=== PATIENT | male | born 1940 | race Hispanic/Latino ===

== ENCOUNTER 2017-08-08 18:24 | Observation (INO) | payer OTHER ==
[2017-08-08] MEDS ORDERED: ACETAMINOPHEN 500 MG TAB ONE (19:14)
[2017-08-08] MEDS ORDERED: NA CHLORIDE 0.9% 1,000 ML ONE (19:14)
[2017-08-08 19:21] LABS: Absolute Lymphocytes (CBC) 0.6 K/uL (0.7-4.9); Absolute Monocytes 0.7 K/uL (0.1-1.3); Absolute Neutrophil 8.2 K/uL (1.8-8.0); Basophils % 0.1 % (0-1.3); Eosinophils % 0.1 % (0-4.4); Hematocrit 40.9 % (39.6-49.0); Lymphocytes % 6.4 % (15.3-44.8); MCH 29.4 pg (27.0-35.0); MCV 90.3 fL (80-100); MPV 8.2 fL (7.6-11.3); Monocytes % 7.6 % (3.3-12.3); RBC Red Blood Cell Count 4.53 M/uL (4.33-5.43)
[2017-08-08 19:25] LABS: Protime INR 1.21
[2017-08-08 19:29] LABS: Potassium 4.7 mEq/L (3.6-5.0)
[2017-08-08 19:35] LABS: Albumin 4.1 g/dL (3.2-5.5); Bilirubin Direct 0.2 mg/dL (0-0.2); Bilirubin Total 0.7 mg/dL (0.3-1.2); Magnesium 1.9 mg/dL (1.8-2.5); Protein, Total 8.2 g/dL (6.0-8.3)
--- NOTE | 2017-08-08 19:52 | RAD REPORT ---
EXAM DESCRIPTION: RAD - Chest Single View - 08/08/2017 7:30 pm CLINICAL HISTORY: Fever, cough COMPARISON: April 2016 TECHNIQUE: AP portable chest image was obtained 1925 hour . FINDINGS: Interstitial markings are prominent but not clearly different. No failure, infiltrate or m ass seen. Early interstitial edema or infiltrate could be masked by the chronic underlying pattern. H eart and vasculature are normal. No measurable pleural effusion and no pneumothorax. No acute bony ab normality seen. Degenerative changes are present at both shoulder joints. No acute aortic findings vega spected. IMPRESSION: Chronic interstitial lung disease is present similar to comparison. Early interstitial edema or infiltrate could be masked.
--- NOTE | 2017-08-08 20:08 | EKG ---
Test Date: 2017-08-08 Test Time: 18:50:42 [employer] Ranger: HB MEASUREMENT RESULTS: Intervals: Rate: 109 RI: 130 QRSD: 80 QT: 314 QTc: 422 [place]: P: 55 RI: 130 QRS: 8 T: 48 INTERPRETIVE STATEMENTS: Sinus tachycardia with premature atrial complexes Otherwise normal ECG Compared to ECG 05/07/2016 07:57:30 Atrial premature complex(es) now present Sinus rhythm no longer present Electronically Signed On 08-08-17 20:07:42 CDT by Tobi Tong
[2017-08-08 20:51] LABS: Blood Morphology Comment NOTED (NOT SEEN); Platelet Estimate ADEQ; Toxic Granulation PRESENT
[2017-08-08 20:52] LABS: Anisocytosis 1+
[2017-08-08 21:11] LABS: Urine Blood NEGATIVE (NEG); Urine Glucose NEGATIVE (NEG); Urine Protein 2+ (NEG); Urine Specific Gravity >1.030 (1.005-1.030); Urine pH 5.5 (5.0-7.0)
--- NOTE | 2017-08-08 21:33 | ER ---
Nurse's Notes [facility] Name: Redd Tapia Age: 76 yrs Sex: Male : 1940 Arrival Date: 08/08/2017 Time: 18:26 Bed 6 Private MD: Diagnosis: Dehydration;Acute kidney injury;Vomiting;Diarrhea, unspecified;Bronchitis, not specified as acute or chronic-Possible COPD exacerbation Presentation: 08/08 18:29 Presenting complaint: Child states: " He has fallen twice today, he has been feeling ph weak since Wednesday and has been vomiting, he can't keep anything down." Reports N/V, cough, and general weakness, denies pain or diarrhea. Pt also denies injury or pain from falls. Transition of care: patient was not received from another setting of care. Onset of symptoms was August 08, 2017. Care prior to arrival: None. 18:29 Method Of Arrival: Wheelchair ph 18:29 Acuity: KIRAN 3 ph 18:45 Acuity: KIRAN 2 hb Historical: - Allergies: 18:34 No Known Allergies; ph - Home Meds: 18:59 metformin Oral [Active]; Simvastatin Oral [Active]; Ranitidine Oral [Active]; Magnesium sv Oxide Oral [Active]; lisinopril-hydrochlorothiazide oral oral [Active]; Advair Diskus Inhl [Active]; cetirizine oral oral [Active]; - PMHx: 18:34 Breathing Problems; Diabetes - NIDDM; Hyperlipidemia; Hypertension; ph - PSHx: 18:34 ana luisa hip sx; ph - Immunization history:: Adult Immunizations not up to date. - Social history:: Smoking status: Patient/guardian denies using tobacco. Screenin:50 Abuse screen: Denies threats or abuse. Denies injuries from another. Nutritional sv screening: No deficits noted. Tuberculosis screening: No symptoms or risk factors identified. Fall Risk Fall in past 12 months (25 points). No secondary diagnosis (0 pts). IV access (20 points). Ambulatory Aid- None/Bed Rest/Nurse Assist (0 pts). Gait- Weak (10 pts.). Mental Status- Oriented to own ability (0 pts). Total Marcelo Fall Scale indicates High Risk Score (45 or more points). Fall prevention measures have been instituted. Placed Close to Nursing Station Frequent Obs/Assessments Occuring Family Present and informed to notify staff if the need to leave the bedside As available patient and family educated on Fall Prevention Program and Strategies. Assessment: 18:40 General: Appears in no apparent distress. comfortable, Behavior is calm, cooperative, sv appropriate for age. General: Family reports that he was getting agitated earlier today.. Pain: Denies pain. Neuro: Level of Consciousness is awake, alert, obeys commands, Oriented to person, place, time, situation, Moves all extremities. Full function. Cardiovascular: Denies chest pain, palpitations, shortness of breath, syncope, Patient's skin is warm and dry. Rhythm is atrial fibrillation with rapid ventricular response. Respiratory: Reports cough that is productive, green sputum Respiratory effort is even, unlabored, Respiratory pattern is regular, symmetrical, Denies shortness of breath. GI: Reports intolerance of food, nausea, vomiting. Derm: Skin is thin, Skin is normal. Musculoskeletal: Range of motion: intact in all extremities. 18:42 Reassessment: HR 170s, SHRIMP PICKER Oswaldo notified. hb 18:43 Reassessment: KATHIA Chacon at bedside. hb 19:10 General: Appears in no apparent distress. comfortable, Behavior is calm, cooperative, ao appropriate for age. Pain: Denies pain. Neuro: Level of Consciousness is awake, alert, obeys commands, Oriented to person, place, time, situation, Appropriate for age Moves all extremities. Weakness Speech is normal, Facial symmetry appears normal, Pupils are PERRLA. Cardiovascular: Denies chest pain, palpitations, shortness of breath, syncope, Capillary refill < 3 seconds Patient's skin is warm and dry. Rhythm is atrial fibrillation with rapid ventricular response. Respiratory: Airway is patent Respiratory effort is even, unlabored, Respiratory pattern is regular, symmetrical, Denies shortness of breath. GI: Abdomen is non-distended, Reports intolerance of food, nausea, vomiting. : No signs and/or symptoms were reported regarding the genitourinary system. EENT: No signs and/or symptoms were reported regarding the EENT system. Derm: Skin is thin, Skin is normal. Musculoskeletal: Range of motion: intact in all extremities. 20:01 Reassessment: Patient appears in no apparent distress at this time. Patient and/or ao family updated on plan of care and expected duration. Pain level reassessed. Patient is alert, oriented x 3, equal unlabored respirations, skin warm/dry/pink. Family at bedside. 21:00 Reassessment: Patient appears in no apparent distress at this time. Patient and/or ao family updated on plan of care and expected duration. Pain level reassessed. Patient is alert, oriented x 3, equal unlabored respirations, skin warm/dry/pink. 21:30 Reassessment: Patient went from SR to AFib with a HR of 145. Oswaldo SHRIMP PICKER was notified. ao Patient stated with a HR of 145 for about 5 minutes then came down to 86. 22:01 Reassessment: Patient appears in no apparent distress at this time. Patient and/or ao family updated on plan of care and expected duration. Pain level reassessed. Patient is alert, oriented x 3, equal unlabored respirations, skin warm/dry/pink. Waiting on room assigment. 22:34 Reassessment: Patient back to AFib with a HR of 143. Oswaldo BAE notified. ao 23:20 Reassessment: Phone report given to JAS Haley. Patient will be taking to his room. ao Vital Signs: 18:31 BP 124 / 60; Pulse 78; Resp 16; Temp 101.1(TE); Pulse Ox 92% on R/A; Weight 63.5 kg; ph Pain 0/10; 19:10 BP 130 / 65; Pulse 106; Resp 24; Pulse Ox 97% on R/A; Pain 0/10; ao 20:01 BP 116 / 56; Pulse 90; Resp 18; Pulse Ox 96% on R/A; Pain 0/10; ao 20:46 Temp 100.2(O); mt 21:07 BP 109 / 55; Pulse 87; Resp 16; Pulse Ox 97% on R/A; mt 22:02 BP 106 / 57; Pulse 87; Resp 16; Pulse Ox 97% on R/A; Pain 0/10; ao 22:35 BP 111 / 71; Pulse 135; Resp 18; Pulse Ox 97% on R/A; Pain 0/10; ao 23:00 Temp 99.6; ao 23:20 BP 120 / 72; Pulse 143; Resp 18; Temp 99.6; Pulse Ox 99% on R/A; Pain 0/10; ao ED Course: 18:26 Patient arrived in ED. as 18:31 Triage completed. ph 18:34 Arm band placed on. ph 18:40 quality assurance monitor body on. Pulse ox on. NIBP on. Head of bed elevated. sv 18:40 Initial lab(s) drawn, by me, sent to lab. First set of blood cultures drawn by me. sv Inserted saline lock: 20 gauge in right forearm, using aseptic technique. Blood collected. Flushed right forearm with 5 ml normal saline. Inserted saline lock: 20 gauge in left antecubital area, using aseptic technique. ,using aseptic technique. done by Zoraida CUELLAR. 18:44 Oswaldo Mclaughlin, KATHIA is PHCP. pm1 18:44 Lan Casas MD is Attending Physician. pm1 18:50 Patient has correct armband on for positive identification. Placed in gown. Bed in low sv position. Call light in reach. Side rails up X2. Adult w/ patient. 19:00 Report given to Xavier MARK and Neomi MARK. sv 19:06 Report received from JAS Canales. ao 19:24 X-ray completed. Portable x-ray completed in exam room. Patient tolerated procedure la2 well. 19:37 Xavier Gonzales RN is Primary Nurse. ao 21:30 Snag Linares MD is Hospitalizing Provider. pm1 23:29 No provider procedures requiring assistance completed. Patient admitted, IV remains in ao place. Administered Medications: 19:00 Drug: Tylenol 1000 mg Route: PO; sv 23:00 Follow up: Temp 99.6 ao 19:00 Drug: NS 0.9% 500 ml Route: IV; Rate: bolus; Site: right forearm; sv 22:23 Follow up: IV Status: Completed infusion lp1 19:30 Drug: NS 0.9% 1000 ml Route: IV; Rate: 100 ml/hr; Site: left antecubital; ao 08/09 03:48 Follow up: IV Status: Infusion continued upon admission ao 08/08 22:22 Drug: AZITHromycin 500 mg Route: IVPB; Infused Over: 1 hrs; Site: right antecubital; lp1 22:30 Follow up: IV Status: Completed infusion ao 22:23 Drug: Rocephin - (cefTRIAXone) 1 grams Route: IVPB; Infused Over: 30 mins; Site: right lp1 antecubital; 23:00 Follow up: IV Status: Completed infusion; IV Intake: 10ml ao Intake: 23:00 IV: 10ml; Total: 10ml. ao Outcome: 21:32 Decision to Hospitalize by Provider. pm1 23:29 Admitted to Med/surg accompanied by tech, room 229. ao 23:29 Condition: stable 23:29 Instructed on the need for admit. 23:32 Patient left the ED. ao Signatures: Ally Mims, RN Pamella Bridges Laura RN RN lp1 Carmen Thomas RN RN Xavier Gonzales RN RN ao Oswaldo Mclaughlin, KATHIA SHRIMP PICKER pm1 Zoraida Schmidt RN RN Vaibhav, [place] Laura Mandujano Corrections: (The following items were deleted from the chart) 18:50 12:42 Reassessment: HR 170s, SHRIMP PICKER Oswaldo notified hb hb 22:03 21:00 BP 106 / 57; Pulse 87bpm; Resp 16bpm; Pulse Ox 97% RA; Pain 0/10; ao ao 22:30 22:24 Reassessment: Patient when from SR to AFib with a HR of 145. Oswaldo SHRIMP PICKER was lp1 notified lp1
--- NOTE | 2017-08-08 21:33 | EDPHYS ---
Physician Documentation [facility] Name: Redd Tapia Age: 76 yrs Sex: Male : 1940 Arrival Date: 08/08/2017 Time: 18:26 Bed 6 Private MD: ED Physician Lan Casas HPI: 08/08 21:16 This 76 yrs old Male presents to ER via Wheelchair with complaints of pm1 Coughing, Vomiting, Weakness. 21:16 Onset: The symptoms/episode began/occurred 3 day(s) ago. Possible causes: travel, pm1 Returned from [place] on . Associated signs and symptoms: Pertinent positives: diarrhea, vomiting, Pertinent negatives: abdominal pain, dysuria. Severity of symptoms: in the emergency department the symptoms are unchanged. The patient has not experienced similar symptoms in the past. The patient has not recently seen a physician, the patient's primary care provider is Dr. Tsai. Patient with onset of a productive cough on after a trip to [place]. Sputum sometimes white and sometimes yellow. Patient denies and fever or chills. Patient did not know that he had a fever here at the ER. Patient without any pain. Onset of vomiting and diarrhea on Wednesday. Around 2 episodes of vomiting daily and 2 episodes of diarrhea daily. Patient reports that his vomiting primarily happens after coughing multiple times. Reports good appetite but vomits when he tries to drink or eat. Patient with two falls today after episodes of coughing and he just felt weak. No injury from falls. Historical: - Allergies: 18:34 No Known Allergies; ph - Home Meds: 18:59 metformin Oral [Active]; Simvastatin Oral [Active]; Ranitidine Oral [Active]; Magnesium sv Oxide Oral [Active]; lisinopril-hydrochlorothiazide oral oral [Active]; Advair Diskus Inhl [Active]; cetirizine oral oral [Active]; - PMHx: 18:34 Breathing Problems; Diabetes - NIDDM; Hyperlipidemia; Hypertension; ph - PSHx: 18:34 ana luisa hip sx; ph - Immunization history:: Adult Immunizations not up to date. - Social history:: Smoking status: Patient/guardian denies using tobacco. ROS: 21:16 Constitutional: Negative for fever, chills, and weight loss, Eyes: Negative for injury, pm1 pain, redness, and discharge, ENT: Negative for injury, pain, and discharge, Neck: Negative for injury, pain, and swelling, Cardiovascular: Negative for chest pain, palpitations, and edema. 21:16 Back: Negative for injury and pain, : Negative for injury, bleeding, discharge, and swelling, MS/Extremity: Negative for injury and deformity, Skin: Negative for injury, rash, and discoloration, Neuro: Negative for headache, weakness, numbness, tingling, and seizure. 21:16 Respiratory: Positive for cough, with yellow sputum, Negative for shortness of breath. 21:16 Abdomen/GI: Positive for vomiting, diarrhea, Negative for abdominal pain. Exam: 21:25 Head/Face: Normocephalic, atraumatic. Eyes: Pupils equal round and reactive to light, pm1 extra-ocular motions intact. Lids and lashes normal. Conjunctiva and sclera are non-icteric and not injected. Cornea within normal limits. Periorbital areas with no swelling, redness, or edema. ENT: Nares patent. No nasal discharge, no septal abnormalities noted. Tympanic membranes are normal and external auditory canals are clear. Oropharynx with no redness, swelling, or masses, exudates, or evidence of obstruction, uvula midline. Mucous membranes moist. Neck: Trachea midline, no thyromegaly or masses palpated, and no cervical lymphadenopathy. Supple, full range of motion without nuchal rigidity, or vertebral point tenderness. No Meningismus. Chest/axilla: Normal chest wall appearance and motion. Nontender with no deformity. No lesions are appreciated. 21:25 Respiratory: Lungs have equal breath sounds bilaterally, clear to auscultation and percussion. No rales, rhonchi or wheezes noted. No increased work of breathing, no retractions or nasal flaring. 21:25 Back: No spinal tenderness. No costovertebral tenderness. Full range of motion. Skin: Warm, dry with normal turgor. Normal color with no rashes, no lesions, and no evidence of cellulitis. MS/ Extremity: Pulses equal, no cyanosis. Neurovascular intact. Full, normal range of motion. 21:25 Constitutional: The patient appears in no acute distress, alert, awake, comfortable, non-diaphoretic, non-toxic, well developed, well groomed, well nourished. 21:25 Cardiovascular: Pulses: no pulse deficits are appreciated, Heart sounds: normal, Edema: is not appreciated, Heart rate 150-170 on monitor at initial examination of patient in the room. Appeared to be atrial fibrillation on monitor. Patient's rate 100-110 after evaluation without any intervention performed. 21:25 Abdomen/GI: Inspection: abdomen appears normal, Bowel sounds: normal, Palpation: abdomen is soft and non-tender, in all quadrants. Vital Signs: 18:31 BP 124 / 60; Pulse 78; Resp 16; Temp 101.1(TE); Pulse Ox 92% on R/A; Weight 63.5 kg; ph Pain 0/10; 19:10 BP 130 / 65; Pulse 106; Resp 24; Pulse Ox 97% on R/A; Pain 0/10; ao 20:01 BP 116 / 56; Pulse 90; Resp 18; Pulse Ox 96% on R/A; Pain 0/10; ao 20:46 Temp 100.2(O); mt 21:07 BP 109 / 55; Pulse 87; Resp 16; Pulse Ox 97% on R/A; mt 22:02 BP 106 / 57; Pulse 87; Resp 16; Pulse Ox 97% on R/A; Pain 0/10; ao 22:35 BP 111 / 71; Pulse 135; Resp 18; Pulse Ox 97% on R/A; Pain 0/10; ao 23:00 Temp 99.6; ao 23:20 BP 120 / 72; Pulse 143; Resp 18; Temp 99.6; Pulse Ox 99% on R/A; Pain 0/10; ao MDM: 18:49 Patient medically screened. pm1 21:25 Data reviewed: vital signs. Data interpreted: Pulse oximetry: on room air is 97 %. pm1 Interpretation: normal. Counseling: I had a detailed discussion with the patient and/or guardian regarding: the historical points, exam findings, and any diagnostic results supporting the discharge/admit diagnosis, lab results, radiology results, the need for further work-up and treatment in the hospital. 08/08 18:52 Order name: Basic Metabolic Panel pm1 08/08 18:52 Order name: BNP pm1 08/08 18:52 Order name: CBC with Diff pm08/08 18:52 Order name: Ckmb pm08/08 18:52 Order name: CPK pm1 08/08 18:52 Order name: LFT's pm08/08 18:52 Order name: Magnesium pm08/08 18:52 Order name: PT-INR pm08/08 18:52 Order name: Ptt, Activated pm08/08 18:52 Order name: Troponin (emerg Dept Use Only) pm08/08 18:52 Order name: Blood Culture Adult (2) pm08/08 18:52 Order name: Flu pm08/08 18:52 Order name: Urine Microscopic Only 08/08 18:52 Order name: Procalcitonin pm08/08 18:52 Order name: Lactate pm08/08 19:28 Order name: CBC with Automated Diff; Complete Time: 21:16 EDMS 08/08 19:28 Order name: Protime (+INR); Complete Time: 19:57 EDMS 08/08 19:28 Order name: PTT, Activated Partial Thromb; Complete Time: 19:57 EDMS 08/08 19:29 Order name: Basic Metabolic Panel; Complete Time: 19:57 EDMS 08/08 19:31 Order name: Influenza Screen (A ; Complete Time: 19:57 EDMS 08/08 19:35 Order name: Liver (Hepatic) Function; Complete Time: 19:57 EDMS 08/08 19:35 Order name: Creatine Phosphokinase; Complete Time: 19:57 EDMS 08/08 19:35 Order name: Magnesium; Complete Time: 19:57 EDMS 08/08 19:36 Order name: Troponin (Emerg Dept Use Only); Complete Time: 19:57 EDMS 08/08 19:39 Order name: CKMB Creatine Kinase MB; Complete Time: 19:57 EDMS 08/08 19:39 Order name: BNP B-Type Natriuretic Peptide; Complete Time: 19:57 EDMS 08/08 19:44 Order name: Lactate; Complete Time: 19:57 EDMS 08/08 19:51 Order name: Procalcitonin; Complete Time: 19:57 EDMS 08/08 20:53 Order name: Urine Dipstick--Ancillary (enter results) em08/08 20:54 Order name: Manual Differential; Complete Time: 21:16 EDMS 08/08 18:52 Order name: XRAY Chest (1 view) pm08/08 18:52 Order name: EKG; Complete Time: 18:52 pm1 08/08 18:52 Order name: Cardiac monitoring; Complete Time: 18:55 pm1 08/08 18:52 Order name: EKG - Nurse/Tech; Complete Time: 18:55 pm1 08/08 18:52 Order name: IV Saline Lock; Complete Time: 18:55 pm1 08/08 18:52 Order name: Labs collected and sent; Complete Time: 18:56 pm1 08/08 18:52 Order name: O2 Per Protocol; Complete Time: 18:56 pm1 08/08 18:52 Order name: O2 Sat Monitoring; Complete Time: 18:56 pm1 08/08 18:52 Order name: Urine Dipstick-Ancillary (obtain specimen); Complete Time: 20:52 pm1 08/08 19:53 Order name: RAD; Complete Time: 19:57 EDMS 08/08 21:11 Order name: Urine Dipstick-Ancillary; Complete Time: 21:16 EDMS 08/08 22:04 Order name: Urine Microscopic Only; Complete Time: 23:32 EDMS Administered Medications: 19:00 Drug: Tylenol 1000 mg Route: PO; sv 23:00 Follow up: Temp 99.6 ao 19:00 Drug: NS 0.9% 500 ml Route: IV; Rate: bolus; Site: right forearm; sv 22:23 Follow up: IV Status: Completed infusion lp1 19:30 Drug: NS 0.9% 1000 ml Route: IV; Rate: 100 ml/hr; Site: left antecubital; ao 08/09 03:48 Follow up: IV Status: Infusion continued upon admission ao 08/08 22:22 Drug: AZITHromycin 500 mg Route: IVPB; Infused Over: 1 hrs; Site: right antecubital; lp1 22:30 Follow up: IV Status: Completed infusion ao 22:23 Drug: Rocephin - (cefTRIAXone) 1 grams Route: IVPB; Infused Over: 30 mins; Site: right lp1 antecubital; 23:00 Follow up: IV Status: Completed infusion; IV Intake: 10ml ao Disposition: 08/08/17 21:32 Hospitalization ordered by Sang Linares for Inpatient Admission. Preliminary diagnosis are Dehydration, Acute kidney injury, Vomiting, Diarrhea, unspecified, Bronchitis, not specified as acute or chronic - Possible COPD exacerbation. - Bed requested for Telemetry/MedSurg (Inpatient). - Status is Inpatient Admission. ao - Condition is Stable. - Problem is new. - Symptoms have improved. UTI on Admission? No Addendum: 08/12/2017 07:29 Co-signature as Attending Physician, Lan Casas MD. g s Signatures: Dispatcher [employer] EDMS Taisha Diamond, RN Ally Aleman, RN Noemi Peterson RN RN 1 Carmen Thomas RN RN ph Ortiz, Alex, RN Oswaldo De Leon, ENTERER ENTERER pm1 Lan Casas MD MD Corrections: (The following items were deleted from the chart) 08/08 21:25 21:16 Patient with onset of a productive cough on after a trip to [place]. pm1 Sputum sometimes white and sometimes yellow. Patient denies and fever or chills. Patient did not know that he had a fever here at the ER. Patient without any pain. Onset of vomiting and diarrhea on Wednesday. Around 2 episodes of vomiting daily and 2 episodes of diarrhea daily. Patient reports that his vomiting primarily happens after coughing multiple times. Reports good appetite but vomits when he tries to drink or eat. . pm1
[2017-08-08 22:03] LABS: Urine Amorphous Sediment 4+ /HPF (NONE SEEN); Urine Bacteria <20 /HPF (NONE SEEN); Urine Culture Reflex Order NOT NEEDED; Urine Mucus HEAVY /HPF (NONE SEEN); Urine RBC NONE SEEN /HPF (NONE SEEN)
--- NOTE | 2017-08-08 22:27 | P.HP ---
Certification for Inpatient Patient admitted to: Observation With expected LOS: <2 Midnights Practitioner: I am a practitioner with admitting privileges, knowledge of patient current condition, hospital course, and medical plan of care. Services: Services provided to patient in accordance with Admission requirements found in Title 42 Section 412.3 of the Code of Federal Regulations Patient History Date of Service: 08/08/17 Reason for admission: COPD exacerbation History of Present Illness: Mr Tapia is a 76 years old breana, serbian speaking only, with history of HTN, DM II, COPD, A.fib episode on previous admission in 2016 requiring cardioverion, currently not taking any anticoagulation, who about 4 days ago, after arrived from a car trip to [place], he started with more productive cough than usual. He states that sputum color change to yellow from white. He denied any fever or chills. Since a couple of days, he has had nausea and vomiting, and he was unable to keep any solid or liquid down. No chest pain or increasing SOB. In ED the patient was febrile, O2 92% on RA, blood pressure was on the lower side. Lab work shows normal WBC count, but 21% bands. Procalcitonin and lactate negative. CXR shows no acute infiltrate. Allergies No Known Allergies Allergy (Verified 08/08/17 22:00) Home Medications: Metformin HCl [Metformin HCl ER] 1,000 mg PO BID 05/05/16 Ranitidine HCl 150 mg PO BID 05/05/16 Simvastatin 20 mg PO DAILY 05/05/16 Cetirizine HCl [Zyrtec] 10 mg PO DAILY 08/08/17 Fluticasone/Salmeterol [Advair 250-50 Diskus] 1 puff IN BID 08/08/17 Lisinopril/Hydrochlorothiazide [Lisinopril-Hctz 20-12.5 mg Tab] 1 tab PO DAILY 08/08/17 Magnesium Oxide [Mag 0X*] 400 mg PO DAILY 08/08/17 - Past Medical/Surgical History Has patient received pneumonia vaccine in the past: Yes Diabetic: Yes -: Diabetes -: High Cholesterol -: Hypertension -: asthma -: gerd -: COPD -: Hip Replacement - Family History Family History: Reviewed- Non-Contributory - Social History Smoking Status: Former smoker Alcohol use: Yes CD- Drugs: No Caffeine use: Yes Place of Residence: Home Review of Systems 10-point ROS is otherwise unremarkable Physical Examination - Physical Exam General: Alert, In no apparent distress HEENT: Atraumatic, PERRLA, Mucous membr. moist/pink, EOMI, Sclerae nonicteric Neck: Supple, 2+ carotid pulse no bruit, No LAD, Without JVD or thyroid abnormality Respiratory: Diminished, Expiratory wheezes, Rhonchi/gurgles (bilateral rhonchi) Cardiovascular: Regular rate/rhythm, Normal S1 S2 Gastrointestinal: Normal bowel sounds, No tenderness Musculoskeletal: No tenderness Integumentary: No rashes Neurological: Normal speech, Normal strength at 5/5 x4 extr, Normal tone, Normal affect Lymphatics: No axilla or inguinal lymphadenopathy - Studies Laboratory Data (last 24 hrs) 08/08/17 18:46: PT 14.3 H, INR 1.21, APTT 27.3 08/08/17 18:46: WBC 9.5, Hgb 13.3 L, Hct 40.9, Plt Count 182 08/08/17 18:46: B-Natriuretic Peptide 296 H 08/08/17 18:46: Sodium 132 L, Potassium 4.7, BUN 37 H, Creatinine 1.66 H, Glucose 198 H, Magnesium 1.9, Total Bilirubin 0.7, AST 42, ALT 32, Alkaline Phosphatase 77 Microbiology Data (last 24 hrs): 08/08/17 19:01 Nasopharnyx Influenza Type A Antigen Screen - Final 08/08/17 19:01 Nasopharnyx Influenza Type B Antigen Screen - Final Assessment and Plan - Problems (Diagnosis) (1) COPD exacerbation Current Visit: Yes Status: Acute (2) Acute bronchitis Current Visit: Yes Status: Acute Qualifiers: Bronchitis organism: unspecified organism Qualified Code(s): J20.9 - Acute bronchitis, unspecified (3) Acute renal injury Current Visit: Yes Status: Acute (4) Diabetes mellitus Current Visit: Yes Status: Acute Qualifiers: Diabetes mellitus type: type 2 Diabetes mellitus long term acute care registered nurse insulin use: without long term acute care registered nurse use Diabetes mellitus complication status: with unspecified complications Qualified Code(s): E11.8 - Type 2 diabetes mellitus with unspecified complications (5) HTN (hypertension) Current Visit: Yes Status: Acute Qualifiers: Hypertension type: essential hypertension Qualified Code(s): I10 - Essential (primary) hypertension (6) Dyslipidemia Current Visit: Yes Status: Acute - Plan Mr Tapia will be admitted to the hospital due to COPD exacerbation likely secondaru to acute bronchitis. CXR shows no acute infiltrate. Will order empiric Rocephin and Azithromycin IV, breathing treatments and IV steroids. Consult Dr Quiñones for evaluation and recommendations. - Advance Directives Does patient have a Living Will: No Does patient have a Durable POA for Healthcare: No - Code Status/Comfort Care Code Status Assessed: Yes Code Status: Full Code
[2017-08-08] MEDS ORDERED: AZITHROMYCIN 500 MG/250 ML BAG ONE (22:28)
[2017-08-08] MEDS ORDERED: CEFTRIAXONE/SWI 1gm 1 GM/10 ML SYR ONE (22:28)
[2017-08-08] MEDS ORDERED: NA CHLORIDE 0.9% 1,000 ML IV SCH (23:41)
[2017-08-08] MEDS ORDERED: ONDANSETRON 4 MG/2 ML VIAL IV PRN (23:41)
[2017-08-09] MEDS ORDERED: ALBUTEROL 2.5 MG/3 ML NEB SOL NEB SCH
[2017-08-09] MEDS: METHYLPREDNISOLONE 40 MG INJ IV SCH ×2 (00:10→05:41)
[2017-08-09] MEDS ORDERED: ALBUTEROL 2.5 MG/3 ML NEB SOL NEB PRN (00:17)
[2017-08-09] MEDS ORDERED: IPRATROPIUM BROM 0.5MG/2.5ML NEB PRN (00:17)
[2017-08-09 05:13] VITALS: O2SAT 94
[2017-08-09 06:03] VITALS: BMI 23.8
[2017-08-09 06:09] LABS: Absolute Lymphocytes (CBC) 0.5 K/uL (0.7-4.9); Absolute Monocytes 0.2 K/uL (0.1-1.3); Absolute Neutrophil 6.6 K/uL (1.8-8.0); Basophils % 0.1 % (0-1.3); Hematocrit 37.6 % (39.6-49.0); Lymphocytes % 6.3 % (15.3-44.8); MCH 29.8 pg (27.0-35.0); MCV 92.4 fL (80-100); Monocytes % 2.9 % (3.3-12.3); RBC Red Blood Cell Count 4.07 M/uL (4.33-5.43)
[2017-08-09] MEDS ORDERED: LEVALBUTEROL 1.25 MG/3 ML NEB NEB PRN (06:12)
[2017-08-09 06:17] LABS: Potassium 4.8 mEq/L (3.6-5.0)
[2017-08-09] MEDS ORDERED: LEVALBUTEROL 1.25 MG/3 ML NEB NEB SCH (08:00)
--- NOTE | 2017-08-09 08:36 | P.CNS ---
Date of Consult: 08/09/17 Chief Complaint: COPD exacerbation History of Present Illness: Patient is 76 years of age Romanian-speaking only apparently had fallen twice since Wednesday has been vomiting can't keep anything down complaining of cough weakness prior history of atrial fibrillation even for a recent car trip to [place] in [facility] sputum changed from yellow to white denies any fever or chills denies any chest pain mention of a history of COPD although he does not smoke patient is on Advair at home Allergies No Known Allergies Allergy (Verified 08/08/17 22:00) Home Medications: Metformin HCl [Metformin HCl ER] 1,000 mg PO BID 05/05/16 Ranitidine HCl 150 mg PO BID 05/05/16 Simvastatin 20 mg PO DAILY 05/05/16 Cetirizine HCl [Zyrtec] 10 mg PO DAILY 08/08/17 Fluticasone/Salmeterol [Advair 250-50 Diskus] 1 puff IN BID 08/08/17 Lisinopril/Hydrochlorothiazide [Lisinopril-Hctz 20-12.5 mg Tab] 1 tab PO DAILY 08/08/17 Magnesium Oxide [Mag 0X*] 400 mg PO DAILY 08/08/17 - Past Medical/Surgical History Diabetic: Yes -: Diabetes -: High Cholesterol -: Hypertension -: asthma -: gerd -: COPD -: Hip Replacement - Social History Smoking Status: Former smoker Alcohol use: Yes CD- Drugs: No Caffeine use: Yes Place of Residence: Home Review of Systems is unable to be obtained Physical Examination Temp Pulse Resp BP Pulse Ox 96.8 F 132 H 18 123/66 94 08/09/17 04:00 08/09/17 04:00 08/09/17 04:00 08/09/17 04:00 08/09/17 04:00 General: Alert, Cooperative Neck: Supple Respiratory: Expiratory wheezes Cardiovascular: No edema, Irregular heart rate/rhythm Gastrointestinal: Normal bowel sounds, Soft and benign Musculoskeletal: No clubbing, No swelling Laboratory Data (last 24 hrs) 08/08/17 18:46: PT 14.3 H, INR 1.21, APTT 27.3 08/08/17 18:46: WBC 9.5, Hgb 13.3 L, Hct 40.9, Plt Count 182 08/08/17 18:46: B-Natriuretic Peptide 296 H 08/08/17 18:46: Sodium 132 L, Potassium 4.7, BUN 37 H, Creatinine 1.66 H, Glucose 198 H, Magnesium 1.9, Total Bilirubin 0.7, AST 42, ALT 32, Alkaline Phosphatase 77 - Problems (1) COPD exacerbation Current Visit: Yes Status: Acute Plan: Patient is 76 years of age admitted with worsening cough congestion possible underlying COPD his chest x-ray appears to be fairly clear chemistries mildly elevated creatinine pro calcitonin level is negative vital signs stable blood pressure normal sats satisfactory 94% on room air last echocardiogram in 2015 shows normal left ventricular function. Patient does take Advair at home can be discharged home on on low-dose prednisone 10 mg twice a day with an antibiotic follow up with me in my office in 2 weeks need outpatient pulmonary function testing
[2017-08-09] MEDS ORDERED: ARFORMOTEROL TARTRATE 15 MCG/2 ML VIAL.NEB NEB SCH (08:41)
[2017-08-09] MEDS ORDERED: BENZONATATE 100 MG CAP PO PRN (08:57)
[2017-08-09] MEDS ORDERED: levoFLOXacin 500 MG TAB PO SCH (09:00)
[2017-08-09] MEDS ORDERED: METHYLPREDNISOLONE 40 MG INJ IV SCH (09:00)
[2017-08-09] MEDS: INSULIN -REGULAR HUMAN 50 UNIT/0.5 ML ML SQ SCH ×2 (09:00→13:22)
[2017-08-09] MEDS ORDERED: ENOXAPARIN 30 MG/0.3 ML SQ SCH (09:00)
[2017-08-09 09:22] VITALS: BP 131/60; TEMP 97.5
--- NOTE | 2017-08-09 11:10 | EKG ---
Test Date: 2017-08-09 Test Time: 00:00:21 Flat Knitter: RT T MEASUREMENT RESULTS: Intervals: Rate: 86 UT: 128 QRSD: 84 QT: 380 QTc: 454 [place]: P: 54 UT: 128 QRS: 18 T: 61 INTERPRETIVE STATEMENTS: Normal sinus rhythm Normal ECG Compared to ECG 08/08/2017 18:50:42 Sinus tachycardia no longer present Atrial premature complex(es) no longer present Electronically Signed On 08-09-17 11:09:41 CDT by Tobi Tong
--- NOTE | 2017-08-09 11:11 | EKG ---
Test Date: 2017-08-08 Test Time: 22:58:51 Heating And Cooling Systems Engineer: KYE MEASUREMENT RESULTS: Intervals: Rate: 143 [place]: QRSD: 86 QT: 314 QTc: 484 [place]: P: [place]: QRS: 18 T: 25 INTERPRETIVE STATEMENTS: Atrial fibrillation with rapid ventricular response Abnormal ECG Compared to ECG 08/08/2017 18:50:42 Sinus tachycardia no longer present Atrial premature complex(es) no longer present Electronically Signed On 08-09-17 11:09:48 CDT by Tobi Tong
[2017-08-09] MEDS ORDERED: DILTIAZEM HCL 60 MG TAB PO SCH (12:00)
[2017-08-09] MEDS ORDERED: IPRATROPIUM BROM 0.5MG/2.5ML NEB SCH ×2 (14:00)
--- NOTE | 2017-08-09 16:25 | P.SSS ---
Patient History Date of Service: 08/10/17 Reason for admission: COPD exacerbation History of Present Illness: Mr Tapia is a 76 years old male, pashto speaking only, with history of HTN, DM II, COPD, A.fib episode on previous admission in 2016 requiring cardioverion, currently not taking any anticoagulation, who about 4 days ago, after arrived [place], he started with more productive cough than usual. He states that sputum color change to yellow from white. He denied any fever or chills. Since a couple of days, he has had nausea and vomiting, and he was unable to keep any solid or liquid down. No chest pain or increasing SOB. In ED the patient was febrile, O2 92% on RA, blood pressure was on the lower side. Lab work shows normal WBC count, but 21% bands. Procalcitonin and lactate negative. CXR shows no acute infiltrate. From H&P Allergies No Known Allergies Allergy (Verified 08/08/17 22:00) Home medications list reviewed: Yes Home Medications: Metformin HCl [Metformin HCl ER] 1,000 mg PO BID 05/05/16 Ranitidine HCl 150 mg PO BID 05/05/16 Simvastatin 20 mg PO DAILY 05/05/16 Cetirizine HCl [Zyrtec] 10 mg PO DAILY 08/08/17 Fluticasone/Salmeterol [Advair 250-50 Diskus] 1 puff IN BID 08/08/17 Lisinopril/Hydrochlorothiazide [Lisinopril-Hctz 20-12.5 mg Tab] 1 tab PO DAILY 08/08/17 Magnesium Oxide [Mag 0X*] 400 mg PO DAILY 08/08/17 Aspirin [Aspirin EC 81 MG] 81 mg PO DAILY #30 tablet. 08/09/17 Benzonatate [Tessalon Perle*] 100 mg PO TID PRN #21 cap 08/09/17 Levofloxacin [Levaquin*] 500 mg PO DAILY #7 tab 08/09/17 Prednisone [Deltasone*] 10 mg PO BID #20 tab 08/09/17 Sotalol HCl [Betapace*] 40 mg PO BID 6AM 6PM #30 tab 08/09/17 - Past Medical/Surgical History Has patient received pneumonia vaccine in the past: Yes Diabetic: Yes -: Diabetes -: High Cholesterol -: Hypertension -: asthma -: gerd -: COPD -: Hip Replacement - Family History Family History: Reviewed- Non-Contributory - Social History Smoking Status: Former smoker Alcohol use: Yes CD- Drugs: No Caffeine use: Yes Place of Residence: Home Review of Systems 10-point ROS is otherwise unremarkable Respiratory: Cough Physical Examination - Vital Signs Temperature: 97.5 F Blood Pressure: 131/60 Pulse: 86 Respirations: 16 Pulse Ox (%): 96 - Physical Exam Other Physical/Emotional Findings: PLEASE SEE PROGRESS NOTE FOR PHYSICAL EXAM FINDINGS - Studies Laboratory Data (last 24 hrs) 08/08/17 18:46: PT 14.3 H, INR 1.21, APTT 27.3 08/08/17 18:46: WBC 9.5, Hgb 13.3 L, Hct 40.9, Plt Count 182 08/08/17 18:46: B-Natriuretic Peptide 296 H 08/08/17 18:46: Sodium 132 L, Potassium 4.7, BUN 37 H, Creatinine 1.66 H, Glucose 198 H, Magnesium 1.9, Total Bilirubin 0.7, AST 42, ALT 32, Alkaline Phosphatase 77 Microbiology Data (last 24 hrs): 08/08/17 19:01 Nasopharnyx Influenza Type A Antigen Screen - Final 08/08/17 19:01 Nasopharnyx Influenza Type B Antigen Screen - Final - Diagnosis (Problem(s)) (1) Atrial fibrillation with RVR Status: Acute (2) Acute bronchitis Onset Date: 08/09/17 Status: Acute Qualifiers: Bronchitis organism: unspecified organism Qualified Code(s): J20.9 - Acute bronchitis, unspecified (3) Acute renal injury Onset Date: 08/09/17 Status: Acute (4) COPD exacerbation Onset Date: 08/09/17 Status: Acute (5) Diabetes mellitus Onset Date: 08/09/17 Status: Acute Qualifiers: Diabetes mellitus type: type 2 Diabetes mellitus usp insulin use: without computer terminal operator use Diabetes mellitus complication status: with unspecified complications Qualified Code(s): E11.8 - Type 2 diabetes mellitus with unspecified complications (6) Dyslipidemia Onset Date: 08/09/17 Status: Acute (7) HTN (hypertension) Onset Date: 08/09/17 Status: Acute Qualifiers: Hypertension type: essential hypertension Qualified Code(s): I10 - Essential (primary) hypertension (8) Pneumonitis Onset Date: 05/06/16 Status: Acute Treatment Summary: Patient was admitted for acute bronchitis, COPD exacerbation. Treated w steroids , duonebs. Pulmonary saw pt. Inhalers adjusted. Pt did well. Cleared for DC from pulmonary standpoint. Patient also had Afib w RVR placed on sotalol and ASA for anti-coag. Rate w better controlled. Patient has hx of afib w previous cardioversion. - Disposition Discharge Date: 08/09/17 Condition: FAIR Consultations: Dr. Quiñones Patient Discharge Instructions: Follow up with primary care physician in 2-3 days. Follow up with cleaning supervisor Dr. Quiñones in 1-2 weeks. Return to ER for worsening condition Diet: ADA Activity: No strenuous activity
--- NOTE | 2017-08-09 17:38 | CON ---
History Of Present Illness: Mr. Tapia is 76. He came to the hospital with chills, fever, bloating, diarrhea, and he has been found to have what looks like most likely pneumonia. Although, the x-ray i s equivocal at best. Has mostly Pulmonary symptoms of fevers, chills, elevated white blood cell coun t. He is being treated with antibiotics. While here, he gets frequent spells of atrial fibrillation . He does not seem to really notice it. I am not sure if the family is really aware of AFib or not but after a while one of the family members contributed the fact that he had a cardioversion several years ago. While here, he spends much of his time in sinus rhythm and starts going into AFib with a rapid rate. He has been given 30 mg of diltiazem, but it really has not done much for him. I think we should probably stop that, and we will try Betapace. He has underlying diabetes, hypertension, CO PD. He was a heavy cigarette smoker but none in [address] Hinton apparently treats him, but he h as never had bypass surgery or a stent or any other vascular disease. Physical Examination: Vital Signs: 5 feet 5 inches, 143 pounds. General: Alert, oriented, pleasant. Lungs: Wheezes and large airway sounds throughout most of the lung richards not worsen any particular place. Abdomen: Soft. Heart: Very rapid going about 130 beats per minute. Irregularly irregular. Extremities: Palpable distal pulses. No cyanosis, clubbing, or edema. Impression: Mr. Tapia has paroxysmal atrial fib. I think we could try Betapace on him and see if th at does any good for him. Before trying other antiarrhythmic drugs, I would like to try that. He co uld be a candidate for Multaq, but Multaq is often ineffective in light of atrial fib paroxysms, so i t would be my third or fourth choice. Flecainide and Rythmol probably not indicated because he deepthi mcgovern has at least some degree of coronary heart disease. So we will go with Betapace as the first thing to soumya WALKER Voice ID: [id number] Report ID: [id number]
[2017-08-09] MEDS ORDERED: SOTALOL HCL 80 MG TAB PO SCH (18:00)
--- NOTE | 2017-08-09 18:52 | PN ---
Date of Progress Note: 08/09/2017 The patient seen and examined. Chart reviewed and case with RN. Subjective: The patient reports cough and some shortness of breath. Review of Systems: Negative except as above. Medications: Reviewed. Physical Examination: Vital Signs: Temperature 97.5, heart rate 86, blood pressure 131/60, respirations 16, O2 96% on room air. General: Awake, alert, oriented x3, in some mild distress. Elderly male, somewhat ill-appearing. CV: S1 and S2. No murmurs. Irregularly irregular rhythm. Peripheral pulses present. Respiratory: Diminished breath sounds bilaterally. Some wheezing is present. Gastrointestinal: Abdomen is soft, nontender, nondistended. Positive bowel sounds. Musculoskeletal: No swelling. Extremities: No clubbing, cyanosis, or edema. Neurologic: Nonfocal. Laboratory Data: Sodium 136, potassium 4.8, chloride 108, CO2 20, BUN 32, creatinine 1.32, glucose 188, calcium 8.1. WBC 7.3, H and H 12.2, 37.6, platelets 149, neutrophils 90.7%. Assessment And Plan: A 76-year-old male with: 1. Acute chronic obstructive pulmonary disease exacerbation, on steroids and DuoNeb. 2. Acute bronchitis. 3. Acute kidney injury, creatinine improving, on IV fluids. 4. Diabetes mellitus type 2 with long-term use of insulin. 5. Essential hypertension, stable. 6. Dyslipidemia. 7. Afib w RVR: now CVR. Sotalol. ASA Plan: The patient has been cleared by Pulmonology to be discharged on low-dose prednisone and Advair. We will discharge on antibiotic and follow up with Pulmonology in 2 weeks for outpatient PFTs. /NATALIE Voice ID: [id number] Report ID: [id number] CODEY
[2017-08-09] MEDS ORDERED: ATORVASTATIN 10 MG TAB PO SCH (21:00)
[2017-08-09] MEDS ORDERED: RANITIDINE 150 MG TABLET PO SCH (21:00)
[2017-08-09] MEDS ORDERED: CEFTRIAXONE 1 GM/NS 50 ML 1 GM/50 ML BAG IV SCH (22:00)
[2017-08-09] MEDS ORDERED: AZITHROMYCIN IV 500 MG in NA CHLORIDE 0.9% 250 ML IVPB SCH (23:00)
[2017-08-10] MEDS ORDERED: LISINOPRIL 20 MG TAB PO SCH (09:00)
[2017-08-10] MEDS ORDERED: HOME MED 1 EA UNK (Lisinopril/Hydrochlorothiazide [Lisinopril-Hctz 20-12.5 Mg Tab] 1 TAB) PO SCH (09:00)
[2017-08-10] MEDS ORDERED: CETIRIZINE HCL 5 MG TABLET PO SCH (09:00)
[2017-08-10] MEDS ORDERED: hydroCHLOROthiazide 12.5 MG CAP PO SCH (09:00)
== END 2017-08-09 15:50 | disposition home or self-care (01) ==
LOC: ER 18:24 → ERHOLD 21:32 → 2ND 22:52
PROVIDERS: ADMIT Internal Medicine; ATTEND Internal Medicine
DX: J44.1 Chronic obstructive pulmonary disease with (acute) exacerbation (principal); J20.9 Acute bronchitis, unspecified; J44.0 Chronic obstructive pulmonary disease with (acute) lower respiratory infection; N17.9 Acute kidney failure, unspecified; I10 Essential (primary) hypertension; I48.0 Paroxysmal atrial fibrillation; E11.9 Type 2 diabetes mellitus without complications; K21.9 Gastro-esophageal reflux disease without esophagitis; Z96.649 Presence of unspecified artificial hip joint; E78.5 Hyperlipidemia, unspecified
CPT/HCPCS: 36415; 71045; 80048 ×2; 80076; 82550; 82553; 82962 ×3; 83605 ×2; 83735; 83880; 84145; 84484; 85025 ×2; 85610; 85730; 87040 ×2; 87804 ×2; 93005 ×3; 94640; 96361; 96365; 96375; 99285; G0378 ×2; J0456; J0696; J1650; J2920 ×3; J7030 ×2; 81003; 81015

== ENCOUNTER 2017-09-27 06:42 | Day surgery (SDC) | payer OTHER ==
--- OUTSIDE RECORDS SUMMARY | 2017-09-27 06:45 | XMS REPORT ---
:1940 Author Organization [employer]Works Care Team Providers Name Role Phone Tsai, Na Provider Role Unavailable Allergies, Adverse Reactions, Alerts Substance Reaction Event Type N.K.D.A. Info Not Available Non Drug Allergy Problems Problem Type Condition Code Onset Dates Condition Status Problem High risk medications (not Z79.899 Active anticoagulants) long-term use Problem Malignant hypertension I10 Active Problem Family history of ischemic heart Z82.49 Active disease and other diseases of the circulatory system Problem Hyperlipidemia E78.5 Active Assessment Weakness R53.1 Active Problem Allergic rhinitis J30.9 Active Problem Essential hypertension I10 Active Problem Type 2 diabetes E11.9 Active Problem Wheezing R06.2 Active Problem Asthma J45.909 Active Problem GERD (gastroesophageal reflux K21.9 Active disease) Assessment Type 2 diabetes E11.9 Active Assessment Paroxysmal a-fib I48.0 Active Assessment Hyperlipidemia E78.5 Active Assessment Essential hypertension I10 Active Assessment Chronic obstructive pulmonary J44.9 Active disease, unspecified COPD type Problem Acute bronchitis, unspecified J20.9 Active organism Assessment Wheezing R06.2 Active Problem Paroxysmal a-fib I48.0 Active Assessment Acute bronchitis, unspecified J20.9 Active organism Problem Chronic obstructive pulmonary J44.9 Active disease, unspecified COPD type Medications Medication Code Code Instructions Start End Status Dosage System Date Date Metformin HCl ND 06375876067 1000 MG Orally Active 1 tablet with Twice a day meals PredniSONE ND 22519716718 10 MG Orally AugustSeptember 29, Active 1 tablet twice a day 2017 Zantac 150 ND 27948655689 150 MG Orally Active 1 tablet at Maximum Once a day bedtime Strength Zyrtec Allergy ND 31246736550 10 MG Orally Active 1 tablet Once a day Magnesium ND 24685999269 400 MG Orally Active 1 tablet as Oxide Once a day needed Benzonatate ND 21926967598 100 MG Orally August Active 1 capsule as Three times a 16, needed day 2017 Advair Diskus [facility] 90953142628 250-50 Active INHALAR RANDEE APLICACION POR BOCA DOS VECES POR APURVA Sotalol HCl [facility] 76337124809 80 MG Orally August Active 1 tablet every 12 hrs 2017 Aspir-81 [facility] 36724474291 81 MG Orally Active 1 tablet Once a day Zestoretic [facility] 18409225296 20-12.5 MG Active 1 tablet Orally Once a day Zocor [facility] 42893248826 20 Active TOME RANDEE TABLETA RANDEE VEZ AL APURVA POR BOCA Flonase [facility] [address]-30 50 MCG/ACT Active 2 spray in Nasally Once a each nostril day Hemocyte Plus [facility] 25980396360 106 mg iron- Active TOME RANDEE CAPSULA RANDEE VEZ AL APURVA POR BOCA Levaquin [facility] 15424539793 500 MG Orally August Active 1 tablet Once a day 2017 ProAir HFA [facility] 05759510401 90 Active INHALAR DOS APLICACIONES POR BOCA CUATRO VECES POR APURVA Results No Known Results Summary Purpose [employer]Works Submission
[2017-09-27] MEDS ORDERED: CYCLOPENTOLATE 1% OPTH 2 ML ONE (06:55)
[2017-09-27] MEDS ORDERED: LIDOCAINE 2% MPF 5 ML VIAL ONE (06:55)
[2017-09-27] MEDS ORDERED: NA CHLORIDE 0.9% 0 ML ONE (06:55)
[2017-09-27] MEDS ORDERED: BUPIVACAINE 0.25% PF 10 ML VIAL ONE (06:55)
[2017-09-27] MEDS ORDERED: PHENYLEPHRINE 10% OPTH 5ML ONE (06:55)
[2017-09-27] MEDS ORDERED: TETRACAINE HCL 0.5% 2ML OPTH ONE (06:55)
[2017-09-27] MEDS ORDERED: NS 0.9% VIAL 0 ML ONE (08:05)
[2017-09-27] MEDS ORDERED: EPINEPHRINE/PF 1 MG/ML AMP ONE (08:05)
[2017-09-27] MEDS ORDERED: BALANCED SALT IRRIG PLAIN 500 ML BTL IRR ONE (08:06)
[2017-09-27] MEDS ORDERED: DUOVISC 1 KIT OPTH ONE (08:07)
[2017-09-27] MEDS ORDERED: MOXIFLOXACIN HCL 10 DROPS/ML **OR USE OPTH ONE (08:08)
[2017-09-27 08:34] VITALS: BP 113/71; TEMP 97.5; O2SAT 98
--- NOTE | 2017-09-27 09:16 | EKG ---
Test Date: 2017-09-27 Test Time: 07:48:52 Application Technician: BLANKA MEASUREMENT RESULTS: Intervals: Rate: 132 [place]: QRSD: 84 QT: 276 QTc: 408 [place]: P: ND: QRS: 3 T: 63 INTERPRETIVE STATEMENTS: Atrial fibrillation with rapid ventricular response Abnormal ECG Compared to ECG 08/09/2017 00:00:21 Sinus rhythm no longer present Electronically Signed On 09-27-17 09:15:32 CDT by Tobi Tong
== END 2017-09-27 08:20 | disposition other institution (70) ==
LOC: OR 06:42
PROVIDERS: ATTEND Ophthalmology Retina Specialist
DX: H25.11 Age-related nuclear cataract, right eye (principal); Z53.8 Procedure and treatment not carried out for other reasons
CPT/HCPCS: 93005; J0171

== ENCOUNTER 2017-09-27 08:22 | Emergency (ER) | payer OTHER ==
--- OUTSIDE RECORDS SUMMARY | 2017-09-27 08:24 | XMS REPORT ---
[...] Dosage System Date Date Metformin HCl ND 66372645790 1000 MG Orally Active 1 tablet with Twice a day meals PredniSONE ND 93806027430 10 MG Orally AugustSeptember 29, Active 1 tablet twice a day 2017 Zantac 150 ND 81263140888 150 MG Orally Active 1 tablet at Maximum Once a day bedtime Strength Zyrtec Allergy ND 30634696652 10 MG Orally Active 1 tablet Once a day Magnesium ND 87991839018 400 MG Orally Active 1 tablet as Oxide Once a day needed Benzonatate ND 65405851742 100 MG Orally August Active 1 capsule as Three times a 16, needed day 2017 Advair Diskus [facility] 92965247254 250-50 Active INHALAR RANDEE APLICACION POR BOCA DOS VECES POR APURVA Sotalol HCl [facility] 14728495487 80 MG Orally August Active 1 tablet every 12 hrs 2017 Aspir-81 [facility] 79085414810 81 MG Orally Active 1 tablet Once a day Zestoretic [facility] 23041470429 20-12.5 MG Active 1 tablet Orally Once a day Zocor [facility] 78869674968 20 Active TOME RANDEE TABLETA RANDEE VEZ AL APURVA POR BOCA Flonase [facility] [address]-10 50 MCG/ACT Active 2 spray in Nasally Once a each nostril day Hemocyte Plus [facility] 23722647062 106 mg iron- Active TOME RANDEE CAPSULA RANDEE VEZ AL APURVA POR BOCA Levaquin [facility] 66084493303 500 MG Orally August Active 1 tablet Once a day 2017 ProAir HFA [facility] 14750827929 90 Active INHALAR DOS APLICACIONES POR BOCA CUATRO VECES POR APURVA Results No Known Results Summary Purpose [employer]Works Submission
--- NOTE | 2017-09-27 09:49 | ER ---
Nurse's Notes [facility] Name: Redd Tapia Age: 77 yrs Sex: Male : 1940 Arrival Date: 09/27/2017 Time: 08:25 Bed 6 Private MD: Jolanta Tsai Diagnosis: Paroxysmal atrial fibrillation Presentation: 09/27 08:31 Presenting complaint: New onset AFIB w/RVR, HR 132, seen on 12 lead this morning during hb preop for cataract surgery. Denies SOB/pain/nausea. Transition of care: patient was not received from another setting of care. Onset of symptoms was September 27, 2017. Initial Sepsis Screen: Does the patient meet any 2 criteria? No. Patient's initial sepsis screen is negative. Does the patient have a suspected source of infection? No. Patient's initial sepsis screen is negative. Care prior to arrival: None. 08:31 Method Of Arrival: Wheelchair hb 08:31 Acuity: KIRAN 3 hb Historical: - Allergies: 08:36 No Known Allergies; hb - Home Meds: 08:36 Advair Diskus Inhl [Active]; cetirizine Oral [Active]; lisinopril-hydrochlorothiazide hb Oral [Active]; Magnesium Oxide Oral [Active]; Metformin Oral [Active]; Ranitidine Oral [Active]; Simvastatin Oral [Active]; - PMHx: 08:36 Breathing Problems; Diabetes - NIDDM; Hyperlipidemia; Hypertension; hb - PSHx: 08:36 ana luisa hip sx; hb - Immunization history:: Adult Immunizations up to date. - Social history:: Smoking status: Patient/guardian denies using tobacco. Screenin:00 Abuse screen: Denies threats or abuse. Denies injuries from another. Nutritional sg screening: No deficits noted. Tuberculosis screening: No symptoms or risk factors identified. Never had TB. Fall Risk None identified. Assessment: 09:00 General: Appears in no apparent distress. comfortable, well groomed, well developed, sg well nourished, Behavior is calm, cooperative, appropriate for age. Pain: Denies pain. Neuro: Level of Consciousness is awake, alert, obeys commands, Oriented to person, place, time, situation, Stogy Maker are equal bilaterally Moves all extremities. Full function Speech is normal, Facial symmetry appears normal. Cardiovascular: Heart tones S1 S2 present Capillary refill is brisk in bilateral fingers Patient's skin is warm and dry. Respiratory: Airway is patent Respiratory effort is even, unlabored, Respiratory pattern is regular, symmetrical, Breath sounds are clear. GI: No signs and/or symptoms were reported involving the gastrointestinal system. : No signs and/or symptoms were reported regarding the genitourinary system. EENT: No signs and/or symptoms were reported regarding the EENT system. Derm: Skin is pink, warm \T\ dry. Musculoskeletal: No signs and/or symptoms reported regarding the musculoskeletal system. Vital Signs: 08:34 BP 140 / 61; Pulse 83; Resp 15; Temp 97.9(TE); Pulse Ox 100% ; Pain 0/10; hb 10:00 BP 134 / 59; Pulse 69 MON; Resp 17 S; Temp 97.9; Pulse Ox 100% on R/A; sg 11:28 BP 102 / 86; Pulse 76 MON; Resp 18; Pulse Ox 100% on R/A; Pain 0/10; sg 11:28 Sinus Rhythm sg 11:28 repeat EKG has been ordered Vitals: 10:15 Cardiac Rhythm Assessment Atrial fibrillation W/rapid ventricular response Other sg Lucía OROPEZAP notified of pt rhythm, orders received for repeat EKG, pt does not report symptoms at this time. ED Course: 08:25 Patient arrived in ED. mr 08:25 Jolanta Tsai MD is Private Physician. mr 08:34 Triage completed. hb 08:36 Arm band placed on left wrist. hb 08:41 Sarwat Doss, RN is Primary Nurse. sg 08:45 Patient has correct armband on for positive identification. Bed in low position. Call sg light in reach. Side rails up X2. monitoring coordinator on. Pulse ox on. NIBP on. Warm blanket given. Verbal reassurance given. Head of bed elevated. 09:00 No provider procedures requiring assistance completed. sg 09:24 Tammy Mccullough FNP-C is [facility]. kb 09:24 Rinku Estrella MD is Attending Physician. kb 09:40 Initial lab(s) drawn, by me, sent to lab. Inserted saline lock: 20 gauge in right sg forearm, using aseptic technique. Blood collected. Patient maintains SpO2 saturation greater than 95% on room air. 09:48 Roddy Sanders DO is Hospitalizing Provider. kb 09:57 X-ray completed. Portable x-ray completed in exam room. Patient tolerated procedure jb2 well. 09:58 XRAY Chest (1 view) In Process Unspecified. EDMS 10:15 EKG done, by ED staff, reviewed by Tammy PAULSON. sg 10:23 Roddy Sanders DO is Hospitalizing Provider. kb 11:19 Walter Hinton MD is Referral Physician. kb 12:27 EKG done, by furniture repair technician. reviewed by Tammy PAULSON repeat ekg. sm3 12:34 IV discontinued, intact, bleeding controlled, No redness/swelling at site. Pressure aa5 dressing applied. Administered Medications: 10:14 Drug: Metoprolol 25 mg Route: PO; sg 12:34 Follow up: Response: No adverse reaction aa5 10:14 Drug: Aspirin 81 mg Route: PO; sg 12:34 Follow up: Response: No adverse reaction aa5 10:24 Drug: Lopressor 5 mg Route: IVP; Site: right forearm; sg 10:30 Follow up: Response: No adverse reaction aa5 11:28 Not Given (Physician Discretion): Lopressor 5 mg IVP once; Hold for SBP <100 or HR <60. sg 11:30 Drug: NS 0.9% 1000 ml Route: IV; Rate: 1000 ml; Site: right forearm; sg 11:40 Drug: Kayexalate 30 grams Route: PO; sg 12:34 Follow up: Response: No adverse reaction aa5 Outcome: 09:48 Decision to Hospitalize by Provider. kb 10:24 Decision to Hospitalize by Provider. kb 11:19 Discharge ordered by MD. kb 12:34 Patient left the ED. aa5 12:34 Discharged to home ambulatory, with family. aa5 12:34 Condition: improved 12:34 Discharge instructions given to patient, family, Instructed on discharge instructions, follow up and referral plans. Demonstrated understanding of instructions, follow-up care. Signatures: Dispatcher [employer] EDMS Tammy Mccullough FNP-C FNP-Sarwat Chandra RN JAS Christianne Lindquist Markie Perez jb2 Katie Martini RN RN aa5 Zoraida Schmidt RN RN Jennifer Anderson 3 Corrections: (The following items were deleted from the chart) 08:35 08:31 Presenting complaint: New onset AFIB w/RVR seen on 12 lead this morning during hb preop for cataract surgery. Denies SOB/pain/nausea hb
--- NOTE | 2017-09-27 09:49 | EDPHYS ---
Physician Documentation [facility] Name: Redd Tapia Age: 77 yrs Sex: Male : 1940 Arrival Date: 09/27/2017 Time: 08:25 Bed 6 Private MD: Jolanta Tsai ED Physician Rinku Estrella HPI: 09/27 09:32 This 77 yrs old Male presents to ER via Wheelchair with complaints of New kb onset A-fib. 09:32 The patient presents with a history of A.fib on EKG during preop, no palpitations kb reported. Context: The symptoms occur at rest. Onset: The symptoms/episode began/occurred just prior to arrival. Modifying factors: The symptoms are aggravated by nothing. The symptoms are alleviated by nothing. Associated signs and symptoms: Pertinent negatives: anxiety, chest pain, cough, fever, lightheadedness, nausea, SOB, syncope, near-syncope, unusual stressors, vertigo, vomiting. The patient has not experienced similar symptoms in the past. The patient has been recently seen by a physician:. Pt was in preop for catarct surgery and his EKG showed A Fib with RVR. Pt has not had this in the past so he was sent to the ER. Pt denies palpitations, shortness of breath, and chest pain. Historical: - Allergies: 08:36 No Known Allergies; hb - Home Meds: 08:36 Advair Diskus Inhl [Active]; cetirizine Oral [Active]; lisinopril-hydrochlorothiazide hb Oral [Active]; Magnesium Oxide Oral [Active]; Metformin Oral [Active]; Ranitidine Oral [Active]; Simvastatin Oral [Active]; - PMHx: 08:36 Breathing Problems; Diabetes - NIDDM; Hyperlipidemia; Hypertension; hb - PSHx: 08:36 ana luisa hip sx; hb - Immunization history:: Adult Immunizations up to date. - Social history:: Smoking status: Patient/guardian denies using tobacco. ROS: 09:32 Constitutional: Negative for fever, chills, and weight loss, Cardiovascular: Negative kb for chest pain, palpitations, and edema, Respiratory: Negative for shortness of breath, cough, wheezing, and pleuritic chest pain, Abdomen/GI: Negative for abdominal pain, nausea, vomiting, diarrhea, and constipation, Back: Negative for injury and pain, : Negative for injury, bleeding, discharge, and swelling, MS/Extremity: Negative for injury and deformity, Skin: Negative for injury, rash, and discoloration, Neuro: Negative for headache, weakness, numbness, tingling, and seizure. Exam: 09:32 Constitutional: This is a well developed, well nourished patient who is awake, alert, kb and in no acute distress. Head/Face: Normocephalic, atraumatic. Chest/axilla: Normal chest wall appearance and motion. Nontender with no deformity. No lesions are appreciated. Cardiovascular: Regular rate and rhythm with a normal S1 and S2. No gallops, murmurs, or rubs. Normal PMI, no JVD. No pulse deficits. Respiratory: Lungs have equal breath sounds bilaterally, clear to auscultation and percussion. No rales, rhonchi or wheezes noted. No increased work of breathing, no retractions or nasal flaring. Abdomen/GI: Soft, non-tender, with normal bowel sounds. No distension or tympany. No guarding or rebound. No evidence of tenderness throughout. Skin: Warm, dry with normal turgor. Normal color with no rashes, no lesions, and no evidence of cellulitis. MS/ Extremity: Pulses equal, no cyanosis. Neurovascular intact. Full, normal range of motion. Neuro: Awake and alert, GCS 15, oriented to person, place, time, and situation. Cranial nerves II-XII grossly intact. Motor strength 5/5 in all extremities. Sensory grossly intact. Cerebellar exam normal. Normal gait. Vital Signs: 08:34 BP 140 / 61; Pulse 83; Resp 15; Temp 97.9(TE); Pulse Ox 100% ; Pain 0/10; hb 10:00 BP 134 / 59; Pulse 69 MON; Resp 17 S; Temp 97.9; Pulse Ox 100% on R/A; sg 11:28 BP 102 / 86; Pulse 76 MON; Resp 18; Pulse Ox 100% on R/A; Pain 0/10; sg 11:28 Sinus Rhythm sg 11:28 repeat EKG has been ordered sg MDM: 09:24 Patient medically screened. kb 09:35 Data reviewed: vital signs, nurses notes. Data interpreted: Pulse oximetry: on room air kb is 100 %. Interpretation: normal. Counseling: I had a detailed discussion with the patient and/or guardian regarding: the historical points, exam findings, and any diagnostic results supporting the discharge/admit diagnosis, lab results, radiology results, the need for further work-up and treatment in the hospital. 09:45 Physician consultation: Polo CAPPS was contacted at 09:45, regarding admission, to the telemetry unit. patient's condition, after discussing pt condition, recommended outpt follow up with Dr Coker due to a fib that is paroxysmal and pt is asymptomatic. 10:21 Physician consultation: Polo CAPPS was contacted at 10:23, regarding admission, to the telemetry unit. patient's condition, and will see patient in ED, shortly. ED course: Pt is now back in A. Fib with RVR, rate 112-145. Will continue to monitor and admit for observation. 11:12 ED course: I Polo Polk PA-C, Hospitalist for today have assessed patient. .Patient jr8 currently hemodynamically stable and without any shortness of breath, chest pain, dizziness, near syncope, or syncope. Incidental finding of atrial fib with RVR when going in for cataract procedure today. Was sent to ED for further evaluation. Dr. Hinton Radiation Technician was consulted who is patients main legal editor. Known history of atrial fibrillation. Dr. Hinton agrees Ok to send home. Has been seen by our legal editor in past as well for paroxysmal atrial fib. Patient will f/u with Dr. Hinton this week. If he becomes symptomatic will come back for further treatment. . 09/27 09:25 Order name: Basic Metabolic Panel 09/27 09:25 Order name: BNP; Complete Time: 10:45 09/27 09:25 Order name: CBC with Diff; Complete Time: 10:07 kb 09/27 09:25 Order name: Ckmb 09/27 09:25 Order name: CPK 09/27 09:25 Order name: Magnesium 09/27 09:25 Order name: PT-INR; Complete Time: 10:21 kb 09/27 09:25 Order name: Ptt, Activated; Complete Time: 10:21 kb 09/27 09:25 Order name: Troponin (emerg Dept Use Only); Complete Time: 12:16 kb 09/27 09:25 Order name: XRAY Chest (1 view); Complete Time: 10:50 kb 09/27 09:25 Order name: EKG; Complete Time: 09:25 kb 09/27 09:25 Order name: Cardiac monitoring; Complete Time: 09:49 kb 09/27 09:25 Order name: EKG - Nurse/Tech; Complete Time: 09:49 kb 09/27 09:25 Order name: IV Saline Lock; Complete Time: 09:49 kb 09/27 09:25 Order name: Labs collected and sent; Complete Time: 09:49 kb 09/27 09:25 Order name: O2 Per Protocol; Complete Time: 09:49 kb 09/27 09:25 Order name: O2 Sat Monitoring; Complete Time: 09:49 kb 09/27 09:41 Order name: EKG Electrocardiogram EDMS 09/27 11:27 Order name: EKG; Complete Time: 11:28 sg Administered Medications: 10:14 Drug: Metoprolol 25 mg Route: PO; sg 12:34 Follow up: Response: No adverse reaction aa5 10:14 Drug: Aspirin 81 mg Route: PO; sg 12:34 Follow up: Response: No adverse reaction aa5 10:24 Drug: Lopressor 5 mg Route: IVP; Site: right forearm; sg 10:30 Follow up: Response: No adverse reaction aa5 11:28 Not Given (Physician Discretion): Lopressor 5 mg IVP once; Hold for SBP <100 or HR <60. sg 11:30 Drug: NS 0.9% 1000 ml Route: IV; Rate: 1000 ml; Site: right forearm; sg 11:40 Drug: Kayexalate 30 grams Route: PO; sg 12:34 Follow up: Response: No adverse reaction aa5 Disposition: 14:20 Co-signature as Attending Physician, Rinku Estrella MD I agree with the assessment and stefano plan of care. Disposition: 09/27/17 11:19 Discharged to Home. Impression: Paroxysmal atrial fibrillation. - Condition is Stable. - Discharge Instructions: Atrial Fibrillation, [id number]. - Medication Reconciliation Form, Thank You Letter, Antibiotic Education, Prescription Opioid Use form. - Follow up: Emergency Department; When: As needed; Reason: Worsening of condition. Follow up: Walter Hinton MD; When: 2 - 3 days; Reason: Recheck today's complaints, Continuance of care, Re-evaluation by your physician. - Notes: Follow up with Dr Hinton this week Signatures: Dispatcher [employer] EDMS Dany Mcculloughistin, EXECUTIVE VICE PRESIDENT BUSINESS DEVELOPMENT-C EXECUTIVE VICE PRESIDENT BUSINESS DEVELOPMENT-Ckb Sarwat Doss, RN RN Rinku Easley MD MD cha Calderon, Audri RN RN aa5 Polo Polk PA PA jr8 Zoraida Schmidt RN RN Corrections: (The following items were deleted from the chart) 09:59 09:48 Hospitalization Ordered by Roddy Sanders DO for Observation. Preliminary kb diagnosis is Paroxysmal atrial fibrillation - new onset. Bed requested for Telemetry/MedSurg (observation). Status is Observation. Condition is Stable. Problem is new. Symptoms are unchanged. UTI on Admission? No. kb 10:06 09:45 Physician consultation: Polo CAPPS was contacted at 09:45, regarding kb admission, to the telemetry unit. patient's condition, and will see patient in ED, kb 11:18 10:24 Hospitalization Ordered by Roddy Sanders DO for Observation. Preliminary kb diagnosis is Paroxysmal atrial fibrillation. Bed requested for Telemetry/MedSurg (observation). Status is Observation. Condition is Stable. Problem is new. Symptoms are unchanged. UTI on Admission? No. kb 12:34 11:19 09/27/2017 11:19 Discharged to Home. Impression: Paroxysmal atrial fibrillation. aa5 Condition is Stable. Forms are Medication Reconciliation Form, Thank You Letter, Antibiotic Education, Prescription Opioid Use. Follow up: Emergency Department; When: As needed; Reason: Worsening of condition. Follow up: Walter Hinton; When: 2 - 3 days; Reason: Recheck today's complaints, Continuance of care, Re-evaluation by your physician. kb
[2017-09-27 10:00] LABS: Absolute Lymphocytes (CBC) 1.3 K/uL (0.7-4.9); Absolute Monocytes 0.4 K/uL (0.1-1.3); Absolute Neutrophil 4.5 K/uL (1.8-8.0); Basophils % 0.3 % (0-1.3); Eosinophils % 2.3 % (0-4.4); Hematocrit 41.3 % (39.6-49.0); Lymphocytes % 20.7 % (15.3-44.8); MCH 29.4 pg (27.0-35.0); MCV 90.8 fL (80-100); MPV 7.8 fL (7.6-11.3); Monocytes % 6.5 % (3.3-12.3); RBC Red Blood Cell Count 4.55 M/uL (4.33-5.43)
[2017-09-27] MEDS ORDERED: ASPIRIN 81 MG CHEWABLE TABLET ONE (10:13)
[2017-09-27] MEDS ORDERED: METOPROLOL TAR 25 MG TAB ONE (10:13)
[2017-09-27 10:15] LABS: Protime INR 1.03
[2017-09-27 10:22] LABS: CKMB Creatine Kinase MB 1.8 ng/ml (0.3-4.0)
[2017-09-27] MEDS ORDERED: METOPROLOL TARTRATE 5 MG/5 ML INJ IV ONE ×2 (10:22→10:50)
[2017-09-27 10:29] LABS: Magnesium 1.9 mg/dL (1.8-2.5); Potassium 5.1 mEq/L (3.6-5.0)
--- NOTE | 2017-09-27 10:49 | RAD REPORT ---
EXAM DESCRIPTION: Jannette Single View09/27/2017 10:03 am CLINICAL HISTORY: Chest pain COMPARISON: July 2017 FINDINGS: The lungs appear clear of acute infiltrate. The heart is normal size IMPRESSION: No acute abnormalities displayed
[2017-09-27] MEDS ORDERED: SOD POLYSTYREN SUL 15 GM/60 ML UCUP ONE (11:37)
[2017-09-27] MEDS ORDERED: NA CHLORIDE 0.9% 1,000 ML ONE (11:42)
[2017-09-27 12:38] VITALS: TEMP 97.9; O2SAT 100
[2017-09-27 12:41] VITALS: BP 102/86
--- NOTE | 2017-09-27 14:40 | EKG ---
Test Date: 2017-09-27 Test Time: 11:29:16 Government Employee: [employer] MEASUREMENT RESULTS: Intervals: Rate: 68 FL: 148 QRSD: 82 QT: 400 QTc: 425 [place]: P: 52 FL: 148 QRS: 3 T: 41 INTERPRETIVE STATEMENTS: Normal sinus rhythm Septal infarct, age undetermined Abnormal ECG Compared to ECG 09/27/2017 10:15:43 Myocardial infarct finding now present Atrial fibrillation no longer present Electronically Signed On 09-27-17 14:39:23 CDT by Tobi Tong
--- NOTE | 2017-09-27 14:42 | EKG ---
Test Date: 2017-09-27 Test Time: 10:15:43 Therapeutic Activities Services Worker: LEVON MEASUREMENT RESULTS: Intervals: Rate: 128 UT: QRSD: 78 QT: 284 QTc: 414 [place]: P: UT: QRS: 4 T: 14 INTERPRETIVE STATEMENTS: Atrial fibrillation with rapid ventricular response Abnormal ECG Compared to ECG 09/27/2017 08:47:41 Sinus rhythm no longer present Myocardial infarct finding no longer present Electronically Signed On 09-27-17 14:42:09 CDT by Tobi Tong
--- NOTE | 2017-09-27 14:43 | EKG ---
Test Date: 2017-09-27 Test Time: 08:47:41 Commercial [employer] Assistant: SWG MEASUREMENT RESULTS: Intervals: Rate: 79 WV: 140 QRSD: 78 QT: 372 QTc: 426 [place]: P: 50 WV: 140 QRS: 8 T: 38 INTERPRETIVE STATEMENTS: Normal sinus rhythm Septal infarct, age undetermined Abnormal ECG Compared to ECG 09/27/2017 07:48:52 Myocardial infarct finding now present Atrial fibrillation no longer present Electronically Signed On 09-27-17 14:42:48 CDT by Tobi Tong
== END 2017-09-27 12:34 | disposition home or self-care (01) ==
LOC: ER 08:22 → ERHOLD 09:54 → UNDOADMOB 09:54
DX: I48.0 Paroxysmal atrial fibrillation (principal); I10 Essential (primary) hypertension; E11.9 Type 2 diabetes mellitus without complications; E78.5 Hyperlipidemia, unspecified
CPT/HCPCS: 36415; 71045; 80048; 82550; 82553; 83735; 83880; 84484; 85025; 85610; 85730; 93005 ×4; 96374; 99285; J7030

== ENCOUNTER 2018-07-11 08:41 | Day surgery (SDC) | payer OTHER ==
--- OUTSIDE RECORDS SUMMARY | 2018-07-11 08:44 | XMS REPORT ---
:1940 Author Organization [employer] Care Team Providers Name Role Phone Tsai, Na Provider Role Unavailable Allergies, Adverse Reactions, Alerts Substance Reaction Event Type N.K.D.A. Info Not Available Non Drug Allergy Problems Problem Type Condition Code Onset Dates Condition Status Assessment Influenza vaccine administered Z23 Active Assessment Muscle cramps R25.2 Active Problem GERD (gastroesophageal reflux K21.9 Active disease) Assessment GERD (gastroesophageal reflux K21.9 Active disease) Problem Asthma J45.909 Active Assessment History of anemia Z86.2 Active Problem Allergic rhinitis J30.9 Active Problem Essential hypertension I10 Active Problem Hyperlipidemia E78.5 Active Problem Malignant hypertension I10 Active Problem Family history of ischemic heart Z82.49 Active disease and other diseases of the circulatory system Assessment Hyperlipidemia E78.5 Active Assessment Chronic obstructive pulmonary J44.9 Active disease, unspecified COPD type Problem History of anemia Z86.2 Active Assessment Paroxysmal a-fib I48.0 Active Problem Paroxysmal a-fib I48.0 Active Problem Acute bronchitis, unspecified J20.9 Active organism Problem High risk medications (not Z79.899 Active anticoagulants) long-term use Problem Chronic obstructive pulmonary J44.9 Active disease, unspecified COPD type Assessment Screening for prostate cancer Z12.5 Active Assessment Type 2 diabetes E11.9 Active Assessment Screening for colon cancer Z12.11 Active Assessment Essential hypertension I10 Active Problem Wheezing R06.2 Active Problem Type 2 diabetes E11.9 Active Assessment Encounter for general adult medical Z00.00 Active examination without abnormal findings Medications Medication Code Code Instructions Start End Status Dosage System Date Date Zestoretic [facility] 63166127944 20-12.5 Active TOME CHALO TABLETA CHALO VEZ AL APURVA POR BOCA Magnesium [facility] 37345476234 400 MG Orally Active 1 tablet as Oxide Once a day needed Aspir-81 [facility] 65570420866 81 MG Orally Active 1 tablet Once a day Benzonatate ND 84125705651 100 MG Orally Active 1 capsule as Three times a needed day Zocor [facility] 55045534280 20 Active TOME CHALO TABLETA CHALO VEZ AL APURVA POR VIA ORAL Zyrtec Allergy ND 08719350661 10 MG Orally Active 1 tablet Once a day Zantac 150 [facility] 19491565578 150 MG Orally Active 1 tablet at Maximum Once a day bedtime Strength Flonase [facility] 05118199624 50 MCG/ACT Active 2 spray in Nasally Once a each nostril day Zocor [facility] 67936994041 20 Active TOME CHALO TABLETA CHALO VEZ AL APURVA POR BOCA Zestoretic [facility] 98369160928 20-12.5 MG Active 1 tablet Orally Once a day Magnesium [facility] 51442797911 400 (241.3 Mg) Active TOME CHALO Oxide MG TABLETA CHALO VEZ AL APURVA POR BOCA Advair Diskus [facility] 15774358571 250-50 Active INHALAR CHALO APLICACION POR BOCA DOS VECES POR APURVA Sotalol HCl [facility] 05005116125 80 MG Orally Active 1/2 tablet every 12 hrs Zantac [facility] 86419660766 150 MG Active TOME CHALO TABLETA POR BOCA DOS VECES POR APURVA ProAir HFA [facility] 72489984123 90 Active INHALAR DOS APLICACIONES POR BOCA CUATRO VECES POR APURVA Hemocyte Plus [facility] 26527493588 106-1 MG Active TOME CHALO CAPSULA CHALO VEZ AL APURVA POR VIA ORAL Hemocyte Plus [facility] 88253571716 106 mg iron- Active tome chalo capsula chalo vez al apurva por via oral Metformin HCl [facility] 18997673247 1000 MG Orally Active 1 tablet with Twice a day meals Results No Known Results Immunizations Vaccine Administration Date FluAD Feb 09, 2018 Summary Purpose [employer] Submission
--- OUTSIDE RECORDS SUMMARY | 2018-07-11 08:44 | XMS REPORT ---
[...] Dosage System Date Date Metformin HCl ND 88765932916 1000 MG Orally Active 1 tablet with Twice a day meals PredniSONE ND 35966175693 10 MG Orally AugustSeptember 29, Active 1 tablet twice a day 2017 Zantac 150 ND 13903679144 150 MG Orally Active 1 tablet at Maximum Once a day bedtime Strength Zyrtec Allergy ND 13370998128 10 MG Orally Active 1 tablet Once a day Magnesium ND 17489445899 400 MG Orally Active 1 tablet as Oxide Once a day needed Benzonatate ND 54054695915 100 MG Orally August Active 1 capsule as Three times a 16, needed day 2017 Advair Diskus [facility] 72916016397 250-50 Active INHALAR RANDEE APLICACION POR BOCA DOS VECES POR APURVA Sotalol HCl [facility] 54244686193 80 MG Orally August Active 1 tablet every 12 hrs 2017 Aspir-81 [facility] 02485594229 81 MG Orally Active 1 tablet Once a day Zestoretic [facility] 13980955907 20-12.5 MG Active 1 tablet Orally Once a day Zocor [facility] 51246621087 20 Active TOME RANDEE TABLETA RANDEE VEZ AL APURVA POR BOCA Flonase [facility] [address]-73 50 MCG/ACT Active 2 spray in Nasally Once a each nostril day Hemocyte Plus [facility] 22844407699 106 mg iron- Active TOME RANDEE CAPSULA RANDEE VEZ AL APURVA POR BOCA Levaquin [facility] 48604363042 500 MG Orally August Active 1 tablet Once a day 2017 ProAir HFA [facility] 28012273945 90 Active INHALAR DOS APLICACIONES POR BOCA CUATRO VECES POR APURVA Results No Known Results Summary Purpose [employer]Works Submission
--- OUTSIDE RECORDS SUMMARY | 2018-07-11 08:44 | XMS REPORT ---
[...] the circulatory system Problem Hyperlipidemia E78.5 Active Problem Allergic rhinitis J30.9 Active Problem Essential hypertension I10 Active Problem Type 2 diabetes E11.9 Active Problem Wheezing R06.2 Active Problem Asthma J45.909 Active Problem GERD (gastroesophageal reflux K21.9 Active disease) Assessment Chronic obstructive pulmonary J44.9 Active disease, unspecified COPD type Assessment Hyperlipidemia E78.5 Active Assessment Paroxysmal a-fib I48.0 Active Problem Acute bronchitis, unspecified J20.9 Active organism Assessment Essential hypertension I10 Active Problem Paroxysmal a-fib I48.0 Active Assessment Type 2 diabetes E11.9 Active Problem Chronic obstructive pulmonary J44.9 Active disease, unspecified COPD type Medications Medication Code Code Instructions Start End Status Dosage System Date Date Zocor [facility] 53943231244 20 Active TOME RANDEE TABLETA RANDEE VEZ AL APURVA POR BOCA Aspir-[address] [facility] 68313685741 81 MG Orally Active 1 tablet Once a day Benzonatate [facility] 65739709379 100 MG Orally Active 1 capsule as Three times a needed day Flonase [facility] 65892906136 50 MCG/ACT Active 2 spray in Nasally Once a each nostril day Metformin HCl [facility] 94338491636 1000 MG Orally Active 1 tablet with Twice a day meals Advair Diskus [facility] 28231852879 250-50 Active INHALAR RANDEE APLICACION POR BOCA DOS VECES POR APURVA Hemocyte Plus [facility] 62049677391 106-1 MG Active TOME RANDEE CAPSULA RANDEE VEZ AL APURVA POR VIA ORAL Zestoretic [facility] 23561062367 20-12.5 Active TOME RANDEE TABLETA RANDEE VEZ AL APURVA POR BOCA Zantac 150 ND 39432385040 150 MG Orally Active 1 tablet at Maximum Once a day bedtime Strength Zocor [facility] 32792250469 20 Active TOME RANDEE TABLETA RANDEE VEZ AL APURVA POR VIA ORAL Zestoretic [facility] 45278768494 20-12.5 MG Active 1 tablet Orally Once a day Sotalol HCl [facility] 81756707540 80 MG Orally Active 1/2 tablet every 12 hrs Hemocyte [address] [facility] 36982284575 106 mg iron- Active TOME RANDEE CAPSULA RANDEE VEZ AL APURVA POR VIA ORAL ProAir HFA [facility] 76949625998 90 Active INHALAR DOS APLICACIONES POR BOCA CUATRO VECES POR APURVA Zyrtec Allergy [facility] 58789368790 10 MG Orally Active 1 tablet Once a day Magnesium [facility] 79278035673 400 MG Orally Active 1 tablet as Oxide Once a day needed Results No Known Results Summary Purpose eClinicalWorks Submission
--- OUTSIDE RECORDS SUMMARY | 2018-07-11 08:44 | XMS REPORT ---
:1940 Author Organization eClinicalWorks Care Team Providers Name Role Phone Tsai, Na Provider Role Unavailable Allergies No Known Allergies Problems Problem Type Condition Code Onset Dates [...] Problem GERD (gastroesophageal reflux K21.9 Active disease) Problem Acute bronchitis, unspecified J20.9 Active organism Problem Paroxysmal a-fib I48.0 Active Problem Chronic obstructive pulmonary J44.9 Active disease, unspecified COPD type Medications No Known Medications Results No Known Results Summary Purpose eClinicalWorks Submission
--- OUTSIDE RECORDS SUMMARY | 2018-07-11 08:45 | XMS REPORT ---
:1940 Author Organization eClinicalWorks Care Team Providers Name Role Phone Tsai, Na Provider Role Unavailable Allergies No Known Allergies Problems Problem Type Condition Code Onset Dates Condition Status Problem Allergic rhinitis J30.9 Active Problem Essential hypertension I10 Active Problem Hyperlipidemia E78.5 Active Problem Malignant hypertension I10 Active Problem Family history of ischemic heart Z82.49 Active disease and other diseases of the circulatory system Problem History of anemia Z86.2 Active Problem Paroxysmal a-fib I48.0 Active Problem Acute bronchitis, unspecified J20.9 Active organism Problem High risk medications (not Z79.899 Active anticoagulants) long-term use Problem Chronic obstructive pulmonary J44.9 Active disease, unspecified COPD type Assessment Type 2 diabetes E11.9 Active Problem Wheezing R06.2 Active Problem Type 2 diabetes E11.9 Active Assessment Preoperative examination Z01.818 Active Problem GERD (gastroesophageal reflux K21.9 Active disease) Problem Asthma J45.909 Active Medications No Known Medications Results Name Result Date Reference Range Unit Abnormality Flag Comprehensive Metabolic Panel ----Alkaline Phosphatase 59 20180607 45-117 U/L ----ALT/SGPT 21 20180607 12-78 U/L ----Chloride Level 106 20180607 98-107 mmol/L ----Bicarbonate 29 20180607 21-32 mmol/L ----Albumin/Globulin Ratio 1.1 20180607 1.1-1.8 ----Glucose Level 114 20180607 74-106 mg/dL H ----Globulin 3.6 20180607 2.3-3.5 g/dL H ----BUN Blood Urea Nitrogen 30 20180607 7-18 mg/dL H ----Albumin 3.9 20180607 3.4-5.0 g/dL ----Creatinine 1.41 20180607 0.55-1.3 mg/dL H ----Protein, Total 7.5 20180607 6.4-8.2 g/dL ----Glomerular Filtration 48 20180607 =/>90 mL L Rate ----Calcium Level 9.0 20180607 8.5-10.1 mg/dL ----Sodium Level 139 20180607 136-145 mmol/L ----AST/SGOT 19 20180607 15-37 U/L ----Potassium 4.8 20180607 3.5-5.1 mmol/L ----Bilirubin Total 0.5 20180607 0.2-1.0 mg/dL Lipid Profile ----Cholesterol/HDL Ratio 3.88 20180607 ----LDL Cholesterol, 88 20180607 <130 Calculated ----Cholesterol Level 155 20180607 <200 mg/dL ----HDL Cholesterol 40 20180607 40-60 mg/dL ----Triglycerides Level 134 20180607 <150 mg/dL CBC with Automated Diff ----Basophils % 0.5 96313323 0-1.3 % ----Eosinophils % 2.8 55897218 0-4.4 % ----Absolute Lymphocytes 1.2 56171222 0.7-4.9 (CBC) ----Absolute Neutrophil 3.3 79621569 1.8-8.0 ----Red Cell Distribution 14.5 90988633 12.1-15.2 % Width ----Absolute Eosinophils 0.1 29021536 0-0.5 ----Platelets 183 82823508 152-406 ----Absolute Monocytes 0.4 42235421 0.1-1.3 ----MCHC 32.7 88816742 32.0-36.0 g/dL ----MCH 31.0 73221903 27.0-35.0 pg ----MCV 95.0 42136421 80-100 fL ----Neutrophils % 64.2 69512695 41.7-73.7 % ----MPV 7.7 04857718 7.6-11.3 fL ----Monocytes % 8.0 98700018 3.3-12.3 % ----Lymphocytes % 24.5 87999443 15.3-44.8 % ----Absolute Basophils 0.0 35807046 0-0.5 ----White Blood Count 5.1 20180607 4.3-10.9 ----RBC Red Blood Cell Count 4.46 20180607 4.33-5.43 M/ul ----Hemoglobin 13.8 20180607 13.6-17.9 g/dL ----Hematocrit 42.4 20180607 39.6-49.0 % PTT, Activated Partial Thromb ----PTT, Activated Partial 29.5 20180607 24.3-36.9 s Thromb Hemoglobin A1C ----Hemoglobin A1c 7.0 20180607 4.2-6.3 % H Summary Purpose eClinicalWorks Submission
--- OUTSIDE RECORDS SUMMARY | 2018-07-11 08:45 | XMS REPORT ---
:1940 Author Organization eClinicalWorks Care Team Providers Name Role Phone Tasi, Na Provider Role Unavailable Allergies, Adverse Reactions, Alerts Substance Reaction Event Type N.K.D.A. Info Not Available Non Drug Allergy Problems Problem Type Condition Code Onset Dates Condition Status Problem Allergic rhinitis J30.9 Active Problem Essential hypertension I10 Active Problem Hyperlipidemia E78.5 Active Problem Malignant hypertension I10 Active Assessment GERD (gastroesophageal reflux K21.9 Active disease) Problem Family history of ischemic heart Z82.49 Active disease and other diseases of the circulatory system Assessment Muscle cramps R25.2 Active Problem History of anemia Z86.2 Active Problem Paroxysmal a-fib I48.0 Active Problem Acute bronchitis, unspecified J20.9 Active organism Problem High risk medications (not Z79.899 Active anticoagulants) long-term use Problem Chronic obstructive pulmonary J44.9 Active disease, unspecified COPD type Assessment Hyperlipidemia E78.5 Active Assessment Essential hypertension I10 Active Assessment Paroxysmal a-fib I48.0 Active Assessment Chronic obstructive pulmonary J44.9 Active disease, unspecified COPD type Problem Wheezing R06.2 Active Problem Type 2 diabetes E11.9 Active Assessment Type 2 diabetes E11.9 Active Problem GERD (gastroesophageal reflux K21.9 Active disease) Problem Asthma J45.909 Active Medications Medication Code Code Instructions Start End Status Dosage System Date Date Magnesium [facility] 04745955437 400 (241.3 Mg) Active TOME CHALO Oxide MG TABLETA CHALO VEZ AL APURVA POR BOCA Magnesium ND 52210705672 400 MG Orally Active 1 tablet as Oxide Once a day needed Zyrtec Allergy ND 22147958294 10 MG Orally Active 1 tablet Once a day Zocor [facility] 56637090214 20 Active tome chalo tableta chalo vez al apurva por boca Zocor [facility] 75502745944 20 Active TOME CHALO TABLETA CHALO VEZ AL APURVA POR VIA ORAL Metformin HCl ND 39932424425 1000 MG Orally Active 1 tablet with Twice a day meals Zocor [facility] 41654102188 20 MG Active TOME CHALO TABLETA CHALO VEZ AL APURVA POR VIA ORAL Aspir-81 [facility] 59714368756 81 MG Orally Active 1 tablet Once a day Zantac [facility] 01901683466 150 MG Active TOME CHALO TABLETA POR BOCA DOS VECES POR APURVA Zestoretic [facility] 59522873106 20-12.5 Active TOME CHALO TABLETA CHALO VEZ AL APURVA POR BOCA Advair Diskus [facility] 95593779602 250-50 Active inhalar chalo aplicacion por boca dos veces por apurva Zestoretic [facility] 44663480748 20-12.5 MG Active 1 tablet Orally Once a day ProAir HFA [facility] 55743127086 90 Active INHALAR DOS APLICACIONES POR BOCA CUATRO VECES POR APURVA Metformin HCl [facility] 91867276994 1000 MG Active TOME CHALO TABLETA POR BOCA DOS VECES POR APURVA Zantac 150 [facility] 89679591274 150 MG Orally Active 1 tablet at Maximum Once a day bedtime Strength Flonase [facility] 66066677002 50 MCG/ACT Active 2 spray in Nasally Once a each nostril day Hemocyte Plus [facility] 81043946609 106 mg iron- Active tome chalo capsula chalo vez al apurva por via oral Benzonatate [facility] 07962725289 100 MG Orally Active 1 capsule as Three times a needed day Zocor [facility] 06817798306 20 Active TOME CHALO TABLETA CHALO VEZ AL APURVA POR BOCA Hemocyte Plus [facility] 82885575228 106-1 MG Active TOME CHALO CAPSULA CHALO VEZ AL APURVA POR VIA ORAL Sotalol HCl [facility] 13855251281 80 MG Orally Active 1/2 tablet every 12 hrs Results No Known Results Summary Purpose eClinicalWorks Submission
--- OUTSIDE RECORDS SUMMARY | 2018-07-11 08:45 | XMS REPORT ---
:1940 Author Organization eClinicalWorks Care Team Providers Name Role Phone Tsai, Na Provider Role Unavailable Allergies No Known Allergies Problems Problem Type Condition Code Onset Dates Condition Status Problem Allergic rhinitis J30.9 Active Problem Essential hypertension I10 Active Problem Hyperlipidemia E78.5 Active Problem Wheezing R06.2 Active Problem Type 2 diabetes E11.9 Active Problem GERD (gastroesophageal reflux K21.9 Active disease) Problem Asthma J45.909 Active Problem Malignant hypertension I10 Active Problem [...]
[2018-07-11] MEDS ORDERED: EPINEPHRINE/PF 1 MG/ML AMP ONE (09:27)
[2018-07-11] MEDS ORDERED: NS 0.9% VIAL 10 ML ONE (09:27)
[2018-07-11] MEDS ORDERED: BALANCED SALT IRRIG PLAIN 500 ML BTL IRR ONE (09:27)
[2018-07-11] MEDS ORDERED: DUOVISC 1 KIT OPTH ONE (09:28)
[2018-07-11] MEDS ORDERED: MOXIFLOXACIN HCL 10 DROPS/ML **OR USE OPTH ONE (09:28)
[2018-07-11] MEDS ORDERED: CYCLOPENTOLATE 1% OPTH 2 ML ONE (09:55)
[2018-07-11] MEDS ORDERED: PHENYLEPHRINE 10% OPTH 5ML ONE (09:55)
[2018-07-11] MEDS ORDERED: NA CHLORIDE 0.9% 500 ML ONE (09:55)
[2018-07-11] MEDS ORDERED: PHENYLEPHRINE 10% OPTH 5ML OPTH ONE ×2 (09:59→10:04)
[2018-07-11] MEDS ORDERED: CYCLOPENTOLATE 1% OPTH 2 ML OPTH ONE ×2 (09:59→10:04)
[2018-07-11] MEDS: TETRACAINE HCL 0.5% 2ML OPTH ONE ×2 (10:23→11:09)
[2018-07-11] MEDS: BUPIVACAINE 0.25% PF 10 ML VIAL ONE ×2 (10:24→11:10)
[2018-07-11] MEDS: LIDOCAINE 2% MPF 5 ML VIAL ONE ×2 (10:25→11:10)
[2018-07-11] MEDS ORDERED: LIDOCAINE 1% MPF 5 ML VIAL ONE (11:20)
[2018-07-11] MEDS ORDERED: PROPOFOL 200 MG/20 ML VIAL IV ONE (11:20)
--- NOTE | 2018-07-11 11:48 | P.BOP ---
Preoperative diagnosis: Nuclear sclerotic cataract OD Postoperative diagnosis: Same Primary procedure: Phacoemulsification with IOL OD Estimated blood loss: None Anesthesia: Local (Subtenon's infusion with anesthesia for cataract surgery) Complications: None Implants: [id number] +22.0 Transferred to: Other (Day surgery) Condition: Good
[2018-07-11 13:55] VITALS: BP 118/51; TEMP 97.1; O2SAT 97
--- NOTE | 2018-07-11 21:56 | OP ---
Date of Procedure: 07/11/2018 Surgeon: Elvira Swenson MD Anesthesiologist: 1. Christoph Osborn CRNA. 2. Christoph Larios CRNA. 3. Aguilar Valentino M.D. Preoperative Diagnosis: Nuclear sclerotic cataract, OD (right eye). Operation Performed: Phacoemulsification with intraocular lens implant, right eye. Anesthesia: Per cataract surgery. Complications: None. Description Of Procedure: In day surgery, the patient was prepped with Betadine and draped. A conju nctival incision was made in the inferior nasal quadrant with Gerri scissors. A sub-Tenon block c onsisting of a 1:1 mixture of 2% Xylocaine and 0.25% bupivacaine was placed through the conjunctival incision with a blunt cannula. A Honan balloon was placed over the eye and the patient was transferr ed to the operating room. In the operating room the patient was prepped and draped in the usual sterile fashion for ophthalmic surgery. A lid speculum was placed in the right eye. Two paracentesis sites were made superiorly an d inferiorly in the limbal cornea. Viscoat was placed in the anterior chamber and a crescent blade w as used to make a corneal groove and tunnel, and a keratome was used to enter the anterior chamber. Provisc was placed in the anterior chamber and a 360 degree capsulotomy was performed with a cystitom e. The lens was hydrodissected with BSS and rotated freely. The lens was removed with a stop and ch op technique. A 10.08 phaco CDE was used to remove the lens. Residual cortex was removed with the i rrigation and aspiration. Provisc was placed in the capsular bag. A ZCB00 + 22.0 lens was placed in the capsular bag without complications. Irrigation and aspiration was used to remove residual visco elastic. The paracentesis sites were hydrated with BSS. The wound and paracentesis sites were inspe cted and found to be watertight. Vigamox 0.07 cc was placed intracamerally at the end of the procedu re. The eye was irrigated with balanced salt solution. The eye was patched with a soft cotton patch and Merritt metal shield. The patient was returned to day surgery in good condition. Comments: Discharge Instructions: Mr. Tapia is discharged to home in good condition. He is to follow up with Dr. Swenson in the office today at 3 and then in the morning. ALEAH/NATALIE Voice ID: [id number] Report ID: [id number]
== END 2018-07-11 12:25 | disposition home or self-care (01) ==
LOC: OR 08:41
PROVIDERS: ATTEND Ophthalmology Retina Specialist
PROC: 08RJ3JZ Replacement of Right Lens with Synthetic Substitute, Percutaneous Approach (ICD-10-PCS; principal; 2018-07-11 10:00)
DX: H25.11 Age-related nuclear cataract, right eye (principal); E11.9 Type 2 diabetes mellitus without complications; I10 Essential (primary) hypertension; E78.00 Pure hypercholesterolemia, unspecified; K21.9 Gastro-esophageal reflux disease without esophagitis; J45.909 Unspecified asthma, uncomplicated; Z79.82 Long term (current) use of aspirin; Z87.891 Personal history of nicotine dependence
CPT/HCPCS: 66984; 82962; J2704; J0171

== ENCOUNTER 2020-03-30 10:05 | Inpatient (IN) | payer OTHER ==
--- OUTSIDE RECORDS SUMMARY | 2020-03-30 10:08 | XMS REPORT | Continuity of Care Document ---
:1940 Author Organization [facility] t Address [address] [place] [address] Care Team Providers Name Role Phone Unavailable Unavailable Unavailable Problems This patient has no known problems. Allergies, Adverse Reactions, Alerts This patient has no known allergies or adverse reactions. Medications Ordered Filled Start Stop Current Ordering Indication Dosage Frequency Signature Comments Components Source Medication Medication Date Date Medication? Clinician (SIG) Name Name Gabapentin Gabapentin Yes Na Tsai [address] [facility] Famotidine Famotidine Yes Na Tsai [address] [facility] needed [facility] Zantac 150 Zantac 150 Yes Na Tsai [address] [facility] Maximum Maximum at bedtime Renan es - Strength [facility] Metformin Metformin Yes Na Tsai TOME RANDEE [facility] HCl HCl TABLETA [facility] VIA [facility] ORAL DOS l VECES POR Outpati APURVA ent Clinics Magnesium Magnesium Yes Na Tsai [address] [facility] Oxide Oxide as needed [facility] Hemocyte Hemocyte Yes Na Tsai TOME RANDEE [facility] Plus Plus CAPSULA [facility] VEZ AL [facility] APRUVA POR l VIA ORAL Outpati ent Clinics Zyrtec Zyrtec Yes Na Tsai [address] [facility] Allergy Allergy [facility] Metformin Metformin Yes Na Tsai [address] [facility] HCl HCl with meals [facility] Advair Advair Yes Na Tsai INHALAR [facility] Diskus Diskus RANDEE [facility] POR VIA l ORAL DOS Outpati VECES POR ent APURVA Clinics Melatonin Melatonin Yes Na Tsai as [facility] Zestoretic Zestoretic Yes Na Tsai TOME RANDEE [facility] TABLETA [facility] VEZ AL [facility] APURVA POR l BOCA Outpati ent Clinics Zocor Zocor Yes Na Tsai TOME RANDEE [facility] TABLETA [facility] VEZ AL [facility] APURVA POR l VIA ORAL Outpati ent Clinics Flonase Flonase Yes Na Tsai [address] [facility] each [facility] nostril [facility] ProAir HFA ProAir HFA Yes Na Tsai INHALAR [facility] DOS [facility] ES POR l BOCA Outpati CUATRO ent VECES POR Clinics APURVA Aspir-81 Aspir-81 Yes Na Tsai [address] [facility] Benzonatate Benzonatate Yes Na Tsai [address] [facility] as [facility] Sotalol HCl Sotalol HCl Yes Na Tsai 1/[address] [facility] Azithromyci Azithromyci Yes Na Tsai [address] [facility] on the [facility] first day, [facility] then 1 l tablet Outpati daily for ent 4 days Clinics Doxycycline Doxycycline Yes Na Tsai [address] [facility] Hyclate Hyclate [facility] Immunizations Ordered Filled Immunization Date Status Comments [facility] Immunization Name Name Bernice Queen 2019-04-[address] [facility] FluAD FluAD 2018-02-[address] [facility] Procedures This patient has no known procedures. Encounters Start End Encounter Admission Attending Care Care Encounter Source Date/Time Date/Time Type Type Clinicians Facility Department ID 2020-03-15 2020-03-15 Outpatient [facility] [id number] [facility] 2019-12-14 2019-12-14 [facility] [id number] [facility] 10:[facility]:00 10:00:00 [place] [facility] Medicine l Medicine Outpati ent Clinics 2019-11-21 2019-11-21 [facility] [id number] 11[facility]36[facility] [employer] [address] [facility] l Medicine Outpati ent Clinics 2019-10-17 2019-10-17 [facility] [id number] 11[facility]07:00 11:07:[address] [facility] [address] [facility] l Medicine Outpati ent Clinics 2019-10-16 2019-10-16 [facility] [id number] 11:06:00 11:06:00 [place] [employer] [address] [facility] Medicine Outpati ent Clinics 2019-10-13 2019-10-13 [facility] [id number] 10:00:00 10:00:00 [place] [employer] [address] [facility] Medicine Outpati ent Clinics 2019-05-25 2019-05-25 [facility] [id number] 08:20:00 08:20:00 [place] [employer] [address] - [address] [facility] Medicine Outpati ent Clinics 2019-04-21 2019-04-21 [facility] [id number] 14:32:00 14:32:00 [place] [employer] s - Drive [facility] l Medicine Outpati ent Clinics 2019-04-05 2019-04-05 [facility] [id number] 13:00:00 13:00:00 [place] [employer] [address] [facility] Medicine Medicine Outpati ent Clinics 2019-03-14 2019-03-14 [facility] [id number] 17:12:00 17:12:00 [place] [employer] [address] - [address] [facility] Medicine Outpati ent Clinics 2018-07-27 2018-07-27 [facility] [id number] 14:49:00 14:49:00 [place] [employer] [address] [facility] l Medicine Outpati ent Clinics 2018-06-15 2018-06-15 [facility] [id number] 08:52:00 08:52:[address] [place] [address] [address] [facility] Medicine Outpati ent Clinics 2018-06-03 2018-06-03 [facility] [id number] [address] 12:06:00 12:06:[address] [place] [address] [address] [facility] Medicine Outpati ent Clinics 2018-05-04 2018-05-04 [facility] [id number] 10:00:00 10:00:00 [place] [employer] s - [address] [facility] Medicine Outpati ent Clinics 2018-02-09 2018-02-09 [facility] [id number] 10:00:00 10:00:00 [place] [employer] [address] - [address] [facility] Medicine Outpati ent Clinics 2017-12-21 2017-12-21 [facility] [id number] 09:45:00 09:45:00 [place] [employer] [address] [facility] Medicine Outpati ent Clinics 2017-08-30 2017-08-30 [facility] [id number] 17:31:00 17:31:00 [place] [employer] [address] [facility] Medicine Outpati ent Clinics 2017-08-12 2017-08-12 [facility] [id number] 11:00:00 11:00:00 [place] [employer] [facility] [address] [facility] Medicine Outpati ent Clinics Results This patient has no known results.
--- OUTSIDE RECORDS SUMMARY | 2020-03-30 10:08 | XMS REPORT ---
:1940 Author Organization [facility] Address [address], [address] [place] [address] Care Team Providers Name Role Phone Tsai Unavailable [phone] PROBLEMS Type Condition ICD9-CM [id number] Onset Condition SNOMED Code Notes Code Code Dates Status Problem Wheezing R06.2 Active 74552345 Problem GERD K21.9 Active 286106940 (gastroesophageal reflux disease) Problem Type 2 diabetes E11.9 Active 902896764 Problem Allergic rhinitis J30.9 Active 78593399 Problem Asthma J45.909 Active 254045808 Problem Essential I10 Active 27564033 hypertension Problem Hyperlipidemia E78.5 Active 41834780 Problem Family history of Z82.49 Active 209240339 ischemic heart disease and other diseases of the circulatory system Problem Acute bronchitis, J20.9 Active 14103911 unspecified organism Problem Paroxysmal a-fib I48.0 Active 096784431 Problem 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 Active 47058041 bilateral lower extremities with pain Problem High risk Z79.899 Active 449109333 medications (not anticoagulants) long-term use Problem 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 542255343 mellitus with diabetic chronic kidney disease Problem Chronic J44.9 Active 90065953 obstructive pulmonary disease, unspecified COPD type Problem Malignant I10 Active 42094677 hypertension Problem History of anemia Z86.2 Active 138052934 Problem PAD (peripheral I73.9 Active 618044954 artery disease) Problem 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 267849576 polyneuropathy associated with type 2 diabetes mellitus ALLERGIES No Known Allergies ENCOUNTERS from 1940 to 2020-03-17 Encounter Location Date Provider Diagnosis [address], Jolanta Bates [facility] [address], [place] [address] [place] [address] diabetes melli tus E11.42 ; Essential hyp ertension I10 ; Hyperlipi demia E78.5 ; Tremor R25.1 ; Chronic obstruc 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, 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 ; Type 2 diabetes mellitus with d iabetic chronic kidney disease E11.22 ; Chroni c kidney disease, stage 3 unspecified N18 .30 ; Paroxysmal a-fi b I48.0 ; GERD (gastroeso phageal reflux disease) K21.9 ; PAD (peripheral artery disease) I73.9 and Weakness R53.1 IMMUNIZATIONS Vaccine Route Administration Date Status FluAD IM Intramuscular Apr 05, 2019 Administered FluAD IM Intramuscular Feb 09, 2018 Administered SOCIAL HISTORY Tobacco Use: Social History Observation Description Date Details (start date - stop date) Former Smoker Sex Assigned At : Social History Observation Description Sex Assigned At Unknown Tobacco Use/Smoking Question Answer Notes Are you a former smoker REASON FOR REFERRAL No Information VITAL SIGNS Height 63.00 in Feb, Weight 146.4 lbs Feb, Temperature 98.1 degrees Fahrenheit Feb, BMI 25.93 kg/m2 Feb, Oximetry 98 % Feb, Respiratory Rate 16 /min Feb, Blood pressure systolic 157 mm Hg Feb, Blood pressure diastolic 70 mm Hg Feb, MEDICATIONS Medication SIG (Take, Route, Start Date End Date Status Frequency, Duration) Famotidine 40 MG 1 tablet as needed Orally Nov, Unknown Twice a day for 90 days Magnesium Oxide 400 MG 1 tablet as needed Orally Not-Taking Once a day ProAir HFA 90 INHALAR DOS APLICACIONES Ac tive POR BOCA CUATRO VECES POR APURVA Advair Diskus 250-50 INHALAR CHALO APLICACION POR Not-Taking MCG/DOSE VIA ORAL DOS VECES POR APURVA for 30 Gabapentin 100 MG 1 capsule Orally once a Active day at bedtime for 90 days Azithromycin 250 MG 2 tablets on the first Not-Taking day, then 1 tablet daily for 4 days Orally Once a day for 5 day(s) Primidone 50 MG 1/2 a tablet Orally Once a Feb, Active day for 90 day(s) Doxycycline Hyclate 100 MG 1 capsule Orally twice a Not-Taking day for 7 day(s) Magnesium Oxide 400 (241.3 TOME CHALO TABLETA CHALO VEZ Active Mg) MG AL APURVA POR VIA ORAL TEODORO SEA NECESARIO for 90 Zocor 20 TOME CHALO TABLETA CHALO VEZ Act odessa AL APURVA POR BOCA Aspir-81 81 MG 1 tablet Orally Once a day Active Famotidine 40 MG 1 tablet as needed Orally Active Twice a day for 90 days Zestoretic 20-12.5 MG 1 tablet Orally Once a day Active for 90 days Melatonin 10 MG as directed Orally Active Metformin HCl 1000 MG TOME CHALO TABLETA POR VIA Active ORAL DOS VECES POR APURVA for 90 Hemocyte Plus 106 mg iron- tome chalo capsula chalo vez Active al apurva por via oral for 90 days Hemocyte Plus 106-1 MG TOME CHALO CAPSULA CHALO VEZ Unknown AL APURVA POR VIA ORAL for 30 Zantac 150 Maximum TOME RAMÍREZ TABLETA POR VIA Active Strength 150 MG ORAL AL ACOSTARSE for 90 Zocor 20 MG TOME CHALO TABLETA CHALO VEZ Not -Taking AL APURVA POR VIA ORAL Zocor 20 TOME CHALO TABLETA CHALO VEZ Not -Taking AL APURVA POR VIA ORAL for 30 Zestoretic 20-12.5 MG TOME CHALO TABLETA CHALO VEZ Unknown AL APURVA POR VIA ORAL for 90 Zestoretic 20-12.5 TOME CHALO TABLETA CHALO VEZ Not-Taking AL APURVA POR BOCA for 90 Flonase 50 MCG/ACT 2 spray in each nostril Not-Taking Nasally Once a day Zyrtec Allergy 10 MG 1 tablet Orally Once a day Not-Taking Sotalol HCl 80 MG 1/2 tablet Orally every 12 Active hrs for 90 days Advair Diskus 250-50 INHALAR CHALO APLICACION POR Active BOCA DOS VECES POR APURVA Benzonatate 100 MG 1 capsule as needed Orally Not-Taking Three times a day for 7 days PROCEDURES No Information RESULTS No Results REASON FOR VISIT 3 month f/u with lab/s , DM2, HTN, Aib COPD, CKD stage III MEDICAL (GENERAL) HISTORY Type Description Date Medical History Type 2 diabetes Medical History Malignant hypertension Medical History GERD (gastroesophageal reflux disease) Medical History Hyperlipidemia Medical History Asthma Medical History Allergic rhinitis Medical History Family history of ischemic heart disease and other diseases of the circulatory system Medical History High risk medications (not anticoagulant s) long-term use Surgical History hip surgery 2009 Goals Section No Information Health Concerns No Information MEDICAL EQUIPMENT No Information MENTAL STATUS No Information FUNCTIONAL STATUS No Information ASSESSMENTS Encounter Date Diagnosis Notes Feb, Chronic kidney disease, stage 3 unspecif ied (ICD-10 - N18.30) Feb, Type 2 diabetes mellitus with diabetic c hronic kidney disease (ICD-10 - E11.22) Feb, GERD (gastroesophageal reflux disease) ( ICD-10 - K21.9) Feb, Paroxysmal a-fib (ICD-10 - I48.0) Feb, Hyperlipidemia (ICD-10 - E78.5) Feb, Chronic obstructive pulmonary disease, u nspecified COPD type (ICD-10 - J44.9) Feb, Tremor (ICD-10 - R25.1) Feb, Weakness (ICD-10 - R53.1) Feb, PAD (peripheral artery disease) (ICD-10 - I73.9) Feb, Essential hypertension (ICD-10 - I10) Feb, Diabetic polyneuropathy associated with type 2 diabetes mellitus (ICD-10 - E11.42) PLAN OF TREATMENT Medication Medication Name Sig Start Date Stop Date Sotalol HCl 80 MG 1/2 tablet Orally every 12 hrs for 90 days Advair Diskus 250-50 INHALAR CHALO APLICACION POR BOCA DOS VECES POR APURVA Famotidine 40 MG 1 tablet as needed Orally Twice a day for 90 days Zestoretic 20-12.5 MG 1 tablet Orally Once a day for 90 days Gabapentin 100 MG 1 capsule Orally once a day at bedtime for 90 days Primidone 50 MG 1/2 a tablet Orally Once a day for 90 Feb, 20 day(s) Zocor 20 TOME CHALO TABLETA CHALO VEZ AL APURVA POR BOCA Treatment Notes Assessment Notes Clinical Notes Diabetic polyneuropathy a1c 6.6 low carb 1800 ADA associated with type 2 diet. Avoid sodas, juices diabetes mellitus and remember portion control. Take your medication as prescribed. Monitor your blood sugar at home as directed and keep a log to bring back with you to your next visit for review. Schedule your annual diabetic eye exam with your eye doctor to screen for diabetic retinopathy. Check your feet daily to make sure you have no open wounds.-- It is important to check your feet daily to makes sure you do not have any open cuts or sores in between your toes and soles of you feet because you may not be able to feel sores or wounds due to lack of sensation in feet due to diabetic neuropathy. contact your physician if you notice any. Essential hypertension Maintian a low salt DASH diet, exercise, weight loss and decrease stress recommended. Keep BP log and will review next visit. If blood pressure consistently above 140/90 return to clinic for adjustment of meds. Try to quit smoking if you currently smoke. Decrease caffeine intake if possible. Hyperlipidemia low fat diet, decrease fast food and fried foods. Increase fruit and vegetable intake. exercise as tolerated 30minutes per day at least 3 days a week. May take fish oil 1000mg twice daily to help increase good cholesterol (HDL). Chronic obstructive pulmonary continue current inhalers/ disease, unspecified COPD type nebulizer and continuous oxygen. if you develop sob or cough with increase phlegm or sputum changes from clear to yellow or green or develop fever above 100.4F call PCP or go to ER. Quit smoking and avoid exacerbating factors including second hand smoke or fumes. Chronic kidney disease, stage GFR 35 from 46 has appt with 3 unspecified monitor kidney function.- Avoid NSAIDs ( such as ibuprofen, motrin, aleive)- Hydrate your kidneys by drinking plenty of water. Paroxysmal a-fib monitor heart rate and symptoms of sob or palpitations.continue sotalol 80 mg 1/2 tab bid #30 followup with cardiology for adjustment. GERD (gastroesophageal reflux Gerd- avoid trigger foods disease) including spicy, oily, carbonated drinks, citrus. Do not lay down immediately after eating-wait at least 2 hours, elevate pillow. Eat smaller meals and weight loss recommended for obese patients. Avoid wearing tight clothing. PAD (peripheral artery continue statin and asa disease) Weakness Patient is very fra il and weak, especially s/p hospital discharge. Patient has multiple comorbi dities, chronic diseases chester t are heavy burden on fam nghia. Patient will benefit from shelter, phy sical therapy and occupati onal therapy to educate, strenghten patient's muscles, decrease ri sk of falls, and allow pat ient to improve their physic al and mental health and pe rform daily activities saf keke.-- Will order provider services/caregiver w [facility] patient requires ass istance of to be in home 4 hours a day 7 days a week especially while juan agrawal is at work to help main tain the patient's indep endence and continue activit ies of daily living effecti vely and safely in comfor t of home momo daughter i s at work Treatment Notes Test Name Order Date Lipid Panel w/ Chol/HDL Ratio 2020-03-17 Microalbumin/Creat Ratio, Random Ur 2020-03-17 Hemoglobin A1c 2020-03-17 Comp. Metabolic Panel (14) (CMP) 2020-03-17 CBC With Differential/Platelet 2020-03-17 Next Appt Details 3 Months labs 1 week prior Reason: Provider Name:Jolanta Tsai, 2020-06-06 09:1 5:00 AM, [address], [place], [address], Provider Name:Jolanta Tsai, 2020-06-13 02:4 0:00 PM, [address], [place], [address], Insurance Providers Payer Name Payer Payer Insured Patient Coverage Coverage Address Phone Name Relationship to Start Date End Date Insured [employer] [phone] Steven Tapia self 2019 [facility] [address] [facility] [id number]
[2020-03-30 11:07] LABS: Protime INR 1.62
[2020-03-30 11:09] LABS: Absolute Lymphocytes (CBC) 0.8 K/uL (0.7-4.9); Basophils % 0.6 % (0-1.3); Hematocrit 33.9 % (39.6-49.0); Lymphocytes % 15.1 % (15.3-44.8); MPV 8.2 fL (7.6-11.3); RBC Red Blood Cell Count 3.66 M/uL (4.33-5.43)
--- NOTE | 2020-03-30 11:16 | RAD REPORT ---
EXAM DESCRIPTION: RAD - Chest Single View - 03/30/2020 10:49 am CLINICAL HISTORY: Generalized weakness COMPARISON: Portable September 2017 TECHNIQUE: AP portable chest image was obtained 03/30/2020 10:49 am . FINDINGS: Lungs are underinflated compared to the prior study. Lateral right base parenchymal findin gs are probably the affects of shallow inspiration rather than pneumonia. Correlation can be made wit h any physical findings at the right base. Heart and vasculature are normal. No measurable pleural ef fusion and no pneumothorax. No acute bony abnormality seen. No acute aortic findings suspected. IMPRESSION: Shallow inspiration film showing a slight increase in parenchymal opacification lateral right base. Atelectasis is favored but patient can be evaluated and monitored for early right base infiltrate.
[2020-03-30 11:27] LABS: Albumin 3.4 g/dL (3.4-5.0); Bilirubin Direct 0.1 mg/dL (0-0.2); Bilirubin Total 0.4 mg/dL (0.2-1.0); Magnesium 1.7 mg/dL (1.8-2.4); Troponin (Emerg Dept Use Only) 0.04 ng/mL (0.0-0.045)
[2020-03-30 11:28] LABS: Potassium 6.5 mmol/L (3.5-5.1)
[2020-03-30] MEDS ORDERED: NA CHLORIDE 0.9% 1,000 ML ONE (11:35)
--- NOTE | 2020-03-30 11:52 | EDPHYS ---
Physician Documentation [facility] Name: Redd Tapia Age: 79 yrs Sex: Male : 1940 Arrival Date: 03/30/2020 Time: 10:08 Bed 17 Private MD: ED Physician Vinny Felder HPI: 03/30 10:29 This 79 yrs old Male presents to ER via Wheelchair with complaints of pm1 Diarrhea, Generalized Weakness. 10:29 The patient presents to the emergency department with weakness of the entire body, pm1 generalized weakness. Onset: The symptoms/episode began/occurred 3 day(s) ago. Context: occurred at home. Associated signs and symptoms: Pertinent positives: Diarrhea, Pertinent negatives: fever, headache, chest pain. Severity of symptoms: in the emergency department the symptoms are unchanged. The patient has been recently seen by a physician: the patient's primary care provider, Dr. Tsai with similar presenting complaints, Given a prescription for his tremors and referral to neurology. Historical: - Allergies: 10:11 No Known Allergies; aa5 - Home Meds: 10:15 Advair Diskus 250-50 mcg/dose Inhl dsdv 2 times per day [Active]; gabapentin 100 mg aa5 oral cap one at bedtime [Active]; amiodarone 200 mg Oral tab 2 times per day [Active]; metformin 1,000 mg oral tab 2 times per day [Active]; famotidine 40 mg oral tab 2 times per day [Active]; simvastatin 20 mg Oral tab once daily [Active]; magnesium oxide 400 mg Oral cap daily [Active]; Eliquis 5 mg oral tab 2 times per day [Active]; lisinopril-hydrochlorothiazide 20-12.5 mg oral tab once daily [Active]; - PMHx: 10:11 Diabetes - NIDDM; Hyperlipidemia; Hypertension; Asthma; Heart Problems; Kidney aa5 problems; Tremors; - PSHx: 10:11 ana luisa hip sx; aa5 - Immunization history:: Adult Immunizations unknown. - Social history:: Smoking status: Patient denies any tobacco usage or history of. ROS: 18:53 Respiratory: Negative for shortness of breath, cough, wheezing, and pleuritic chest pm1 pain, Back: Negative for injury and pain, : Negative for injury, bleeding, discharge, and swelling, MS/Extremity: Negative for injury and deformity, Skin: Negative for injury, rash, and discoloration. 18:53 Neck: Negative for injury, pain, and swelling, Cardiovascular: Negative for chest pain, palpitations, and edema. 18:53 Constitutional: Negative for fever, chills, and weight loss. 18:53 Abdomen/GI: Positive for diarrhea, Negative for abdominal pain, nausea and vomiting. 18:53 Neuro: Positive for weakness, generalized, Negative for altered mental status, dizziness, headache. Exam: 18:53 Constitutional: This is a well developed, well nourished patient who is awake, alert, pm1 and in no acute distress. Head/Face: Normocephalic, atraumatic. 18:53 Back: No spinal tenderness. No costovertebral tenderness. Full range of motion. Skin: Warm, dry with normal turgor. Normal color with no rashes, no lesions, and no evidence of cellulitis. MS/ Extremity: Pulses equal, no cyanosis. Neurovascular intact. Full, normal range of motion. 18:53 Cardiovascular: Rate: bradycardic, actual rate is 42 bpm, Rhythm: regular, Pulses: no pulse deficits are appreciated, Heart sounds: normal, Edema: is not appreciated. 18:53 Respiratory: Exam negative for acute changes, respiratory distress, shortness of breath. 18:53 Abdomen/GI: Inspection: abdomen appears normal, Palpation: abdomen is soft and non-tender, in all quadrants, mass, is not appreciated, rebound tenderness, is not appreciated. 18:53 Neuro: Exam negative for acute changes, Orientation: is normal, Mentation: is normal, Motor: is normal, moves all fours. Vital Signs: 10:11 BP 169 / 60; Pulse 48; Resp 18 S; Temp 97.8(TE); Pulse Ox 100% on R/A; Pain 0/10; aa5 11:30 BP 129 / 43; Pulse 39; Resp 17; Pulse Ox 99% ; ah 12:00 BP 124 / 43; Pulse 38; Resp 17 S; Pulse Ox 100% on R/A; ca1 13:00 BP 140 / 56; Pulse 67; Resp 17; Pulse Ox 99% ; ah 14:00 BP 150 / 51; Pulse 68; Resp 17; Pulse Ox 100% ; ah MDM: 10:12 Patient medically screened. pm1 11:35 Data reviewed: vital signs. Data interpreted: Pulse oximetry: on room air is 100 %. pm1 Interpretation: normal. 11:48 Counseling: I had a detailed discussion with the patient and/or guardian regarding: the pm1 historical points, exam findings, and any diagnostic results supporting the discharge/admit diagnosis, lab results, radiology results, the need for further work-up and treatment in the hospital. 03/30 10:29 Order name: Basic Metabolic Panel; Complete Time: 11:28 pm1 03/30 10:29 Order name: CBC with Diff; Complete Time: 11:22 pm1 03/30 10:29 Order name: LFT's; Complete Time: 11:28 pm1 03/30 10:29 Order name: Magnesium; Complete Time: 11:28 pm1 03/30 10:29 Order name: NT PRO-BNP; Complete Time: 11:28 pm1 03/30 10:29 Order name: PT-INR; Complete Time: 11:22 pm1 03/30 10:29 Order name: Troponin (emerg Dept Use Only); Complete Time: 11:28 pm1 03/30 10:29 Order name: XRAY Chest (1 view); Complete Time: 11:22 pm1 03/30 10:29 Order name: Urine Microscopic Only; Complete Time: 13:45 pm1 03/30 12:26 Order name: COVID-19 pm1 03/30 13:28 Order name: Urine Dipstick--Ancillary (enter results) eb 03/30 13:45 Order name: Urine Dipstick-Ancillary; Complete Time: 13:45 EDMS 03/30 14:43 Order name: SARS-COV-2 RT PCR; Complete Time: 15:40 EDMS 03/30 10:29 Order name: EKG; Complete Time: 10:30 pm1 03/30 10:29 Order name: Cardiac monitoring; Complete Time: 10:58 pm1 03/30 10:29 Order name: EKG - Nurse/Tech; Complete Time: 10:58 pm1 03/30 10:29 Order name: IV Saline Lock; Complete Time: 10:58 pm1 03/30 10:29 Order name: Labs collected and sent; Complete Time: 10:58 pm1 03/30 10:29 Order name: O2 Per Protocol; Complete Time: 10:58 pm1 03/30 10:29 Order name: O2 Sat Monitoring; Complete Time: 10:58 pm1 03/30 10:29 Order name: Urine Dipstick-Ancillary (obtain specimen); Complete Time: 13:27 pm1 Administered Medications: 11:49 Drug: NS 0.9% 500 ml Route: IV; Rate: bolus; Site: right antecubital; 12:15 Drug: Insulin Regular Human 5 units {Co-Signature: ca1 (Charito Abebe RN).} Route: IVP; Site: right forearm; 12:15 Drug: Kayexalate 15 grams Route: PO; 12:15 Drug: Sodium Bicarbonate 1 amp Route: IVP; Site: right antecubital; 12:25 Drug: Calcium Gluconate 1 grams Route: IVPB; Infused Over: 60 mins; Site: right forearm; 12:25 Drug: Albuterol 5 mg Route: Inhalation; 12:25 Drug: D50W 50 ml Route: IVP; Site: right forearm; Disposition: 15:54 Co-signature as Attending Physician, Vinny Felder MD. rn Disposition: 03/30/20 11:51 Hospitalization ordered by Roddy Sanders for Inpatient Admission. Preliminary diagnosis are Hyperkalemia, Acute kidney failure, Bradycardia, unspecified, Diarrhea, unspecified. - Bed requested for Intensive Care Unit. - Status is Inpatient Admission. ah - Condition is Stable. - Problem is new. - Symptoms have improved. Signatures: Dispatcher [employer] EDMS Vinny Felder MD MD rn Calderon, Audri, RN RN aa5 Oswaldo Mclaughlin, LIVING ADVISOR LIVING ADVISOR pm1 Shai Hoyt RN RN Harmony Miranda Amy, RN RN Charito Abebe RN ca1 Corrections: (The following items were deleted from the chart) 11:59 11:51 Hospitalization Ordered by Roddy Sanders DO for Inpatient Admission. Preliminary pm1 diagnosis is Hyperkalemia; Hypertensive heart and chronic kidney disease with heart failure and with stage 5 chronic kidney disease, or end stage renal disease. Bed requested for Telemetry/MedSurg (Inpatient). Status is Inpatient Admission. Condition is Stable. Problem is new. Symptoms have improved. pm1 12:01 11:59 03/30/2020 11:51 Hospitalization Ordered by Roddy Prezas DO for Inpatient pm1 Admission. Preliminary diagnosis is Hyperkalemia; Acute kidney failure. Bed requested for Telemetry/MedSurg (Inpatient). Status is Inpatient Admission. Condition is Stable. Problem is new. Symptoms have improved. pm1 13:48 12:01 03/30/2020 11:51 Hospitalization Ordered by Roddy Sanders DO for Inpatient eb Admission. Preliminary diagnosis is Hyperkalemia; Acute kidney failure; Bradycardia, unspecified; Diarrhea, unspecified. Bed requested for Telemetry/MedSurg (Inpatient). Status is Inpatient Admission. Condition is Stable. Problem is new. Symptoms have improved. pm1 15:07 13:48 03/30/2020 11:51 Hospitalization Ordered by Roddy Sanders DO for Inpatient ja1 Admission. Preliminary diagnosis is Hyperkalemia; Acute kidney failure; Bradycardia, unspecified; Diarrhea, unspecified. Bed requested for Telemetry/MedSurg (Inpatient). Status is Inpatient Admission. Condition is Stable. Problem is new. Symptoms have improved. eb 15:15 15:07 03/30/2020 11:51 Hospitalization Ordered by Roddy Sanders DO for Inpatient ah Admission. Preliminary diagnosis is Hyperkalemia; Acute kidney failure; Bradycardia, unspecified; Diarrhea, unspecified. Bed requested for Intensive Care Unit. Status is Inpatient Admission. Condition is Stable. Problem is new. Symptoms have improved. ja1
--- NOTE | 2020-03-30 11:52 | ER ---
Nurse's Notes [facility] Name: Redd Tapia Age: 79 yrs Sex: Male : 1940 Arrival Date: 03/30/2020 Time: 10:08 Bed 17 Private MD: Diagnosis: Hyperkalemia;Acute kidney failure;Bradycardia, unspecified;Diarrhea, unspecified Presentation: 03/30 10:11 Chief complaint: Patient states: Generalized weakness, intermittent dizziness, and aa5 diarrhea x 3-4 days ago. Pt's daughter states " gave him Primidone and he had 2 doses a few days ago and that is when I noticed that he was feeling weak and dizzy so I stopped giving him the Primidone and he has not taken it over the last 3 or 4 days". Pt denies nausea/vomiting, reports normal appetite. 10:11 Coronavirus screen: Client denies travel out of the [place] in the last 14 days. diarrhea. aa5 Ebola Screen: Patient negative for fever greater than or equal to 101.5 degrees Fahrenheit, and additional compatible Ebola Virus Disease symptoms. Initial Sepsis Screen: Does the patient meet any 2 criteria? No. Patient's initial sepsis screen is negative. Does the patient have a suspected source of infection? No. Patient's initial sepsis screen is negative. Risk Assessment: Do you want to hurt yourself or someone else? Patient reports no desire to harm self or others. Onset of symptoms was March 2020. 10:11 Acuity: KIRAN 3 aa5 10:11 Method Of Arrival: Wheelchair aa5 Historical: - Allergies: 10:11 No Known Allergies; aa5 - Home Meds: 10:15 Advair Diskus 250-50 mcg/dose Inhl dsdv 2 times per day [Active]; gabapentin 100 mg aa5 oral cap one at bedtime [Active]; amiodarone 200 mg Oral tab 2 times per day [Active]; metformin 1,000 mg oral tab 2 times per day [Active]; famotidine 40 mg oral tab 2 times per day [Active]; simvastatin 20 mg Oral tab once daily [Active]; magnesium oxide 400 mg Oral cap daily [Active]; Eliquis 5 mg oral tab 2 times per day [Active]; lisinopril-hydrochlorothiazide 20-12.5 mg oral tab once daily [Active]; - PMHx: 10:11 Diabetes - NIDDM; Hyperlipidemia; Hypertension; Asthma; Heart Problems; Kidney aa5 problems; Tremors; - PSHx: 10:11 ana luisa hip sx; aa5 - Immunization history:: Adult Immunizations unknown. - Social history:: Smoking status: Patient denies any tobacco usage or history of. Screenin:38 Abuse screen: Denies threats or abuse. Nutritional screening: No deficits noted. Tuberculosis screening: No symptoms or risk factors identified. Fall Risk None identified. Assessment: 10:30 General: Appears in no apparent distress. Behavior is calm, cooperative, appropriate ah for age. Pain: Denies pain. Neuro: Level of Consciousness is awake, alert, Oriented to person, place, time, situation, Appropriate for age Weakness Speech is normal, Cardiovascular: Heart tones S1 S2 present Capillary refill < 3 seconds Patient's skin is warm and dry. Rhythm is sinus bradycardia. Respiratory: Airway is patent Respiratory effort is even, unlabored, Respiratory pattern is regular, symmetrical. GI: Stools are reported to be diarrhea. Bowel sounds present X 4 quads. Reports diarrhea. Derm: Skin is intact, Skin is dry. 11:30 Reassessment: Patient and/or family updated on plan of care and expected duration. Pain ah level reassessed. Patient is alert, oriented x 3, equal unlabored respirations, skin warm/dry/pink. family at bedside Patient denies pain at this time. 12:30 Reassessment: medications administered. pt tolerated well. ah 13:30 Reassessment: Patient and/or family updated on plan of care and expected duration. Pain ah level reassessed. No needs voiced at this time. Family at bedside. Awaiting on room assignment. Vital Signs: 10:11 BP 169 / 60; Pulse 48; Resp 18 S; Temp 97.8(TE); Pulse Ox 100% on R/A; Pain 0/10; aa5 11:30 BP 129 / 43; Pulse 39; Resp 17; Pulse Ox 99% ; ah 12:00 BP 124 / 43; Pulse 38; Resp 17 S; Pulse Ox 100% on R/A; ca1 13:00 BP 140 / 56; Pulse 67; Resp 17; Pulse Ox 99% ; ah 14:00 BP 150 / 51; Pulse 68; Resp 17; Pulse Ox 100% ; ED Course: 10:08 Patient arrived in ED. ag5 10:11 Arm band placed on. aa5 10:12 [facility] pm1 10:12 Vinny Felder MD is Attending Physician. pm1 10:39 Triage completed. aa5 10:41 Maude Tong, RN is Primary Nurse. ah 10:49 XRAY Chest (1 view) In Process Unspecified. EDMS 10:53 Inserted saline lock: 20 gauge in right forearm, using aseptic technique. Blood aa5 collected. 11:50 Roddy Sanders DO is Hospitalizing Provider. pm1 14:38 Patient has correct armband on for positive identification. Placed in gown. Bed in low ah position. Call light in reach. Side rails up X2. Adult w/ patient. cafeteria monitor on. Pulse ox on. NIBP on. 14:57 No provider procedures requiring assistance completed. Patient admitted, IV remains in ah place. intact. Administered Medications: 11:49 Drug: NS 0.9% 500 ml Route: IV; Rate: bolus; Site: right antecubital; 12:15 Drug: Insulin Regular Human 5 units {Co-Signature: ca1 (Charito Abebe RN).} Route: IVP; Site: right forearm; 12:15 Drug: Kayexalate 15 grams Route: PO; 12:15 Drug: Sodium Bicarbonate 1 amp Route: IVP; Site: right antecubital; 12:25 Drug: Calcium Gluconate 1 grams Route: IVPB; Infused Over: 60 mins; Site: right forearm; 12:25 Drug: Albuterol 5 mg Route: Inhalation; 12:25 Drug: D50W 50 ml Route: IVP; Site: right forearm; Outcome: 11:51 Decision to Hospitalize by Provider. pm1 14:57 Admitted to Med/surg accompanied by nurse, via stretcher, room 214, with chart, Report called to Bia MARK 14:57 Condition: good 14:57 Instructed on the need for admit. 15:15 Patient left the ED. Signatures: Dispatcher [employer] EDMS Katie Martini RN RN aa5 Oswaldo Mclaughlin, KATHIA QLIKVIEW DEVELOPER pm1 Charito Abebe RN RN ca1 Carlene Nolasco ag5 Tong, Maude, RN RN ah Charito Acob RN ca1
[2020-03-30] MEDS ORDERED: INSULIN -REGULAR HUMAN 50 UNIT/0.5 ML ML ONE (12:07)
[2020-03-30] MEDS ORDERED: ALBUTEROL 2.5 MG/3 ML NEB SOL ONE (12:11)
[2020-03-30] MEDS ORDERED: SOD POLYSTYREN SUL 15 GM/60 ML UCUP ONE (12:11)
[2020-03-30] MEDS ORDERED: CALCIUM GLUCONATE 1 GM IVPB 1 GM/50 ML BAG IV ONE (12:12)
[2020-03-30] MEDS ORDERED: SODIUM BICARB 50 MEQ/50ML VIAL ONE (12:13)
[2020-03-30 13:43] LABS: Urine Bacteria <20 /HPF (NONE SEEN); Urine Culture Reflex Order NOT NEEDED; Urine RBC <5 /HPF (NONE SEEN); Urine Urothelial Cells <5 /HPF (NONE SEEN)
[2020-03-30 13:44] LABS: Urine Blood NEGATIVE (NEG); Urine Glucose TRACE (NEG); Urine Protein NEGATIVE (NEG)
--- NOTE | 2020-03-30 14:13 | P.HP ---
Certification for Inpatient Patient admitted to: Inpatient With expected LOS: >2 Midnights Patient will require the following post-hospital care: None Practitioner: I am a practitioner with admitting privileges, knowledge of patient current condition, hospital course, and medical plan of care. Services: Services provided to patient in accordance with Admission requirements found in Title 42 Section 412.3 of the Code of Federal Regulations Patient History Date of Service: 03/30/20 Primary Care Provider: Dr. Tsai; Cardiology-Dr. Hinton Reason for admission: Fatigue, diarrhea History of Present Illness: 79-year-old male with history of hypertension, diabetes, COPD, atrial fibrillation not on chronic anti coagulation therapy. Patient reports increased fatigue, diarrhea. He denied any chest pain, shortness of breath. He had seen his foreign exchange position clerk recently. Lab was taking at that time. Cardiology noted that he had some underlying chronic renal disease. Cardiology sent referral for Nephrology to see the patient. He was in the process of seen him but had increasing fatigue and diarrhea. Patient came to [facility] ER for further evaluation. In the ER patient evaluated. Potassium 6.5, BUN of 58, creatinine 4.05 with a GFR 14. Glucose 107. Sodium 135. White count 5.6, hemoglobin 11.5. Magnesium 1.7. Troponin 0.04. Prior renal function in May of 2018 showed a creatinine of 1.4 with a GFR 48. Patient was given medication for hyperkalemia. Patient admitted for further evaluation and treatment. When I saw the patient ER, patient appeared stable. Patient is [place]- speaking. He reports that he takes lisinopril hydrochlorothiazide, Eliquis, metformin, gabapentin, Zyrtec, amiodarone, and Zocor. Patient also given primidone recently for tremors. Daughter reports this has caused some problems. Allergies No Known Allergies Allergy (Verified 07/05/18 13:30) Home medications list reviewed: Yes Home Medications: Metformin HCl [Metformin ER Osmotic] 1,000 mg PO BID 05/05/16 Simvastatin 20 mg PO DAILY 05/05/16 Magnesium Oxide [Mag 0X*] 400 mg PO DAILY 08/08/17 Aspirin [Aspirin EC 81 MG] 81 mg PO DAILY #30 tablet. 08/09/17 Albuterol Sulfate [Proair Hfa] 8.5 gm IH PRN PRN 09/24/17 Fluticasone/Salmeterol [Advair 250-50 Diskus] 1 each IH BID 09/24/17 Lisinopril/Hydrochlorothiazide [Zestoretic 20-12.5 mg Tablet] 1 each PO [id number] 09/24/17 Cetirizine HCl [Zyrtec] 10 mg PO DAILY 07/05/18 Iron/FA/Vit B-Com W/C [Hemocyte Plus*] 1 tab PO DAILY 07/05/18 Ranitidine [Zantac*] 150 mg PO DAILY 07/05/18 Sotalol HCl [Betapace*] 80 mg PO BID 07/05/18 - Past Medical/Surgical History Diabetic: Yes -: Diabetes mellitus type 2 [id number] -: Hyperlipidemia -: Hypertension -: COPD -: GERD -: Atrial fibrillation not on chronic anti coagulation therapy -: Essential tremors -: Hip Replacement -: Cardioversion 2015 Psychosocial/ Personal History: Patient is - Family History Family History: Reviewed- Non-Contributory - Social History Smoking Status: Former smoker Alcohol use: Yes CD- Drugs: No Caffeine use: Yes Place of Residence: Home Review of Systems General: Weakness, Malaise, As per HPI Eyes: Unremarkable ENT: Unremarkable Respiratory: Unremarkable Cardiovascular: Unremarkable Gastrointestinal: Diarrhea, As per HPI Genitourinary: Unremarkable Musculoskeletal: Unremarkable Integumentary: Unremarkable Neurological: Unremarkable Lymphatics: Unremarkable Physical Examination - Physical Exam General: Alert, In no apparent distress, Oriented x3, Cooperative HEENT: Atraumatic, Normocephalic, Other (Dry mucous membranes) Neck: Supple Respiratory: Clear to auscultation bilaterally, Normal air movement Cardiovascular: Abnormal pulses (Bradycardia noted) Gastrointestinal: Normal bowel sounds, Soft and benign, Non-distended, No tenderness, No masses, No rebound, No guarding Musculoskeletal: No tenderness, No warmth Integumentary: No erythema, No warmth, No cyanosis, Tenderness/swelling (Patient reports pain to the calves) Neurological: Normal speech, Normal strength at 5/5 x4 extr, Normal tone, Normal affect - Studies Laboratory Data (last 24 hrs) 03/30/20 10:53: PT 18.9 H, INR 1.62 03/30/20 10:53: WBC 5.6, Hgb 11.5 L, Hct 33.9 L, Plt Count 192 03/30/20 10:53: Sodium 135 L, Potassium 6.5 H*, BUN 58 H, Creatinine 4.05 H, Glucose 107 H, Magnesium 1.7 L, Total Bilirubin 0.4, AST 16, ALT 19, Alkaline Phosphatase 62 Assessment and Plan - Plan Impression: Fatigue, diarrhea secondary to 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 Patient given hyperkalemia cocktail. Recheck potassium in the next 6 hr. Will consult nephrology for further recommendation. Will start IV fluids. Will discontinue lisinopril, hydrochlorothiazide, metformin and primidone. Will discuss further with nephrology about plan of care. Anticipate improvement with IV fluids. Will check stool for further evaluation including C diff , and stool culture. Will obtain blood cultures. No evidence of infection noted this time. Will check renal ultrasound and echocardiogram. Will provide DVT prophylaxis-heparin. Patient had reported some calf pain. Will check venous Doppler. Anticipate improvement over the next 3 days. Will discuss further with nephrology Hypertension: Blood pressure stable. Will discontinue lisinopril and hydrochlorothiazide. Patient with bradycardia so will not use any beta-best if blood pressure required. Will provide hydralazine as needed. Diabetes mellitus type 2 [id number]-mwfgtoj-hpbnweftv: Will provide Accu-Cheks and sliding scale. Will check A1c. Will hold metformin Hyperlipidemia: Continue medication. Will check fasting lipid panel. Atrial fibrillation not on chronic anti coagulation therapy: Continue amiodarone. Patient no longer taking Eliquis. COPD: will provide COPD medication Discharge Plan: Home Plan to discharge in: Greater than 2 days - Advance Directives Does patient have a Living Will: No Does patient have a Durable POA for Healthcare: No - Code Status/Comfort Care Code Status Assessed: Yes (Full code) Time Spent Managing Pts Care (In Minutes): 55
[2020-03-30] MEDS ORDERED: ACETAMINOPHEN 500 MG TAB PO PRN (15:34)
[2020-03-30] MEDS ORDERED: ONDANSETRON 4 MG/2 ML VIAL IV PRN (15:34)
[2020-03-30] MEDS ORDERED: ALBUTEROL INHALER 60 PUFF/8 GM IH PRN (15:34)
[2020-03-30] MEDS ORDERED: NA CHLORIDE 0.9% 1,000 ML IV SCH (15:34)
[2020-03-30] MEDS ORDERED: HYDRALAZINE HCL 20 MG/ML VIAL IV PRN (15:34)
[2020-03-30] MEDS ORDERED: GLUCAGON 1 MG/VIAL IM PRN (16:55)
[2020-03-30] MEDS ORDERED: D50W 25 GM/50 ML SYRINGE IV PRN (16:55)
--- NOTE | 2020-03-30 17:24 | P.CNS ---
Date of Consult: 03/30/20 Reason for Consult: hyperkalemia, acidosis Primary Care Provider: Dr. Tsai; Cardiology-Dr. Hinton Chief Complaint: Fatigue, diarrhea History of Present Illness: An 79-year-old male with PMHx of Afib on Amidoarone, DM on metfromin, HTN on lisinopril and HCTZ , and CKD III last documented cr 1.4 in 05/2018 presented for increased fatigue, diarrhea. He denied any chest pain, shortness of breath. pt was seen by non destructive evaluation manager recently, labs was concerning for abnormal rft , refered to Aquaculture Farm Manager , but has not been seen takes NSAID occasionally labs in ER Potassium 6.5, BUN of 58, creatinine 4.05 with a GFR 14. Glucose 107. Sodium 135. White count 5.6, hemoglobin 11.5. Magnesium 1.7. Troponin 0.04. Physical exam general: AAOX3, NAD , Neck; Supple, No elevated JVD hear: RRR, normal S1,2 no murmur or rub Chest: CTAB, no rlaes or wheezes Abdomen: Soft , Nt Extremities No edema or ulcer MANNY on CKD IV vs progressive CKD will start HD tonight due to hyperkalemia UA : no sediments will try to get old records will order US Hyperkalemia HD tonight cardic monitor HGAM will correct with HD DM SSI hold metfromin HTN hold lisniopril HCTZ Allergies No Known Allergies Allergy (Verified 07/05/18 13:30) Home Medications: Metformin HCl [Metformin ER Osmotic] 1,000 mg PO BID 05/05/16 Simvastatin 20 mg PO DAILY 05/05/16 Magnesium Oxide [Mag 0X*] 400 mg PO DAILY PRN 08/08/17 Fluticasone/Salmeterol [Advair 250-50 Diskus] 1 each IH BID 09/24/17 Lisinopril/Hydrochlorothiazide [Zestoretic 20-12.5 mg Tablet] 1 each PO DAILY 09/24/17 Amiodarone HCl [Cordarone*] 200 mg PO BID 03/30/20 Apixaban [Eliquis *] 5 mg PO BID 03/30/20 Famotidine 40 mg PO BID 03/30/20 - Past Medical/Surgical History Diabetic: Yes -: Diabetes mellitus type 2 [id number] -: Hyperlipidemia -: Hypertension -: COPD -: GERD -: Atrial fibrillation not on chronic anti coagulation therapy -: Essential tremors -: Hip Replacement -: Cardioversion 2015 Psychosocial/ Personal History: Patient is - Social History Smoking Status: Former smoker Alcohol use: Yes CD- Drugs: No Caffeine use: Yes Place of Residence: Home Review of Systems Other: weakness, fatigue Physical Examination Temp Pulse Resp BP Pulse Ox 97.8 F 68 17 150/51 H 03/30/20 10:11 03/30/20 14:00 03/30/20 14:00 03/30/20 14:00 Laboratory Data (last 24 hrs) 03/30/20 10:53: PT 18.9 H, INR 1.62 03/30/20 10:53: WBC 5.6, Hgb 11.5 L, Hct 33.9 L, Plt Count 192 03/30/20 10:53: Sodium 135 L, Potassium 6.5 H*, BUN 58 H, Creatinine 4.05 H, Glucose 107 H, Magnesium 1.7 L, Total Bilirubin 0.4, AST 16, ALT 19, Alkaline Phosphatase 62
[2020-03-30] MEDS: LIDOCAINE 1% MPF 30 ML VIAL ONE ×3 (17:56→18:18)
[2020-03-30] MEDS: HEPARIN 5000 UNIT/ML 1 ML VIAL ONE ×3 (17:57→19:04)
[2020-03-30] MEDS: HEPARIN 5000 UNIT/ML 1 ML VIAL SQ SCH ×2 (17:57→19:04)
[2020-03-30] MEDS ORDERED: NA CHLORIDE 0.9% 100 ML IV ONE (18:00)
[2020-03-30] MEDS ORDERED: LIDOCAINE 2% MPF 5 ML VIAL ONE (18:01)
[2020-03-30] MEDS ORDERED: propofoL 200 MG/20 ML VIAL IV ONE (18:01)
[2020-03-30 18:02] LABS: Potassium 5.4 mmol/L (3.5-5.1)
[2020-03-30 18:06] LABS: CKMB Creatine Kinase MB 1.6 ng/mL (0.3-3.6); Creatine Phosphokinase 98 U/L (39-308); Troponin I 0.03 ng/mL (0.0-0.045)
[2020-03-30] MEDS ORDERED: NS 0.9% VIAL 10 ML ONE (18:07)
[2020-03-30 18:08] LABS: C-Reactive Protein < 2.90 mg/L (<3.00)
[2020-03-30] MEDS ORDERED: CEFAZOLIN/SWI 1gm 1 GM/10 ML SYR ONE (18:14)
[2020-03-30] MEDS ORDERED: MIDAZOLAM HCL 2 MG/2 ML INJ ONE (18:27)
[2020-03-30] MEDS ORDERED: Phenylephrine HCl 10 MG/ML 1 ML VIAL ONE (18:28)
--- NOTE | 2020-03-30 19:21 | P.OP ---
Airport Planner: NONE,NONE Preoperative diagnosis: ARF, Hyperkalemia Postoperative diagnosis: same Primary procedure: Attempted RIJ and Subclavian Tesio and Flouroscopy Secondary procedure: Right Subclavian Tesio Catheter Anesthesia: MAC Estimated blood loss: min Specimen: none Findings: Uanable to place Tesio because of abnormal anatomy Complications: None Transferred to: Recovery Room Condition: Good
--- NOTE | 2020-03-30 19:58 | RAD REPORT ---
EXAM DESCRIPTION: Basiat Single View03/30/2020 7:49 pm CLINICAL HISTORY: Device placement/central venous catheter placement FINDINGS: Tip of a central venous catheter lies within the superior vena cava. A pneumothorax is not present.
--- NOTE | 2020-03-30 20:02 | RAD REPORT ---
EXAM DESCRIPTION: RAD - Fluoroscopy >1 Hr - 03/30/2020 7:23 pm CLINICAL HISTORY: Device placement central venous catheter placement FINDINGS: A central venous catheter was placed into the superior vena cava. 6 fluoroscopic spot imag es are submitted. The examination was performed by Dr. Jimenez Fluoroscopy time 6.2 minutes
[2020-03-30] MEDS ORDERED: MORPHINE 2 MG/ML SYR IV ONE (20:42)
[2020-03-30] MEDS ORDERED: ATORVASTATIN 10 MG TAB PO SCH (21:00)
[2020-03-30] MEDS: INSULIN -REGULAR HUMAN 50 UNIT/0.5 ML ML SQ SCH (21:00)
[2020-03-30 21:25] LABS: Urine Appearance CLEAR; Urine Bilirubin NEGATIVE (NEG); Urine Blood NEGATIVE (NEG); Urine Color YELLOW; Urine Glucose NEGATIVE (NEG); Urine Microscopic Reflex NO UMIC; Urine Protein NEGATIVE (NEG); Urine Urobilinogen 0.2 mg/dL (0.2-1.0)
[2020-03-30 21:32] LABS: Urine Protein/Creatinine Ratio 0.3 ratio (<0.15)
[2020-03-31] MEDS: AMIODARONE HCL 200 MG TAB PO SCH ×3 (00:52→21:37)
[2020-03-31] MEDS: DULERA 100/5 (MOMETASONE/FORMOTEROL) INHALER IH SCH ×3 (01:04→21:39)
[2020-03-31 01:51] LABS: CKMB Creatine Kinase MB 4.2 ng/mL (0.3-3.6)
[2020-03-31 01:52] LABS: Troponin I 0.86 ng/mL (0.0-0.045)
[2020-03-31 04:11] LABS: Absolute Lymphocytes (CBC) 0.5 K/uL (0.7-4.9); Basophils % 0.3 % (0-1.3); Hematocrit 26.8 % (39.6-49.0); Lymphocytes % 8.1 % (15.3-44.8); MPV 7.9 fL (7.6-11.3); RBC Red Blood Cell Count 2.95 M/uL (4.33-5.43)
[2020-03-31 04:29] LABS: Magnesium 1.7 mg/dL (1.8-2.4); Potassium 4.7 mmol/L (3.5-5.1); Thyroid Stimulating Hormone 1.95 uIU/mL (0.360-3.740)
[2020-03-31] MEDS: INSULIN -REGULAR HUMAN 50 UNIT/0.5 ML ML SQ SCH ×4 (07:30→21:00)
[2020-03-31 07:32] LABS: Phosphorus 4.3 mg/dL (2.5-4.9); Thyroid Stimulating Hormone 2.17 uIU/mL (0.360-3.740)
--- NOTE | 2020-03-31 07:39 | PREOPCON ---
Date of Consultation: 03/30/2020 Reason: The patient needs emergent dialysis. History Of Present Illness: The patient is an 79-year-old gentleman, who came in with fatigue, weakn ess, workup revealed acute renal failure with hyperkalemia, and the patient needs emergent dialysis. They want to dialyze him tonight; therefore, he needs access for that. Therefore, I was consulted. The patient is awake, alert, clinically stable. No complaint at this time. No sore throat, runny n ose, cough, headaches, or dizziness. No chest pain. No shortness of breath at this time. Recently, he has had diarrhea and fatigue. Review of Systems: Otherwise unremarkable. Past Medical History: Diabetes, hyperlipidemia, hypertension, COPD, GERD, atrial fibrillation, but dorys faith was on Eliquis, not currently. Past Surgical History: Hip replacement on both sides. Allergies: NONE. Social History: The patient used to smoke. Drinks alcohol occasionally. Family History: Noncontributory. Physical Examination: Vital Signs: Stable. He is afebrile. General: He is awake, alert, and oriented x3. Head and Neck: Cranial nerves 2 through 12 are grossly within normal limits. No neck masses. No JV D. Throat clear. Neck is supple. Chest: Clear. Heart: S1, S2. Abdomen: Soft. Extremities: Neurovascularly intact. Neurologic: Nonfocal. Laboratory Data: H and H of 11.5 and 33.9, platelets are 192. INR is 1.62. Chemistry shows BUN of 58, creatinine of 4.05, potassium was 6.5, which was repeated and is still at 6.5. Assessment: Acute renal failure with chronic renal disease and hyperkalemia. Recommendations: N.p.o., IV fluids, IV antibiotics, to the OR for chest tube catheter placement. Th e patient and family via fire production operator understand the risks, benefits, alternatives, and agrees to proce dure. /MODL Voice ID: [id number] Report ID: [id number]
--- NOTE | 2020-03-31 07:43 | EKG ---
Test Date: 2020-03-30 Test Time: 10:23:11 Commercial Litigation Associate: CHRISTINA MEASUREMENT RESULTS: Intervals: Rate: 44 MA: QRSD: 100 QT: 480 QTc: 410 [place]: P: MA: QRS: -3 T: 57 INTERPRETIVE STATEMENTS: Junctional bradycardia Abnormal ECG Compared to ECG 09/27/2017 11:29:16 Sinus rhythm no longer present Myocardial infarct finding no longer present Electronically Signed On 03-31-20 07:40:41 [employer] by Sloan Vinson
--- NOTE | 2020-03-31 07:52 | OP ---
Date of Procedure: 03/30/2020 Surgeon: Garrett Jimenez MD Goodwill Representative: None. Preoperative Diagnoses: Acute renal failure and hyperkalemia. Postoperative Diagnoses: Acute renal failure and hyperkalemia. Procedures: 1.Attempted right IJ and subclavian Tesio catheter. 2.Placement of right subclavian Tang catheter. 3.Interpretation of intraoperative fluoroscopy. Specimens: None. Findings: Abnormal anatomy. Unable to place the Tesio catheter via the IJ approached and unable to adequately dilate the subclavian vein utilizing the sheath introducer and dilator; therefore, a Ismael on catheter was placed for safety concerns and the patient will require a tertiary care with [facility] radiologist to attempt to put a Tesio catheter. This was discussed with Dr. Cuellar. Anesthesia: MAC. Complications: None. Disposition: The patient tolerated the procedure in stable condition, taken to Recovery in good gene ral condition. Procedure In Detail: The patient was brought to the OR and placed in supine position. MAC anesthesi a was begun. The patient was prepped and draped in the usual sterile fashion. Lidocaine 1% was infi ltrated locally. An 18-gauge needle was used to access the right IJ vein. Guidewire was passed. Po sition was confirmed with fluoroscopy and then a counter incision was made and tunneling device was u sed to tunnel the catheter between the 2 wounds. Seldinger technique was utilized, however, when the sheath introduced, dilator was placed over the guidewire and the guidewire was curved into many conc entric [place] ira loops and the catheter was very difficult to place. This was attempted with a differen t catheter, different guidewire, and this was again unsuccessful. Then, this area was aborted and fl uoroscopy was utilized and right subclavian vein was accessed. Again, the sheath introducer with dil ator was unable to traverse the angle at the subclavian SVC junction and rather than risk injury to t he SVC, I opted to place a Tang catheter for temporary dialysis, which was done utilizing Seldinge r technique without difficulty and fluoroscopy was used to confirm the placement and the catheter was flushed with heparin, packed with heparin with good blood flow. When the Tesio catheter was placed, I could not aspirate any blood, so I knew there was something not right about the anatomy. Subseque ntly after the Tang catheter was flushed with heparin, it was secured to the chest wall with 3-0 n ylon and 3-0 chromic was used to close the other small incisions that were made during the attempted process. Sterile dressings were applied and the patient was awakened and taken to Recovery in good g eneral condition and chest x-ray has been ordered. NISHA/NATALIE Voice ID: [id number] Report ID: [id number]
[2020-03-31] MEDS: HEPARIN 5000 UNIT/ML 1 ML VIAL SQ SCH (09:00)
[2020-03-31] MEDS ORDERED: ASPIRIN EC 81 MG TAB PO SCH (09:00)
[2020-03-31] MEDS ORDERED: MAGNESIUM SULFATE 1 gm IVPB 1 GM/100 ML BAG IV ONE (09:00)
[2020-03-31] MEDS ORDERED: Magnesium Sulfate 2gm IVPB 2 G/50 ML BAG IV ONE (09:00)
[2020-03-31] MEDS ORDERED: NA CHLORIDE 0.9% 250 ML IV ONE (09:08)
--- NOTE | 2020-03-31 09:13 | P.PN ---
Subjective Date of Service: 03/31/20 Primary Care Provider: Dr. Tsai; Cardiology-Dr. Hinton Chief Complaint: Fatigue, diarrhea Subjective: Other (Blood pressure slightly low this morning. Patient had dialysis last night. Potassium improved. Patient reports some pain to the side of dialysis catheter.) Physical Examination - Vital Signs Temperature: 97.9 F Blood Pressure: 99/46 Pulse: 63 Respirations: 16 Pulse Ox (%): 98 - Physical Exam General: Alert, In no apparent distress, Oriented x3, Cooperative HEENT: Atraumatic Neck: Supple Respiratory: Clear to auscultation bilaterally, Normal air movement Cardiovascular: Normal pulses, Regular rate/rhythm Gastrointestinal: Normal bowel sounds, Soft and benign, Non-distended, No tenderness, No masses, No rebound, No guarding Musculoskeletal: No erythema, No tenderness, No warmth Integumentary: No erythema, No warmth, No cyanosis Neurological: Normal speech, Normal strength at 5/5 x4 extr, Normal tone, Normal affect - Studies Laboratory Data (last 24 hrs) 03/30/20 10:53: PT 18.9 H, INR 1.62 03/30/20 10:53: WBC 5.6, Hgb 11.5 L, Hct 33.9 L, Plt Count 192 03/30/20 10:53: Sodium 135 L, Potassium 6.5 H*, BUN 58 H, Creatinine 4.05 H, Glucose 107 H, Magnesium 1.7 L, Total Bilirubin 0.4, AST 16, ALT 19, Alkaline Phosphatase 62 Medications List Reviewed: Yes Assessment & Plan Discharge Plan: Home Plan to discharge in: 48 Hours Physician Review Additional Text: Impression: Fatigue, diarrhea secondary to 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 Afterwards patient had emergent dialysis. Potassium now within normal range. Other medications including lisinopril, hydrochlorothiazide and metformin have been discontinued. Case discussed with surgery and nephrology yesterday. Patient had elevated troponin likely ischemic demand. Cardiology plans no further intervention. Will discuss further with nephrology on whether patient will need to continue with dialysis long-term. Significant improvement noted. Will continue to monitor closely. Blood pressure slightly low this morning. Will provide 250 cc fluid bolus. Will continue to monitor for diarrhea. Patient reports no diarrhea at this time. Will obtain renal ultraso und and echocardiogram. Awaiting venous Doppler of the lower extremity as well. Cardiology recommends low-dose Eliquis for his atrial fibrillation. Patient on amiodarone. Will continue to monitor closely. Anticipate improvement over the next 48-72 hr. If renal function improved patient may not require long-term dialysis. This will need to be further assess over the next day or 2. I will turn the service over to the hospitalist team tomorrow. I will go over the plan of care with him. Elevated troponin likely ischemic demand: Case discussed with cardiology. No indication for further intervention. Await echocardiogram. Hypertension: Blood pressure low this morning. Lisinopril and hydrochlorothiazide have been discontinued. Will continue to monitor blood pressure without medication. IV medication as needed. Diabetes mellitus type 2 [id number]: A1c 6.5. Metformin has been discontinued due to his chronic renal disease. May need to think of other option at discharge. Continue Accu-Cheks and sliding scale. Hyperlipidemia: Lipitor increase due to LDL elevation an significant heart disease. Atrial fibrillation not on chronic anti coagulation therapy: Case discussed with cardiology. Patient to continue with amiodarone. Cardiology recommends low-dose Eliquis due to his risk factors. Patient had been on Eliquis before but this was apparently discontinued. Discuss with patient and family. COPD: will provide COPD medication. Maintain oxygen saturations above 93%. GERD: Continue Pepcid. Essential tremor: Primidone has been discontinued due to his chronic renal disease. This can be further evaluated as an outpatient with Neurology. Time Spent Managing Pts Care (In Minutes): 55
[2020-03-31] MEDS ORDERED: HYDROCODONE/APAP 5/325 MG TAB PO PRN (09:26)
[2020-03-31] MEDS: TRAMADOL HCL 50 MG TAB PO PRN ×2 (09:53→20:12)
[2020-03-31] MEDS ORDERED: HYDROMORPHONE HCL 0.5 MG/0.5 ML INJ IV ONE (11:39)
--- NOTE | 2020-03-31 11:42 | P.PN ---
Subjective Date of Service: 03/31/20 Primary Care Provider: Dr. Tsai; Cardiology-Dr. Hinton Chief Complaint: Fatigue, diarrhea Subjecive An 79-year-old male with PMHx of Afib on Amidoarone, DM on metfromin, HTN on lisinopril and HCTZ , and CKD III last documented cr 1.4 in 05/2018 presented for increased fatigue, diarrhea. He denied any chest pain, shortness of breath and diarrhea pt was seen by tour production supervisor recently, labs was concerning for abnormal rft , refered to Neurologist , but has not been seen takes NSAID occasionally labs in ER Potassium 6.5, BUN of 58, creatinine 4.05 with a GFR 14. Glucose 107. Sodium 135. White count 5.6, hemoglobin 11.5. Magnesium 1.7. Troponin 0.04. Today tolerated HD yesterday with no complications diarrhea improved will hold on HD today as cr slightly improved yesterday before HD after starting IVF renal dose meds F/u US report Review of Systems: Head and Neck: No red eye. No ear pain. GI: No nausea, no vomiting. : No polyuria, no dysuria, no hematuria. Crocheter Hand: Not applicable. Respiratory: No shortness of breath. Cardiovascular: No chest pain. Endocrine: No polydipsia. Skin: No rash. Neuro: Has neuropathy. Musculoskeletal: pain over catheter site Physical exam general: AAOX3, NAD , Neck; Supple, No elevated JVD hear: RRR, normal S1,2 no murmur or rub Chest: CTAB, no rlaes or wheezes Abdomen: Soft , Nt Extremities No edema or ulcer MANNY on CKD IV vs progressive CKD will start HD tonight due to hyperkalemia UA : no sediments will try to get old records F/U US report Hyperkalemia resolved after HD HGAM corrected with HD DM SSI hold metfromin HTN hold lisniopril HCTZ AFib on amdiodarone satrted on Eliquis Physical Examination - Vital Signs Temperature: 97.9 F Blood Pressure: 99/46 Pulse: 63 Respirations: 18 Pulse Ox (%): 94 - Studies Medications List Reviewed: Yes
--- NOTE | 2020-03-31 11:57 | RAD REPORT ---
EXAM DESCRIPTION: USExtrem Venous W Compress Bil03/31/2020 11:14 am CLINICAL HISTORY: Leg pain COMPARISON: none FINDINGS: The common femoral, superficial femoral, popliteal and posterior tibial veins bilaterally are compressible and demonstrate augmentation. Doppler demonstrates good flow. IMPRESSION: No evidence of deep venous thrombosis involving either lower extremity.
--- NOTE | 2020-03-31 11:57 | RAD REPORT ---
EXAM DESCRIPTION: US - Renal Ultrasound-Complete - 03/31/2020 11:14 am CLINICAL HISTORY: Chronic renal disease COMPARISON: None. FINDINGS: The right kidney measures 8 cm with an increased echotexture. The left kidney measures 9 cm with an increased echotexture. Hydronephrosis is not seen. No gross abnormality of bladder is seen IMPRESSION: Mildly increased renal echotexture consistent disease
[2020-03-31] MEDS ORDERED: NA CHLORIDE 0.9% 1,000 ML IV SCH (12:00)
[2020-03-31] MEDS ORDERED: FUROSEMIDE 40 MG/4 ML VIAL IV ONE (20:15)
--- NOTE | 2020-03-31 20:43 | P.PN ---
Date of Service: 03/31/20 Was called by nursing staff, patient reported to have been becoming more short of breath. Patient's room air saturations dropped to around 88-89% and was placed on nasal cannula. Patient had been receiving some IV fluid from nephrology to try to improve his renal function, patient also with history of asthma. When I saw the patient he was awake, alert, oriented x3. No respiratory distress noted, mild tachypneic. Breath sounds with expiratory wheezing, possibly mild crackles in the left lung base. Discussed case with hospitalist attending, provide patient with nebulizer, obtain stat chest x-ray, pro calcitonin. Discontinue IV fluids, give Lasix 40 mg IV x1. Follow up with chest x-ray.
[2020-03-31] MEDS ORDERED: HOME MED 1 EA UNK (Famotidine [Famotidine] 40 MG) PO SCH (21:00)
--- NOTE | 2020-03-31 21:05 | RAD REPORT ---
EXAM DESCRIPTION: RAD - Chest Single View - 03/31/2020 8:44 pm CLINICAL HISTORY: SOB COMPARISON: March 30 TECHNIQUE: AP portable chest image was obtained 03/31/2020 8:44 pm. FINDINGS: Pleural and parenchymal opacification of the right base has not changed. Right subclavian central line has not changed. No new pleural or parenchymal process. Heart and vasculature are normal. No pneumothorax. No acute bony abnormality seen. No acute aortic fi ndings suspected. IMPRESSION: Right base pleural and parenchymal opacification not significantly different from compar tam.
[2020-03-31] MEDS: APIXABAN 2.5 MG TABLET PO SCH (21:37)
[2020-03-31] MEDS: ATORVASTATIN 40 MG TAB PO SCH (21:37)
[2020-04-01] MEDS ORDERED: MORPHINE 2 MG/ML SYR IV PRN (00:16)
[2020-04-01 05:01] LABS: Basophils % 0.4 % (0-1.3); Lymphocytes % 14.9 % (15.3-44.8); RBC Red Blood Cell Count 3.06 M/uL (4.33-5.43)
[2020-04-01 05:06] LABS: Potassium 4.3 mmol/L (3.5-5.1)
[2020-04-01] MEDS: INSULIN -REGULAR HUMAN 50 UNIT/0.5 ML ML SQ SCH ×4 (07:30→20:27)
[2020-04-01] MEDS: IPRATROPIUM BROM 0.5MG/2.5ML NEB SCH ×4 (08:12→20:00)
[2020-04-01] MEDS: ALBUTEROL 2.5 MG/3 ML NEB SOL NEB SCH ×4 (08:12→20:00)
[2020-04-01] MEDS: AMIODARONE HCL 200 MG TAB PO SCH (08:55)
[2020-04-01] MEDS: APIXABAN 2.5 MG TABLET PO SCH ×2 (08:55→20:11)
[2020-04-01] MEDS: DULERA 100/5 (MOMETASONE/FORMOTEROL) INHALER IH SCH ×2 (08:56→20:11)
[2020-04-01] MEDS ORDERED: HOME MED 1 EA UNK (Simvastatin [Simvastatin] 20 MG) PO SCH (09:00)
--- NOTE | 2020-04-01 09:38 | PN ---
Date of Progress Note: 03/31/2020 Mr. Tapia is an 79-year-old male, came in with a history of paroxysmal atrial fibrillation. Came in with acute renal failure. Creatinine is 0.05. He was hyperkalemic. His atrial fibrillation actuall y showed low ventricular response, occasionally in the 40s. He is on amiodarone. He was on Eliquis now. I think we need to decrease the amiodarone dose to 100 mg daily or every other day. Nephrology consultation has been obtained. Renal function is improved. Echocardiogram is pending. Lisinopril with hydrochlorothiazide has been held. No further cardiac workup at this point. His blood pressur e, diabetes, chronic obstructive pulmonary disease, and gastroesophageal reflux disease appeared to b e stable at this point. We will continue to follow him as needed. YENI/NATALIE Voice ID: [id number] Report ID: [id number]
--- NOTE | 2020-04-01 10:15 | CON ---
Date of Consultation: 03/30/2020 Reason For Consultation: Acute renal failure, atrial fibrillation. History Of Present Illness: Mr. Tapia is 79-year-old [place] male with history of COPD, hyper tension, diabetes, dyslipidemia, gastroesophageal reflux disease, and paroxysmal atrial fibrillation. Came in with weakness and diarrhea. Was noted to be in atrial fibrillation with variable rate. Hi s rate has been in the 40s and has been in the 90s pretty much within the 10 hours. He denied any na usea, vomiting, or diaphoresis. Denied any PND, orthopnea, or pedal edema. Denied any palpitation o r syncope. He was found to have a creatinine of 4.05 with potassium of 6.5. His BNP was 7833. It i s unclear what medicine he is taking at home, but he appeared to be taking amiodarone that has been s tarted by Dr. Hinton for his atrial fibrillation. The patient also according to the record is taking Eliquis, but we are not sure of that. Allergies: NONE. Past Medical History: As stated above. Review of Systems: Negative. Social History: Negative. Family History: Negative. Medications: At home include amiodarone, Eliquis, inhalers, aspirin, lisinopril with hydrochlorothia zide, metformin, Zocor, and Zantac. Physical Examination: General: He appeared to be his stated age. He complained of right shoulder pain. Vital signs: He was in atrial fibrillation, rate of 60. He was afebrile. HEENT: Negative. Neck: Supple with no bruit. Chest: Clear. Cardiac: Exam revealed atrial fibrillation. No murmurs, gallops, or rubs. Abdomen: Benign. Extremities: Revealed no clubbing, cyanosis, or edema. Diagnostic Data: As stated earlier. Chest x-ray shows possible pneumonia in the right base. Impression And Plan: 1.Possible pneumonia in the right base. 2.Paroxysmal atrial fibrillation with low rate. May be reasonable to stop or decrease the amiodaron e dose. He should be on Eliquis low dose with his renal failure. 3.Acute renal failure. Nephrology consultation is pending. 4.Hyperkalemia secondary to renal failure. 5.Elevated BNP secondary to renal failure. His lisinopril with hydrochlorothiazide should be held. His other problems including hypertension, diabetes, gastroesophageal reflux disease, and chronic ob structive pulmonary disease appeared to be stable at this point. We will continue to follow him. YENI/NATALIE Voice ID: [id number] Report ID: [id number]
[2020-04-01] MEDS: FAMOTIDINE 20 MG TAB PO SCH (20:11)
[2020-04-01] MEDS: ATORVASTATIN 40 MG TAB PO SCH (20:11)
--- NOTE | 2020-04-01 22:04 | PN ---
Date of Progress Note: 04/01/2020 Reason For Consultation: Acute kidney injury on chronic kidney disease stage 3. History Of Present Illness: The patient presented to the hospital, was found to have severe hyperkal emia, elevated BUN and creatinine. BUN was 58, creatinine 405, potassium 6.5, sodium 135. The patie nt was initiated on dialysis to control severe hyperkalemia and to provide metabolic clearance. The patient has multiple medical problems including history of chronic kidney disease stage 3. Back in J anuary 2018, creatinine was 1.4. The patient presented to the hospital because of increased fatigue and diarrhea. He denies chest pain or shortness of breath. He has history of atrial fibrillation, d iabetes mellitus, and hypertension. He was treated with lisinopril, metformin, HCTZ as an outpatient , and medications were stopped during the hospitalization due to acute kidney injury. Metformin was stopped. The patient did not have metabolic acidosis, received dialysis to control hyperkalemia. Review of Systems: The patient is feeling better. Denies PND or orthopnea. Physical Examination: Lungs: Clear to auscultation bilaterally. Heart: S1, S2. Abdomen: Soft, benign. Extremities: No edema. Impression And Plan: 1.Acute kidney injury, severe. The patient may have progressive chronic kidney disease. He receive d dialysis for metabolic clearance. Today, dialysis is on hold. The patient has nonoliguric urine o utput. Plan is to monitor electrolytes and azotemia daily and recommend dialysis as needed. The pat ient is responding to IV fluids. He has nonoliguric urine output. 2.Hypertension. JOE inhibitor is on hold due to acute kidney injury associated with hyperkalemia. 3.Diabetes mellitus. Metformin was stopped and the patient is on insulin sliding scale. 4.Hyperkalemia, resolved with dialysis. Currently, the patient is on low-potassium diet and potassi um level is within normal limit. EB/MODL Voice ID: [id number] Report ID: [id number]
[2020-04-02] MEDS: IPRATROPIUM BROM 0.5MG/2.5ML NEB SCH ×4 (01:45→20:25)
[2020-04-02] MEDS: ALBUTEROL 2.5 MG/3 ML NEB SOL NEB SCH ×4 (01:45→20:25)
[2020-04-02 05:53] LABS: Absolute Lymphocytes (CBC) 0.7 K/uL (0.7-4.9); Basophils % 0.5 % (0-1.3); Hematocrit 24.3 % (39.6-49.0); Lymphocytes % 13.6 % (15.3-44.8); MPV 7.7 fL (7.6-11.3); RBC Red Blood Cell Count 2.66 M/uL (4.33-5.43)
[2020-04-02 06:06] LABS: Magnesium 1.9 mg/dL (1.8-2.4); Potassium 4.1 mmol/L (3.5-5.1)
[2020-04-02] MEDS: INSULIN -REGULAR HUMAN 50 UNIT/0.5 ML ML SQ SCH ×4 (07:30→21:00)
[2020-04-02] MEDS: DULERA 100/5 (MOMETASONE/FORMOTEROL) INHALER IH SCH ×2 (08:48→21:00)
[2020-04-02] MEDS: AMIODARONE HCL 200 MG TAB PO SCH (08:49)
[2020-04-02] MEDS: APIXABAN 2.5 MG TABLET PO SCH ×2 (08:49→21:01)
--- NOTE | 2020-04-02 10:32 | P.PN ---
Subjective Date of Service: 04/02/20 Primary Care Provider: Dr. Tsai; Cardiology-Dr. Hinton Chief Complaint: Fatigue, diarrhea Subjecive An 79-year-old male with PMHx of Afib on Amidoarone, DM on metfromin, HTN on lisinopril and HCTZ , and CKD III last documented cr 1.4 in 05/2018 presented for increased fatigue, diarrhea. He denied any chest pain, shortness of breath and diarrhea pt was seen by home health billing specialist recently, labs was concerning for abnormal rft , refered to Neurologist , but has not been seen takes NSAID occasionally labs in ER Potassium 6.5, BUN of 58, creatinine 4.05 with a GFR 14. Glucose 107. Sodium 135. White count 5.6, hemoglobin 11.5. Magnesium 1.7. Troponin 0.04. Pt had HD X1 Today had 1 HD treatment , Cr cont to improve after, will hold IVF as pt is wheezing if cr cont to improve by tomorrow , then pt can be discharged from nephrology point of view monitor CBC Review of Systems: Head and Neck: No red eye. No ear pain. GI: No nausea, no vomiting. : No polyuria, no dysuria, no hematuria. Pipe Fitter: Not applicable. Respiratory: No shortness of breath. Cardiovascular: No chest pain. Endocrine: No polydipsia. Skin: No rash. Neuro: Has neuropathy. Musculoskeletal: mild pain over catheter site, tremors Physical exam general: AAOX3, NAD , tremors Neck; Supple, No elevated JVD hear: RRR, normal S1,2 no murmur or rub Chest: mild expiratory wheezes Abdomen: Soft , Nt Extremities No edema or ulcer MANNY on CKD IV due to dehydration and JOE HD X1 due to hyperkalmeia UA : no sediments Cr cont to improve Hyperkalemia due to MANNY and JOE resolved after HD HGAM resolved DM SSI hold metfromin HTN hold lisniopril HCTZ AFib on amdiodarone satrted on Eliquis HX of COPD cont inhalers total time spent 25min Physical Examination - Vital Signs Temperature: 97.0 F Blood Pressure: 146/58 Pulse: 63 Respirations: 16 Pulse Ox (%): 95 - Studies Medications List Reviewed: Yes
--- NOTE | 2020-04-02 12:20 | ECHO ---
HEIGHT: 5 ft 5 in WEIGHT: 144 lb 11.2 oz DATE OF STUDY: 04/01/[address]: Roddy Sanders DO 2-DIMENSIONAL: YES M.MODE: YES DOPPLER: YES COLOR FLOW: YES TDS: PORTABLE: DEFINITY: BUBBLE STUDY: DIAGNOSIS: ATRIAL FIBRILLATION CARDIAC HISTORY: CATHERIZATION: NO SURGERY: NO PROSTHETIC VALVE: NO PACEMAKER: NO MEASUREMENTS (cm) DIASTOLIC (NORMALS) SYSTOLIC (NORMALS) IVSd 1.0 (0.6-1.2) LA Diam 3.2 (1.9-4.0) LVEF 69% LVIDd 3.6 (3.5-5.7) LVIDs 2.2 (2.0-3.5) %FS 38% LVPWd 1.1 (0.6-1.2) Ao Diam 2.5 (2.0-3.7) 2 DIMENSIONAL ASSESSMENT: RIGHT ATRIUM: NORMAL LEFT ATRIUM: NORMAL RIGHT VENTRICLE: NORMAL LEFT VENTRICLE: NORMAL TRICUSPID VALVE: MILD TRICUSPID REGURGITATION MITRAL VALVE: MILD MITRAL REGURGITATION PULMONIC VALVE: MILD PULMONARY INSUFFIENCY AORTIC VALVE: THICKENED, NO AORTIC STENOSIS PERICARDIAL EFFUSION: NONE AORTIC ROOT: NORMAL LEFT VENTRICULAR WALL MOTION: NORMAL DOPPLER/COLOR FLOW: SEE BELOW COMMENTS: NORMAL LEFT VENTRICULAR EJECTION FRACTION 55-60% WITH NORMAL WALL MOTION. MILD PULMONARY INSUFFIENCY, MILD TRICUSPID REGURGITATION. MILD MITRAL REGURGITATION. THICKENED AORTIC VALVE, NO AORTIC STENOSIS. MILD PULMONARY HYPERTENSION WITH RIGHT VENTRICULAR SYSTOLIC PRESSURE OF 35-40 mmHg. TECHNOLOGIST: BAILEY HAN
[2020-04-02 15:10] VITALS: BMI 23.6
[2020-04-02] MEDS: FAMOTIDINE 20 MG TAB PO SCH (21:01)
[2020-04-02] MEDS: ATORVASTATIN 40 MG TAB PO SCH (21:01)
[2020-04-02] MEDS: GLUCERNA SHAKE 237 ML CAN PO SCH (22:16)
[2020-04-03] MEDS: IPRATROPIUM BROM 0.5MG/2.5ML NEB SCH ×2 (01:50→08:23)
[2020-04-03] MEDS: ALBUTEROL 2.5 MG/3 ML NEB SOL NEB SCH ×2 (01:50→08:23)
[2020-04-03 06:05] LABS: Absolute Lymphocytes (CBC) 0.8 K/uL (0.7-4.9); Basophils % 0.4 % (0-1.3); Lymphocytes % 15.2 % (15.3-44.8); MPV 7.9 fL (7.6-11.3); RBC Red Blood Cell Count 2.82 M/uL (4.33-5.43)
[2020-04-03 06:49] VITALS: BP 106/61; TEMP 97.6
[2020-04-03 07:29] LABS: Potassium 4.1 mmol/L (3.5-5.1)
[2020-04-03] MEDS: INSULIN -REGULAR HUMAN 50 UNIT/0.5 ML ML SQ SCH (07:30)
[2020-04-03] MEDS: APIXABAN 2.5 MG TABLET PO SCH (08:25)
[2020-04-03] MEDS: AMIODARONE HCL 200 MG TAB PO SCH (08:26)
[2020-04-03] MEDS: DULERA 100/5 (MOMETASONE/FORMOTEROL) INHALER IH SCH (08:26)
[2020-04-03] MEDS: GLUCERNA SHAKE 237 ML CAN PO SCH (08:27)
--- NOTE | 2020-04-03 08:34 | P.PN ---
Subjective Date of Service: 04/01/20 PATIENT CLINICALLY FEELING BETTER. WHEN SHE WAS GIVEN SOME LASIX OVERNITE AND DIURESED EFFECTIVELY. HE DOES NOT APPEAR TO BE NEEDING ANY MORE DIALYSIS. WILL TALK WITH NEPHROLOGY REGARDING LONG-TERM PLAN OF CARE Review of Systems 10-point ROS is otherwise unremarkable Physical Examination - Vital Signs Temperature: 97.6 F Blood Pressure: 106/61 Pulse: 84 Respirations: 18 Pulse Ox (%): 98 - Physical Exam General: Alert, In no apparent distress, Oriented x3 Respiratory: Clear to auscultation bilaterally, Normal air movement Cardiovascular: Regular rate/rhythm, Normal S1 S2, No murmurs Gastrointestinal: Normal bowel sounds, Soft and benign, Non-distended, No tenderness Musculoskeletal: No clubbing, No swelling, No tenderness Neurological: Sensation intact, Cranial nerves 3-12 intact - Studies Medications List Reviewed: Yes Assessment & Plan - Problems (Diagnosis) (1) Acute renal injury Onset Date: 08/09/17 Current Visit: No Status: Acute (2) Atrial fibrillation with RVR Current Visit: No Status: Acute (3) COPD exacerbation Onset Date: 08/09/17 Current Visit: No Status: Acute (4) Diabetes mellitus Onset Date: 08/09/17 Current Visit: No Status: Acute Qualifiers: Diabetes mellitus type: type 2 Diabetes mellitus prison insulin use: without ent consultant use Diabetes mellitus complication status: with unspecified complications (5) Dyslipidemia Onset Date: 08/09/17 Current Visit: No Status: Acute (6) HTN (hypertension) Onset Date: 08/09/17 Current Visit: No Status: Acute Qualifiers: Hypertension type: essential hypertension Qualified Code(s): I10 - Essential (primary) hypertension - Plan PLAN: 1. CONTINUE WITH GENTLE DIURESING NECESSARY 2. MONITOR RENAL FUNCTION CLOSELY 3. OUT OF BED AND AMBULATE 4. MONITOR URINE OUTPUT AND STRICT INPUT AND OUTPUT 5. GI AND DVT PROPHYLAXIS - Advance Directives Does patient have a Living Will: No Does patient have a Durable POA for Healthcare: No
--- NOTE | 2020-04-03 08:35 | P.PN ---
Subjective Date of Service: 04/02/20 Patient doing well with no new complaints. Renal function continued to improve. Spoke with Nephrology and if the renal function improves in the morning they should be able to discontinue Tang catheter and discharge home. He will need close outpatient nephrology follow-up. Review of Systems 10-point ROS is otherwise unremarkable Physical Examination - Vital Signs Temperature: 97.6 F Blood Pressure: 106/61 Pulse: 84 Respirations: 18 Pulse Ox (%): 98 - Physical Exam General: Alert, In no apparent distress, Oriented x3 Respiratory: Clear to auscultation bilaterally, Normal air movement Cardiovascular: Regular rate/rhythm, Normal S1 S2, No murmurs Gastrointestinal: Normal bowel sounds, Soft and benign, Non-distended, No tenderness Musculoskeletal: No clubbing, No swelling, No tenderness Neurological: Sensation intact, Cranial nerves 3-12 intact - Studies Medications List Reviewed: Yes Assessment & Plan - Problems (Diagnosis) (1) Acute renal injury Onset Date: 08/09/17 Current Visit: No Status: Acute (2) Atrial fibrillation with RVR Current Visit: No Status: Acute (3) COPD exacerbation Onset Date: 08/09/17 Current Visit: No Status: Acute (4) Diabetes mellitus Onset Date: 08/09/17 Current Visit: No Status: Acute Qualifiers: Diabetes mellitus type: type 2 Diabetes mellitus professor of communication insulin use: without professor of communication use Diabetes mellitus complication status: with unspecified complications (5) Dyslipidemia Onset Date: 08/09/17 Current Visit: No Status: Acute (6) HTN (hypertension) Onset Date: 08/09/17 Current Visit: No Status: Acute Qualifiers: Hypertension type: essential hypertension Qualified Code(s): I10 - Essential (primary) hypertension - Plan PLAN: 1. CONTINUE WITH GENTLE DIURESING NECESSARY 2. MONITOR RENAL FUNCTION CLOSELY 3. OUT OF BED AND AMBULATE 4. MONITOR URINE OUTPUT AND STRICT INPUT AND OUTPUT 5. GI AND DVT PROPHYLAXIS - Advance Directives Does patient have a Living Will: No Does patient have a Durable POA for Healthcare: No
--- NOTE | 2020-04-03 08:36 | P.DS ---
Discharge Date: 04/03/20 Primary Care Provider: Dr. Tsai; Cardiology-Dr. Hinton Disposition: ROUTINE DISCHARGE Discharge Condition: GOOD Reason for Admission: Fatigue, diarrhea - Problems (1) Acute renal injury Onset Date: 08/09/17 Current Visit: No Status: Acute (2) Atrial fibrillation with RVR Current Visit: No Status: Acute (3) COPD exacerbation Onset Date: 08/09/17 Current Visit: No Status: Acute (4) Diabetes mellitus Onset Date: 08/09/17 Current Visit: No Status: Acute Qualifiers: Diabetes mellitus type: type 2 Diabetes mellitus senior living insulin use: without senior living use Diabetes mellitus complication status: with unspecified complications (5) Dyslipidemia Onset Date: 08/09/17 Current Visit: No Status: Acute (6) HTN (hypertension) Onset Date: 08/09/17 Current Visit: No Status: Acute Qualifiers: Hypertension type: essential hypertension Qualified Code(s): I10 - Essential (primary) hypertension Vital Signs/Physical Exam: Temp Pulse Resp BP Pulse Ox 97.6 F 84 18 106/61 98 04/03/20 08:35 04/03/20 08:35 04/03/20 08:35 04/03/20 08:35 04/03/20 08:35 Laboratory Data at Discharge: WBC 5.3 K/uL (4.3-10.9) 04/03/20 05:45 Hgb 8.7 g/dL (13.6-17.9) L 04/03/20 05:45 Hct 26.0 % (39.6-49.0) L 04/03/20 05:45 Plt Count 134 K/uL (152-406) L 04/03/20 05:45 PT 18.9 SECONDS (9.5-12.5) H 03/30/20 10:53 INR 1.62 03/30/20 10:53 Sodium 144 mmol/L (136-145) 04/03/20 05:45 Potassium 4.1 mmol/L (3.5-5.1) 04/03/20 05:45 BUN 17 mg/dL (7-18) 04/03/20 05:45 Creatinine 1.73 mg/dL (0.55-1.3) H 04/03/20 05:45 Glucose 117 mg/dL (74-106) H 04/03/20 05:45 Phosphorus 4.3 mg/dL (2.5-4.9) 03/31/20 06:57 Magnesium 1.9 mg/dL (1.8-2.4) 04/02/20 05:35 Total Bilirubin 0.4 mg/dL (0.2-1.0) 03/30/20 10:53 AST 16 U/L (15-37) 03/30/20 10:53 ALT 19 U/L (12-78) 03/30/20 10:53 Alkaline Phosphatase 62 U/L (45-117) 03/30/20 10:53 Troponin I 0.60 ng/mL (0.0-0.045) H* 03/31/20 06:57 Triglycerides 122 mg/dL (<150) 03/31/20 03:42 Cholesterol 153 mg/dL (<200) 03/31/20 03:42 HDL Cholesterol 34 mg/dL (40-60) L 03/31/20 03:42 Cholesterol/HDL Ratio 4.50 03/31/20 03:42 Home Medications: Simvastatin 20 mg PO DAILY 05/05/16 Magnesium Oxide [Mag 0X*] 400 mg PO DAILY PRN 08/08/17 Fluticasone/Salmeterol [Advair 250-50 Diskus] 1 each IH BID 09/24/17 Famotidine 40 mg PO BID 03/30/20 Amiodarone HCl [Cordarone*] 100 mg PO DAILY #30 tab 04/03/20 Amlodipine Besylate [Norvasc] 5 mg PO DAILY #30 tablet 04/03/20 Apixaban [Eliquis *] 2.5 mg PO BID #60 tablet 04/03/20 Atorvastatin Calcium [Lipitor] 40 mg PO BEDTIME #30 tab 04/03/20 traMADol HCL [Ultram*] 50 mg PO Q12HP PRN #60 tab 04/03/20 New Medications: Amiodarone HCl [Cordarone*] 100 mg PO DAILY #30 tab Apixaban [Eliquis *] 2.5 mg PO BID #60 tablet Atorvastatin Calcium [Lipitor] 40 mg PO BEDTIME #30 tab Amlodipine Besylate [Norvasc] 5 mg PO DAILY #30 tablet traMADol HCL [Ultram*] 50 mg PO Q12HP PRN #60 tab PRN Reason: PAIN Patient Discharge Instructions: OK TO DC IV WELL TIMOTHY CATHETER AND DC HOME. FOLLOW-UP WITH PRIMARY CARE PROVIDER IN 1-2 WEEKS. FOLLOW-UP WITH REAL ESTATE DEVELOPER IN 1-2 WEEKS. RETURN TO THE ER IF SYMPTOMS WORSEN. CALL or TEXT DR. FRANCO AT [phone] IF ANY QUESTIONS REGARDING HOSPITAL STAY. PLEASE CALL THE FLOOR AT [phone] IF ANY MEDICATION OR NURSING QUESTIONS. Diet: Renal Activity: Fall precautions Followup: Pro Woodard MD [Primary Care Provider] -
[2020-04-03 09:16] VITALS: O2SAT 98
[2020-04-03 16:34] LABS: HIV AG/AB 4TH GEN Non-reactive (Non-reactive)
--- NOTE | 2020-04-04 01:38 | PN ---
Date of Progress Note: 04/03/2020 Subjective: The patient was admitted with acute kidney injury with hyperkalemia. The patient receiv ed 1 session of dialysis, hyperkalemia resolved. After hydration, patient started having good urine output. Physical Examination: Vital Signs: Blood pressure 106/61, pulse of 84, afebrile. The patient had good urine output of 900 . Chest: Clear to auscultation. Heart: S1, S2. Systolic murmur. Abdomen: Soft, nontender. Extremities: No edema. Neurological: Alert and oriented x3. Nonfocal. Laboratory Data: WBC 5.3, H and H 8.7/26. Sodium 144, potassium 4.1, bicarb 28, BUN 17, creatinine 1.7, calcium 8.2, iron of 36. BNP 4036, B12 192, PTH of 130, PC ratio 0.3. Renal ultrasound; normal size kidney. No hydronephrosis, . Assessment And Plan: 1.Acute kidney injury secondary to prerenal off dialysis. We will keep holding dialysis. 2.Hyperkalemia, resolved. 3.Coronary artery disease. 4.Congestive heart failure, currently normal volume. Keep holding diuresis. 5.Hypertension, control optimal. Continue current medication. The patient cleared from the [facility] for [facility] planning to follow up in the office in 2 to 3 weeks with chemistry. SANDI Voice ID: [id number] Report ID: [id number]
[2020-04-04 19:11] LABS: HBsAG Nonreactive (Nonreactive)
[2020-04-05 16:15] LABS: Albumin, (SPE) 3.3 g/dL (3.8-4.8); Alpha-1-Globulins 0.3 g/dL (0.2-0.3); Alpha-2-Globulins 0.8 g/dL (0.5-0.9); Gamma Globulins 0.7 g/dL (0.8-1.7); INTERPRETATION Consistent with
== END 2020-04-03 10:41 | disposition home health service (06) | DRG 683 ==
LOC: ER 10:05 → ERHOLD 12:54 → 2ND 14:57
PROVIDERS: ADMIT Family Medicine; ATTEND Hospitalist
PROC: 5A1D70Z Performance of Urinary Filtration, Intermittent, Less than 6 Hours Per Day (ICD-10-PCS; 2020-03-30)
PROC: 02HV33Z Insertion of Infusion Device into Superior Vena Cava, Percutaneous Approach (ICD-10-PCS; principal; 2020-03-30 18:00)
DX: N17.9 Acute kidney failure, unspecified (principal); J44.1 Chronic obstructive pulmonary disease with (acute) exacerbation; I13.2 Hypertensive heart and chronic kidney disease with heart failure and with stage 5 chronic kidney disease, or end stage renal disease; N18.5 Chronic kidney disease, stage 5; I50.9 Heart failure, unspecified; E11.22 Type 2 diabetes mellitus with diabetic chronic kidney disease; E87.5 Hyperkalemia; E86.0 Dehydration; I48.0 Paroxysmal atrial fibrillation; I25.10 Atherosclerotic heart disease of native coronary artery without angina pectoris; K21.9 Gastro-esophageal reflux disease without esophagitis; G25.0 Essential tremor; E78.5 Hyperlipidemia, unspecified; R00.1 Bradycardia, unspecified; Z79.84 Long term (current) use of oral hypoglycemic drugs; Z79.01 Long term (current) use of anticoagulants; Z79.899 Other long term (current) drug therapy; Z87.891 Personal history of nicotine dependence; Z79.82 Long term (current) use of aspirin; Z96.649 Presence of unspecified artificial hip joint; Z20.828 Contact with and (suspected) exposure to other viral communicable diseases
CPT/HCPCS: 36415; 71045; 76770; 80048; 80061; 80076; 81003; 81015; 82550; 82553; 82570; 82607; 82746; 82947; 83036; 83520; 83540; 83735; 83880; 83970; 84100; 84145; 84156; 84165; 84439; 84443; 84484; 85025; 85610; 85652; 86021; 86038; 86140; 86160; 86225; 86317; 86706; 86803; 87040; 87340; 87389; 90935; 93005; 93306; 93970; 94640; 97112; 97116; 97161; 97530; 99285; J0610; J0690; J1170; J1644; J1940; J2250; J2270; J2370; J2405; J2704; J3475; J7030; J7050; J7606; U0003

== ENCOUNTER 2020-05-11 10:40 | Observation (INO) | payer OTHER ==
--- OUTSIDE RECORDS SUMMARY | 2020-05-11 10:43 | XMS REPORT | Continuity of Care Document ---
:1940 Author Organization [facility] t Address [address] [place] [address] Care Team Providers Name Role Phone Bill Snider MD Attending Clinician Problems This patient has no known problems. [...] 00 l Outpati ent Clinics Famotidine Famotidine 0 Yes Na Tsai [address] [facility] Zantac 150 Zantac 150 Yes Na Tsai [address] [facility] Maximum Maximum at bedtime Renan es - Strength Strength [facility] Metformin Metformin Yes Na Tsai TOME RANDEE [facility] HCl HCl TABLETA [facility] VIA [facility] ORAL DOS l VECES POR Outpati APURVA ent Clinics Magnesium Magnesium Yes Na Tsai [address] [facility] Oxide Oxide as needed [facility] Hemocyte Hemocyte Yes Na Tsai TOME RANDEE [facility] Plus CAPSULA [facility]E [facility] APURVA [...] Immunizations Ordered Filled Immunization Date Status Comments [facility] e Immunization Name Name FluAD FluAD 2019-04-[address] [facility] FluAD FluAD 2018-02-[address] [facility] Procedures This patient has no known procedures. Encounters Start End Encounter Admission Attending Care Care Encounter Source Date/Time Date/Time Type Type Clinicians Facility Department ID 2020-05-02 2020-05-02 Outpatient [facility] [id number] [facility] 2020-04-16 2020-04-16 [facility] [id number] [facility] 2020-04-08 2020-04-08 Office SONG Snider [id number] 10:02:48 10:42:13 Visit Bill Judge [id number] Luda [id number] Kole [id number] [facility] 2020-04-04 2020-04-04 [facility] [id number] [facility] 2020-03-15 2020-03-15 [facility] [id number] [facility] 2019-12-14 2019-12-14 [facility] [id number] [facility] 10:00:00 10:00:00 [place] [employer] s - [facility] l Medicine Outpati ent Clinics 2019-11-21 2019-11-21 [facility] [id number] 11:36:00 11:36:00 t [place] [employer] s - Drive [facility] Medicine Outpati ent Clinics 2019-10-17 2019-10-17 [facility] [id number] 11[facility]07:00 11:07:00 [facility] [employer] [facility] - Road [facility] Medicine Outpati ent Clinics 2019-10-16 2019-10-16 [facility] [id number] 11:06:00 11:06:00 t [place] [employer] [facility] - Drive [facility] Medicine Outpati ent Clinics 2019-10-13 2019-10-13 [facility] [id number] 10:00:00 10:00:00 t [place] [employer] [facility] - Drive [facility] Medicine l Medicine Outpati ent Clinics 2019-05-25 2019-05-25 [facility] [id number] 08:20:00 08:20:00 t [place] [employer] - Drive [facility] Medicine Medicine Outpati ent Clinics 2019-04-21 2019-04-21 [facility] [id number] 14:32:00 14:32:00 t [place] [employer] - Drive [facility] Medicine l Medicine Outpati ent Clinics 2019-04-05 2019-04-05 [facility] [id number] 13:00:00 13:00:00 t [place] [employer] - Drive [facility] Medicine l Medicine Outpati ent Clinics 2019-03-14 2019-03-14 [facility] [id number] 17:12:00 17:12:00 t [place] [employer] - TMAT [facility] Medicine Outpati ent Clinics 2018-07-27 2018-07-27 [facility] [id number] 14:49:00 14:49:00 t [place] [employer] - TMAT [facility] Medicine Medicine Outpati ent Clinics 2018-06-15 2018-06-15 [facility] [id number] 08:52:00 08:52:00 t [place] [employer] - TMAT [facility] Medicine Outpati ent Clinics 2018-06-03 2018-06-03 [facility] [id number] 12:06:00 12:06:00 t [place] [employer] - TMAT [facility] Medicine Medicine Outpati ent Clinics 2018-05-04 2018-05-04 [facility] [id number] 10:00:00 10:00:00 t [place] [employer] - Drive [facility] Medicine Medicine Outpati ent Clinics 2018-02-09 2018-02-09 [facility] [id number] 10:00:00 10:00:00 t [place] [employer] - Drive [facility] Medicine l Medicine Outpati ent Clinics 2017-12-21 2017-12-21 [facility] [id number] 09:45:00 09:45:00 t [place] [employer] s - Drive [facility] Medicine l Medicine Outpati ent Clinics 2017-08-30 2017-08-30 [facility] [id number] 17:31:00 17:31:00 t [facility] ent [facility] 2017-08-12 2017-08-12 Outpatient Nakul Mena [id number] 11:00:00 11:00:00 t [facility] ent Clinics Results This patient has no known results.
--- OUTSIDE RECORDS SUMMARY | 2020-05-11 10:44 | XMS REPORT | Summary of Care ---
:1940 Author Organization [facility] Address [address] [place] [id number] Care Team Providers Name Role Phone Enma Gray Primary Care Provider Reason for Visit Reason Comments New Evaluation tremors (Routine) Status Reason Specialty Diagnoses / Procedures Referred By Kel vidal Referred To Contact Closed Neurology Diagnoses Tremor, unspecified Tsai, Na Ly Procedures CONSULT/REFERRAL NEUROLOGY [address] [facility] [address] [place] [address] Phone: Encounter Details Date Type Department Care Team Description 04/08/2020 Office Visit [facility] Bill Snider Essential tr emor (Primary Dx); Neurology-Nu Canada MD Stage 3 chronic kidney disease, unspecif ied whether stage 3a or 3b CKD; [address] [place] [address] [place] [phone] Allergies Not on Filedocumented as of this encounter (statuses as of 04/15/2020) Medications Medication Sig Dispensed Refills Start Date End Date Status amiodarone 200 mg tablet 0 03/20/2020 Active amLODIPine 5 mg tablet 0 04/03/2020 Active ELIQUIS 5 mg tablet 0 03/20/2020 Active atorvastatin 40 mg 0 04/03/2020 Active tablet famotidine 40 mg tablet 0 01/23/2020 Active gabapentin 100 mg 0 03/10/2020 A ctive capsule simvastatin 20 mg tablet 0 04/05/2020 Active magnesium oxide Take 400 mg by 0 Active (MAG-OXIDE ORAL) mouth. traMADoL 50 mg tablet Take 50 mg by 0 Active mouth every 6 (six) hours as needed. metFORMIN 1,000 mg 24 hr Take 1,000 mg by 0 Active tablet mouth daily with breakfast. documented as of this encounter (statuses as of 04/15/2020) Active Problems Not on filedocumented as of this encounter (statuses as of 04/15/2020) Social History Tobacco Use Types Packs/Day Years Used Date Current Every Day Smoker Cigarettes 0.5 40 Smokeless Tobacco: Never Used Sex Assigned at Date Recorded Not on file COVID-19 Exposure Response Date Recorded In the last month, have you been in contact with No / Unsure 04/08/2020 9:56 AM PROJECT MANAGEMENT IT SPECIALIST someone who was confirmed or suspected to have Coronavirus / COVID-19? documented as of this encounter Last Filed Vital Signs Vital Sign Reading Time Taken Comments Blood Pressure 138/60 04/08/2020 10:13 AM PROJECT MANAGEMENT IT SPECIALIST Pulse 81 04/08/2020 10:13 AM PROJECT MANAGEMENT IT SPECIALIST Temperature - - Respiratory Rate - - Oxygen Saturation 97% 04/08/2020 10:13 AM PROJECT MANAGEMENT IT SPECIALIST Inhaled Oxygen Concentration - - Weight 65.7 kg (144 lb 12.8 oz) 04/08/2020 10:13 AM PROJECT MANAGEMENT IT SPECIALIST Height - - Body Mass Index - - documented in this encounter Progress Notes Bill Snider MD - 04/08/2020 10:00 AM CST HISTORY OF PRESENT ILLNESS: Redd Tapia is a 79 year old male. Chief complaint: Tremors. History: The patient has a history of tremors. He does not speak any [place] Citizen, and his speaks minimal [place] Citizen, referral came from outside of [facility]. he had been given a prescription for Mysoline to utilize, however it was a very low dose, half of a 50 mg tablet and apparently he had felt very dizzy but then he had another complicating medical problems so family was not sure if that could of beenthe reason why he didn't seem to tolerate the Mysoline. Symptoms have been going on for about 3 years and other family members apparently have had some shaking as well. That we had notes that the patient has chronic conditions. Also his most recent GFR was 41. ROS questions to the patient. Cardiac: chest pain, shortness of breath, easy fatigue, arrhythmia, swelling of legs. Respiratory: cough, with sputum production, wheezing, insomnia. Gastric: nausea, vomiting, diarrhea, poor appetite, blood in stool, difficult swallow. Urinary: pain with urination, blood with urination, incontinence, difficulty urinating. Skin: discoloration, itching, change in hair or nails, skin breakdown. Hematology/immunology: easy bruising, malignancy. Head, nose, throat: ringing of ears, loss of hearing, nosebleeds, sores in mouth, hoarseness, facial pain. Neurology: dizziness, tremor, change in speech, seizures, fainting spells, loss of memory, weakness arm or leg, numbness arm or leg. Endocrine: hot cold intolerance, excessive urination, increased thirst, increased sweating. Psychiatric: disorientation, depression, anxiety, mood disorder, loss of contact with reality, anger. Eyes: change in vision, eye pain, double vision, blurred vision, eyelid droop. Skeletal: pain in joints, muscle pain, back pain, neck pain, swelling of joints, swelling of the hands. The patient's responses to these questions about signs/symptoms follow. He did not otherwise respond positively to any of the questions. I didn't get a clear answer as to what the recent blood sugar control was except that the said it had been good. Note that to us he did not complain of any paresthesias in the distal lower extremities. Past Medical History: Chronic kidney disease stage III, hyperlipidemia, hypertension, type II diabetes, said to have diabetic neuropathy. Also COPD, paroxysmal atrial fibrillation, Gerd. Also mentionedwas peripheral arterial disease. Allergies: No medication allergies. Family History: No FH present that is pertinent to the visit. Noted no clear history of familial tremor. Surgeries: No surgical history present that is pertinent to the visit. Social history: No tobacco or ETOH, patient is . Current Outpatient Medications: amiodarone 200 mg tablet, , Disp: , Rfl: amLODIPine 5 mg tablet, , Disp: , Rfl: atorvastatin 40 mg tablet, , Disp: , Rfl: ELIQUIS 5 mg tablet, , Disp: , Rfl: famotidine 40 mg tablet, , Disp: , Rfl: gabapentin 100 mg capsule, , Disp: , Rfl: magnesium oxide (MAG-OXIDE ORAL), Take 400 mg by mouth., Disp: , Rfl: metFORMIN 1,000 mg 24 hr tablet, Take 1,000 mg by mouth daily with breakfast., Disp: , Rfl: simvastatin 20 mg tablet, , Disp: , Rfl: traMADoL 50 mg tablet, Take 50 mg by mouth every 6 (six) hours as needed., Disp: , Rfl: Social History Socioeconomic History Marital status: Spouse name: Not on file Number of children: Not on file Years of education: Not on file Highest education level: Not on file Occupational History Not on file Social Needs Financial resource strain: Not on file Food insecurity Worry: Not on file Inability: Not on file Transportation needs Medical: Not on file Non-medical: Not on file Tobacco Use Smoking status: Current Every Day Smoker Packs/day: 0.50 Years: 40.00 Pack years: 20.00 Types: Cigarettes Smokeless tobacco: Never Used Substance and Sexual Activity Alcohol use: Not on file Drug use: Not on file Sexual activity: Not on file Lifestyle Physical activity Days per week: Not on file Minutes per session: Not on file Stress: Not on file Relationships Social connections Talks on phone: Not on file Gets together: Not on file Attends uatsdin service: Not on file Active member of club or organization: Not on file Attends meetings of clubs or organizations: Not on file Relationship status: Not on file Intimate partner violence Fear of current or ex partner: Not on file Emotionally abused: Not on file Physically abused: Not on file Forced sexual activity: Not on file Other Topics Concern Not on file Social History Narrative Not on file Vital signs: BP 138/60 (BP Location: Right arm, Patient Position: Sitting, BP CUFF SIZE: Adult Medium) | Pulse 81 | Wt 144 lb 12.8 oz (65.7 kg) | SpO2 97% Examination: Mental Status. The patient is alert, conversant in Lao. Cranial nerves (vision, eye movement): EOM intact, equal reactive pupils, accommodation reflex present, full visual richards. Cranial nerves (V,VII): LT/sharp face sense intact, Frontalis intact, NL buccinators, obiculi occuli/oralis NL. No mask facles present. Cranial nerves (taste, smell): taste intact by history, smell intact by history. Cranial nerve (VIII): normal conversational hearing, sotelo's midline, GERMAN intact finger rub. Cranial nerve (X,XII): tongue bulk normal, tongue midline, palate centered. Cranial nerve (accessory): normal r/l sternomastoid bulk/tone/power , shoulder shrug r/l equal. Peripheral motor: normal GERMAN arm strength, normal GERMAN leg power, R/L arm bulk intact, leg bulk normal GERMAN, German UE intact tone, LE nl tone german. Reflexes: 1+ reflexes bilaterally, toes downgoing. Peripheral sensation: primary GERMAN (LT/Sharp/Vib) sense nl, German position sense present. Coordination. He can still do [id number] and heel to marley but he has a course medium frequency tremor noted with arms outstretched. There is some quality of a pill rolling tremor as well more notedon the left and occasionally he will have foot tapping motions. Finger tapping motions also are diminished mildly. Gait. The patient is able to walk unaided, there is no particular shuffling present. HEENT: HEENT A/N, no oropharyngeal lesion present, JVD absent, thyromegaly absent, no lymphadenopathy present. Lungs: lungs clear, no wheezing, no rhonchi. Heart: CV RRR, no murmurs, carotid bruits absent. Peripheral vascular: no peripheral cyanosis, clubbing absent, no peripheral edema present, intact peripheral pulses, extremities warm to touch, absent GERMAN foot ulcers. Musculoskeletal: normal cervical ROM. ASSESSMENT AND RECOMMENDATIONS: ICD-10-CM ICD-9-CM 1. Essential tremor G25.0 333.1 2. Stage 3 chronic kidney disease, unspecified whether stage 3a or 3b CKD N18.30 585.3 3. Essential hypertension I10 401.9 Impression: Believe that the patient should retry the Mysoline. He does have a lot of health problems, and he might not be able to tolerate this medication. A fallback would be Topamax if he is not able to handle the Mysoline will stay away from beta blockers as well. He also does need an imaging study of the brain looking for evidence of multi-infarct dementia as a cause for his symptomatology. 35minutes was spent out of the 60 office visitthrough the eyelet maker with the patient the various causes of his symptoms including various types of Parkinson. Creation of the note was aided by utilizing a cut/paste operation of text from a Microsoft Word template created with [employer] The text was dictated into the template via [employer]. ECT MANAGEMENT IT SPECIALIST documented in this encounter Plan of Treatment Date Type Specialty Care Team Description 06/10/2020 Office Visit Endocrinology Diabetes & Kesired dyGracie MD Metabolism [address] [place] [address] [phone] Health Maintenance Due Date Last Done Comments Depression Screening 1952 DTaP,Tdap,and Td Vaccines (1 - Tdap) 1957 Zoster Recombinant Vaccine (SHINGRIX) (1 of 2) 1988 Medicare Wellness Visit 08/30/2003 PNEUMOCOCCAL VACCINES 65+ (1 of 1 - PPSV23) 08/30/2003 INFLUENZA VACCINE (#1) 2020 documented as of this encounter Results Not on filedocumented in this encounter Visit Diagnoses Diagnosis Essential tremor - Primary Essential and other specified forms of t remor Stage 3 chronic kidney disease, unspecif ied whether stage 3a or 3b CKD Essential hypertension Unspecified essential hypertension documented in this encounter Insurance Payer Benefit Plan / Subscriber ID Effective Phone Address T ype Group Dates [facility] [id number] 2020-Pre Medica re HEALTHCARE - HEALTHCARE sent Adv HM O MANAGED DUAL COMPLETE MEDICARE HMO TMHP MEDICAID OF [id number] 2020-Pre [phone] Medi caid [place] sent [phone] [place] [address] [address] (Home) [place], [place] [phone] [id number] (Work) documented as of this encounter"
--- OUTSIDE RECORDS SUMMARY | 2020-05-11 10:44 | XMS REPORT ---
:1940 Author Organization [facility] Address [address], [address] [place] [address] Care Team Providers Name Role Phone Jolanta Tsai Unavailable [phone] PROBLEMS Type Condition ICD9-CM BKW12-IC Onset Condition SNOMED Code Notes Code Code Dates Status Problem Type 2 diabetes E11.9 Active 351804383 Problem Wheezing R06.2 Active 79538817 Problem Asthma J45.909 Active 888106358 Problem GERD K21.9 Active 581824645 (gastroesophageal reflux disease) Problem Hyperlipidemia E78.5 Active 64552081 Problem Allergic rhinitis J30.9 Active 17331333 Problem Chronic J44.9 Active 39938217 obstructive pulmonary disease, unspecified COPD type Problem Essential I10 Active 47198453 hypertension Problem Acute bronchitis, J20.9 Active 37809940 unspecified organism Problem Paroxysmal a-fib I48.0 Active 968646104 Problem Malignant I10 Active 76507216 hypertension Problem 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 Problem Family history of Z82.49 Active 718517190 ischemic heart disease and other diseases of the circulatory system Problem Chronic kidney N18.4 Active 475135761 disease (CKD), stage IV (severe) Problem High risk Z79.899 Active 685500045 medications (not anticoagulants) long-term use Problem History of anemia Z86.2 Active 615317014 Problem PAD (peripheral I73.9 Active 704636995 artery disease) Problem 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 374728750 polyneuropathy associated with type 2 diabetes mellitus Problem 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 Active 49790816 bilateral lower extremities with pain ALLERGIES No Known Allergies ENCOUNTERS from 1940 to 2020-05-08 Encounter Location Date Provider Diagnosis Trina Landeros Family [address] [facility] [address], [place] [address] IMMUNIZATIONS Vaccine Route Administration Date Status FluAD [...] REASON FOR REFERRAL No Information VITAL SIGNS No information MEDICATIONS Medication SIG (Take, Route, Notes Start Date End Date Status Frequency, Duration) Doxycycline Hyclate 100 1 capsule Orally twice Not-Taking MG a day for 7 day(s) Aspir-81 81 MG 1 tablet Orally Once a Active day Atorvastatin Calcium 40 1 tablet Orally Once a Apr, 0 Active MG day for 90 days Zyrtec Allergy 10 MG 1 tablet Orally Once a Not-Taking day Lisinopril-Hydrochlorot 1 tablet Orally Once a Active hiazide 20-12.5 MG day Zocor 20 TOME CAHLO TABLETA CHALO Not- Taking VEZ AL APURVA POR VIA ORAL for 30 Azithromycin 250 MG 2 tablets on the first Not-Taking day, then 1 tablet daily for 4 days Orally Once a day for 5 day(s) Melatonin 10 MG as directed Orally A ctive Advair Diskus 250-50 INHALAR CHALO APLICACION Active MCG/DOSE POR VIA ORAL DOS VECES POR APURVA for 30 Magnesium Oxide 400 MG 1 tablet as needed Not-Taking Orally Once a day Hemocyte Plus 106 mg tome chalo capsula chalo Active iron- vez al apurva por via oral for 90 days Metformin HCl 1000 MG 1/2 tablet Orally twice Active a day for 90 days Famotidine 40 MG 1 tablet as needed Nov, Unknown Orally Twice a day for 90 days Zocor 20 MG TOME CHALO TABLETA CHALO Act odessa VEZ AL APURVA POR VIA ORAL for 90 Magnesium Oxide 400 TOME CHALO TABLETA CHALO Active (241.3 Mg) MG VEZ AL APURVA POR VIA ORAL TEODORO SEA NECESARIO for 90 Zestoretic 20-12.5 MG TOME CHALO TABLETA CHALO Active VEZ AL APURVA POR VIA ORAL Zocor 20 TOME CHALO TABLETA CHALO Acti ve VEZ AL APURVA POR BOCA Advair Diskus 250-50 INHALAR CHALO APLICACION Active POR BOCA DOS VECES POR APURVA Tramadol HCl 50 MG 1 tablet as needed Active Orally Once a day Flonase 50 MCG/ACT 2 spray in each nostril Not-Taking Nasally Once a day Benzonatate 100 MG 1 capsule as needed Not-Taking Orally Three times a day for 7 days Zestoretic 20-12.5 TOME CHALO TABLETA CHALO Not-Taking VEZ AL APURVA POR BOCA for 90 Primidone 50 MG 1/2 a tablet Orally Active Twice a day for 90 day(s) ProAir HFA 90 INHALAR DOS Active APLICACIONES POR BOCA CUATRO VECES POR APURVA Zantac 150 Maximum TOME RAMÍREZ TABLETA POR Active Strength 150 MG VIA ORAL AL ACOSTARSE for 90 Famotidine 40 MG 1 tablet as needed Active Orally Twice a day for 90 days Hemocyte Plus 106-1 MG TOME CHALO CAPSULA CHALO Unknown VEZ AL APURVA POR VIA ORAL for 30 Zestoretic 20-12.5 MG 1 tablet Orally Once a Active day for 90 days Sotalol HCl 80 MG 1/2 tablet Orally every Active 12 hrs for 90 days PROCEDURES No Information RESULTS No Results REASON FOR VISIT caregiver services MEDICAL (GENERAL) HISTORY Type Description Date Medical [...] No Information FUNCTIONAL STATUS No Information ASSESSMENTS No Information PLAN OF TREATMENT Medication Medication Name Sig Start Date Stop Date Zestoretic 20-12.5 MG 1 tablet Orally Once a day for 90 days Sotalol HCl 80 MG 1/2 tablet Orally every 12 hrs for 90 days Magnesium Oxide 400 (241.3 Mg) TOME CHALO TABLETA CHALO VEZ AL MG APURVA POR VIA ORAL TEODORO SEA NECESARIO for 90 Famotidine 40 MG 1 tablet as needed Orally Twice a day for 90 days Metformin HCl 1000 MG 1/2 tablet Orally twice a day for 90 days Primidone 50 MG 1/2 a tablet Orally Twice a day for 90 day(s) Advair Diskus 250-50 INHALAR CHALO APLICACION POR BOCA DOS VECES POR APURVA Advair Diskus 250-50 MCG/DOSE INHALAR CHALO APLICACION POR VIA ORAL DOS VECES POR APURVA for 30 Atorvastatin Calcium 40 MG 1 tablet Orally Once a day for Apr 90 days Next Appt Details Provider Name:Jolanta Tsai, 2020-06-06 09:1 5:00 AM, [address], [place], [address], Provider Name:Jolanta Tsai, 2020-06-13 02:4 0:00 PM, [address], [place], [address], Provider Name:Jolanta Tsai, 2020-07-08 09:3 0:00 AM, [address], [place], [address], Provider Name:Jolanta Tsai, 2020-07-15 11:0 0:00 AM, [address], [place], [address], Insurance Providers Payer Name Payer Payer Insured Patient Coverage Coverage Address Phone Name Relationship to Start Date End Date Insured [facility] [phone] Steven Tapia [address] [address]
--- OUTSIDE RECORDS SUMMARY | 2020-05-11 10:44 | XMS REPORT | Summary of Care ---
:[address] [facility] Address [address] [place] [address] Care Team Providers Name Role Phone Enma Gray Primary Care Provider Reason for Visit Reason Comments New Evaluation tremors (Routine) Status Reason Specialty Diagnoses / Procedures Referred By Kel vidal Referred To Contact Closed Neurology Diagnoses Tremor, unspecified Tsai, Na Ly Procedures CONSULT/REFERRAL NEUROLOGY [address] [place] [facility] [address] [place] [address] Phone: Encounter Details Date Type Department Care Team Description 04/08/2020 Office Visit [facility] Bill Snider Essential tr emor (Primary Dx); Neurology-Nu Canada MD Stage 3 chronic kidney disease, unspecif ied whether stage 3a or 3b CKD; [address] [place] [address], [address] [place] [phone] Allergies Not on Filedocumented [...] with No / Unsure 04/08/2020 9:56 AM LOAN COORDINATOR someone who was confirmed or suspected to have Coronavirus / COVID-19? documented as of this encounter Last Filed Vital Signs Vital Sign Reading Time Taken Comments Blood Pressure 138/60 04/08/2020 10:13 AM LOAN COORDINATOR Pulse 81 04/08/2020 10:13 AM LOAN COORDINATOR Temperature - - Respiratory Rate - - Oxygen Saturation 97% 04/08/2020 10:13 AM LOAN COORDINATOR Inhaled Oxygen Concentration - - Weight 65.7 kg (144 lb 12.8 oz) 04/08/2020 10:13 AM LOAN COORDINATOR Height - - Body Mass Index - - documented in this encounter Progress Notes Bill Snider MD - 04/08/2020 10:00 AM CST HISTORY OF PRESENT ILLNESS: Redd Tapia is a 79 year old male. Chief complaint: Tremors. History: The patient has a history of tremors. He does not speak any Anguillan, and his speaks minimal Anguillan, referral came from outside of [facility]. he had been given a prescription for [...] file Gets together: Not on file Attends buddhism service: Not on file Active member of [...] Status. The patient is alert, conversant in Guatemalan. Cranial nerves (vision, eye movement): EOM intact, [...] reflexes bilaterally, toes downgoing. Peripheral sensation: primary EGRMAN (LT/Sharp/Vib) sense nl, German position sense present. Coordination. He can still do [id number]-[id number] and heel to marley but he has [...] out of the 60 office visitthrough the therapeutic case manager with the patient the various causes of his symptoms including various types of Parkinson. Creation of the note was aided by utilizing a cut/paste operation of text from a Microsoft Word template created with [employer]. The text was dictated into the template via [employer]. COORDINATOR documented in this encounter Plan of Treatment Date Type Specialty Care Team Description 06/10/2020 Office Visit Endocrinology Diabetes & Kesired dyGracie MD Metabolism [address] [place] [address] [phone] Health Maintenance Due Date Last Done Comments [...] Effective Phone Address T ype Group Dates [facility] [id number] 2020-Pre Medica re HEALTHCARE - HEALTHCARE sent Adv HM O MANAGED DUAL COMPLETE MEDICARE HMO TMHP MEDICAID OF [id number] 2020-Pre [phone] [address] Medi caid [place] sent [phone] [place] [address] [address] (Home) [place], [place] [phone] (Work) documented as of this encounter"
--- OUTSIDE RECORDS SUMMARY | 2020-05-11 10:44 | XMS REPORT ---
:1940 Author Organization [facility] Address [address], [address] [place] [address] Care Team Providers Name Role Phone Tsai Unavailable [phone] PROBLEMS Type Condition ICD9-CM DLE11-AL Onset Condition SNOMED Code Notes Code Code Dates Status Problem Type 2 diabetes E11.9 Active 296596636 Problem Wheezing R06.2 Active 57295171 Problem Asthma J45.909 Active 370828081 Problem GERD K21.9 Active 881873291 (gastroesophageal reflux disease) Problem Hyperlipidemia E78.5 Active 27494048 Problem Allergic rhinitis J30.9 Active 01965552 Problem Chronic J44.9 Active 02659920 obstructive pulmonary disease, unspecified COPD type Problem Essential I10 Active 44334383 hypertension Problem Acute bronchitis, J20.9 Active 85781959 unspecified organism Problem Paroxysmal a-fib I48.0 Active 256824589 Problem Malignant I10 Active 08653348 hypertension Problem 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 100357797 mellitus with diabetic chronic kidney disease Problem Family history of Z82.49 Active 379928402 ischemic heart disease and other diseases of the circulatory system Problem Chronic kidney N18.4 Active 569990318 disease (CKD), stage IV (severe) Problem High risk Z79.899 Active 463426377 medications (not anticoagulants) long-term use Problem History of anemia Z86.2 Active 832808441 Problem PAD (peripheral I73.9 Active 597162341 artery disease) Problem 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 [address], follow- up Z09 ; [place] [address] polyneuropathy associated with type 2 diabetes mellit us E11.42 ; Essential hyp ertension I10 ; Hyperlipi demia E78.5 ; Type 2 diabetes mellitus with d iabetic chronic kidney disease E11.22 ; Chroni c obstructive pul monary disease, unspec ified COPD type J44.9 ; Tremor R25.1 ; Paroxys mal a-fib I48.0 ; Chronic kidney disease, stage 3b N18.32 ; PAD (peripher al artery disease) I73.9 ; GERD (gastroesophage al reflux disease) K21.9 ; Weakness R53.1 and History of acut e renal failure Z87.448 IMMUNIZATIONS Vaccine Route Administration Date Status FluAD [...] No Information VITAL SIGNS Height 63.00 in Apr, Weight 148.4 lbs Apr, Temperature 97.4 degrees Fahrenheit Apr, BMI 26.29 kg/m2 Apr, Oximetry 95 % Apr, Respiratory Rate 18 /min Apr, Blood pressure systolic 158 mm Hg Apr, Blood pressure diastolic 68 mm Hg Apr, MEDICATIONS Medication SIG (Take, Route, Notes Start Date End Date Status Frequency, Duration) Atorvastatin Calcium 40 1 tablet Orally Once a Apr, 0 Active MG day for 90 days Zyrtec Allergy 10 MG 1 tablet Orally Once a Not-Taking day Primidone 50 MG 1/2 a tablet Orally Active Twice a day for 90 day(s) Benzonatate 100 MG 1 capsule as needed Not-Taking Orally Three times a day for 7 days Azithromycin 250 MG 2 tablets on the first Not-Taking day, then 1 tablet daily for 4 days Orally Once a day for 5 day(s) Melatonin 10 MG as directed Orally A ctive Doxycycline Hyclate 100 1 capsule Orally twice Not-Taking MG a day for 7 day(s) Aspir-81 81 MG 1 tablet Orally Once a Active day Hemocyte Plus 106 mg tome chalo capsula chalo Active iron- vez al apurva por via oral for 90 days Lisinopril-Hydrochlorot 1 tablet Orally Once a Active hiazide 20-12.5 MG day Zocor 20 TOME CHALO TABLETA CHALO Not- Taking VEZ AL APURVA POR VIA ORAL for 30 Metformin HCl 1000 MG 1/2 tablet Orally twice Active a day for 90 days Zocor 20 MG TOME CHALO TABLETA CHALO Act odessa VEZ AL APURVA POR VIA ORAL for 90 Advair Diskus 250-50 INHALAR CHALO APLICACION Active MCG/DOSE POR VIA ORAL DOS VECES POR APURVA for 30 Magnesium Oxide 400 TOME CHALO TABLETA CHALO Active (241.3 Mg) MG VEZ AL APURVA POR VIA ORAL TEODORO SEA NECESARIO for Tramadol HCl 50 MG 1 tablet as needed Active Orally Once a day Flonase 50 MCG/ACT 2 spray in each nostril Not-Taking Nasally Once a day Advair Diskus 250-50 INHALAR CHALO APLICACION Active POR BOCA DOS VECES POR APURVA Famotidine 40 MG 1 tablet as needed Nov, Unknown Orally Twice a day for 90 days Magnesium Oxide 400 MG 1 tablet as needed Not-Taking Orally Once a day Zocor 20 TOME CHALO TABLETA CHALO Acti ve VEZ AL APURVA POR BOCA Zestoretic 20-12.5 TOME CHALO TABLETA CHALO Not-Taking VEZ AL APURVA POR BOCA for 90 Zestoretic 20-12.5 MG TOME CHALO TABLETA CHALO Active VEZ AL APURVA POR VIA ORAL ProAir HFA 90 INHALAR DOS Active APLICACIONES [...] Information RESULTS No Results REASON FOR VISIT [facility] f/u. In office., cad, ckd, hld, afib, dm2 MEDICAL (GENERAL) HISTORY Type Description Date Medical [...] STATUS No Information ASSESSMENTS Encounter Date Diagnosis Assessment Treatment Notes Treatment Notes Clinical Notes Apr, Hospital discharge follow-up (ICD-10 - Z09) Apr, Diabetic a1c 6.6 low carb polyneuropathy 1800 ADA diet. associated with type Avoid sodas, 2 diabetes mellitus juices and (ICD-10 - E11.42) remember portion control. Take your medication as prescribed. Monitor your blood sugar at home as directed and keep a log to bring back with you to your next visit for review. Schedule your annual diabetic eye exam with your eye doctor to screen for diabetic retinopathy. Check your feet daily to make sure you have no open wounds. -- It is important to check your feet daily to makes sure you do not have any open cuts or sores in between your toes and soles of you feet because you may not be able to feel sores or wounds due to lack of sensation in feet due to diabetic neuropathy. contact your physician if you notice any. Apr, Essential Maintian a low hypertension (ICD-10 salt DASH diet, - I10) exercise, weight loss and decrease stress recommended. Keep BP log and will review next visit. If blood pressure consistently above 140/90 return to clinic for adjustment of meds. Try to quit smoking if you currently smoke. Decrease caffeine intake if possible. Apr, Hyperlipidemia low fat diet, (ICD-10 - E78.5) decrease fast food and fried foods. Increase fruit and vegetable intake. exercise as tolerated 30minutes per day at least 3 days a week. May take fish oil 1000mg twice daily to help increase good cholesterol (HDL). Apr, Type 2 diabetes mellitus with diabetic chronic kidney disease (ICD-10 - E11.22) Apr, Chronic obstructive continue current pulmonary disease, inhalers/ unspecified COPD nebulizer and type (ICD-10 - continuous oxygen. J44.9) if you develop sob or cough with increase phlegm or sputum changes from clear to yellow or green or develop fever above 100.4F call PCP or go to ER. Quit smoking and avoid exacerbating factors including second hand smoke or fumes. Apr, Tremor (ICD-10 - R25.1) Apr, Paroxysmal a-fib monitor heart rate (ICD-10 - I48.0) and symptoms of sob or palpitations. continue sotalol 80 mg 1/2 tab bid #30 followup with cardiology for adjustment. Apr, Chronic kidney disease, stage 3b (ICD-10 - N18.32) Apr, PAD (peripheral continue statin artery disease) and asa (ICD-10 - I73.9) Apr, GERD Gerd- avoid (gastroesophageal trigger foods reflux disease) including spicy, (ICD-10 - K21.9) oily, carbonated drinks, citrus. Do not lay down immediately after eating-wait at least 2 hours, elevate pillow. Eat smaller meals and weight loss recommended for obese patients. Avoid wearing tight clothing. Apr, Weakness (ICD-10 - Patient i s very R53.1) frail and weak, especially s/p hospital discharge. Patient has multiple comorbidities, chronic disease s that are heavy burden on famil y. Patient will benefit from residential , physical therap y and occupationa l therapy to educate, strenghten patient's muscles, decrea se risk of falls, and allow patie nt to improve thei r physical and mental health a nd perform daily activities safely. _ _ continue provider services/caregi ve r which patient requires assistance of t o be in home 4 hours a day 7 days a week especially whil e family is at wo rk to help maintai n the patient's independence an d continue activities of daily living effectively and safely in comfo rt of home momo daughter is at work Apr, History of acute 03/2020 resolved avoid renal failure required nsaids increase (ICD-10 - Z87.448) emergent fluids f/u with dialysis nephro Apr, Other -- Medications reviewed and updated. -- Dietary and Lifestyle modifications discussed with patient regarding low fat low salt diet diet, exercise and weight management. -- Treatment options, risks and benefits, side effects reviewed in detail. Patient accepts risk. -- Advised on signs/symptoms to monitor and when to call clinic and/or visit the nearest ER. Patient verbalized understanding and agreed with plan. -- Greater than 30 minutes was spent with patient during this encounter, of which >50% of the time was spent counseling and coordinating care including but not limited to discussion of test results, diagnostic or treatment recommendations, prognosis, risks and benefits of management options, instructions, education, compliance and or risk reduction. GFR 35 from 46 has appt with will monitor kidney function. - Avoid NSAIDs ( such as ibuprofen, motrin, aleive) - Hydrate your kidneys by drinking plenty of water. f/u with nephrology nephrology PLAN OF TREATMENT Medication Medication Name Sig [...] Orally Twice a day for 90 days Primidone 50 MG 1/2 a tablet Orally Twice a day for 90 day(s) Advair Diskus 250-50 INHALAR CHALO APLICACION POR BOCA DOS VECES POR APURVA Metformin HCl 1000 MG 1/2 tablet Orally twice a day for 90 days Atorvastatin Calcium 40 MG 1 tablet Orally Once a day for Apr 90 days Treatment Notes Assessment Notes Clinical Notes Diabetic [...] factors including second hand smoke or fumes. Paroxysmal a-fib monitor heart rate and symptoms of sob or palpitations.continue sotalol 80 mg 1/2 tab bid #30 followup with cardiology for adjustment. PAD (peripheral artery continue statin and asa disease) GERD (gastroesophageal reflux Gerd- avoid trigger foods disease) including spicy, oily, carbonated drinks, citrus. Do not lay down immediately after eating-wait at least 2 hours, elevate pillow. Eat smaller meals and weight loss recommended for obese patients. Avoid wearing tight clothing. Weakness Patient is very frai l and weak, especially s/p hospital discharge. Patient has multiple comorbi dities, chronic diseases chester t are heavy burden on fami ly. Patient will benefit from residential, phy sical therapy and occupati onal therapy to educate, strenghten patient's muscles, decrease ri sk of falls, and allow pat ient to improve their physic al and mental health and pe rform daily activities saf keke._ _ continue provider services/caregiver w [facility] patient requires ass istance of to be in home 4 h ours a day 7 days a week especially while fam nghia is at work to help main tain the patient's indepe ndence and continue activit ies of daily living effecti vely and safely in comfor t of home wile daughter i s at work History of acute renal failure resolved avoid nsaids increase fluids f/u with nephro Treatment Notes Test Name Order Date Lipid Panel w/ Chol/HDL Ratio 2020-04-18 Microalbumin/Creat Ratio, Random Ur 2020-04-18 Hemoglobin A1c 2020-04-18 Comp. Metabolic Panel (14) (CMP) 2020-04-18 CBC With Differential/Platelet 2020-04-18 Next Appt Details 3 Months labs 1 week prior Reason: Provider Name:Jolanta Tsai, 2020-06-06 09:1 5:00 AM, [address], [place], [address], Provider Name:Jolanta Tsai, 2020-06-13 02:4 0:00 PM, [address], [place], [address], Provider Name:Jolanta Tsai, 2020-07-08 09:3 0:00 AM, [address], [place], [address], Provider Name:Jolanta Tsai, 2020-07-15 11:0 0:00 AM, [address], [place], [address], Insurance Providers Payer Name Payer Payer Insured Patient Coverage Coverage Address Phone Name Relationship to Start Date End Date Insured [facility] [phone] Steven Tapia self [address] [address]
[2020-05-11 12:44] LABS: Protime INR 1.39
[2020-05-11 12:47] LABS: Absolute Lymphocytes (CBC) 0.9 K/uL (0.7-4.9); Basophils % 0.4 % (0-1.3); Hematocrit 29.7 % (39.6-49.0); Lymphocytes % 9.7 % (15.3-44.8); MPV 8.4 fL (7.6-11.3); RBC Red Blood Cell Count 3.23 M/uL (4.33-5.43)
[2020-05-11 13:03] LABS: Albumin 3.8 g/dL (3.4-5.0); Bilirubin Direct 0.3 mg/dL (0-0.2); Bilirubin Total 0.6 mg/dL (0.2-1.0); Magnesium 2.2 mg/dL (1.8-2.4); Potassium 5.2 mmol/L (3.5-5.1); Protein, Total 7.3 g/dL (6.4-8.2); Troponin (Emerg Dept Use Only) 0.06 ng/mL (0.0-0.045)
--- NOTE | 2020-05-11 13:41 | RAD REPORT ---
EXAM DESCRIPTION: RAD - Chest Single View - 05/11/2020 1:12 pm CLINICAL HISTORY: weakness Chest pain. COMPARISON: Chest Single View dated 03/31/2020; Chest Single View dated 03/30/2020; Chest Single Vie w dated 03/30/2020; Chest Single View dated 09/27/2017 FINDINGS: Portable technique limits examination quality. Mild interstitial pulmonary edema. The heart is mildly enlarged in size. Trace pleural effusions. IMPRESSION: Mild CHF.
[2020-05-11] MEDS ORDERED: NA CHLORIDE 0.9% 500 ML ONE (13:42)
--- NOTE | 2020-05-11 14:10 | ER ---
Nurse's Notes [facility] Name: Redd Tapia Age: 79 yrs Sex: Male : 1940 Arrival Date: 05/11/2020 Time: 10:41 Bed 7 Private MD: Diagnosis: Acute on chronic combined systolic (congestive) and diastolic (congestive) heart failure;Hyperkalemia;Acute Kidney Injury Presentation: 05/11 10:55 Chief complaint: Patient states: SOB on exertion, fatigue, swelling to ana luisa legs and aa5 cheeks x 1 week ago. Pt reports cough mostly during the night. Pt's daughter states "his heart rate has been 91 to 106 since yesterday". 10:55 Coronavirus screen: cough unrelated to allergies, shortness of breath. Ebola Screen: aa5 Patient negative for fever greater than or equal to 101.5 degrees Fahrenheit, and additional compatible Ebola Virus Disease symptoms. Initial Sepsis Screen: Does the patient meet any 2 criteria? No. Patient's initial sepsis screen is negative. Does the patient have a suspected source of infection? No. Patient's initial sepsis screen is negative. Risk Assessment: Do you want to hurt yourself or someone else? Patient reports no desire to harm self or others. Onset of symptoms was April 2020. 10:55 Acuity: KIRAN 3 aa5 10:55 Method Of Arrival: Wheelchair aa5 Historical: - Allergies: 11:08 No Known Allergies; aa5 - PMHx: 11:08 Asthma; Breathing Problems; Diabetes - NIDDM; heart problems; Hyperlipidemia; aa5 Hypertension; kidney problems; tremors; - PSHx: 11:08 ana luisa hip sx; aa5 - Immunization history:: Adult Immunizations unknown. - Social history:: Smoking status: Patient denies any tobacco usage or history of. Screenin:49 Abuse screen: Denies threats or abuse. Nutritional screening: No deficits noted. em Tuberculosis screening: No symptoms or risk factors identified. Fall Risk None identified. Assessment: 12:20 General: Appears in no apparent distress. comfortable, Behavior is calm, cooperative, em appropriate for age, Denies fever. Pain: Denies pain. Neuro: Level of Consciousness is awake, alert, obeys commands, Oriented to person, place, time, situation, Appropriate for age. Cardiovascular: Denies chest pain, Rhythm is atrial fibrillation. Respiratory: Reports shortness of breath on exertion Airway is patent Respiratory effort is even, unlabored, Respiratory pattern is regular, Breath sounds are diminished bilaterally. GI: Patient currently denies nausea. Derm: Skin is healthy with good turgor, Skin is pink, warm \\T\\ dry. Musculoskeletal: Capillary refill < 3 seconds, Range of motion: intact in all extremities. 13:30 Reassessment: Patient appears in no apparent distress at this time. Patient and/or em family updated on plan of care and expected duration. Pain level reassessed. Patient is alert, oriented x 3, equal unlabored respirations, skin warm/dry/pink. urinal given to pt. 14:29 Reassessment: Patient appears in no apparent distress at this time. Patient and/or em family updated on plan of care and expected duration. Pain level reassessed. Patient is alert, oriented x 3, equal unlabored respirations, skin warm/dry/pink. 17:48 Reassessment: Patient appears in no apparent distress at this time. Patient and/or em family updated on plan of care and expected duration. Pain level reassessed. Patient is alert, oriented x 3, equal unlabored respirations, skin warm/dry/pink. Vital Signs: 10:56 BP 152 / 92; Pulse 90; Resp 18 S; Temp 98.1(O); Pulse Ox 100% on R/A; aa5 13:30 BP 161 / 84; Pulse 112; Resp 16; Pulse Ox 99% on R/A; Pain 0/10; em 14:30 BP 135 / 74; Pulse 103; Resp 18; Pulse Ox 97% on R/A; em 15:45 BP 134 / 73; Pulse 88; Resp 16; Pulse Ox 96% on R/A; em 17:47 BP 149 / 74; Pulse 104; Resp 20; Pulse Ox 98% on R/A; em ED Course: 10:41 Patient arrived in ED. as 10:55 Arm band placed on. aa5 11:07 Triage completed. aa5 11:46 Kvng Reilly, RN is Primary Nurse. em 11:47 Wayne Adam PA is PHCP. jmm 11:47 Rinku Estrella MD is Attending Physician. jmm 11:49 Patient has correct armband on for positive identification. Placed in gown. Bed in low em position. Call light in reach. Pulse ox on. NIBP on. 12:30 Initial lab(s) drawn, by me, sent to lab. Inserted saline lock: 20 gauge in right em forearm, using aseptic technique. Blood collected. 13:13 XRAY Chest (1 view) In Process Unspecified. EDMS 14:09 Zackery Quiñones MD is Hospitalizing Provider. [facility] 14:50 COVID swab sent to lab. em 16:38 Repeat lab(s) drawn. by me, sent to lab. counts include 234 beds at the [facility] 18:00 No provider procedures requiring assistance completed. Patient admitted, IV remains in em place. Administered Medications: 13:30 Drug: NS 0.9% 500 ml Route: IV; Rate: bolus; Site: right forearm; em 18:00 Follow up: IV Status: Completed infusion; IV Intake: 500ml em Intake: 18:00 IV: 500ml; Total: 500ml. em Outcome: 14:10 Decision to Hospitalize by Provider. [facility] 18:15 Admitted to Med/surg accompanied by tech, family with patient, via wheelchair, room em 230, with chart, Report called to JAS Ambrosio 18:15 Condition: good 18:15 Instructed on the need for admit, Demonstrated understanding of instructions. 18:17 Patient left the ED. em Signatures: Dispatcher [employer] EDMS Wayne Adam PA PA jmm Munoz, Edgar, RN RN Pamella Dave Audri, JAS RN [facility] Deedee Doherty counts include 234 beds at the [facility]
--- NOTE | 2020-05-11 14:10 | EDPHYS ---
Physician Documentation [facility] Name: Redd Tapia Age: 79 yrs Sex: Male : 1940 Arrival Date: 05/11/2020 Time: 10:41 Bed 7 Private MD: ED Physician Rinku Estrella Historical: - Allergies: 05/11 11:08 No Known Allergies; aa5 - PMHx: 11:08 Asthma; Breathing Problems; Diabetes - NIDDM; heart problems; Hyperlipidemia; aa5 Hypertension; kidney problems; tremors; - PSHx: 11:08 ana luisa hip sx; aa5 - Immunization history:: Adult Immunizations unknown. - Social history:: Smoking status: Patient denies any tobacco usage or history of. Vital Signs: 10:56 BP 152 / 92; Pulse 90; Resp 18 S; Temp 98.1(O); Pulse Ox 100% on R/A; aa5 13:30 BP 161 / 84; Pulse 112; Resp 16; Pulse Ox 99% on R/A; Pain 0/10; em 14:30 BP 135 / 74; Pulse 103; Resp 18; Pulse Ox 97% on R/A; em 15:45 BP 134 / 73; Pulse 88; Resp 16; Pulse Ox 96% on R/A; em 17:47 BP 149 / 74; Pulse 104; Resp 20; Pulse Ox 98% on R/A; em MDM: 12:09 Patient medically screened. stefano 14:08 Data reviewed: vital signs, nurses notes. Counseling: I had a detailed discussion with [facility] the patient and/or guardian regarding: the historical points, exam findings, and any diagnostic results supporting the discharge/admit diagnosis, lab results, the need for further work-up and treatment in the hospital. ED course: I discussed the patient with Dr. Quiñones whom accepted the patient for admission. . 05/11 12:15 Order name: Basic Metabolic Panel; Complete Time: 13:05 [facility] 05/11 12:15 Order name: CBC with Diff; Complete Time: 13:05 [facility] 05/11 12:15 Order name: LFT's; Complete Time: 13:05 [facility] 05/11 12:15 Order name: Magnesium; Complete Time: 13:05 [facility] 05/11 12:15 Order name: NT PRO-BNP; Complete Time: 13:05 [facility] 05/11 12:15 Order name: PT-INR; Complete Time: 13:05 [facility] 05/11 12:15 Order name: Troponin (emerg Dept Use Only); Complete Time: 13:05 [facility] 05/11 14:24 Order name: Basic Metabolic Panel [facility] 05/11 14:24 Order name: Basic Metabolic Panel; Complete Time: 21:12 [facility] 05/11 14:24 Order name: CBC with Automated Diff [facility] 05/11 14:24 Order name: CBC with Automated Diff; Complete Time: 21:12 [facility] 05/11 14:24 Order name: NT PRO-BNP [facility] 05/11 14:24 Order name: NT PRO-BNP; Complete Time: 21:12 [facility] 05/11 14:24 Order name: Troponin I [facility] 05/11 12:15 Order name: XRAY Chest (1 view); Complete Time: 13:42 [facility] 05/11 12:15 Order name: EKG; Complete Time: 12:16 [facility] 05/11 12:15 Order name: Cardiac monitoring; Complete Time: 12:33 [facility] 05/11 12:15 Order name: EKG - Nurse/Tech; Complete Time: 12:33 [facility] 05/11 12:15 Order name: IV Saline Lock; Complete Time: 12:33 [facility] 05/11 12:15 Order name: Labs collected and sent; Complete Time: 12:33 [facility] 05/11 14:24 Order name: Low Sodium [facility] 05/11 14:24 Order name: Troponin I; Complete Time: 18:18 [facility] 05/11 14:24 Order name: Troponin I; Complete Time: 21:12 [facility] 05/11 14:24 Order name: Echo with Doppler [facility] 05/11 14:32 Order name: Urine Dipstick--Ancillary (enter results) [facility] 05/11 14:32 Order name: Urine Dipstick-Ancillary; Complete Time: 15:18 [facility] 05/11 15:10 Order name: COVID-19 [facility] 05/11 15:45 Order name: CORONAVIRUS [facility] 05/11 16:36 Order name: SARS-COV-2 RT PCR; Complete Time: 18:18 [facility] 05/11 12:15 Order name: O2 Per Protocol; Complete Time: 12:33 [facility] 05/11 12:15 Order name: O2 Sat Monitoring; Complete Time: 12:33 [facility] 05/11 12:15 Order name: Urine Dipstick-Ancillary (obtain specimen); Complete Time: 14:07 [facility] Administered Medications: 13:30 Drug: NS 0.9% 500 ml Route: IV; Rate: bolus; Site: right forearm; em 18:00 Follow up: IV Status: Completed infusion; IV Intake: 500ml em Disposition: 05/12 08:20 Co-signature as Attending Physician, Rinku Estrella MD I agree with the assessment and stefano plan of care. Disposition: 05/11/20 14:10 Hospitalization ordered by Zackery Quiñones for Observation. Preliminary diagnosis are Acute on chronic combined systolic (congestive) and diastolic (congestive) heart failure, Hyperkalemia, Acute Kidney Injury. - Bed requested for Telemetry/MedSurg (observation). - Status is Observation. em - Condition is Stable. - Problem is new. - Symptoms are unchanged. Addendum: 05/25/2020 21:12 Addendum: This is an 79 year old male with a history of DM that presents to the ED with j mm complaints of cough, shortness of breath, weakness, beginning approx 1 day ago. patient denies shortness of breath. ROS positive for SOB, fatigue, otherwise negative. PE Gen: NAD, HEENT: Dry mucus membranes, Cardio: RRR, Resp: Non labored, Psych: Calm, pleasant, Neuro: A x o x 3. MDM: Elevated troponin, abnormal chest xray, i discussed the patient with Dr. Quiñones whom accepted admission for further evaluation. Diagnosis: CHF, Elevated troponin, Dehydration. Signatures: Dispatcher [employer] EDNM Rinku Estrella MD MD cha Mickail, Joel, PA PA [facility] Kvng Reilly, RN Katie Escoto, RN RN aa5 Shai Hoyt RN RN ja1 Corrections: (The following items were deleted from the chart) 05/11 17:40 14:10 Hospitalization Ordered by Zackery Quiñones MD for Observation. Preliminary em diagnosis is Acute on chronic combined systolic (congestive) and diastolic (congestive) heart failure; Hyperkalemia; Acute Kidney Injury. Bed requested for Telemetry/MedSurg (observation). Status is Observation. Condition is Stable. Problem is new. Symptoms are unchanged. jmm 17:41 17:40 05/11/2020 14:10 Hospitalization Ordered by Zackery Quiñones MD for Observation. em Preliminary diagnosis is Acute on chronic combined systolic (congestive) and diastolic (congestive) heart failure; Hyperkalemia; Acute Kidney Injury. Bed requested for [facility] ER HOLD. Status is Observation. Condition is Stable. Problem is new. Symptoms are unchanged. em 17:43 17:41 05/11/2020 14:10 Hospitalization Ordered by Zackery Quiñones MD for Observation. ja1 Preliminary diagnosis is Acute on chronic combined systolic (congestive) and diastolic (congestive) heart failure; Hyperkalemia; Acute Kidney Injury. Bed requested for [facility] ER HOLD. Status is Observation. Condition is Stable. Problem is new. Symptoms are unchanged. em 18:17 17:43 05/11/2020 14:10 Hospitalization Ordered by Zackery Quiñones MD for Observation. em Preliminary diagnosis is Acute on chronic combined systolic (congestive) and diastolic (congestive) heart failure; Hyperkalemia; Acute Kidney Injury. Bed requested for Telemetry/MedSurg (observation). Status is Observation. Condition is Stable. Problem is new. Symptoms are unchanged. ja1
[2020-05-11] MEDS ORDERED: ALBUTEROL 2.5 MG/3 ML NEB SOL NEB PRN (14:22)
[2020-05-11] MEDS ORDERED: IPRATROPIUM BROM 0.5MG/2.5ML NEB PRN (14:22)
[2020-05-11] MEDS ORDERED: FUROSEMIDE 40 MG/4 ML VIAL IV ONE (14:25)
[2020-05-11 15:12] LABS: Urine Blood NEGATIVE (NEG); Urine Glucose NEGATIVE (NEG); Urine Protein NEGATIVE (NEG)
[2020-05-11] MEDS: FUROSEMIDE 20 MG/ 2ML VIAL IV SCH (17:00)
--- NOTE | 2020-05-11 17:11 | P.HP ---
Certification for Inpatient Patient admitted to: Observation With expected LOS: <2 Midnights Practitioner: I am a practitioner with admitting privileges, knowledge of patient current condition, hospital course, and medical plan of care. Services: Services provided to patient in accordance with Admission requirements found in Title 42 Section 412.3 of the Code of Federal Regulations Patient History Date of Service: 05/11/20 Reason for admission: Congestive heart failure History of Present Illness: Patient is 79 years of age with a history of obstructive airways disease admitt ed with worsening dyspnea fatigue lower extremity edema for the past 2 week also reports some cough admitted with a diagnosis of congestive heart failure daughter at the bedside Allergies No Known Allergies Allergy (Verified 07/05/18 13:30) Home Medications: Simvastatin 20 mg PO DAILY 05/05/16 Magnesium Oxide [Mag 0X*] 400 mg PO DAILY PRN 08/08/17 Fluticasone/Salmeterol [Advair 250-50 Diskus] 1 each IH BID 09/24/17 Famotidine 40 mg PO BID 03/30/20 Amiodarone HCl [Cordarone*] 100 mg PO DAILY #30 tab 04/03/20 Amlodipine Besylate [Norvasc] 5 mg PO DAILY #30 tablet 04/03/20 Apixaban [Eliquis *] 2.5 mg PO BID #60 tablet 04/03/20 Atorvastatin Calcium [Lipitor] 40 mg PO BEDTIME #30 tab 04/03/20 traMADol HCL [Ultram*] 50 mg PO Q12HP PRN #60 tab 04/03/20 - Past Medical/Surgical History Diabetic: Yes -: Diabetes mellitus type 2 [id number] -: Hyperlipidemia -: Hypertension -: COPD -: GERD -: Atrial fibrillation not on chronic anti coagulation therapy -: Essential tremors -: Hip Replacement -: Cardioversion 2015 Psychosocial/ Personal History: Patient is - Social History Alcohol use: Yes CD- Drugs: No Caffeine use: Yes Review of Systems General: Weakness Respiratory: Shortness of Breath Cardiovascular: Edema Physical Examination - Vital Signs Temperature: 98 F Blood Pressure: 152/92 Pulse: 90 Respirations: 18 Pulse Ox (%): 100 - Physical Exam General: Alert, Oriented x3, Mild distress Neck: Supple Respiratory: Clear to auscultation bilaterally Cardiovascular: Normal S1 S2, Edema (2+ edema) Gastrointestinal: Normal bowel sounds Musculoskeletal: No clubbing Integumentary: No rashes, No breakdown - Studies Laboratory Data (last 24 hrs) 05/11/20 12:30: PT 16.3 H, INR 1.39 05/11/20 12:30: WBC 9.1, Hgb 9.8 L, Hct 29.7 L, Plt Count 237 05/11/20 12:30: Sodium 141, Potassium 5.2 H, BUN 46 H, Creatinine 1.67 H, Glucose 105, Magnesium 2.2, Total Bilirubin 0.6, AST 31, ALT 90 H, Alkaline Phosphatase 101 Assessment and Plan - Problems (Diagnosis) (1) Congestive heart failure (CHF) Current Visit: Yes Status: Acute Plan: Patient is 79 years of age admitted with dyspnea lower extremity edema, orthopnea for the past 5 days Chinese-speaking only daughter at the bedside he does have obstructive airways disease chest x-ray minimal interstitial changes he has elevated BNP labs reviewed abnormal renal function patient has chronic renal failure patient has AFib plan to diurese previous echo shows normal left ventricular function probably has underlying diastolic dysfunction the patient on Lasix on his last status is visit his thyroid function test was normal Qualifiers: Heart failure type: diastolic - Advance Directives Does patient have a Living Will: No Does patient have a Durable POA for Healthcare: No
[2020-05-11] MEDS ORDERED: FUROSEMIDE 40 MG/4 ML VIAL ONE (17:21)
[2020-05-11] MEDS ORDERED: FUROSEMIDE 20 MG TABLET ONE (17:21)
[2020-05-11 20:25] VITALS: BMI 31.0
[2020-05-12 06:01] LABS: Absolute Lymphocytes (CBC) 1.1 K/uL (0.7-4.9); Basophils % 0.4 % (0-1.3); Hematocrit 28.5 % (39.6-49.0); Lymphocytes % 19.6 % (15.3-44.8); MPV 8.1 fL (7.6-11.3)
[2020-05-12 06:14] LABS: Potassium 4.1 mmol/L (3.5-5.1)
[2020-05-12] MEDS: FUROSEMIDE 20 MG/ 2ML VIAL IV SCH (08:22)
[2020-05-12 10:28] VITALS: O2SAT 95
--- NOTE | 2020-05-12 10:30 | P.DS ---
Admission Date: 05/11/20 Discharge Date: 05/12/20 Disposition: ROUTINE DISCHARGE Discharge Condition: FAIR Reason for Admission: Congestive heart failure - Problems (1) Congestive heart failure (CHF) Current Visit: Yes Status: Acute Qualifiers: Heart failure type: diastolic Brief History of Present Illness: Patient is 79 years of age with a history of obstructive airways disease admitted with worsening dyspnea fatigue lower extremity edema for the past 2 week also reports some cough admitted with a diagnosis of congestive heart failure daughter at the bedside Hospital Course: Patient was admitted to the floor he did well at the time of discharge edema has significantly did use oxygenation stable vital signs all stable chest clear cardiovascular system heart sounds normal patient probably has underlying diastolic dysfunction he did well with Lasix in addition patient also has chronic renal failure discharged on is regular medication including Lasix 40 mg daily blood pressure mildly elevated patient is on amlodipine on examination alert oriented responsive cooperative chest clear cardiovascular system os sounds normal abdomen soft extremities 2+ edema Vital Signs/Physical Exam: Temp Pulse Resp BP Pulse Ox 97.5 F 76 18 153/65 H 94 05/12/20 08:00 05/12/20 08:22 05/12/20 08:00 05/12/20 08:22 05/12/20 08:00 Laboratory Data at Discharge: WBC 5.5 K/uL (4.3-10.9) D 05/12/20 05:34 Hgb 9.2 g/dL (13.6-17.9) L 05/12/20 05:34 Hct 28.5 % (39.6-49.0) L 05/12/20 05:34 Plt Count 231 K/uL (152-406) 05/12/20 05:34 PT 16.3 SECONDS (9.5-12.5) H 05/11/20 12:30 INR 1.39 05/11/20 12:30 Sodium 140 mmol/L (136-145) 05/12/20 05:34 Potassium 4.1 mmol/L (3.5-5.1) 05/12/20 05:34 BUN 38 mg/dL (7-18) H 05/12/20 05:34 Creatinine 1.69 mg/dL (0.55-1.3) H 05/12/20 05:34 Glucose 108 mg/dL (74-106) H 05/12/20 05:34 Magnesium 2.2 mg/dL (1.8-2.4) 05/11/20 12:30 Total Bilirubin 0.6 mg/dL (0.2-1.0) 05/11/20 12:30 AST 31 U/L (15-37) 05/11/20 12:30 ALT 90 U/L (12-78) H 05/11/20 12:30 Alkaline Phosphatase 101 U/L (45-117) 05/11/20 12:30 Troponin I 0.07 ng/mL (0.0-0.045) H 05/11/20 20:49 Home Medications: Fluticasone/Salmeterol [Advair 250-50 Diskus] 1 each IH BID 09/24/17 Famotidine 40 mg PO BID 03/30/20 Apixaban [Eliquis *] 2.5 mg PO BID #60 tablet 04/03/20 Atorvastatin Calcium [Lipitor] 40 mg PO BEDTIME #30 tab 04/03/20 traMADol HCL [Ultram*] 50 mg PO Q12HP PRN #60 tab 04/03/20 Amiodarone HCl [Cordarone*] 200 mg PO BID 05/11/20 Amlodipine Besylate [Norvasc] 5 mg PO DAILY 05/11/20 Metformin HCl [Glucophage*] 500 mg PO BID 05/11/20 Primidone [Mysoline *] 25 mg PO TID 05/11/20 Furosemide [Lasix] 40 mg PO DAILY 30 Days #30 tablet 05/12/20 New Medications: Furosemide [Lasix] 40 mg PO DAILY 30 Days #30 tablet Patient Discharge Instructions: Follow-up with Cardiology in 1 or 2 weeks Patient to take Lasix half to 1 tablet daily daily weights Diet: Low sodium Activity: Ad marie Followup: Jolanta Tsai DO [Primary Care Provider] -
[2020-05-12 12:23] VITALS: BP 142/69; TEMP 97.1
== END 2020-05-12 12:05 | disposition home or self-care (01) ==
LOC: ER 10:40 → ERHOLD 14:25 → 2ND 18:08
PROVIDERS: ADMIT Internal Medicine Sleep Medicine; ATTEND Internal Medicine Sleep Medicine
DX: I11.0 Hypertensive heart disease with heart failure (principal); I50.43 Acute on chronic combined systolic (congestive) and diastolic (congestive) heart failure; R94.31 Abnormal electrocardiogram [ECG] [EKG]; E11.9 Type 2 diabetes mellitus without complications; E78.5 Hyperlipidemia, unspecified; Z20.828 Contact with and (suspected) exposure to other viral communicable diseases; J44.9 Chronic obstructive pulmonary disease, unspecified; K21.9 Gastro-esophageal reflux disease without esophagitis; G25.0 Essential tremor; Z96.649 Presence of unspecified artificial hip joint; Z79.01 Long term (current) use of anticoagulants; Z79.84 Long term (current) use of oral hypoglycemic drugs
CPT/HCPCS: 96361; 93005; 85025 ×2; 80048 ×2; 36415; 83735; 85610; 82947 ×3; 80076; 81003; 84484 ×3; 83880 ×2; 71045; 96360; 99285; U0003; J1940 ×2; J7040

== ENCOUNTER 2020-07-02 19:17 | Inpatient (IN) | payer OTHER ==
[2020-07-02 23:03] LABS: Absolute Lymphocytes (CBC) 0.3 K/uL (0.7-4.9); Basophils % 0.4 % (0-1.3); Hematocrit 31.6 % (39.6-49.0); Lymphocytes % 3.9 % (15.3-44.8); MPV 7.6 fL (7.6-11.3); RBC Red Blood Cell Count 3.66 M/uL (4.33-5.43)
[2020-07-02 23:08] LABS: Protime INR 1.42
[2020-07-02 23:18] LABS: Magnesium 2.3 mg/dL (1.8-2.4); Potassium 4.4 mmol/L (3.5-5.1); Troponin (Emerg Dept Use Only) 0.04 ng/mL (0.0-0.045)
[2020-07-03 00:04] LABS: Blood Morphology Comment NOT SEEN (NOT SEEN); Platelet Estimate ADEQ
--- NOTE | 2020-07-03 00:04 | EDPHYS ---
Physician Documentation [facility] Name: Redd Tapia Age: 79 yrs Sex: Male : 1940 Arrival Date: 07/02/2020 Time: 20:39 Bed 2 Private MD: ED Physician Vinny Felder HPI: 07/02 23:02 This 79 yrs old Male presents to ER via Wheelchair with complaints of rn weakness, sob. 23:02 Reports about 1 week of generalized weakness, sob, swelling. Today trying to stand and rn fell, knees buckled, doesn't feel like broke anything. Didn't take lasix today. Reports sob with exertion. No fever or hemoptysis. . Onset: The symptoms/episode began/occurred 1 week(s) ago. Severity of symptoms: At their worst the symptoms were mild in the emergency department the symptoms are unchanged. The patient has experienced similar episodes in the past. The patient has not recently seen a physician. Historical: - Allergies: 20:52 No Known Allergies; em - PMHx: 20:52 Asthma; Breathing Problems; Diabetes - NIDDM; heart problems; Hyperlipidemia; em Hypertension; kidney problems; tremors; - PSHx: 20:52 ana luisa hip sx; em - Immunization history:: Adult Immunizations up to date. - Social history:: Smoking status: . - Immunization history: Last tetanus immunization: unknown. - Family history:: not pertinent. - Hospitalizations: : No recent hospitalization is reported. ROS: 23:02 Constitutional: Negative for fever, chills, and weight loss, Eyes: Negative for injury, rn pain, redness, and discharge, Neck: Negative for injury, pain, and swelling, Cardiovascular: Negative for chest pain, palpitations Respiratory: Negative for cough, wheezing, and pleuritic chest pain, Abdomen/GI: Negative for abdominal pain, nausea, vomiting, diarrhea, and constipation, MS/Extremity: Negative for injury and deformity, Skin: Negative for injury, rash, and discoloration, Neuro: Negative for headache, numbness, tingling, and seizure. Exam: 23:02 Constitutional: This is a well developed, well nourished patient who is awake, alert, rn and in no acute distress. Head/Face: Normocephalic, atraumatic. Cardiovascular: Regular rate and rhythm. No pulse deficits. Respiratory: Mild tachypnea, diminished at bases Abdomen/GI: Soft, non-tender Skin: Warm, dry MS/ Extremity: Pulses equal, no cyanosis. Neuro: Awake and alert, GCS 15, oriented to person, place, time, and situation. Motor strength 4/5 in all extremities. Sensory grossly intact. Cerebellar exam normal. Vital Signs: 20:48 BP 113 / 64; Pulse 92; Resp 18; Temp 98.8(O); Pulse Ox 92% on R/A; Weight 72.57 kg; em Height 5 ft. 5 in. (165.10 cm); Pain 0/10; 22:38 BP 139 / 99; Pulse 81; Resp 19; Pulse Ox 95% ; rr5 20:48 Body Mass Index 26.63 (72.57 kg, 165.10 cm) em [place] Coma Score: 22:38 Eye Response: spontaneous(4). Verbal Response: oriented(5). Motor Response: obeys ea commands(6). Total: 15. Trauma Score (Adult): 22:38 Eye Response: spontaneous(1); Verbal Response: oriented(1); Motor Response: obeys ea commands(2); Systolic BP: > 89 mm Hg(4); Respiratory Rate: 10 to 29 per min(4); [place] Score: 15; Trauma Score: 12 MDM: 22:23 Patient medically screened. rn 07/03 00:00 Differential Diagnosis CHF, kidney failure, electrolyte disorder. Data reviewed: vital rn signs, nurses notes, lab test result(s), EKG, radiologic studies, plain films, and as a result, I will admit patient. Counseling: I had a detailed discussion with the patient and/or guardian regarding: the historical points, exam findings, and any diagnostic results supporting the discharge/admit diagnosis, lab results, radiology results, the need for further work-up and treatment in the hospital. Response to treatment: the patient's symptoms have mildly improved after treatment, and as a result, I will admit patient. Admission orders: after a detailed discussion of the patient's condition and case, the admit orders are written by me. 07/02 22:30 Order name: Blood Culture Adult (2) rn 07/02 22:30 Order name: BMP rn 07/02 22:30 Order name: CBC with Diff rn 07/02 22:30 Order name: CPK rn 07/02 22:30 Order name: Magnesium rn 07/02 22:30 Order name: NT PRO-BNP rn 07/02 22:30 Order name: PT-INR rn 07/02 22:30 Order name: Ptt, Activated; Complete Time: 23:39 rn 07/02 22:30 Order name: Troponin (emerg Dept Use Only); Complete Time: 23:39 rn 07/02 22:30 Order name: Urine Culture rn 07/02 22:30 Order name: Urine Microscopic Only; Complete Time: 05:43 rn 07/02 22:30 Order name: Procalcitonin; Complete Time: 05:43 rn 07/02 22:30 Order name: Blood Culture EDMS 07/02 22:30 Order name: Basic Metabolic Panel; Complete Time: 23:39 EDMS 07/02 22:30 Order name: CBC with Automated Diff; Complete Time: 05:43 EDMS 07/02 22:30 Order name: Creatine Phosphokinase; Complete Time: 23:39 EDMS 07/02 22:30 Order name: Magnesium; Complete Time: 23:39 EDMS 07/02 22:30 Order name: NT PRO-BNP; Complete Time: 23:39 EDMS 07/02 22:30 Order name: Protime (+INR); Complete Time: 23:39 EDMS 07/02 23:07 Order name: Manual Differential; Complete Time: 05:43 EDMS 07/03 01:14 Order name: Urine Dipstick--Ancillary (enter results) ds4 07/03 01:40 Order name: Urine Dipstick-Ancillary; Complete Time: 05:43 EDMS 07/03 03:48 Order name: COVID-19 : Document "Date of Symptom Onset" if Symptomatic. rr5 07/03 04:17 Order name: CBC with Automated Diff; Complete Time: 05:43 EDMS 07/03 04:19 Order name: CORONAVIRUS EDMS 07/03 04:23 Order name: Basic Metabolic Panel; Complete Time: 05:43 EDMS 07/03 04:23 Order name: Magnesium; Complete Time: 05:43 EDMS 07/03 05:22 Order name: SARS-COV-2 RT PCR; Complete Time: 05:43 EDMS 07/03 07:43 Order name: Glucose, Ancillary Testing EDMS 07/03 09:53 Order name: D-Dimer EDMS 07/02 22:30 Order name: XRAY CXR (1 view) 07/02 22:30 Order name: EKG; Complete Time: 22:30 rn 07/02 22:30 Order name: Cardiac monitoring; Complete Time: 22:35 rn 07/02 22:30 Order name: EKG - Nurse/Tech; Complete Time: 22:35 rn 07/02 22:30 Order name: IV Saline Lock; Complete Time: 22:35 rn 07/02 22:30 Order name: Labs collected and sent; Complete Time: 22:35 rn 07/02 22:30 Order name: O2 Per Protocol; Complete Time: 22:35 rn 07/02 22:30 Order name: O2 Sat Monitoring; Complete Time: :35 rn 07/02 22:30 Order name: Urine Dipstick-Ancillary (obtain specimen); Complete Time: 07:14 07/03 10:10 Order name: C-Reactive Protein [facility] 07/03 10:10 Order name: Ferritin [facility] 07/03 11:55 Order name: Glucose, Ancillary Testing EDNM Administered Medications: 07/02 23:51 Drug: Lasix 40 mg Route: IVP; Site: left forearm; ea 07/03 00:50 Follow up: Response: No adverse reaction rr5 06:24 Drug: SOLU-Medrol 125 mg Route: IVP; Site: right antecubital; ea 07:14 Follow up: Response: No adverse reaction sv Disposition: 07/03/20 00:03 Hospitalization ordered by Juaquin Felder for Observation. Preliminary diagnosis are Unspecified combined systolic (congestive) and diastolic (congestive) heart failure, Weakness, Dyspnea, unspecified. - Bed requested for Telemetry/MedSurg (observation). - Status is Observation. sv - Condition is Stable. - Problem is an ongoing problem. - Symptoms have improved. Signatures: Dispatcher [employer] EDNM Ally Mims RN Kvng Hale RN Vinny Ceron MD MD rn Lasagna, Tonya, RN RN tl1 Carlita Ray RN RN ea Roque, Raymond RN rr5 Corrections: (The following items were deleted from the chart) 00:57 00:03 Hospitalization Ordered by Juaquin Felder MD for Observation. Preliminary tl1 diagnosis is Unspecified combined systolic (congestive) and diastolic (congestive) heart failure; Weakness; Dyspnea, unspecified. Bed requested for Telemetry/MedSurg (observation). Status is Observation. Condition is Stable. Problem is an ongoing problem. Symptoms have improved. rn 12:32 00:57 07/03/2020 00:03 Hospitalization Ordered by Juaquin Felder MD for Observation. tl1 Preliminary diagnosis is Unspecified combined systolic (congestive) and diastolic (congestive) heart failure; Weakness; Dyspnea, unspecified. Bed requested for [facility] ER HOLD. Status is Observation. Condition is Stable. Problem is an ongoing problem. Symptoms have improved. tl1 13:13 12:32 07/03/2020 00:03 Hospitalization Ordered by Juaquin Felder MD for Observation. sv Preliminary diagnosis is Unspecified combined systolic (congestive) and diastolic (congestive) heart failure; Weakness; Dyspnea, unspecified. Bed requested for Telemetry/MedSurg (observation). Status is Observation. Condition is Stable. Problem is an ongoing problem. Symptoms have improved. tl1
--- NOTE | 2020-07-03 00:04 | ER ---
Nurse's Notes [facility] Name: Redd Tapia Age: 79 yrs Sex: Male : 1940 Arrival Date: 07/02/2020 Time: 20:39 Bed 2 Private MD: Diagnosis: Unspecified combined systolic (congestive) and diastolic (congestive) heart failure;Weakness;Dyspnea, unspecified Presentation: 07/02 20:48 Chief complaint: Patient's son or daughter states: slipped today and reports having em weak legs, also has been cold today, daughter reports shortness of breath, denies fever or covid. Coronavirus screen: Client denies travel out of the [place] in the last 14 days. Ebola Screen: Patient negative for fever greater than or equal to 101.5 degrees Fahrenheit, and additional compatible Ebola Virus Disease symptoms Patient denies exposure to infectious person. Patient denies travel to an Ebola-affected area in the 21 days before illness onset. No symptoms or risks identified at this time. Initial Sepsis Screen: Does the patient meet any 2 criteria? HR > 90 bpm. Yes Does the patient have a suspected source of infection? Yes: Productive cough/pneumonia. Risk Assessment: Do you want to hurt yourself or someone else? Patient reports no desire to harm self or others. Onset of symptoms was July 02, 2020. 20:48 Method Of Arrival: Wheelchair em 20:48 Acuity: KIRAN 3 em 22:42 Care prior to arrival: None. Mechanism of Injury: Fall from standing position. Trauma ea event details: Injury occurred in the [facility], Injury occurred: at home. Trauma Activation: Not Applicable Physician: ED Physician; Name: ; Notified At: ; Arrived At: Physician: General Surgeon; Name: ; Notified At: ; Arrived At: Physician: Radiology; Name: ; Notified At: ; Arrived At: Physician: Respiratory; Name: ; Notified At: ; Arrived At: Physician: Lab; Name: ; Notified At: ; Arrived At: Historical: - Allergies: 20:52 No Known Allergies; em - PMHx: 20:52 Asthma; Breathing Problems; Diabetes - NIDDM; heart problems; Hyperlipidemia; em Hypertension; kidney problems; tremors; - PSHx: 20:52 ana luisa hip sx; em - Immunization history:: Adult Immunizations up to date. - Social history:: Smoking status: . - Immunization history: Last tetanus immunization: unknown. - Family history:: not pertinent. - Hospitalizations: : No recent hospitalization is reported. Screenin:17 Abuse screen: Denies threats or abuse. Nutritional screening: No deficits noted. ea Tuberculosis screening: No symptoms or risk factors identified. Fall Risk Fall in past 12 months (25 points). Primary Survey: 22:17 NO uncontrolled hemorrhage observed. A: The patient is alert. Airway: patent. ea Breathing/Chest: Respiratory pattern: regular, Respiratory effort: spontaneous, unlabored. Circulation: Skin color: pink. Disability Alert. 22:28 Exposure/Environment: All clothing and personal items were removed. Forensic evidence ea collection is not deemed to be indicated at this time. Items placed in patient belonging bag. 23:59 Reassessment Airway Airway Patent Breathing/Chest Respiratory pattern Regular ea Respiratory effort Spontaneous Unlabored Disability Alert. Assessment: 22:38 General: Appears in no apparent distress. Behavior is appropriate for age. Pain: ea Complains of pain in right leg. Neuro: Level of Consciousness is awake, alert, obeys commands, Oriented to person, place, time. Cardiovascular: Patient's skin is warm and dry. edema noted to left lower extremity. Respiratory: Airway is patent Respiratory effort is even, unlabored, Respiratory pattern is regular, symmetrical. Derm: Skin is pink, warm \\T\\ dry. 07/03 00:15 Reassessment: Patient appears in no apparent distress at this time. Patient is alert, rr5 oriented x 3, equal unlabored respirations, skin warm/dry/pink. hospitalist at bedside examining the patient. Vital Signs: 07/02 20:48 BP 113 / 64; Pulse 92; Resp 18; Temp 98.8(O); Pulse Ox 92% on R/A; Weight 72.57 kg; em Height 5 ft. 5 in. (165.10 cm); Pain 0/10; 22:38 BP 139 / 99; Pulse 81; Resp 19; Pulse Ox 95% ; rr5 20:48 Body Mass Index 26.63 (72.57 kg, 165.10 cm) em [place] Coma Score: 22:38 Eye Response: spontaneous(4). Verbal Response: oriented(5). Motor Response: obeys ea commands(6). Total: 15. Trauma Score (Adult): 22:38 Eye Response: spontaneous(1); Verbal Response: oriented(1); Motor Response: obeys ea commands(2); Systolic BP: > 89 mm Hg(4); Respiratory Rate: 10 to 29 per min(4); [place] Score: 15; Trauma Score: 12 ED Course: 20:39 Patient arrived in ED. ag3 20:51 Triage completed. em 20:52 Arm band placed on. em 22:17 Carlita Ray, RN is Primary Nurse. ea 22:17 Patient maintains SpO2 saturation greater than 95% on room air. ea 22:17 Thermoregulation: warm blanket given to patient. ea 22:18 Patient has correct armband on for positive identification. Bed in low position. Call ea light in reach. Side rails up X2. Adult w/ patient. 22:23 Vinny Felder MD is Attending Physician. rn 22:30 First set of blood cultures drawn by [facility] ED staff. Inserted saline lock: 22 gauge rr5 in left forearm, using aseptic technique. ,using aseptic technique. inserted by [facility] voip network technician Blood collected. 22:35 EKG done, by ED staff, reviewed by Vinny Felder MD. rr5 22:38 gambling monitor on. Pulse ox on. NIBP on. rr5 22:48 XRAY CXR (1 view) In Process Unspecified. EDMS 07/03 00:02 Juaquin Felder MD is Hospitalizing Provider. rn 04:07 COVID swab sent to lab. rr5 05:20 Inserted saline lock: 20 gauge in right forearm, using aseptic technique. rr5 05:20 Second set of blood cultures drawn by pa. rr5 05:53 No provider procedures requiring assistance completed. Patient admitted, IV remains in rr5 place. intact, No redness/swelling at site. 07:12 Primary Nurse role handed off by Carlita Ray, JAS sv 07:12 Ally Mims, JAS is Primary Nurse. sv 07:13 CORONAVIRUS Sent. sv 07:13 COVID-19 : Document "Date of Symptom Onset" if Symptomatic. Sent. sv 07:13 Urine Dipstick--Ancillary (enter results) Sent. sv 07:13 PT-INR Sent. sv 07:14 NT PRO-BNP Sent. sv 07:14 Magnesium Sent. sv 07:14 CPK Sent. sv 07:14 CBC with Diff Sent. sv 07:14 BMP Sent. sv 07:14 Blood Culture Adult (2) Sent. sv Administered Medications: 07/02 23:51 Drug: Lasix 40 mg Route: IVP; Site: left forearm; ea 07/03 00:50 Follow up: Response: No adverse reaction rr5 06:24 Drug: SOLU-Medrol 125 mg Route: IVP; Site: right antecubital; ea 07:14 Follow up: Response: No adverse reaction sv Outcome: 00:03 Decision to Hospitalize by Provider. rn 13:13 Patient left the ED. sv Signatures: Dispatcher [employer] Ally Villalobos RN RN Kvng Salcido RN RN Vinny Castillo MD MD rn Antunez, Elena, RN RN ea Gomez, Alice ag3 Roque, Raymond, RN RN rr5
[2020-07-03] MEDS ORDERED: FUROSEMIDE 40 MG/4 ML VIAL ONE ×2 (00:05→07:54)
[2020-07-03 01:40] LABS: Urine Blood NEGATIVE (NEG); Urine Glucose NEGATIVE (NEG); Urine Protein NEGATIVE (NEG); Urine pH 5.5 (5.0-7.0)
[2020-07-03 01:41] LABS: Urine Bacteria <20 /HPF (NONE SEEN); Urine RBC <5 /HPF (NONE SEEN)
--- NOTE | 2020-07-03 02:45 | P.HP ---
Certification for Inpatient Patient admitted to: Observation With expected LOS: <2 Midnights Patient will require the following post-hospital care: None Practitioner: I am a practitioner with admitting privileges, knowledge of patient current condition, hospital course, and medical plan of care. Services: Services provided to patient in accordance with Admission requirements found in Title 42 Section 412.3 of the Code of Federal Regulations <John Luis - Last Filed: 07/03/20 03:06> Patient History Date of Service: 07/03/20 Reason for admission: CHF exacerbation History of Present Illness: 79-year-old male with history of asthma, diabetes mellitus type 2, CHF, hypertension, hyperlipidemia, chronic kidney disease presents emergency department for generalized weakness, patient reportedly fell earlier today and was complaining of pain to the right hip area but able to tolerate weight- bearing well. Patient was evaluated in the emergency department found to be volume overloaded with pitting edema to bilateral lower extremities elevated BNP in addition to acute on chronic kidney disease with creatinine 2.19 baseline between 1.6 and 1.7. Patient also very weak, unsteady on his feet. ED provider wishes to admit under observation for further evaluation and management. - Past Medical/Surgical History Diabetic: Yes -: Diabetes mellitus type 2 [id number] -: Hyperlipidemia -: Hypertension -: COPD -: GERD -: Atrial fibrillation -: Essential tremors -: Chronic diastolic congestive heart failure -: Hip Replacement -: Cardioversion 2015 Psychosocial/ Personal History: Patient is - Social History Smoking Status: Never smoker Alcohol use: Yes CD- Drugs: No Caffeine use: Yes Place of Residence: Home <John Luis - Last Filed: 07/03/20 03:06> Date of Service: 07/03/20 <Juaquin Felder - Last Filed: 07/03/20 18:15> Allergies No Known Allergies Allergy (Verified 07/05/18 13:30) Home Medications: Fluticasone/Salmeterol [Advair 250-50 Diskus] 1 each IH BID 09/24/17 Famotidine 40 mg PO BID 03/30/20 Apixaban [Eliquis *] 2.5 mg PO BID #60 tablet 04/03/20 Atorvastatin Calcium [Lipitor] 40 mg PO BEDTIME #30 tab 04/03/20 traMADol HCL [Ultram*] 50 mg PO Q12HP PRN #60 tab 04/03/20 Amiodarone HCl [Cordarone*] 200 mg PO BID 05/11/20 Amlodipine Besylate [Norvasc] 5 mg PO DAILY 05/11/20 Metformin HCl [Glucophage*] 500 mg PO BID 05/11/20 Primidone [Mysoline *] 25 mg PO TID 05/11/20 Furosemide [Lasix] 40 mg PO DAILY 30 Days #30 tablet 05/12/20 Review of Systems Respiratory: Cough, Shortness of Breath, SOB with Excertion, Sputum Cardiovascular: Edema <John Luis - Last Filed: 07/03/20 03:06> Physical Examination - Physical Exam General: Alert, In no apparent distress HEENT: Atraumatic, PERRLA, Mucous membr. moist/pink Neck: Supple, 2+ carotid pulse no bruit, No LAD Respiratory: Normal air movement, Crackles/rales (Bilaterally) Cardiovascular: Normal pulses, Normal S1 S2, Edema (1+ pitting edema bilateral lower extremities) Capillary refill: <2 Seconds Gastrointestinal: Normal bowel sounds, Soft and benign, No tenderness, No masses, No rebound, No guarding Musculoskeletal: No tenderness Integumentary: No rashes Neurological: Normal gait, Normal speech, Normal strength at 5/5 x4 extr, Normal tone, Normal affect - Studies Laboratory Data (last 24 hrs) 07/02/20 22:45: PT 16.4 H, INR 1.42, APTT 29.0 07/02/20 22:45: WBC 6.50, Hgb 10.4 L, Hct 31.6 L, Plt Count 279 07/02/20 22:45: Sodium 141, Potassium 4.4, BUN 26 H, Creatinine 2.19 H, Glucose 163 H, Magnesium 2.3 <John Luis - Last Filed: 07/03/20 03:06> - Studies Laboratory Data (last 24 hrs) 07/02/20 22:45: PT 16.4 H, INR 1.42, APTT 29.0 07/02/20 22:45: WBC 6.50, Hgb 10.4 L, Hct 31.6 L, Plt Count 279 07/02/20 22:45: Sodium 141, Potassium 4.4, BUN 26 H, Creatinine 2.19 H, Glucose 163 H, Magnesium 2.3 Microbiology Data (last 24 hrs): 07/02/20 22:45 Blood - Blood Anaerobic Blood Culture - Final <Juaquin Felder - Last Filed: 07/03/20 18:15> Assessment and Plan - Plan Assessment Acute on chronic HFpEF MANNY superimposed on CKD 3 Generalize weakness, instability Atrial fibrillation on chronic anticoagulation therapy Diabetes mellitus type 2 Hypertension Hyperlipidemia Plan Acute on chronic HFpEF: Continue with IV diuresis with Lasix, 1500 cc per day fluid restriction. Last echocardiogram March 2020 shows normal EF, wall motion. Some language barrier present, unable to determine if patient is compliant with fluid restriction although family reports that he does not drink a lot of fluids. MANNY superimposed on CKD 3: Suspect cardiorenal, continue with Lasix at this time, nephrology consult in place. Appreciate further input from nephrology. Generalized weakness, instability: Physical therapy consult in place, patient family report fall from standing today, patient does not appear stable on his feet. Atrial fibrillation on chronic anticoagulation therapy: Continue home medications. Diabetes mellitus type 2: A.c. HS Accu-Cheks, sliding scale insulin therapy. Hypertension: Obtain and continue home meds Hyperlipidemia: Obtain and continue home meds Discharge Plan: Home Plan to discharge in: 24 Hours - Advance Directives Does patient have a Living Will: No Does patient have a Durable POA for Healthcare: No - Code Status/Comfort Care Code Status Assessed: Yes (Full code) Critical Care: No Time Spent Managing Pts Care (In Minutes): 55 <John Luis - Last Filed: 07/03/20 03:06> - Plan Plan of care reviewed as noted by John Luis, and I agree with the management plan as noted above. Patient also positive for COVID 19 - since asymptomatic, is unsure where he got it from Will check CRP/ferritin, D-dimer Unable to obtain CTA due to renal function, patient not hypoxic at this time. Unable to obtain echocardiogram due to no staff available this week Patient is already on anticoagulation, Eliquis for atrial fibrillation. Low suspicion for PE Continue with IV diuresis Physical therapy consulted Anticipate discharge home in the next 24-48hrs <Juaquin Felder - Last Filed: 07/03/20 18:15>
[2020-07-03 02:59] VITALS: BMI 26.9
[2020-07-03] MEDS ORDERED: ACETAMINOPHEN 500 MG TAB PO PRN (03:12)
[2020-07-03] MEDS ORDERED: TRAMADOL HCL 50 MG TAB PO PRN (03:12)
[2020-07-03] MEDS ORDERED: ONDANSETRON 4 MG/2 ML VIAL IV PRN (03:12)
[2020-07-03 04:15] LABS: Absolute Lymphocytes (CBC) 0.4 K/uL (0.7-4.9); Basophils % 0.4 % (0-1.3); Hematocrit 28.8 % (39.6-49.0); Lymphocytes % 7.1 % (15.3-44.8); MPV 7.6 fL (7.6-11.3); RBC Red Blood Cell Count 3.34 M/uL (4.33-5.43)
[2020-07-03 04:23] LABS: Magnesium 1.9 mg/dL (1.8-2.4); Potassium 3.7 mmol/L (3.5-5.1)
[2020-07-03] MEDS ORDERED: METHYLPREDNISOLONE 125 MG INJ ONE (06:10)
[2020-07-03] MEDS: INSULIN -REGULAR HUMAN 50 UNIT/0.5 ML ML SQ SCH ×4 (07:30→21:11)
--- NOTE | 2020-07-03 07:35 | RAD REPORT ---
EXAM DESCRIPTION: Jannette Single View07/02/2020 10:48 pm CLINICAL HISTORY: Shortness breath COMPARISON: April 2020 FINDINGS: Opacity has developed within the right lung base. Left lung appears clear. Heart is normal size IMPRESSION: Right basilar opacity probably pneumonia. This should be followed until is clear to hel p exclude a post obstructive process/underlying mass
[2020-07-03] MEDS ORDERED: HEPARIN 5000 UNIT/ML 1 ML VIAL ONE (07:53)
[2020-07-03] MEDS ORDERED: AMIODARONE HCL 200 MG TAB ONE (07:53)
[2020-07-03] MEDS ORDERED: AMLODIPINE 5 MG TAB ONE (07:53)
[2020-07-03] MEDS ORDERED: APIXABAN 5 MG TABLET PO SCH (09:00)
[2020-07-03] MEDS: AMIODARONE HCL 200 MG TAB PO SCH ×2 (09:00→21:10)
[2020-07-03] MEDS ORDERED: AMLODIPINE 5 MG TAB PO SCH (09:00)
[2020-07-03] MEDS ORDERED: HEPARIN 5000 UNIT/ML 1 ML VIAL SQ SCH (09:00)
[2020-07-03] MEDS ORDERED: FUROSEMIDE 40 MG/4 ML VIAL IV SCH (09:00)
[2020-07-03] MEDS ORDERED: FUROSEMIDE 20 MG/ 2ML VIAL IV SCH (09:32)
[2020-07-03 10:09] LABS: C-Reactive Protein 67.3 mg/L (<3.00); Ferritin 86.3 ng/mL (26-388)
[2020-07-03] MEDS ORDERED: PNEUMOCOCCAL VACCINE 0.5 ML IMVAC ONE (11:00)
[2020-07-03] MEDS ORDERED: INFLUENZA VACCINE (for 3y+) 0.5 ML DOSE IMVAC ONE (11:00)
[2020-07-03] MEDS ORDERED: INSULIN -REGULAR HUMAN 50 UNIT/0.5 ML ML ONE (12:03)
--- NOTE | 2020-07-03 14:38 | EKG ---
Test Date: 2020-07-02 Test Time: 22:33:41 Clinical Quality Analyst: SOLEDAD MEASUREMENT RESULTS: Intervals: Rate: 82 [place]: 196 QRSD: 108 QT: 494 QTc: 577 [place]: P: 80 [place]: 196 QRS: 120 T: 62 INTERPRETIVE STATEMENTS: Normal sinus rhythm Right axis deviation Possible Anterior infarct, age undetermined Prolonged QT Abnormal ECG Compared to ECG 05/11/2020 12:32:40 Right-axis deviation now present Myocardial infarct finding now present Atrial fibrillation no longer present Electronically Signed On 07-03-20 14:37:25 EQUIPMENT ENGINEERING TECHNICIAN by Sloan Vinson
[2020-07-03 18:01] LABS: Urine Protein/Creatinine Ratio 0.3 ratio (<0.15)
[2020-07-03] MEDS: FUROSEMIDE 40 MG/4 ML VIAL IV SCH (18:16)
[2020-07-03 18:21] LABS: Urine Appearance CLEAR; Urine Bilirubin NEGATIVE (NEG); Urine Blood NEGATIVE (NEG); Urine Color YELLOW; Urine Glucose NEGATIVE (NEG); Urine Protein NEGATIVE (NEG); Urine Urobilinogen 0.2 mg/dL (0.2-1.0)
[2020-07-03 18:23] LABS: Urine Microscopic Reflex NO UMIC
--- NOTE | 2020-07-03 18:49 | CON ---
Date of Consultation: 07/03/2020 Reason For Consultation: Elevated BUN and creatinine, fluid management, over volume. History Of Present Illness: This is a pleasant 79-year-old gentleman with significant past medical history of diabetes complicated with neuropathy, hypertension, hyperlipidemia, coronary artery disease, AFib, chronic kidney disease, baseline creatinine 1.6 as of April 2020 with GFR of 39. Followed up in the office, the patient came to the hospital complaining from pain in the hip with shortness of breath, found to have elevation in BUN and creatinine, over volume. For that reason, we have been consulted. The patient was started on some diuresis. Kidney function has been trending down to 1.9, still a little bit far from his baseline, but trending that direction. The patient is on room air. The patient denied recent change in his medications. Allergies: NO KNOWN DRUG ALLERGIES. Home Medications: Include Advair, Pepcid, Eliquis, atorvastatin, tramadol, amiodarone, amlodipine, metformin, Lasix. Past Medical History: Includes; 1. Diabetes complicated with neuropathy. 2. Chronic kidney disease, baseline creatinine 1.6, GFR of 39 as of April 2020. 3. Hyperlipidemia. 4. COPD. 5. GERD. 6. AFib. 7. Congestive heart failure, diastolic dysfunction. Past Surgical History: Includes; 1. Hip replacement. 2. Cardioversion. Social History: Active alcohol. Denied smoking. Denied drugs abuse. Review of Systems: Head and Neck: No red eye. No ear pain. GI: No nausea. No vomiting. : No polyuria. No dysuria. No hematuria. Development Analyst: Not applicable. Respiratory: Has shortness of breath. Has cough. Cardiovascular: No chest pain. Has orthopnea. Endocrine: No polydipsia. Skin: No rash. Neuro: Has neuropathy. Musculoskeletal: No joint pain. Physical Examination: General: When I saw the patient, the patient lying in bed, not on any distress. As I mentioned, the patient is on room air. Vital Signs: The patient blood pressure 120/53, pulse of 88, afebrile. Chest: Faint rales on the left base. Heart: S1, S2. Systolic murmur. Abdomen: Soft, nontender. Extremities: No edema. Neurological: Alert and oriented x3. No focal. Laboratory Data: Sodium 141, potassium 3.7, bicarb 26, BUN 29, creatinine 1.9, calcium 8.8, magnesium 1.9. WBC 5, H and H 9.5/28.8. Current Medications: The patient on include; 1. Eliquis. 2. Amiodarone. 3. Atorvastatin. 4. Zofran. 5. Tramadol. Assessment And Plan: 1. Acute kidney injury on chronic kidney disease secondary to cardiorenal, over volume. I am going to discontinue any JOE inhibitor. I am going to start the patient on Lasix 40 mg b.i.d., discontinue amlodipine, and we will monitor the patient. Hold metformin. We will follow up renal ultrasound. 2. Hypertension, currently blood pressure on the lower side. We will utilize the blood pressure to establish better volume control. 3. Congestive heart failure with exacerbation. We will try to establish better volume control for the patient. 4. Diabetes. Discontinue metformin. We will follow up with the primary. 5. COVID pneumonia as by primary. Time spent discussing with the patient, examining the patient, exam [id number], placing order, discussing with staff and other consulting include including Cardiology and Primary 75 minutes. SANDI Voice ID: [id number] Report ID: [id number] CODEY
[2020-07-03] MEDS: APIXABAN 2.5 MG TABLET PO SCH (21:10)
[2020-07-03] MEDS: ATORVASTATIN 40 MG TAB PO SCH (21:10)
--- NOTE | 2020-07-03 21:26 | RAD REPORT ---
EXAM DESCRIPTION: US - Renal Ultrasound-Complete - 07/03/2020 8:49 pm CLINICAL HISTORY: MANNY COMPARISON: Renal Ultrasound-Complete dated 03/31/2020 FINDINGS: The right kidney measures 8.3 x 5.0 x 3.4 cm. The left kidney measures 9.8 x 4.9 x 4.2 cm . Cortical thickness normal for each kidney. Increased echogenicity is present most likely medical re nal disease. This is similar to comparison. No hydronephrosis or suspicious renal mass. No bladder wall thickening or mass. No intraluminal stone or mass. A 2.7 centimeter cystic mass adjac ent the bladder is probably a diverticulum from the bladder. IMPRESSION: No hydronephrosis or suspicious renal mass. Medical renal disease present similar to comparison.
[2020-07-04 04:14] LABS: Absolute Lymphocytes (CBC) 0.4 K/uL (0.7-4.9); Hematocrit 30.2 % (39.6-49.0); Lymphocytes % 6.4 % (15.3-44.8); MPV 7.7 fL (7.6-11.3); RBC Red Blood Cell Count 3.52 M/uL (4.33-5.43)
[2020-07-04 05:57] LABS: C-Reactive Protein 60.6 mg/L (<3.00); Ferritin 87.8 ng/mL (26-388); Folic Acid, (Folate) 12.7 ng/mL (3.1-17.5); Magnesium 2.3 mg/dL (1.8-2.4); Phosphorus 5.4 mg/dL (2.5-4.9); Potassium 3.8 mmol/L (3.5-5.1); Thyroid Stimulating Hormone 0.489 uIU/mL (0.360-3.740)
[2020-07-04] MEDS: INSULIN -REGULAR HUMAN 50 UNIT/0.5 ML ML SQ SCH ×4 (07:30→21:00)
[2020-07-04] MEDS: APIXABAN 2.5 MG TABLET PO SCH ×2 (08:47→22:28)
[2020-07-04] MEDS: FUROSEMIDE 40 MG/4 ML VIAL IV SCH ×2 (08:48→17:57)
[2020-07-04] MEDS: AMIODARONE HCL 200 MG TAB PO SCH ×2 (08:52→22:28)
--- NOTE | 2020-07-04 19:05 | PN ---
Date of Progress Note: 07/04/2020 Subjective: The patient was admitted with acute kidney injury secondary to cardiorenal volume. The patient was started on diuresis. The patient currently on room air. Physical Examination: Vital Signs: Blood pressure 129/63, pulse of 68. The patient had good urine output of 1300. Chest: Clear to auscultation. Heart: S1, S2. Systolic murmur. Abdomen: Soft, nontender. Extremities: No edema. Laboratory Data: H and H 10.1/30.2. Sodium 144, potassium 3.8, bicarb 28, BUN 38, creatinine 2, GFR of 31, calcium 8.2. Iron saturation 4.9, ferritin 87. Serum protein electrophoresis is still pending. PTH is still pending. Current Medications: The patient on include atorvastatin, amiodarone, Lasix 40 b.i.d., Zofran, and tramadol. Assessment And Plan: 1. Acute kidney injury secondary to cardiorenal, recover, plateau. I am going to continue Lasix for the time being. 2. The patient cleared from the renal standpoint for discharge planning. 3. Iron deficiency anemia. We will start the patient on IV iron. 4. Diabetes with the presence of acute kidney injury. Keep holding metformin. Continue diuresis. 5. Coronary artery disease, congestive heart failure with exacerbation as above. Continue Lasix. The patient cleared from the Renal. 6. COVID pneumonia, stable. Follow up with primary. The patient is cleared from the renal standpoint for discharge planning. Time spent discussing with the patient, examining the patient, exam [id number], placing order, discussing with staff and other consulting include including Cardiology and Primary 45 minutes. SANDI Voice ID: [id number] Report ID: [id number] CODEY
--- NOTE | 2020-07-04 20:56 | P.PN ---
Subjective Date of Service: 07/04/20 Chief Complaint: CHF exacerbation Subjective: Improving (feeling better, breathing comfortably, walked with PT yesterday. continues with cough, slightly worse today) Review of Systems 10-point ROS is otherwise unremarkable Physical Examination - Vital Signs Temperature: 99.1 F Blood Pressure: 145/72 Pulse: 77 Respirations: 18 Pulse Ox (%): 96 - Studies Microbiology Data (last 24 hrs): 07/02/20 22:45 Blood - Blood Anaerobic Blood Culture - Final Assessment & Plan Physician Review Additional Text: Physical exam: Gen: NAD, AAOx3 HEENT: normal conjunctiva CV: RRR, no murmur Pulm: nonlabored on RA, dry cough Abd: soft, NTND Ext: no rash, no tenderness Problem List: Acute on chronic HFpEF COVID-19 infection MANNY superimposed on CKD 3 Generalize weakness, instability Atrial fibrillation on chronic anticoagulation therapy Diabetes mellitus type 2 Hypertension Hyperlipidemia Continue IV lasix - 40mg BID per nephrology last TTE (05/05): normal EF, normal wall motion patient unsure of what medications he takes at home. Daughter unable to provide list today while over phone, states she gave list to ED, unable to find in chart /documentation need to obtain up to date home medication list SpO2 lower today PT/OT ambulated patient, did well, fairly stable, recommend walker, pt states he has one available at home COVID positive, he is unsure where he got it from. Daughter states he was exposed ~7-8 days ago to his son who did not know he was positive for COVID-19 at the time. Patient is already on anticoagulation, Eliquis for atrial fibrillation. Low suspicion for PE renal function worsening today, likely from diuresis, repeat tomorrow Anticipate discharge home in the next 24hrs Time Spent Managing Pts Care (In Minutes): 40
[2020-07-04] MEDS: predniSONE 20 MG TAB PO SCH (22:28)
[2020-07-04] MEDS: ATORVASTATIN 40 MG TAB PO SCH (22:28)
[2020-07-05 04:42] LABS: Absolute Lymphocytes (CBC) 0.3 K/uL (0.7-4.9); Basophils % 0.3 % (0-1.3); Hematocrit 33.8 % (39.6-49.0); Lymphocytes % 4.4 % (15.3-44.8); MPV 7.9 fL (7.6-11.3); RBC Red Blood Cell Count 3.92 M/uL (4.33-5.43)
[2020-07-05 04:53] LABS: Albumin 3.1 g/dL (3.4-5.0); Phosphorus 3.6 mg/dL (2.5-4.9); Potassium 3.7 mmol/L (3.5-5.1)
[2020-07-05 06:49] VITALS: BP 136/63; TEMP 98.3
[2020-07-05] MEDS: INSULIN -REGULAR HUMAN 50 UNIT/0.5 ML ML SQ SCH ×2 (07:30→14:18)
--- NOTE | 2020-07-05 09:42 | RAD REPORT ---
EXAM DESCRIPTION: RAD - Chest Single View - 07/05/2020 4:47 am CLINICAL HISTORY: f/u R opacity, COVID-19 positive Chest pain. COMPARISON: Chest Single View dated 07/02/2020; Chest Single View dated 05/11/2020; Chest Single View dated 03/31/2020; Chest Single View dated 03/30/2020 FINDINGS: Portable technique limits examination quality. Opacity noted in the right base appears essentially unchanged when accounting for differences in degr ee of inspiration. Elsewhere, no new lung finding is seen. The heart is normal in size. Aortic athero sclerosis.Continued follow-up until complete clearance is recommended.
[2020-07-05] MEDS: APIXABAN 2.5 MG TABLET PO SCH (09:52)
[2020-07-05] MEDS: AMIODARONE HCL 200 MG TAB PO SCH (09:52)
[2020-07-05] MEDS: FUROSEMIDE 40 MG/4 ML VIAL IV SCH (09:52)
[2020-07-05] MEDS: predniSONE 20 MG TAB PO SCH (09:52)
--- NOTE | 2020-07-05 12:02 | P.PN ---
Subjective Date of Service: 07/05/20 Chief Complaint: CHF exacerbation Pt with HX of DM, HTN, CHF, CKD baseline Cr 1.7, admitted with CHF exacerbation and COVIS penumonia Today feels better saturating good on RA can be discharged from nephrology point of view to be discharged on lasix 40mg bid Physical exam general: AAOX3, NAD , obese Neck; Supple, No elevated JVD hear: RRR, normal S1,2 no murmur or rub Chest: CTAB, no rales or wheezes Abdomen: Soft , Nt Extremities No edema or ulcer A/p MANNY on CKD III cr stable cont lasix US: echogenic kidneys no hydro renal dose meds CHF cont lasix IDAcont Iron DM cont insukli hold metfromin HTN BP controlled COVID 19 pneumonia now saturating good on RA total time spent 35in Physical Examination - Vital Signs Temperature: 98.3 F Blood Pressure: 136/63 Pulse: 74 Respirations: 16 Pulse Ox (%): 93 - Studies Microbiology Data (last 24 hrs): 07/03/20 01:10 Clean Catch Urine Sears Count - Final >100,000 CFU/ML. 07/03/20 01:10 Clean Catch Urine - Final Proteus Mirabilis
--- NOTE | 2020-07-05 13:51 | P.DS ---
Admission Date: 07/04/20 Discharge Date: 07/05/20 Disposition: ROUTINE DISCHARGE Discharge Condition: GOOD Reason for Admission: CHF exacerbation Consultations: Nephrology - Dr. Bob / [place] Procedures: CXR (07/02): Right basilar opacity probably pneumonia. This should be followed until is clear to help exclude a post obstructive process/underlying mass CXR (07/05): Opacity noted in the right base appears essentially unchanged when accounting for differences in degree of inspiration. Elsewhere, no new lung finding is seen. The heart is normal in size. Aortic atherosclerosis.Continued follow-up until complete clearance is recommended. Renal U/S (07/03): No hydronephrosis or suspicious renal mass. Medical renal disease present similar to comparison. Problem List: Acute on chronic HFpEF COVID-19 infection MANNY superimposed on CKD 3 Generalize weakness, instability Atrial fibrillation on chronic anticoagulation therapy Diabetes mellitus type 2 Hypertension Hyperlipidemia Brief History of Present Illness: 79-year-old male with history of asthma, diabetes mellitus type 2, CHF, hypertension, hyperlipidemia, chronic kidney disease presents emergency department for generalized weakness, patient reportedly fell earlier today and was complaining of pain to the right hip area but able to tolerate weight- bearing well. Patient was evaluated in the emergency department found to be volume overloaded with pitting edema to bilateral lower extremities elevated BNP in addition to acute on chronic kidney disease with creatinine 2.19 baseline between 1.6 and 1.7. Patient also very weak, unsteady on his feet. ED provider wishes to admit under observation for further evaluation and management. Hospital Course: Patient was diuresed with Lasix with good response. His home lasix regimen increased from 40 daily to 40 BID. He was evaluated by PT and ambulated well, recommended walker on discharge. He was found to be COVID-19 positive, however did not qualify for home O2 base on SpO2 at rest and after ambulating. He was discharged home, advised to continue Eliquis, self-isolate over the next 7-10 days. He was discharged with 2 weeks of prednisone as well. Vital Signs/Physical Exam: Temp Pulse Resp BP Pulse Ox 98.3 F 74 16 136/63 93 07/05/20 12:02 07/05/20 12:02 07/05/20 12:02 07/05/20 12:02 07/05/20 12:02 Laboratory Data at Discharge: WBC 7.40 K/uL (4.3-10.9) D 07/05/20 04:22 Hgb 10.7 g/dL (13.6-17.9) L 07/05/20 04:22 Hct 33.8 % (39.6-49.0) L 07/05/20 04:22 Plt Count 270 K/uL (152-406) 07/05/20 04:22 PT 16.4 SECONDS (9.5-12.5) H 07/02/20 22:45 INR 1.42 07/02/20 22:45 APTT 29.0 SECONDS (24.3-36.9) 07/02/20 22:45 Sodium 143 mmol/L (136-145) 07/05/20 04:22 Potassium 3.7 mmol/L (3.5-5.1) 07/05/20 04:22 BUN 40 mg/dL (7-18) H 07/05/20 04:22 Creatinine 2.08 mg/dL (0.55-1.3) H 07/05/20 04:22 Glucose 183 mg/dL (74-106) H 07/05/20 04:22 Phosphorus 3.6 mg/dL (2.5-4.9) 07/05/20 04:22 Magnesium 2.0 mg/dL (1.8-2.4) 07/05/20 04:22 Home Medications: Fluticasone/Salmeterol [Advair 250-50 Diskus] 1 each IH BID 09/24/17 Famotidine 40 mg PO BID 03/30/20 Atorvastatin Calcium [Lipitor] 40 mg PO BEDTIME #30 tab 04/03/20 Amiodarone HCl [Cordarone*] 200 mg PO BID 05/11/20 Apixaban [Eliquis *] 5 mg PO DAILY 07/05/20 Cetirizine HCl [Zyrtec] 10 mg PO DAILY 07/05/20 Furosemide [Lasix] 40 mg PO BID 30 Days #60 tablet 07/05/20 Linagliptin [Tradjenta] 5 mg PO DAILY 07/05/20 predniSONE [Prednisone*] 20 mg PO SEECOM #21 tab 07/05/20 New Medications: Furosemide [Lasix] 40 mg PO BID 30 Days #60 tablet predniSONE [Prednisone*] 20 mg PO SEECOM #21 tab Physician Discharge Instructions: You were found to be COVID-19 positive, with very mild symptoms and not needing oxygen. You were also found to have a CHF (congestive heart failure) exacerbation. You are discharged with prednisone (steroids) for 2 weeks for COVID and increase your lasix to 40mg twice a day for your congestive heart failure / leg swelling. You are advised to walk around with a walker. If you have worsening breathing, please return to the ER. Follow up with Dr. Bob (kidney doctor) in 1-2 weeks. Follow up with Dr. Quiñones (Lung doctor) in ~1 week. Call the offices to schedule appointments. Diet: ADA Activity: Fall precautions Followup: Zackery Quiñones MD [ACTIVE - CAN ADMIT] - Jacques Bob MD [ACTIVE - CAN ADMIT] - Jolanta Tsai DO [Primary Care Provider] - Time spent managing pt's care (in minutes): 40
[2020-07-05 14:42] VITALS: O2SAT 94
[2020-07-07 22:08] LABS: Vitamin D 1,25-Dihydroxy Total 40 pg/mL (18-72); Vitamin D,1,25-OH2, D2 <8 pg/mL
[2020-07-07 22:43] LABS: Albumin, (SPE) 3.2 g/dL (3.8-4.8); Alpha-1-Globulins 0.4 g/dL (0.2-0.3); Gamma Globulins 0.9 g/dL (0.8-1.7); INTERPRETATION REPORT
== END 2020-07-05 17:16 | disposition home or self-care (01) | DRG 291 ==
LOC: ER 19:17 → ERHOLD 07-03 00:59 → 4TH 07-03 12:57 → OBSVTOIN 07-04 20:53
PROVIDERS: ADMIT Hospitalist; ATTEND Hospitalist
DX: I13.0 Hypertensive heart and chronic kidney disease with heart failure and stage 1 through stage 4 chronic kidney disease, or unspecified chronic kidney disease (principal); I50.33 Acute on chronic diastolic (congestive) heart failure; U07.1 COVID-19; J12.82 Pneumonia due to coronavirus disease 2019; N17.9 Acute kidney failure, unspecified; N18.30 Chronic kidney disease, stage 3 unspecified; E11.22 Type 2 diabetes mellitus with diabetic chronic kidney disease; E11.40 Type 2 diabetes mellitus with diabetic neuropathy, unspecified; I25.10 Atherosclerotic heart disease of native coronary artery without angina pectoris; D50.9 Iron deficiency anemia, unspecified; I48.91 Unspecified atrial fibrillation; E78.5 Hyperlipidemia, unspecified; J44.9 Chronic obstructive pulmonary disease, unspecified; K21.9 Gastro-esophageal reflux disease without esophagitis; Z79.01 Long term (current) use of anticoagulants; Z79.84 Long term (current) use of oral hypoglycemic drugs; Z79.899 Other long term (current) drug therapy; Z96.649 Presence of unspecified artificial hip joint; Z79.52 Long term (current) use of systemic steroids
CPT/HCPCS: 36415; 71045; 76770; 80048; 80069; 81003; 81015; 82550; 82570; 82607; 82652; 82728; 82746; 82947; 83540; 83735; 83880; 83970; 84145; 84156; 84165; 84443; 84466; 84484; 85025; 85044; 85379; 85610; 85730; 86140; 87040; 87077; 87086; 87088; 87186; 93005; 97116; 97161; 99285; G0378; J1644; J1940; J2930; J7512; U0003

== ENCOUNTER 2020-08-17 10:52 | Emergency (ER) | payer OTHER ==
--- OUTSIDE RECORDS SUMMARY | 2020-08-17 10:54 | XMS REPORT | Continuity of Care Document ---
:1940 Author Organization [facility] t Address [address] [place] [address] Care Team Providers Name Role Phone Shelly Sanford RN Attending Clinician Unavailable Bill Snider MD Attending Clinician Trent ALEXANDRE Attending Clinician Sri Ortiz MD Attending Clinician [phone] Sri Ortiz MD Admitting Clinician [phone] Problems This patient has no known problems. Allergies, Adverse Reactions, Alerts This patient has no known allergies or adverse reactions. Medications Ordered Filled Start Stop Current Ordering Indication Dosage Frequency Signature Comments Components Source Medication Medication Date Date Medication? Clinician (SIG) Name Name Gabapentin Gabapentin 2020-0 Yes Na Tsai [address] [facility] Famotidine Famotidine 2020-0 Yes Na Tsai [address] [facility] Zantac 150 Zantac 150 Yes [...] POR l VIA ORAL [facility] Yes Na Tsai [address] [facility] [...] St Hyclate Hyclate [facility] Immunizations Ordered Filled Immunization Date Status Comments [facility] Immunization Name Name Bernice Queen 2019-04-[address] [facility] Bernice Queen 2018-02-[address] [facility] Procedures This patient has no known procedures. Encounters Start End Encounter Admission Attending Care Care Encounter Source Date/Time Date/Time Type Type Clinicians Facility Department ID 2020-08-13 2020-08-13 Outpatient [facility] [id number] [facility] 2020-08-05 2020-08-05 Outpatient [facility] [id number] [facility] 2020-07-29 2020-07-29 Outpatient [facility] [id number] [facility] 2020-07-19 2020-07-19 Transition Kamran Sanford [id number] 00:00:00 00:00:00 of Care Shelly Grigsby [id number] [place] [id number] 2020-07-19 2020-07-19 Telephone [facility]yl[facility] [id number] 00:00:00 00:00:00 Bill Judge [id number] [place] [id number] [facility] [phone] [facility] 2020-07-12 2020-07-18 Hospital Yinka Newman [facility] [id number] 19:21:00 14:00:00 Encounter Indy Ortiz on [id number] [place] [id number] [place] [id number] 2020-07-12 2020-07-12 Outpatient [facility] [id number] [facility] 2020-06-17 2020-06-17 Outpatient [facility] [id number] [facility] 2020-06-13 2020-06-13 Outpatient [facility] [id number] [facility] 2020-06-08 2020-06-08 Outpatient [facility] [id number] [facility] 2020-05-02 2020-05-02 Outpatient [facility] [id number] [facility] 2020-04-16 2020-04-16 Outpatient [facility] [id number] [facility] 2020-04-08 2020-04-08 Office [facility] [id number] 10:02:48 10:42:13 Visit Bill Judge [id number] [place] [id number] [place] [id number] [address] 2020-04-04 2020-04-04 Outpatient [facility] [id number] [facility] 2020-03-15 2020-03-15 Outpatient [facility] [id number] [facility] 2019-12-14 2019-12-14 [facility] [id number] 10:00:00 10:00:00 [place] [facility] Outpati ent Clinics 2019-11-21 2019-11-21 [facility] [id number] 11:36:00 11:36:00 [facility] [place] [facility] Out[facility] Clinics 2019-10-17 2019-10-17 [facility] [id number] 11:07:00 11:07:00 [facility] [place] [facility] Medicine l Medicine Outpati ent Clinics 2019-10-16 2019-10-16 [facility] [id number] 11:06:00 11:06:00 [place] [address] [facility] Medicine l Medicine Outpati ent Clinics 2019-10-13 2019-10-13 [facility] [id number] 10:00:00 10:00:00 [place] [address] [facility] l Medicine Outpati ent Clinics 2019-05-25 2019-05-25 [facility] [id number] [facility] 08:20:00 08:20:00 [place] [address] [facility] l Medicine Outpati ent Clinics 2019-04-21 2019-04-21 [facility] [id number] 14:32:00 14:32:00 [place] [address] [facility] Medicine l Medicine Outpati ent Clinics 2019-04-05 2019-04-05 [facility] [id number] 13:00:00 13:00:00 [place] [address] [facility] Medicine l Medicine Outpati ent Clinics 2019-03-14 2019-03-14 [facility] [id number] [facility] 17:12:00 17:12:00 [place] [address] [facility] Medicine l Medicine Outpati ent Clinics 2018-07-27 2018-07-27 [facility] [id number] 14:49:00 14:49:00 [place] [address] [facility] Medicine l Medicine Outpati ent Clinics 2018-06-15 2018-06-15 [facility] [id number] [facility] 08:52:00 08:52:00 [place] [address] [facility] - [facility] l Medicine Outpati ent Clinics 2018-06-03 2018-06-03 [facility] [id number] 12:06:00 12:06:00 [place] [address] [facility] - Drive [facility] Outpati ent Clinics 2018-05-04 2018-05-04 [facility] [id number] 10:00:00 10:00:00 t [employer] [place] [facility] Outpati ent Clinics 2018-02-09 2018-02-09 [facility] [id number] 10:00:00 10:00:00 t [place] [facility] Outpati ent Clinics 2017-12-21 2017-12-21 [facility] [id number] 09:45:00 09:45:00 t [place] [facility] Outpati ent Clinics 2017-08-30 2017-08-30 [facility] [id number] [facility] 17:31:00 17:31:00 t [place] [facility] Outpati ent Clinics 2017-08-12 2017-08-12 [facility] [id number] [facility] 11:00:00 11:00:00 [place] [facility] Out[facility] Clinics Results This patient has no known results.
[2020-08-17 11:51] LABS: Absolute Lymphocytes (CBC) 1.1 K/uL (0.7-4.9); Basophils % 0.5 % (0-1.3); Hematocrit 31.6 % (39.6-49.0); Lymphocytes % 13.8 % (15.3-44.8); MPV 7.7 fL (7.6-11.3)
[2020-08-17 11:52] LABS: Protime INR 1.32
--- NOTE | 2020-08-17 12:03 | RAD REPORT ---
EXAM DESCRIPTION: Jannette Single View08/17/2020 11:55 am CLINICAL HISTORY: Congestion COMPARISON: June 2020 FINDINGS: Moderate right and left pulmonary opacities. Heart is normal size IMPRESSION: Bilateral pulmonary opacities could represent pneumonia or pulmonary edema
[2020-08-17 12:04] LABS: Albumin 2.2 g/dL (3.4-5.0); Bilirubin Direct 0.1 mg/dL (0-0.2); Bilirubin Total 0.3 mg/dL (0.2-1.0); Magnesium 2.2 mg/dL (1.8-2.4); Potassium 4.5 mmol/L (3.5-5.1); Protein, Total 7.5 g/dL (6.4-8.2); Troponin (Emerg Dept Use Only) 0.02 ng/mL (0.0-0.045)
--- NOTE | 2020-08-17 12:12 | EDPHYS ---
Physician Documentation [facility] Name: Redd Tapia Age: 79 yrs Sex: Male : 1940 Arrival Date: 08/17/2020 Time: 10:55 Bed 6 Private MD: Jolanta Tsai ED Physician Walter Combs HPI: 08/17 12:06 This 79 yrs old Male presents to ER via Wheelchair with complaints of Feet ma2 Swelling. 12:06 The patient presents with swelling. Onset: The symptoms/episode began/occurred ma2 gradually, 6 month(s) ago. Associated signs and symptoms: Pertinent negatives nausea, swelling, vomiting. Severity of symptoms: At their worst the symptoms were very mild, in the emergency department the symptoms have resolved. The patient has experienced similar episodes in the past. patient has CLD CKD and CHF, here with bilateral foot swelling that s been on off or the last few months. no swelling today. he recovered from covid 19 last month. he also has bilateral sole scaling of skin and pressure ulcer on left heal that is healing. no other symptoms . Historical: - Allergies: 11:21 No Known Allergies; aa5 - PMHx: 11:21 Asthma; Breathing Problems; Diabetes - NIDDM; heart problems; Hyperlipidemia; aa5 Hypertension; kidney problems; tremors; - PSHx: 11:21 ana luisa hip sx; aa5 - Immunization history:: Adult Immunizations unknown. - Social history:: Smoking status: Patient denies any tobacco usage or history of. Patient/guardian denies using alcohol, street drugs, The patient lives with family. - Family history:: not pertinent. ROS: 12:06 Constitutional: Negative for fever, chills, and weight loss. ma2 12:06 All other systems are negative. Exam: 12:06 Constitutional: This is a well developed, well nourished patient who is awake, alert, ma2 and in no acute distress. Chest/axilla: Normal chest wall appearance and motion. Nontender with no deformity. No lesions are appreciated. Cardiovascular: Regular rate and rhythm with a normal S1 and S2. No gallops, murmurs, or rubs. Normal PMI, no JVD. No pulse deficits. Respiratory: Lungs have equal breath sounds bilaterally, clear to auscultation and percussion. No rales, rhonchi or wheezes noted. No increased work of breathing, no retractions or nasal flaring. Abdomen/GI: Soft, non-tender, with normal bowel sounds. No distension or tympany. No guarding or rebound. No evidence of tenderness throughout. Skin: Warm, dry with normal turgor. Normal color with no rashes, no lesions, and no evidence of cellulitis. MS/ Extremity: scaling of both soles. seems there is fungal/candidal infection - mild. ther is also 2x2 redness on left heal at pressure site, no wound, fluctientce or ttp. Pulses equal, no cyanosis. Neurovascular intact. Full, normal range of motion. Neuro: Awake and alert, GCS 15, oriented to person, place, time, and situation. Cranial nerves II-XII grossly intact. Motor strength 5/5 in all extremities. Sensory grossly intact. Cerebellar exam normal. Normal gait. Vital Signs: 11:04 BP 141 / 45; Pulse 55; Resp 16 S; Temp 98.7(O); Pulse Ox 98% on R/A; Weight 60.33 kg aa5 (R); Height 5 ft. 0 in. (152.40 cm) (R); Pain 0/10; 12:11 BP 123 / 44; Pulse 67; Resp 17; Pulse Ox 98% ; bp 12:40 BP 131 / 51; Pulse 65; Resp 17; Temp 98.5; Pulse Ox 98% ; bp 11:04 Body Mass Index 25.97 (60.33 kg, 152.40 cm) aa5 MDM: 11:04 Patient medically screened. nd2 12:06 Differential diagnosis: abrasion, tendonitis, cellulitis vs fungal infection. Data ma2 reviewed: vital signs, nurses notes. Counseling: I had a detailed discussion with the patient and/or guardian regarding: the historical points, exam findings, and any diagnostic results supporting the discharge/admit diagnosis, the presence of at least one elevated blood pressure reading (>120/80) during this emergency department visit, the need for outpatient follow up. Response to treatment: the patient's symptoms have markedly improved after treatment. 08/17 11:05 Order name: Basic Metabolic Panel nd2 08/17 11:05 Order name: CBC with Diff nd2 08/17 11:05 Order name: LFT's ma2 08/17 11:05 Order name: Magnesium; Complete Time: 12:05 ma2 08/17 11:05 Order name: NT PRO-BNP; Complete Time: 12:05 ma2 08/17 11:05 Order name: PT-INR; Complete Time: 12:05 ma2 08/17 11:05 Order name: Troponin (emerg Dept Use Only); Complete Time: 12:05 ma2 08/17 11:05 Order name: XRAY Chest (1 view); Complete Time: 12:05 ma2 08/17 11:05 Order name: EKG; Complete Time: 11:06 ma2 08/17 11:05 Order name: Cardiac monitoring; Complete Time: 11:29 ma2 08/17 11:06 Order name: Basic Metabolic Panel; Complete Time: 12:05 EDMS 08/17 11:06 Order name: CBC with Automated Diff EDMS 08/17 11:06 Order name: Liver (Hepatic) Function; Complete Time: 12:05 EDMS 08/17 12:23 Order name: CBC Smear Scan EDMS 08/17 11:05 Order name: EKG - Nurse/Tech; Complete Time: 11:29 ma2 08/17 11:05 Order name: IV Saline Lock; Complete Time: 11:32 ma2 08/17 11:05 Order name: Labs collected and sent; Complete Time: 11:32 ma2 08/17 11:05 Order name: O2 Per Protocol; Complete Time: 11:32 ma2 08/17 11:05 Order name: O2 Sat Monitoring; Complete Time: 11:32 ma2 Administered Medications: No medications were administered Disposition: 08/17/20 12:11 Discharged to Home. Impression: Cellulitis and acute lymphangitis, unspecified - bilateral foot. - Condition is Stable. - Discharge Instructions: Preventing Pressure Injuries, Cellulitis, Adult, Ljua-hv-Dows. - Prescriptions for Nystatin- Triamcinolone 100,000-0.1 unit/gram-% Topical Ointment - apply 1 application by TOPICAL route 2 times per day; 1 tube. Bactrim 400- 80 mg Oral Tablet - take 2 tablets by ORAL route every 12 hours; 14 tablet. - Medication Reconciliation Form, Thank You Letter, Antibiotic Education, Prescription Opioid Use form. - Follow up: Private Physician; When: Tomorrow; Reason: If symptoms return. Signatures: Dispatcher [employer] EDMS Katie Martini RN RN aa5 Walter Combs MD MD ma2 Vale Pop RN RN rb3 Corrections: (The following items were deleted from the chart) 12:43 12:11 08/17/2020 12:11 Discharged to Home. Impression: Cellulitis and acute rb3 lymphangitis, unspecified - bilateral foot. Condition is Stable. Discharge Instructions: Preventing Pressure Injuries. Prescriptions for Nystatin-Triamcinolone 100,000-0.1 unit/gram-% Topical Ointment - apply 1 application by TOPICAL route 2 times per day; 1 tube, Bactrim 400-80 mg Oral Tablet - take 2 tablets by ORAL route every 12 hours; 14 tablet. and Forms are Medication Reconciliation Form, Thank You Letter, Antibiotic Education, Prescription Opioid Use. Follow up: Private Physician; When: Tomorrow; Reason: If symptoms return. ma2
--- NOTE | 2020-08-17 12:12 | ER ---
Nurse's Notes [facility] Name: Redd Tapia Age: 79 yrs Sex: Male : 1940 Arrival Date: 08/17/2020 Time: 10:55 Bed 6 Private MD: Jolanta Tsai Diagnosis: Cellulitis and acute lymphangitis, unspecified-bilateral foot Presentation: 08/17 11:04 Chief complaint: Pt's daughter reports redness to left heel and reports R 3rd toe aa5 appears cyanotic, reports symptoms began approximately 3 days ago. 11:04 Coronavirus screen: At this time, the client does not indicate any symptoms associated aa5 with coronavirus-19. Ebola Screen: Patient negative for fever greater than or equal to 101.5 degrees Fahrenheit, and additional compatible Ebola Virus Disease symptoms. Initial Sepsis Screen: Does the patient meet any 2 criteria? No. Patient's initial sepsis screen is negative. Does the patient have a suspected source of infection? No. Patient's initial sepsis screen is negative. Risk Assessment: Do you want to hurt yourself or someone else? Patient reports no desire to harm self or others. Onset of symptoms was August 2020. 11:04 Acuity: KIRAN 3 aa5 11:04 Method Of Arrival: Wheelchair aa5 Triage Assessment: 11:05 General: Appears in no apparent distress. comfortable, Behavior is calm, cooperative, bp appropriate for age. Pain: Complains of pain in right foot. EENT: No deficits noted. Neuro: No deficits noted. Cardiovascular: No deficits noted. Respiratory: No deficits noted. GI: No signs and/or symptoms were reported involving the gastrointestinal system. : No signs and/or symptoms were reported regarding the genitourinary system. Derm: Skin is CYANOTIC R FOOT. Musculoskeletal: Swelling present in right foot. Historical: - Allergies: 11:21 No Known Allergies; aa5 - PMHx: 11:21 Asthma; Breathing Problems; Diabetes - NIDDM; heart problems; Hyperlipidemia; aa5 Hypertension; kidney problems; tremors; - PSHx: 11:21 ana luisa hip sx; aa5 - Immunization history:: Adult Immunizations unknown. - Social history:: Smoking status: Patient denies any tobacco usage or history of. Patient/guardian denies using alcohol, street drugs, The patient lives with family. - Family history:: not pertinent. Screenin:05 Abuse screen: Denies threats or abuse. Denies injuries from another. Nutritional bp screening: No deficits noted. Tuberculosis screening: No symptoms or risk factors identified. Fall Risk None identified. Assessment: 11:05 General: SEE TRIAGE NOTE. bp 12:12 Reassessment: Patient appears in no apparent distress at this time. No changes from bp previously documented assessment. Patient and/or family updated on plan of care and expected duration. Pain level reassessed. ALL CURRENT ORDERS COMPLETED. Vital Signs: 11:04 BP 141 / 45; Pulse 55; Resp 16 S; Temp 98.7(O); Pulse Ox 98% on R/A; Weight 60.33 kg aa5 (R); Height 5 ft. 0 in. (152.40 cm) (R); Pain 0/10; 12:11 BP 123 / 44; Pulse 67; Resp 17; Pulse Ox 98% ; bp 12:40 BP 131 / 51; Pulse 65; Resp 17; Temp 98.5; Pulse Ox 98% ; bp 11:04 Body Mass Index 25.97 (60.33 kg, 152.40 cm) aa5 ED Course: 10:55 Patient arrived in ED. am2 10:56 Jolanta Tsai MD is Private Physician. am2 11:04 Walter Combs MD is Attending Physician. ma2 11:04 Arm band placed on. aa5 11:05 Patient has correct armband on for positive identification. Bed in low position. Call bp light in reach. Side rails up X2. Adult w/ patient. 11:07 Angel Dubose, RN is Primary Nurse. bp 11:20 Triage completed. aa5 11:30 Inserted saline lock: 20 gauge in right forearm, using aseptic technique. Blood bp collected. 11:54 XRAY Chest (1 view) In Process Unspecified. EDMS 11:58 Liver (Hepatic) Function Sent. mh5 11:58 Basic Metabolic Panel Sent. mh5 11:59 CBC with Diff Sent. mh5 11:59 LFT's Sent. mh5 11:59 Magnesium Sent. mh5 11:59 NT PRO-BNP Sent. mh5 11:59 Troponin (emerg Dept Use Only) Sent. mh5 12:33 No provider procedures requiring assistance completed. IV discontinued, intact, rb3 bleeding controlled, No redness/swelling at site. Pressure dressing applied. 12:34 IV discontinued, Pressure dressing applied. mh5 Administered Medications: No medications were administered Outcome: 12:11 Discharge ordered by . lorelei 12:33 Discharged to home via wheelchair. rb3 12:33 Condition: stable 12:33 Discharge instructions given to family, Instructed on discharge instructions, follow up and referral plans. medication usage, Demonstrated understanding of instructions, follow-up care, medications, Prescriptions given X 2. 12:43 Patient left the ED. rb3 Signatures: Dispatcher [employer] EDMS Katie Martini, RN RN [email or web address] Christianne Connors Amanda am2 Peltier, Brian RN RN Walter Katz MD MD ma2 Vale Pop, RN RN rb3
[2020-08-17 12:23] LABS: Anisocytosis 1+; Blood Morphology Comment NOTED (NOT SEEN); Platelet Estimate ADEQ; White Blood Cell Scan 0 (OK)
[2020-08-17 18:24] VITALS: O2SAT 98
[2020-08-17 18:27] VITALS: BP 131/51; TEMP 98.5
== END 2020-08-17 12:43 | disposition home or self-care (01) ==
LOC: ER 10:52
DX: L03.115 Cellulitis of right lower limb (principal); L03.116 Cellulitis of left lower limb; I13.0 Hypertensive heart and chronic kidney disease with heart failure and stage 1 through stage 4 chronic kidney disease, or unspecified chronic kidney disease; E11.22 Type 2 diabetes mellitus with diabetic chronic kidney disease; N18.9 Chronic kidney disease, unspecified; I50.9 Heart failure, unspecified; J45.909 Unspecified asthma, uncomplicated; E78.5 Hyperlipidemia, unspecified; Z86.16 Personal history of COVID-19; L89.629 Pressure ulcer of left heel, unspecified stage
CPT/HCPCS: 36415; 71045; 80048; 80076; 83735; 83880; 84484; 85025; 85610; 93005; 99284

== ENCOUNTER 2020-09-07 14:45 | Inpatient (IN) | payer OTHER ==
--- OUTSIDE RECORDS SUMMARY | 2020-09-07 14:48 | XMS REPORT | Continuity of Care Document ---
:1940 Author Organization [facility] t Address [address] [place] [address] Care Team Providers Name Role Phone Tylor ALEXANDRE, Bill Canada Attending Clinician Problems This patient has no known problems. Allergies, Adverse Reactions, Alerts This patient has no known allergies or adverse reactions. Medications Ordered Filled Start Stop Current Ordering Indication Dosage Frequency Signature Comments Components Source Medication Medication Date Date Medication? Clinician (SIG) Name Name Gabapentin Gabapentin 0 Yes Na Tsai [address] [facility] Famotidine Famotidine 0 Yes Na Tsai [address] [facility] needed [facility] Zantac 150 Zantac 150 Yes Na Tsai [address] [facility] Maximum Maximum at bedtime Renan es - Strength Strength [facility] Metformin Metformin Yes Na Tsai TOME RANDEE [facility] HCl HCl TABLETA [facility] VIA [facility] Magnesium Magnesium Yes Na Tsai [address] [facility] Oxide Oxide as needed [facility] Hemocyte Hemocyte Yes Na Tsai TOME RANDEE [facility] Plus Plus CAPSULA [facility]DEE VEZ AL [facility] APURVA POR l VIA ORAL Outpati ent Clinics [facility] Yes Na Tsai [address] [facility] [...] St Hyclate Hyclate [facility] Immunizations Ordered Filled Immunization Date Status Comments [facility] e Immunization Name Name FluAD FluAD 2019-04-[address] [facility] FluAD FluAD 2018-02-[address] [facility] Procedures This patient has no known procedures. Encounters Start End Encounter Admission Attending Care Care Encounter Source Date/Time Date/Time Type Type Clinicians Facility Department ID 2020-08-26 2020-08-26 [facility] [id number] [facility] 2020-08-21 2020-08-21 [facility] [id number] [facility] 2020-08-13 2020-08-13 Office Tylor [facility] [id number] 14:18:27 14:56:20 Visit Bill Judge [id number] Luda [id number] Kole [id number] [facility] 2020-08-13 2020-08-13 [facility] [id number] [facility] 2020-08-05 2020-08-05 [facility] [id number] [facility] 2020-07-29 2020-07-29 [facility] [id number] [facility] 2020-07-12 2020-07-12 [facility] [id number] [facility] 2020-06-17 2020-06-17 [facility] [id number] [facility] 2020-06-13 2020-06-13 [facility] [id number] [facility] 2020-06-08 2020-06-08 [facility] [id number] [facility] 2020-05-02 2020-05-02 Out[facility] [id number] [facility] 2020-04-16 2020-04-16 Outpatient [facility] [id number] [facility] 2020-04-04 2020-04-04 [facility] [id number] [facility] 2020-03-15 2020-03-15 [facility] [id number] [facility] 2019-12-14 2019-12-14 [facility] [id number] 10:00:00 10:00:[address] [facility] - [address] [facility] Medicine l Medicine Outpati ent Clinics 2019-11-21 2019-11-21 [facility] [id number] 11:36:00 11:36:00 t Baker Baker [employer] s - Drive [facility] Medicine l Medicine Outpati ent Clinics 2019-10-17 2019-10-17 [facility] [id number] 11:07:00 11:07:00 t [facility] l Medicine Outpati ent Clinics 2019-10-16 2019-10-16 [facility] [id number] 11:06:00 11:06:00 t Baker Baker [employer] Luke s - Drive [facility] Medicine l Medicine Outpati ent Clinics 2019-10-13 2019-10-13 [facility] [id number] 10:00:00 10:00:[address] [employer] s - Drive [facility] Medicine l Medicine Outpati ent Clinics 2019-05-25 2019-05-25 [facility] [id number] 08:20:00 08:20:[address] Luke s - Drive [facility] Medicine l Medicine Outpati ent Clinics 2019-04-21 2019-04-21 [facility] [id number] 14:32:00 14:32:00 t Baker Baker [employer] s - Drive [facility] l Medicine Outpati ent Clinics 2019-04-05 2019-04-05 [facility] [id number] [address] 13:00:00 13:00:00 t Baker Baker [employer] s - Drive [facility] Medicine l Medicine Outpati ent Clinics 2019-03-14 2019-03-14 [facility] [id number] 17:12:00 17:12:00 t Baker Baker [employer] s - Drive [facility] Medicine l Medicine Outpati ent Clinics 2018-07-27 2018-07-27 [facility] [id number] 14:49:00 14:49:00 t Baker Baker [place] s - Drive [facility] Medicine l Medicine Outpati ent Clinics 2018-06-15 2018-06-15 [facility] [id number] [facility] 08:52:00 08:52:00 t Baker Baker [place] - Drive [facility] Medicine l Medicine Outpati ent Clinics 2018-06-03 2018-06-03 [facility] [id number] [facility] 12:06:00 12:06:00 t Baker Baker [place] - [employer] [facility] Medicine l Medicine Outpati ent Clinics 2018-05-04 2018-05-04 [facility] [id number] 10:00:00 10:00:00 t Baker Baker [place] - [employer] [facility] Medicine l Medicine Outpati ent Clinics 2018-02-09 2018-02-09 [facility] [id number] [facility] 10:00:00 10:00:00 t Baker Baker [place] - Drive [facility] Medicine l Medicine Outpati ent Clinics 2017-12-21 2017-12-21 [facility] [id number] 09:45:00 09:45:00 t Baker Baker [place] - Drive [facility] Medicine l Medicine Outpati ent Clinics 2017-08-30 2017-08-30 [facility] [id number] 17:31:00 17:31:00 t Baker Baker [place] - Drive [facility] Medicine l Medicine Outpati ent Clinics 2017-08-12 2017-08-12 Outpatient Nakul Mena [id number] [facility] 11:00:00 11:00:00 [place] [facility] Results This patient has no known results.
[2020-09-07] MEDS ORDERED: NA CHLORIDE 0.9% 1,000 ML ONE ×3 (15:18→22:52)
[2020-09-07] MEDS ORDERED: AZITHROMYCIN 500 MG INJ IVPB ONE (15:18)
[2020-09-07] MEDS ORDERED: ACETAMINOPHEN 325 MG TABLET ONE (15:18)
[2020-09-07] MEDS ORDERED: PIPER/TAZO/NS 3.375gm 3.375 GM/100 ML BAG ONE (15:18)
[2020-09-07] MEDS ORDERED: HYDROCORTISONE SUC 100 MG INJ ONE (15:18)
[2020-09-07] MEDS ORDERED: FAMOTIDINE 20 MG/2 ML VIAL IV ONE (15:18)
[2020-09-07] MEDS ORDERED: NA CHLORIDE 0.9% 250 ML ONE ×3 (15:18→17:37)
[2020-09-07 15:30] LABS: Urine Blood Trace-intact (Negative); Urine Glucose Negative (Negative); Urine Protein Negative (Negative)
--- NOTE | 2020-09-07 15:40 | RAD REPORT ---
EXAM DESCRIPTION: RAD - Chest Single View - 09/07/2020 3:17 pm CLINICAL HISTORY: COUGH Chest pain. COMPARISON: Chest Single View dated 08/17/2020; Chest Single View dated 07/05/2020; Chest Single View d ated 07/02/2020; Chest Single View dated 05/11/2020 FINDINGS: Portable technique limits examination quality. Mild to moderate pulmonary opacities are present, greater on the right. Findings appear similar in se verity compared to prior study. Small right pleural effusion is noted. Cardiac size is upper limit of normal.
[2020-09-07 15:46] LABS: Basophils % 0.4 % (0-1.3); Hematocrit 24.5 % (39.6-49.0); Lymphocytes % 8.6 % (15.3-44.8); MPV 8.1 fL (7.6-11.3); RBC Red Blood Cell Count 2.76 M/uL (4.33-5.43)
[2020-09-07 15:56] LABS: Protime INR 1.91
[2020-09-07 16:09] LABS: Albumin 2.1 g/dL (3.4-5.0); Bilirubin Direct 0.3 mg/dL (0-0.2); Bilirubin Total 0.4 mg/dL (0.2-1.0); Magnesium 2.4 mg/dL (1.8-2.4); Potassium 5.2 mmol/L (3.5-5.1); Protein, Total 7.3 g/dL (6.4-8.2); Troponin (Emerg Dept Use Only) 0.07 ng/mL (0.0-0.045)
[2020-09-07 16:39] LABS: SARS-COV-2 RT PCR NEGATIVE (NEGATIVE)
[2020-09-07 16:39] LABS: Arterial Blood Carboxyhemoglob 0.5 % (0-1.5)
[2020-09-07] MEDS ORDERED: PANTOPRAZOLE 40 MG INJ ONE ×2 (16:46→17:36)
[2020-09-07 16:51] LABS: Anisocytosis 2+; Blood Morphology Comment NOTED (NOT SEEN); Platelet Estimate ADEQ; White Blood Cell Scan OK (OK)
--- NOTE | 2020-09-07 17:09 | EDPHYS ---
Physician Documentation [facility] Name: Redd Tapia Age: 80 yrs Sex: Male : 1940 Arrival Date: 09/07/2020 Time: 14:48 Bed 14 Private MD: ED Physician Rinku Estrella HPI: 09/07 14:56 This 80 yrs old Male presents to ER via EMS with complaints of Unresponsive. stefano 14:56 fever , hypotension, weakness, bradycardia. The patient or guardian reports cough, stefano difficulty breathing, flu symptoms, arthralgias, low-grade fever, myalgias. Onset: The symptoms/episode began/occurred just prior to arrival, today. Severity of symptoms: At their worst the symptoms were moderate, in the emergency department the symptoms are unchanged. Modifying factors: The symptoms are alleviated by nothing, the symptoms are aggravated by nothing. The patient reports fever, that was measured at 103 degrees Fahrenheit. Onset: The symptoms/episode began/occurred 1 day(s) ago. Modifying factors: there are no obvious modifying factors. Associated signs and symptoms: Pertinent positives: fever, rhinorrhea. Historical: - Allergies: 14:53 No Known Allergies; sv - PMHx: 14:53 Asthma; Breathing Problems; Hypertension; Diabetes - NIDDM; heart problems; sv Hyperlipidemia; kidney problems; tremors; - PSHx: 14:53 ana luisa hip sx; sv - Immunization history:: Adult Immunizations unknown. - Family history:: not pertinent. - Social history:: Smoking status: unknown. ROS: 14:56 Eyes: Negative for injury, pain, redness, and discharge, ENT: Negative for injury, stefano pain, and discharge. 14:56 Neck: Negative for injury, pain, and swelling, Cardiovascular: Negative for chest pain, palpitations, and edema, Abdomen/GI: Negative for abdominal pain, nausea, vomiting, diarrhea, and constipation, Back: Negative for injury and pain, : Negative for injury, bleeding, discharge, and swelling, MS/Extremity: Negative for injury and deformity, Skin: Negative for injury, rash, and discoloration, Psych: Negative for depression, anxiety, suicide ideation, homicidal ideation, and hallucinations, Allergy/Immunology: Negative for hives, rash, and allergies, Endocrine: Negative for neck swelling, polydipsia, polyuria, polyphagia, and marked weight changes, Hematologic/Lymphatic: Negative for swollen nodes, abnormal bleeding, and unusual bruising. 14:56 Constitutional: Positive for body aches, chills, fatigue, fever, malaise. 14:56 Eyes: Negative for acute changes. 14:56 Respiratory: Positive for cough, shortness of breath, at rest. 14:56 Neuro: Positive for dizziness, weakness. Exam: 14:56 Head/Face: Normocephalic, atraumatic. Eyes: Pupils equal round and reactive to light, stefano extra-ocular motions intact. Lids and lashes normal. Conjunctiva and sclera are non-icteric and not injected. Cornea within normal limits. Periorbital areas with no swelling, redness, or edema. ENT: Nares patent. No nasal discharge, no septal abnormalities noted. Tympanic membranes are normal and external auditory canals are clear. Oropharynx with no redness, swelling, or masses, exudates, or evidence of obstruction, uvula midline. Mucous membranes moist. Neck: Trachea midline, no thyromegaly or masses palpated, and no cervical lymphadenopathy. Supple, full range of motion without nuchal rigidity, or vertebral point tenderness. No Meningismus. Chest/axilla: Normal chest wall appearance and motion. Nontender with no deformity. No lesions are appreciated. Abdomen/GI: Soft, non-tender, with normal bowel sounds. No distension or tympany. No guarding or rebound. No evidence of tenderness throughout. Back: No spinal tenderness. No costovertebral tenderness. Full range of motion. Male : Normal genitalia with no discharge or lesions. Skin: Warm, dry with normal turgor. Normal color with no rashes, no lesions, and no evidence of cellulitis. MS/ Extremity: Pulses equal, no cyanosis. Neurovascular intact. Full, normal range of motion. Psych: Awake, alert, with orientation to person, place and time. Behavior, mood, and affect are within normal limits. 14:56 Constitutional: The patient appears frail. 14:56 Cardiovascular: Rate: bradycardic, Rhythm: regular, Pulses: Pulses are 4+ in bilateral radial, brachial, femoral, popliteal, posterior tibial and and dorsalis pedis arteries.. Heart sounds: normal, Edema: is not appreciated, JVD: is noted bilaterally, to 2 cm. 14:56 Musculoskeletal/extremity: DVT Exam: No signs of deep vein thrombosis. no pain, no swelling, no tenderness, negative Homans' sign noted on exam, no appreciated bluish discoloration, no erythema, no increased warmth. 15:08 ECG was reviewed by the Attending Physician. stefano 17:05 Abdomen/GI: Inspection: distension, Bowel sounds: normal, Palpation: abdomen is soft stefano and non-tender, Rectal exam: is unremarkable, Prostate: normal, rectal tone normal, Stool: guaiac positive, hemorrhoid(s), are not appreciated, mass, is not appreciated, swelling, is not appreciated, tenderness, is not appreciated, fecal impaction, is not appreciated, Liver: no appreciated palpable abnormalities, Hernia: not appreciated. Vital Signs: 14:50 BP 106 / 46; Pulse 51; Resp 21; Pulse Ox 95% on R/A; sv 15:00 BP 103 / 36; Pulse 51; Resp 19; Pulse Ox 100% ; sv 15:30 BP 127 / 49; Pulse 63; Resp 22; Pulse Ox 100% ; sv 16:09 BP 80 / 70; Pulse 57; Resp 18; sv 16:25 Temp 101(C); sv 16:30 BP 82 / 58; Pulse 53; Resp 18; Temp 100.6(C); Pulse Ox 95% on 2 lpm NC; sv 17:00 BP 89 / 51; Pulse 51; Resp 17; sv 17:30 BP 110 / 55; Pulse 50; Resp 18; sv 18:00 BP 107 / 37; Pulse 51; Resp 18; sv 18:30 BP 111 / 42; Pulse 48; Resp 16; Temp 99.8(C); sv Procedures: 17:14 Central Line: the site was prepped with Betadine, in sterile fashion, a triple lumen stefano catheter was inserted, in the right femoral vein, in 1 attempts. placement was verified, by CXR, by blood return, the site was dressed with 4X4s, using sterile technique, the patient tolerated the procedure, well. MDM: 14:49 Patient medically screened. stefano 15:01 Differential diagnosis: viral Infection, bacterial infection, URI, bronchitis, stefano pneumonia UTI. Differential Diagnosis altered mental status, sepsis, flu, Obstructed Airway Bronchitis Influenza Sinusitis Viral Syndrome Pneumonia. Data reviewed: vital signs, nurses notes, lab test result(s), EKG, radiologic studies, CT scan, plain films. 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 Test interpretation: by ED physician or midlevel provider: ECG, plain radiologic studies. Counseling: I had a detailed discussion with the patient and/or guardian regarding: the historical points, exam findings, and any diagnostic results supporting the discharge/admit diagnosis, lab results, radiology results, the need for further work-up and treatment in the hospital. 09/07 14:55 Order name: Basic Metabolic Panel [facility] 09/07 14:55 Order name: CBC with Diff [facility] 09/07 14:55 Order name: LFT's; Complete Time: 16:40 [facility] 09/07 14:55 Order name: Magnesium; Complete Time: 16:40 [facility] 09/07 14:55 Order name: NT PRO-BNP; Complete Time: 16:40 [facility] 09/07 14:55 Order name: PT-INR; Complete Time: 15:58 [facility] 09/07 14:55 Order name: Troponin (emerg Dept Use Only); Complete Time: 16:40 [facility] 09/07 14:55 Order name: Blood Culture Adult (2) [facility] 09/07 14:55 Order name: Urine Culture [facility] 09/07 14:55 Order name: Lactate; Complete Time: 16:40 [facility] 09/07 14:55 Order name: Basic Metabolic Panel; Complete Time: 16:40 [facility] 09/07 14:55 Order name: CBC with Automated Diff; Complete Time: 17:05 [facility] 09/07 14:57 Order name: Flu eb 09/07 15:30 Order name: Urine Dipstick-Ancillary; Complete Time: 15:58 [facility] 09/07 15:58 Order name: CBC Smear Scan; Complete Time: 17:05 [facility] 09/07 15:58 Order name: Type And Screen [facility] 09/07 15:58 Order name: Type and Screen [facility] 09/07 16:24 Order name: ABG; Complete Time: 17:05 sv 09/07 16:39 Order name: COVID-19/FLU A+B; Complete Time: 16:40 [facility] 09/07 16:53 Order name: Packed RBC Leukored [facility] 09/07 17:13 Order name: Occult Blood--Ancillary 09/07 21:26 Order name: Protime (+INR) [facility] 09/07 21:31 Order name: Troponin I [facility] 09/07 21:32 Order name: Glucose, Ancillary Testing [facility] 09/07 22:09 Order name: Lactate [facility] 09/07 22:14 Order name: Procalcitonin [facility] 09/08 01:16 Order name: Lactate Sepsis 2 HR Follow-up [facility] 09/07 14:55 Order name: XRAY Chest (1 view); Complete Time: 15:58 [facility] 09/07 14:55 Order name: EKG; Complete Time: 14:56 [facility] 09/07 14:55 Order name: Cardiac monitoring; Complete Time: 15:53 [facility] 09/07 14:55 Order name: EKG - Nurse/Tech; Complete Time: 15:53 [facility] 09/07 14:55 Order name: IV Saline Lock; Complete Time: 15:53 [facility] 09/07 14:55 Order name: Labs collected and sent; Complete Time: 15:53 [facility] 09/07 14:55 Order name: O2 Per Protocol; Complete Time: 15:53 [facility] 09/07 14:55 Order name: O2 Sat Monitoring; Complete Time: 15:49 [facility] 09/07 14:55 Order name: Urine Dipstick-Ancillary (obtain specimen); Complete Time: 15:49 [facility] 09/07 14:55 Order name: Rodas; Complete Time: 15:49 [facility] 09/07 16:41 Order name: Transfuse; Complete Time: 19:14 [facility] 09/08 01:16 Order name: Troponin I [facility] 09/08 05:46 Order name: Basic Metabolic Panel [facility] 09/08 05:46 Order name: Phosphorus [facility] 09/08 05:46 Order name: Magnesium [facility] 09/08 05:48 Order name: CBC with Automated Diff [facility] 09/08 09:10 Order name: Glucose, Ancillary Testing [facility] 09/08 12:25 Order name: Glucose, Ancillary Testing [facility] 09/08 16:47 Order name: Glucose, Ancillary Testing [facility] 09/08 21:05 Order name: Glucose, Ancillary Testing [facility] 09/07 17:05 Order name: Central Line Kit; Complete Time: 17:41 [facility] EC:08 Rate is 51 beats/min. Rhythm is regular. QRS Porter is Normal. CO interval is normal. QRS stefano interval is normal. QT interval is normal. No Q waves. T waves are Normal. No ST changes noted. Clinical impression: No evidence of ischemia. Interpreted by me. Reviewed by me. 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 650 mg PO once hb 16:42 Drug: Zosyn (piperacillin-tazobactam) 3.375 grams Route: IVPB; Infused Over: 60 mins; sv Site: left antecubital; 17:46 Follow up: Response: No adverse reaction; IV Status: Completed infusion; IV Intake: sv 100ml 16:42 Drug: ProTONIX (pantoprazole) 40 mg Route: IVP; Site: left antecubital; sv 17:11 Follow up: Response: No adverse reaction sv 17:45 Drug: ProTONIX (pantoprazole) 40 mg Route: IVP; Site: right femoral; sv 19:13 Follow up: Response: No adverse reaction sv 17:45 Drug: ProTONIX (pantoprazole) 8 mg/hr Route: IV; Rate: 25 ml/hr; Site: right femoral; sv 19:27 Drug: AtroVENT (ipratropium) Aerosol 0.5 mg Route: Inhalation; mg2 19:28 Drug: Lasix (furosemide) 40 mg Route: IVP; Site: right femoral; mg2 19:28 Drug: Albuterol 2.5 mg Route: Inhalation; mg2 Disposition: 09/07/20 17:09 Hospitalization ordered by Jarad Rojas for Inpatient Admission. Preliminary diagnosis are Fever, unspecified, Pneumonia, unspecified organism, Acute kidney failure - on chronic, Gastrointestinal hemorrhage, unspecified, Hypotension, Type 2 diabetes mellitus, Weakness, Cough. - Bed requested for Telemetry/MedSurg (Inpatient). - Status is Inpatient Admission. mw - Condition is Fair. - Problem is new. - Symptoms have improved. Signatures: Dispatcher [employer] EDNJ Ally Mims RN Marnie Gage RN Taylor Myles RN RN dw Anderson, Corey, MD MD cha Ballard, Brenda, RN RN bb Page, Corey, PA PA cp Baxter, Heather, RN RN hb Gardose, Michele, RN RN mg2 Corrections: (The following items were deleted from the chart) 15:54 14:58 Influenza Screen (A ordered. EDNJ EDMS 15:54 15:33 CORONAVIRUS+MR.LAB.BRZ ordered. [facility] EDNJ 19:27 17:09 Hospitalization Ordered by Jarad Rojas for Inpatient Admission. Preliminary diagnosis is Fever, unspecified; Pneumonia, unspecified organism; Acute kidney failure - on chronic; Gastrointestinal hemorrhage, unspecified; Hypotension; Type 2 diabetes mellitus; Weakness; Cough. Bed requested for Intensive Care Unit. Status is Inpatient Admission. Condition is Fair. Problem is new. Symptoms have improved. [facility] 09/08 20:42 04 19:27 09/07/2020 17:09 Hospitalization Ordered by Jarad Rojas for Inpatient bb Admission. Preliminary diagnosis is Fever, unspecified; Pneumonia, unspecified organism; Acute kidney failure - on chronic; Gastrointestinal hemorrhage, unspecified; Hypotension; Type 2 diabetes mellitus; Weakness; Cough. Bed requested for [facility] ER HOLD. Status is Inpatient Admission. Condition is Fair. Problem is new. Symptoms have improved. 09/08 23:21 20:42 09/07/2020 17:09 Hospitalization Ordered by Jarad Rojas for Inpatient mw Admission. Preliminary diagnosis is Fever, unspecified; Pneumonia, unspecified organism; Acute kidney failure - on chronic; Gastrointestinal hemorrhage, unspecified; Hypotension; Type 2 diabetes mellitus; Weakness; Cough. Bed requested for Telemetry/MedSurg (Inpatient). Status is Inpatient Admission. Condition is Fair. Problem is new. Symptoms have improved. bb
--- NOTE | 2020-09-07 17:09 | ER ---
Nurse's Notes [facility] Name: Redd Tapia Age: 80 yrs Sex: Male : 1940 Arrival Date: 09/07/2020 Time: 14:48 Bed 14 Private MD: Diagnosis: Fever, unspecified;Pneumonia, unspecified organism;Acute kidney failure-on chronic;Gastrointestinal hemorrhage, unspecified;Hypotension;Type 2 diabetes mellitus;Weakness;Cough Presentation: 09/07 14:50 Chief complaint: EMS states: called out pt being unresponsive ans SpO2 85%. On EMS sv arrival pt was hypotensive in the 50s, HR-30s Temp-103, pt started on NS bolus and Dopamine infusion, pt then became more alert. 18G R and L AC. Risk Assessment: Do you want to hurt yourself or someone else? Patient reports no desire to harm self or others. Onset of symptoms was September 07, 2020. 14:50 Method Of Arrival: EMS: [facility] sv 14:50 Acuity: KIRAN 2 sv 14:50 Coronavirus screen: Client denies travel out of the [place] in the last 14 days. Ebola sv Screen: No symptoms or risks identified at this time. Initial Sepsis Screen: Does the patient meet any 2 criteria? Temp <36.0*C (96.8*F)) or > 38.3*C (100.9*F). Altered Mental Status. Yes Does the patient have a suspected source of infection? Yes: Other: fever. Historical: - Allergies: 14:53 No Known Allergies; sv - PMHx: 14:53 Asthma; Breathing Problems; Hypertension; Diabetes - NIDDM; heart problems; sv Hyperlipidemia; kidney problems; tremors; - PSHx: 14:53 ana luisa hip sx; sv - Immunization history:: Adult Immunizations unknown. - Family history:: not pertinent. - Social history:: Smoking status: unknown. Screenin:52 Abuse screen: Denies threats or abuse. Denies injuries from another. Nutritional hb screening: No deficits noted. Tuberculosis screening: No symptoms or risk factors identified. Fall Risk Total Marcelo Fall Scale indicates Low Risk Score (25-44 pts). Fall prevention measures have been instituted. Side Rails Up X 2 Frequent Obs/Assesments occuring As available Patient and Family Educated on Fall Prevention Program and strategies. Assessment: 15:00 General: Appears in no apparent distress. Behavior is cooperative. Pain: Denies pain. hb Neuro: Level of Consciousness is obeys commands, confused, lethargic, Oriented to person. Cardiovascular: Patient's skin is warm and dry. Rhythm is sinus bradycardia. Respiratory: Respiratory effort is labored, Respiratory pattern is tachypnea. GI: No signs and/or symptoms were reported involving the gastrointestinal system. : No signs and/or symptoms were reported regarding the genitourinary system. EENT: No signs and/or symptoms were reported regarding the EENT system. Derm: Skin is pink, warm \T\ dry. Musculoskeletal: No signs and/or symptoms reported regarding the musculoskeletal system. 16:00 Reassessment: No changes from previously documented assessment. Patient and/or family hb updated on plan of care and expected duration. Pain level reassessed. Daughter at bedside. Reassessment: No changes from previously documented assessment. Patient and/or family updated on plan of care and expected duration. Pain level reassessed. Daughter remains at bedside. 17:00 Reassessment: No changes from previously documented assessment. Patient and/or family hb updated on plan of care and expected duration. Pain level reassessed. Daughter remains at bedside. 18:00 Reassessment: No changes from previously documented assessment. Patient and/or family hb updated on plan of care and expected duration. Pain level reassessed. Daughter remains at bedside. 18:45 Reassessment: First unit PRBCs started, see transfusion flowsheet. hb Vital Signs: 14:50 BP 106 / 46; Pulse 51; Resp 21; Pulse Ox 95% on R/A; sv 15:00 BP 103 / 36; Pulse 51; Resp 19; Pulse Ox 100% ; sv 15:30 BP 127 / 49; Pulse 63; Resp 22; Pulse Ox 100% ; sv 16:09 BP 80 / 70; Pulse 57; Resp 18; sv 16:25 Temp 101(C); sv 16:30 BP 82 / 58; Pulse 53; Resp 18; Temp 100.6(C); Pulse Ox 95% on 2 lpm NC; sv 17:00 BP 89 / 51; Pulse 51; Resp 17; sv 17:30 BP 110 / 55; Pulse 50; Resp 18; sv 18:00 BP 107 / 37; Pulse 51; Resp 18; sv 18:30 BP 111 / 42; Pulse 48; Resp 16; Temp 99.8(C); sv ED Course: 14:48 Patient arrived in ED. ss 14:49 Ally Mims, JAS is Primary Nurse. sv 14:49 Rinku Estrella MD is Attending Physician. stefano 14:50 Patient has correct armband on for positive identification. Placed in gown. Bed in low sv position. Call light in reach. Side rails up X2. quality assurance monitor final on. Pulse ox on. NIBP on. Head of bed elevated. 14:50 Maintain EMS IV. Dressing intact. Good blood return noted. Site clean \T\ dry. Gauge \T\ sv site: 18G L AC and R FA. 14:52 Triage completed. sv 14:52 Arm band placed on. hb 15:17 XRAY Chest (1 view) In Process Unspecified. EDMS 15:30 Rodas cath inserted, using sterile technique, 16 Fr., by me, balloon inflated, to mt gravity drainage. 15:49 Lab(s) recollected, by me, sent to lab. mt 15:49 COVID swab sent to lab. Flu and/or RSV swab sent to lab. mt 16:23 Type And Screen Sent. sv 16:24 Flu Sent. sv 16:24 Basic Metabolic Panel Sent. sv 16:24 CBC with Diff Sent. sv 17:07 Jarad Rojas is Hospitalizing Provider. [facility] 17:30 Consent for blood and/or blood product transfusion explained by staff, explained by physician, signed by guardian. 17:30 Assisted provider with central line placement. Set up central line tray. Triple lumen sv line placed in right femoral. Line placed by Rinku Estrella MD Placement verified by blood return, Dressed with Tegaderm, Patient tolerated well. Before procedure, did Practitioner(s) obtain informed consent? No. Patient \T\ family education about procedure, CLABSI prevention and S/S of infection? Yes. Time-out/Briefing performed prior to start of procedure? Yes. Was handwashing/sanitizing done immediately prior to procedure? Yes. Was patient positioned to in a way to prevent air embolism? Yes. Was procedure site sterilized? Yes, with chlorhexidine. Was the site allowed to dry? Yes. Was local anesthetic and/or sedation utilized? Yes. During the procedure, did the Practitioner(s) maintain a sterile field? Yes. Were unused ports clamped during insertion? Yes. Was a 2nd qualified MD obtained after 3 unsuccessful insertion attempts? Yes. Was blood aspirated from each lumen? Yes. After the procedure, did the Practitioner(s) clean the site and apply a sterile dressing? Yes. 19:14 Report given to Leonardo MARK. sv 19:34 Primary Nurse role handed off by Ally Mims RN sv 21:33 Leonardo Peters RN is Primary Nurse. mg2 09/08 03:50 Patient admitted, IV remains in place. mg2 07:13 Primary Nurse role handed off by Leonarod Peters RN eb Administered Medications: 09/07 15:12 Drug: Pepcid (famotidine) 20 mg Route: IVP; Site: left antecubital; hb 16:43 Follow up: Response: No adverse reaction sv 15:12 Drug: Solu-CORTEF (hyrdoCORTISONE) 100 mg Route: IVP; Site: left antecubital; hb 16:43 Follow up: Response: No adverse reaction sv 15:15 Drug: NS 0.9% 1000 ml Route: IV; Rate: 125 ml/hr; Site: left antecubital; hb 15:30 Drug: Zithromax (azithromycin) 500 mg Route: IVPB; Infused Over: 1 hrs; Site: left hb antecubital; 16:30 Follow up: Response: No adverse reaction; IV Status: Completed infusion; IV Intake: sv 250ml 16:02 Not Given (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): 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 650 mg PO once hb 16:42 Drug: Zosyn (piperacillin-tazobactam) 3.375 grams Route: IVPB; Infused Over: 60 mins; sv Site: left antecubital; 17:46 Follow up: Response: No adverse reaction; IV Status: Completed infusion; IV Intake: sv 100ml 16:42 Drug: ProTONIX (pantoprazole) 40 mg Route: IVP; Site: left antecubital; sv 17:11 Follow up: Response: No adverse reaction sv 17:45 Drug: ProTONIX (pantoprazole) 40 mg Route: IVP; Site: right femoral; sv 19:13 Follow up: Response: No adverse reaction sv 17:45 Drug: ProTONIX (pantoprazole) 8 mg/hr Route: IV; Rate: 25 ml/hr; Site: right femoral; sv 19:27 Drug: AtroVENT (ipratropium) Aerosol 0.5 mg Route: Inhalation; mg2 19:28 Drug: Lasix (furosemide) 40 mg Route: IVP; Site: right femoral; mg2 19:28 Drug: Albuterol 2.5 mg Route: Inhalation; mg2 Intake: 16:30 IV: 250ml; Total: 250ml. sv 17:46 IV: 100ml; Total: 350ml. sv Outcome: 17:09 Decision to Hospitalize by Provider. stefano 19:27 Admitted to ER Hold. Please see [facility] for further documentation. mg2 19:27 Condition: stable 19:27 Instructed on the need for admit, Demonstrated understanding of instructions. 09/08 23:21 Patient left the ED. mw Signatures: Dispatcher [employer] Ally Villalobos RN RN sv Webb, Martha, RN RN mw Anderson, Corey, MD MD cha Smirch, Shelby, RN RN ss Baxter, Heather, RN RN hb Thompson, Moriah al Harmony Sanchez Michele, RN RN mg2 Corrections: (The following items were deleted from the chart) 09/07 15:54 15:49 CORONAVIRUS+MR.LAB.BRYSONZ drawn and sent. al EDKS 18:36 16:30 BP 82 / 58; Pulse 53bpm; Resp 18bpm; Pulse Ox 95% 2 lpm Nasal Cannula; sv sv
--- NOTE | 2020-09-07 18:32 | P.HP ---
Certification for Inpatient Patient admitted to: Inpatient With expected LOS: >2 Midnights Practitioner: I am a practitioner with admitting privileges, knowledge of patient current condition, hospital course, and medical plan of care. Services: Services provided to patient in accordance with Admission requirements found in Title 42 Section 412.3 of the Code of Federal Regulations Patient History Date of Service: 09/07/20 Reason for admission: Low blood pressure History of Present Illness: 80-year-old Nepali-speaking gentleman with a history hypertension, COPD, chronic atrial fibrillation, xng-bndnwlj-xodpopnmb diabetes was brought to the emergency department because of episode of hypotension, fever and lethargy at home. Patient at baseline walks with a walker or uses a wheelchair. According to the daughter home health noted he was hypotensive, unresponsive and had a fever with a temperature up to 103. EMS was called and he was brought to the emergency department. Patient was given dopamine drip on the way to the ED. Per report his blood pressure and mental status improved prior to arrival to the ED. His systolic blood pressure in the low 100s on arrival. Blood work showed mild leukocytosis, hemoglobin of 7.8. Chest x-ray shows bilateral opacities worse on the left. Daughter denies any aspiration event. Patient given IV normal saline, IV Zosyn, IV Zithromax, IV central line placed. Patient admitted for further management. Allergies No Known Allergies Allergy (Verified 07/05/18 13:30) Home Medications: Fluticasone/Salmeterol [Advair 250-50 Diskus] 1 each IH BID 09/24/17 Famotidine 40 mg PO BID 03/30/20 Atorvastatin Calcium [Lipitor] 40 mg PO BEDTIME #30 tab 04/03/20 Amiodarone HCl [Cordarone*] 200 mg PO BID 05/11/20 Apixaban [Eliquis *] 5 mg PO DAILY 07/05/20 Cetirizine HCl [Zyrtec] 10 mg PO DAILY 07/05/20 Furosemide [Lasix] 40 mg PO BID 30 Days #60 tablet 07/05/20 Linagliptin [Tradjenta] 5 mg PO DAILY 07/05/20 predniSONE [Prednisone*] 20 mg PO SEECOM #21 tab 07/05/20 - Past Medical/Surgical History Diabetic: Yes -: Diabetes mellitus type 2 [id number] -: Hyperlipidemia -: Hypertension -: COPD -: GERD -: Atrial fibrillation -: Essential tremors -: Chronic diastolic congestive heart failure -: Hip Replacement -: Cardioversion 2015 Psychosocial/ Personal History: Patient is - Social History Alcohol use: Yes CD- Drugs: No Caffeine use: Yes Review of Systems Other: No reports of diarrhea or vomiting. No report of chest pain or abdominal pain. Except as documented, all other systems reviewed and negative. Physical Examination - Physical Exam General: In no apparent distress, Confused, Other (Awake) HEENT: Atraumatic, PERRLA, Mucous membr. moist/pink, EOMI, Sclerae nonicteric Neck: Supple, JVD not distended Respiratory: Diminished (Bilateral), Other (No rhonchi or wheezes) Cardiovascular: No edema, Normal S1 S2, Irregular heart rate/rhythm Capillary refill: <2 Seconds Gastrointestinal: Normal bowel sounds, Soft and benign, Non-distended, No tenderness Musculoskeletal: No swelling, No tenderness Integumentary: No rashes, No erythema Neurological: Other (Moves all extremities.) - Studies Laboratory Data (last 24 hrs) 09/07/20 15:40: PT 22.1 H, INR 1.91 09/07/20 15:40: WBC 12.10 H, Hgb 7.8 L*, Hct 24.5 L, Plt Count 307 09/07/20 15:40: Sodium 140, Potassium 5.2 H, BUN 94 H, Creatinine 4.22 H, Glucose 230 H, Magnesium 2.4, Total Bilirubin 0.4, AST 162 H, ALT 92 H, Alkaline Phosphatase 82 Assessment and Plan - Problems (Diagnosis) (1) Septic shock Current Visit: Yes Status: Acute (2) Pneumonia Current Visit: Yes Status: Acute (3) Acute renal failure Current Visit: Yes Status: Acute (4) Anemia Current Visit: Yes Status: Acute (5) COPD (chronic obstructive pulmonary disease) Current Visit: Yes Status: Acute (6) Metabolic encephalopathy Current Visit: Yes Status: Acute (7) Chronic atrial fibrillation Current Visit: Yes Status: Acute (8) Diabetes mellitus Onset Date: 08/09/17 Current Visit: No Status: Acute Qualifiers: Diabetes mellitus type: type 2 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 Sepsis protocol initiated. Aggressive antibiotics-IV vancomycin and cefepime. Follow blood cultures Insert Rodas catheter for strict input and output. Slow IV hydration. Transfuse 1 units PRBC. Hold Eliquis. Monitor H&H. Monitor blood pressure closely. Swallow evaluation. Insulin sliding scale for glucose management. Hold Lasix Monitor renal function. - Advance Directives Does patient have a Living Will: No Does patient have a Durable POA for Healthcare: No
[2020-09-07] MEDS ORDERED: IPRATROPIUM BROM 0.5MG/2.5ML ONE (19:42)
[2020-09-07] MEDS ORDERED: FUROSEMIDE 40 MG/4 ML VIAL ONE (19:42)
[2020-09-07] MEDS ORDERED: ALBUTEROL 2.5 MG/3 ML NEB SOL ONE (19:42)
--- NOTE | 2020-09-07 19:42 | P.INFCA ---
Sepsis Focused Assessment - Focused Assessment Complete? Sepsis Focused Assessment Completed?: Yes - Sepsis Screen Result Severe Sepsis: Positive Septic Shock: Positive - Evaluation Current stage of sepsis: Severe sepsis - Vital Signs Reviewed: Yes Temperature: 100.3 F Heart rate: 52 Blood Pressure: 101/44 Respiratory Rate: 17 - Examination Date exam was performed: 09/07/20 Time exam was performed: 19:25 Heart: Regular rate/rhythm, S1, S2 Lungs: Clear bilaterally Peripheral pulses: 3+ Normal Peripheral pulse location: Radial Capillary refill: <2 Seconds Skin examination: Normal turgor
[2020-09-07] MEDS: NA CHLORIDE 0.9% 1,000 ML IV SCH (20:41)
[2020-09-07] MEDS ORDERED: NA CHLORIDE 0.9% 500 ML IV ONE (20:41)
[2020-09-07] MEDS ORDERED: CEFEPIME 2 GM VIAL IV SCH (20:41)
[2020-09-07] MEDS ORDERED: ONDANSETRON 4 MG/2 ML VIAL IV PRN (20:41)
[2020-09-07] MEDS: CEFEPIME/SWI 1gm 10 ML IV SCH (21:00)
[2020-09-07] MEDS: INSULIN -REGULAR HUMAN 50 UNIT/0.5 ML ML SQ SCH (21:00)
[2020-09-07 21:23] LABS: Protime INR 1.82
[2020-09-07] MEDS ORDERED: INSULIN -REGULAR HUMAN 50 UNIT/0.5 ML ML ONE (22:51)
[2020-09-07] MEDS ORDERED: CEFEPIME/SWI 1gm 10 ML ONE (22:52)
[2020-09-08 00:51] VITALS: BMI 24.2
[2020-09-08 05:28] LABS: Absolute Lymphocytes (CBC) 0.9 K/uL (0.7-4.9); Basophils % 0.2 % (0-1.3); Hematocrit 30.1 % (39.6-49.0); Lymphocytes % 8.2 % (15.3-44.8); MPV 8.5 fL (7.6-11.3); RBC Red Blood Cell Count 3.42 M/uL (4.33-5.43)
[2020-09-08] MEDS ORDERED: NA CHLORIDE 0.9% 250 ML ONE (05:37)
[2020-09-08] MEDS ORDERED: PANTOPRAZOLE 40 MG INJ ONE (05:37)
[2020-09-08 05:46] LABS: Magnesium 2.4 mg/dL (1.8-2.4); Phosphorus 5.3 mg/dL (2.5-4.9); Potassium 4.2 mmol/L (3.5-5.1)
[2020-09-08] MEDS: PANTOPRAZOLE INJ 80 MG in NA CHLORIDE 0.9% 250 ML IV SCH ×2 (05:47→17:47)
[2020-09-08] MEDS: INSULIN -REGULAR HUMAN 50 UNIT/0.5 ML ML SQ SCH ×4 (07:30→21:23)
[2020-09-08] MEDS ORDERED: VANCOMYCIN 1.75 GM in NA CHLORIDE 0.9% 500 ML IVPB ONE (08:00)
--- NOTE | 2020-09-08 08:17 | EKG ---
Test Date: 2020-09-07 Test Time: 15:05:27 Assisted Living Director: SERGEY MEASUREMENT RESULTS: Intervals: Rate: 51 MA: QRSD: 92 QT: 398 QTc: 366 [place]: P: MA: QRS: -37 T: 16 INTERPRETIVE STATEMENTS: Demand pacemaker, interpretation is based on intrinsic rhythm Junctional rhythm with fusion complexes Left axis deviation Abnormal ECG Compared to ECG 08/17/2020 11:23:45 Junctional rhythm now present Fusion complex(es) now present Left-axis deviation now present Atrial fibrillation no longer present Electronically Signed On 09-08-20 08:15:28 CDT by Sloan Vinson
[2020-09-08] MEDS ORDERED: NA CHLORIDE 0.9% 1,000 ML ONE (09:25)
[2020-09-08] MEDS ORDERED: ACETAMINOPHEN 500 MG TAB ONE (12:47)
--- NOTE | 2020-09-08 16:05 | P.PN ---
Subjective Date of Service: 09/08/20 Chief Complaint: Low blood pressure Patient states he feels much better today. Blood pressure stable. He has low grade fever. Physical Examination - Vital Signs Temperature: 100.3 F Blood Pressure: 101/44 Pulse: 52 Respirations: 17 - Physical Exam General: In no apparent distress, Other (Awake) HEENT: Mucous membr. moist/pink, EOMI, Sclerae nonicteric Neck: Supple, JVD not distended Respiratory: Clear to auscultation bilaterally, Normal air movement Cardiovascular: No edema, Regular rate/rhythm, Normal S1 S2 Gastrointestinal: Normal bowel sounds, Soft and benign, Non-distended, No tenderness Musculoskeletal: No swelling, No tenderness Integumentary: No rashes, No erythema Neurological: Normal strength at 5/5 x4 extr, Cranial nerves 3-12 intact - Studies Laboratory Data (last 24 hrs) 09/07/20 15:40: Sodium 140, Potassium 5.2 H, BUN 94 H, Creatinine 4.22 H, Glucose 230 H, Magnesium 2.4, Total Bilirubin 0.4, AST 162 H, ALT 92 H, Alkaline Phosphatase 82 Microbiology Data (last 24 hrs): 09/07/20 17:13 Stool Occult Blood - Final Assessment And Plan - Current Problems (Diagnosis) (1) Septic shock Current Visit: Yes Status: Acute (2) Pneumonia Current Visit: Yes Status: Acute (3) Acute renal failure Current Visit: Yes Status: Acute (4) Anemia Current Visit: Yes Status: Acute (5) COPD (chronic obstructive pulmonary disease) Current Visit: Yes Status: Acute (6) Metabolic encephalopathy Current Visit: Yes Status: Acute (7) Chronic atrial fibrillation Current Visit: Yes Status: Acute (8) Diabetes mellitus Onset Date: 08/09/17 Current Visit: No Status: Acute Qualifiers: Diabetes mellitus type: type 2 Diabetes mellitus chcf insulin use: without barrel charrer use Diabetes mellitus complication status: with unspecified complications (9) GI bleed Current Visit: Yes Status: Acute (10) Elevated troponin Current Visit: Yes Status: Acute - Plan Septic shock resolved Continue antibiotics-IV vancomycin and cefepime. Blood cultures: No growth to date. Follow blood cultures. Maintain Rodas catheter. Continue IV hydration. Diet as tolerated. S/p 1 unit PRBC transfusion. Eliquis on hold due to anemia and positive occult stool. Monitor H&H. Speech consult for swallow evaluation. Insulin sliding scale for glucose management. Continue to hold Lasix Serum creatinine is improving. Monitor renal function. Troponin mildly elevated but trended flat. No ACS.
[2020-09-08] MEDS: NA CHLORIDE 0.9% 1,000 ML IV SCH (16:41)
[2020-09-08] MEDS: CEFEPIME/SWI 1gm 10 ML IV SCH (21:24)
[2020-09-08] MEDS ORDERED: CEFEPIME/SWI 1gm 10 ML ONE (21:25)
[2020-09-08] MEDS ORDERED: INSULIN -REGULAR HUMAN 50 UNIT/0.5 ML ML ONE (21:40)
[2020-09-09] MEDS: PANTOPRAZOLE INJ 80 MG in NA CHLORIDE 0.9% 250 ML IV SCH ×3 (03:50→22:00)
[2020-09-09 04:24] LABS: Urine Appearance CLEAR (Clear); Urine Bilirubin NEGATIVE (Negative); Urine Blood 3+ (Negative); Urine Color YELLOW (Yellow); Urine Glucose NEGATIVE (Negative); Urine Protein TRACE (Negative); Urine Specific Gravity 1.015 (1.005-1.030); Urine Urobilinogen 0.2 mg/dL (0.2-1.0)
[2020-09-09 04:29] LABS: Urine Microscopic Reflex ORDER UMIC
[2020-09-09 05:17] LABS: Absolute Lymphocytes (CBC) 0.8 K/uL (0.7-4.9); Basophils % 0.3 % (0-1.3); Hematocrit 29.3 % (39.6-49.0); Lymphocytes % 9.6 % (15.3-44.8); MPV 8.4 fL (7.6-11.3); RBC Red Blood Cell Count 3.36 M/uL (4.33-5.43)
[2020-09-09 05:31] LABS: Magnesium 2.2 mg/dL (1.8-2.4); Phosphorus 3.2 mg/dL (2.5-4.9)
[2020-09-09 05:53] LABS: Urine Bacteria <20 /HPF (NONE SEEN); Urine RBC 20-50 /HPF (NONE SEEN)
[2020-09-09] MEDS: INSULIN -REGULAR HUMAN 50 UNIT/0.5 ML ML SQ SCH ×4 (07:27→20:52)
--- NOTE | 2020-09-09 11:20 | P.PN ---
Subjective Date of Service: 09/09/20 Chief Complaint: Low blood pressure Patient states he feels much better today. He looks better. Blood pressure stable. Oral intake is good. Physical Examination - Vital Signs Temperature: 97.8 F Blood Pressure: 116/55 Pulse: 60 Respirations: 20 Pulse Ox (%): 96 - Physical Exam General: Alert, In no apparent distress HEENT: Mucous membr. moist/pink Neck: JVD not distended Respiratory: Clear to auscultation bilaterally, Normal air movement Cardiovascular: No edema, Regular rate/rhythm, Normal S1 S2 Gastrointestinal: Normal bowel sounds, Soft and benign, Non-distended, No tenderness Musculoskeletal: No swelling, No tenderness Integumentary: No rashes, No erythema Neurological: Normal strength at 5/5 x4 extr Assessment And Plan - Current Problems (Diagnosis) (1) Septic shock Current Visit: Yes Status: Acute (2) Pneumonia Current Visit: Yes Status: Acute (3) Acute renal failure Current Visit: Yes Status: Acute (4) Anemia Current Visit: Yes Status: Acute (5) COPD (chronic obstructive pulmonary disease) Current Visit: Yes Status: Acute (6) Metabolic encephalopathy Current Visit: Yes Status: Acute (7) Chronic atrial fibrillation Current Visit: Yes Status: Acute (8) Diabetes mellitus Onset Date: 08/09/17 Current Visit: No Status: Acute Qualifiers: Diabetes mellitus type: type 2 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 Blood cultures: No growth to date. Urine culture: No growth to date. Sepsis likely secondary to pneumonia. Patient seen by speech. MBS recommended. Maintain Rodas catheter. Continue IV hydration. S/p 1 unit PRBC transfusion. Hemoglobin up to 9 and stable. Eliquis on hold due to anemia and positive occult stool. Continue to monitor H&H. Insulin sliding scale for glucose management. Continue to hold Lasix Serum creatinine is improving. Monitor renal function. Nephrology consult. Troponin mildly elevated but trended flat. No ACS.
[2020-09-09] MEDS: NA CHLORIDE 0.9% 1,000 ML IV SCH (11:58)
--- NOTE | 2020-09-09 14:29 | RAD REPORT ---
EXAM DESCRIPTION: RAD - Barium Swallow Modified - 09/09/2020 2:22 pm CLINICAL HISTORY: Failed bedside swallow evaluation. Cough/ choking FINDINGS: pharyngeal residue in vallecular mild with thin, nectar, honey, cleared on subsequent swal low ostophytes @c4-c6 area No aspiration is visualized barium tab held up in UE but cleared into LE following thin liquid wash. mild esophageal stasus and r etropulsion with thin liquids fluoro time 2.45 16 fluoroscopic spot images obtained
[2020-09-09] MEDS: CEFEPIME/SWI 1gm 10 ML IV SCH (20:52)
[2020-09-10] MEDS: PANTOPRAZOLE INJ 80 MG in NA CHLORIDE 0.9% 250 ML IV SCH ×4 (02:01→21:13)
[2020-09-10 06:02] LABS: Absolute Lymphocytes (CBC) 0.7 K/uL (0.7-4.9); Basophils % 0.4 % (0-1.3); Hematocrit 28.1 % (39.6-49.0); MPV 8.2 fL (7.6-11.3)
[2020-09-10 06:17] LABS: Albumin 1.9 g/dL (3.4-5.0); Phosphorus 2.5 mg/dL (2.5-4.9)
[2020-09-10] MEDS: INSULIN -REGULAR HUMAN 50 UNIT/0.5 ML ML SQ SCH ×4 (07:30→21:25)
[2020-09-10] MEDS ORDERED: VANCOMYCIN 1.25 GM in NA CHLORIDE 0.9% 1 GM/250 ML BAG IVPB SCH (08:00)
[2020-09-10] MEDS: POTASS/SODIUM PHOSPHATE 1 PKT POWD.PACK PO SCH ×3 (08:03→11:31)
[2020-09-10] MEDS: NA CHLORIDE 0.9% 1,000 ML IV SCH (08:41)
[2020-09-10 09:29] LABS: Uric Acid 7.6 mg/dL (3.5-7.2)
[2020-09-10] MEDS: D5 0.45 NS 1,000 ML IV SCH ×2 (10:04→23:40)
[2020-09-10 10:43] LABS: Anisocytosis 1+; Blood Morphology Comment NOTED (NOT SEEN); Platelet Estimate ADEQ; White Blood Cell Scan OK (OK)
[2020-09-10 12:48] LABS: Urine Appearance CLOUDY (Clear); Urine Bilirubin NEGATIVE (Negative); Urine Blood 3+ (Negative); Urine Color YELLOW (Yellow); Urine Glucose NEGATIVE (Negative); Urine Microscopic Reflex ORDER UMIC; Urine Protein 1+ (Negative); Urine Urobilinogen 0.2 mg/dL (0.2-1.0); Urine pH 5.5 (5.0-7.0)
[2020-09-10 13:03] LABS: Urine Protein/Creatinine Ratio 1.93 ratio (<0.15)
[2020-09-10 13:09] LABS: Urine Bacteria <20 /HPF (NONE SEEN); Urine RBC >50 /HPF (NONE SEEN)
--- NOTE | 2020-09-10 13:19 | P.PN ---
Subjective Date of Service: 09/10/20 Chief Complaint: Low blood pressure Subjective: No new changes (reports feeling about the same, maybe slightly better compared to yesterday. no longer requiring oyxgen supplementation) Review of Systems 10-point ROS is otherwise unremarkable Physical Examination - Vital Signs Temperature: 98.4 F Blood Pressure: 141/65 Pulse: 72 Respirations: 20 Pulse Ox (%): 99 - Studies Microbiology Data (last 24 hrs): 09/07/20 15:28 Catheterized Urine [place] Count - Final No growth. 09/07/20 15:28 Catheterized Urine - Final No growth. Assessment & Plan Physician Review Additional Text: Physical Exam General: Alert, In no apparent distress HEENT: Mucous membr. moist/pink Respiratory: Clear to auscultation bilaterally, slightly diminished at bases bilaterally Cardiovascular: No edema, Regular rate/rhythm, Normal S1 S2 Gastrointestinal: Normal bowel sounds, Soft and benign, Non-distended, No ten derness Musculoskeletal: No swelling, No tenderness Integumentary: No rashes, No erythema Problem List septic shock secondary to acute community acquired pneumonia MANNY on CKD3 Anemia COPD metabolic encephalopathy Chronic atrial fibrillation on anticoagulation DM2 GI bleed elevated troponin Septic shock resolved, continue IV Vanc & Cefepime; secondary to pneumonia Blood/Urine cultures: no growth so far Patient seen by speech. MBS ok on 09/09 greco catheter placed for accurate I/Os hypernatremia, hyperchloremia, h/o cKD, change IVF to D5 1/2NS, nephrology consulted S/p 1 unit PRBC transfusion. Hemoglobin up to 9 and stable. Continue to monitor H&H. Eliquis on hold due to anemia and positive occult stool. Insulin sliding scale for glucose management. Serum creatinine is improving. Monitor renal function. Nephrology consulted. Troponin mildly elevated but trended flat. No ACS. Dispo: anticipate dc home in 24-48hrs, monitor h/h, PT consulted, correction of electrolytes Time Spent Managing Pts Care (In Minutes): 35
[2020-09-10] MEDS: CEFEPIME/SWI 1gm 10 ML IV SCH (21:12)
--- NOTE | 2020-09-11 01:02 | CON ---
Date of Consultation: 09/10/2020 Reason For Consultation: Elevated BUN and creatinine, hypernatremia. History Of Present Illness: This is a pleasant 80-year-old gentleman, well known to me from the office with significant past medical history of COPD, hypertension, diabetes complicated with neuropathy, hyperlipidemia, coronary artery disease, atrial fibrillation, chronic kidney disease with baseline creatinine of 1.6 since April 2020, the patient was admitted to the hospital with septic shock. Upon arrival to the hospital, his creatinine was 4.2, had marginal hyperkalemia. The patient was started on aggressive hydration. Creatinine gradually trended down, today 1.5, but his sodium continued to trend up. For that reason, we have been consulted. The patient is feeling well. No nausea. No vomiting. Tolerating his diet. Past Medical History: Includes, 1. Diabetes complicated with neuropathy, nephropathy. 2. Chronic kidney disease, baseline creatinine 1.6, GFR of 39 as of April 2020. 3. Hyperlipidemia. 4. COPD. 5. CAD 6. Atrial fibrillation. 7. Congestive heart failure, diastolic dysfunction. Allergies: NO KNOWN DRUGS ALLERGY. Past Surgical History: Includes hip replacement and cardioversion. Social History: Active alcohol. Denies smoking. Denies drinking. Review of Systems: Head and Neck: No red eye. No ear pain. GI: No nausea. No vomiting. : No polyuria. No dysuria. No hematuria. 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 Respiratory: Has cough. Cardiovascular: No chest pain. Endocrine: No polydipsia. Skin: No rash. Neuro: Has neuropathy. Musculoskeletal: Generalized fatigue. Physical Examination: Vital Signs: Blood pressure of 126/59, pulse of 63, afebrile. The patient had good urine output of 1700. Chest: Decreased entry on the right base. Heart: S1, S2. Systolic murmur. Abdomen: Soft, nontender. Extremities: Trace edema. Neurologic: Alert, no focality. Laboratory Data: Sodium 149, potassium 4, bicarb 21, chloride 121, BUN 42, creatinine 1.5, GFR of 42, calcium 8.1, phosphorus 2.5, albumin 1.9. Corrected calcium is 9.7. ABG; pH 7.37, CO2 29, O2 130, base axis -8. Current Medications: The patient on include cefepime, vancomycin, Zofran, pantoprazole, insulin, normal saline. Assessment And Plan: 1. Acute kidney injury on chronic kidney disease secondary to prerenal/toxic acute tubular necrosis, recovered, back to baseline. We will continue to monitor. 2. Hypertension, controlled, optimal. Continue current treatment. 3. Hypernatremia secondary to depletional. I am going to go ahead and change the IV fluid to D5 half-normal and we will follow up chemistry. 4. Hyperkalemia, resolved. 5. Sepsis, pneumonia. Follow up with ID and Pulmonary. 6. Diabetes, as by primary. Time spent discussing with the patient, examining the patient, [id number] with the patient, placing orders, discussing the case with our production team advisor including nursing, discussing the case with the other subspecialty including Cardiology and hospitalist 65 minutes. SANDI Voice ID: [id number] Report ID: [id number] MTDD
[2020-09-11] MEDS: PANTOPRAZOLE INJ 80 MG in NA CHLORIDE 0.9% 250 ML IV SCH (03:14)
[2020-09-11 06:12] LABS: Absolute Lymphocytes (CBC) 0.7 K/uL (0.7-4.9); Basophils % 0.5 % (0-1.3); Hematocrit 29.9 % (39.6-49.0); Lymphocytes % 10.7 % (15.3-44.8); MPV 8.3 fL (7.6-11.3); RBC Red Blood Cell Count 3.37 M/uL (4.33-5.43)
[2020-09-11 06:27] LABS: Albumin 2.1 g/dL (3.4-5.0); Phosphorus 2.1 mg/dL (2.5-4.9); Potassium 4.4 mmol/L (3.5-5.1)
[2020-09-11] MEDS: INSULIN -REGULAR HUMAN 50 UNIT/0.5 ML ML SQ SCH ×4 (07:30→20:31)
[2020-09-11] MEDS: POTASS/SODIUM PHOSPHATE 1 PKT POWD.PACK PO SCH ×3 (07:34→09:34)
--- NOTE | 2020-09-11 07:59 | ECHO ---
HEIGHT: 5 ft 6 in WEIGHT: 160 lb 0 oz DATE OF STUDY: 09/10/[address]: audi lopez 2-DIMENSIONAL: YES M.MODE: YES DOPPLER: YES COLOR FLOW: YES TDS: NO PORTABLE: NO DEFINITY: NO BUBBLE STUDY: NO DIAGNOSIS: HYPOTENSION CARDIAC HISTORY: CATHERIZATION: SURGERY: PROSTHETIC VALVE: PACEMAKER: MEASUREMENTS (cm) DIASTOLIC (NORMALS) SYSTOLIC (NORMALS) IVSd 1.0 (0.6-1.2) LA Diam 3.5 (1.9-4.0) LVEF 79% LVIDd 4.4 (3.5-5.7) LVIDs 2.3 (2.0-3.5) %FS 47% LVPWd 1.0 (0.6-1.2) Ao Diam 2.6 (2.0-3.7) 2 DIMENSIONAL ASSESSMENT: RIGHT ATRIUM: NORMAL LEFT ATRIUM: NORMAL RIGHT VENTRICLE: NORMAL LEFT VENTRICLE: NORMAL TRICUSPID VALVE: NORMAL MITRAL VALVE: MITRAL ANNULAR CALCIFICATION PULMONIC VALVE: NORMAL AORTIC VALVE: SCLEROSIS PERICARDIAL EFFUSION: NONE AORTIC ROOT: NORMAL LEFT VENTRICULAR WALL MOTION: NORMAL LEFT VENTRICULAR SIZE AND FUNCTION. DOPPLER/COLOR FLOW: MILD TRICUSPID REGURGITATION. NORMAL RIGHT VENTRICULAR SYSTOLIC PRESSURE. COMMENTS: NORMAL LEFT VENTRICULAR SIZE AND FUNCTION. MILD TRICUSPID REGURGITATION. NORMAL RIGHT VENTRICULAR SYSTOLIC PRESSURE. MITRAL ANNULAR CALCIFICATION. AORTIC SCLEROSIS WITH NO STENOSIS. TECHNOLOGIST: Jessika HAN
--- NOTE | 2020-09-11 12:21 | PN ---
Date of Progress Note: 09/11/2020 Subjective: The patient was admitted with sepsis, septic shock. Had acute kidney injury. Creatinine upon admission was 4. The patient was started on hydration with resuscitation. Kidney number has been improved. The patient had hypernatremia. Physical Examination: Vital Signs: Blood pressure 113/57, pulse of 59, afebrile. The patient had good urine output of 1700. Chest: Slight wheezing bilateral. Heart: S1, S2. Regular. Abdomen: Soft, nontender. Extremities: No edema. Neuro: Alert. No focality. Laboratory Data: WBC 6.1, H and H 9.7/29.9. Sodium 145, potassium 4.4, bicarb 22, BUN 32, creatinine 1.3, calcium 8, phosphorus of 2.1. Echocardiogram was done yesterday, ejection fraction of 79%. Assessment And Plan: 1. Acute kidney injury secondary to toxic ATN, poor perfusion, ATN, recovered, back to baseline. We will monitor. 2. Hypertension, controlled, optimal. Continue current medication. 3. Hypernatremia. Sodium is trending down. I will hold on IV fluid. We will get chest x-ray for better evaluation of the fluid status and we will follow up the patient. 4. Pneumonia. Continue to follow up with the primary. Time spent discussing with the patient, examining the patient, [id number] with the patient, placing orders, discussing the case with our tractor driver teamster including nursing, discussing the case with the other subspecialty including Cardiology and hospitalist 35 minutes. SANDI Voice ID: [id number] Report ID: [id number]
[2020-09-11] MEDS: D5 0.45 NS 1,000 ML IV SCH (12:40)
--- NOTE | 2020-09-11 12:50 | P.CNS ---
Date of Consult: 09/11/20 Reason for Consult: Pneumonia Chief Complaint: Pneumonia History of Present Illness: Patient is 80 years of a Faroese-speaking history of hypertension COPD chronic AFib diabetes presented to the emergency room with shock hypotension fever presume secondary to pneumonia this started on vasopressors currently stable his off the vasopressors renal function has improved significantly chest x-ray shows some residual changes in the right lung patient is anti coagulated his on bronchodilator Allergies No Known Allergies Allergy (Verified 07/05/18 13:30) Home Medications: Fluticasone/Salmeterol [Advair 250-50 Diskus] 1 each IH BID 09/24/17 Famotidine 40 mg PO BID 03/30/20 Atorvastatin Calcium [Lipitor] 40 mg PO BEDTIME #30 tab 04/03/20 Amiodarone HCl [Cordarone*] 200 mg PO BID 05/11/20 Apixaban [Eliquis *] 5 mg PO BID 07/05/20 Cetirizine HCl [Zyrtec] 10 mg PO DAILY PRN 07/05/20 Linagliptin [Tradjenta] 5 mg PO DAILY 07/05/20 Acetaminophen with Codeine [Acetaminophen-Cod #3 Tablet] 1 each PO TID* PRN 09/08/20 Benzonatate [Tessalon Perle] 200 mg PO TID PRN 09/08/20 Furosemide [Lasix] 40 mg PO DAILY 09/08/20 Gabapentin [Neurontin] 100 mg PO BEDTIME 09/08/20 Glimepiride 1 mg PO BID 09/08/20 Lisinopril/Hydrochlorothiazide [Lisinopril-Hctz 20-12.5 mg Tab] 1 each PO DAILY 09/08/20 - Past Medical/Surgical History Diabetic: Yes -: Diabetes mellitus type 2 [id number] -: Hyperlipidemia -: Hypertension -: COPD -: GERD -: Atrial fibrillation -: Essential tremors -: Chronic diastolic congestive heart failure -: Hip Replacement -: Cardioversion 2015 Psychosocial/ Personal History: Patient is - Social History Smoking Status: Unknown if ever smoked Alcohol use: Yes CD- Drugs: No Caffeine use: Yes Review of Systems is unable to be obtained Physical Examination Temp Pulse Resp BP Pulse Ox 98.3 F 74 18 136/65 98 09/11/20 12:00 09/11/20 12:00 09/11/20 12:00 09/11/20 12:00 09/11/20 12:00 General: Unresponsive Respiratory: Clear to auscultation bilaterally, Diminished Cardiovascular: No edema, Regular rate/rhythm Gastrointestinal: Normal bowel sounds, Soft and benign - Problems (1) Pneumonia Current Visit: Yes Status: Acute Plan: Patient is 80 years of age admitted with septic shock acute renal failure which is improved significantly pro calcitonin level is low blood gases show a combination of metabolic acidosis and respiratory alkalosis white count is now normal is mildly anemic which is improved patient's oxygenation is satisfactory blood cultures negative no aspiration visualize his eating and drinking patient can be change to p.o. levofloxacin continue with IV fluid patient had some fever at home he has been afebrile been normal pro calcitonin this start him on levofloxacin 500 mg daily for a total of 10 day Dc vancomycin echocardiogram is normal oxygenation satisfactory on room air probably has underlying COPD add bronchodilators some steroids Dc IV antibiotic Qualifiers: Pneumonia type: due to unspecified organism Laterality: right
[2020-09-11] MEDS: ARFORMOTEROL TARTRATE 15 MCG/2 ML VIAL.NEB NEB SCH ×2 (12:56→20:20)
--- NOTE | 2020-09-11 15:05 | RAD REPORT ---
EXAM DESCRIPTION: RAD - Chest Pa And Lat (2 Views) - 09/11/2020 2:58 pm CLINICAL HISTORY: wheezing Chest pain. COMPARISON: Chest Single View dated 09/07/2020; Chest Single View dated 08/17/2020; Chest Single View d ated 07/05/2020; Chest Single View dated 07/02/2020 FINDINGS: Infiltrate pattern in right lower lobe posteriorly is again seen appearing similar to prio r study. Mild pulmonary edema pattern is unchanged. Small right pleural effusion again seen. The hear t is normal in size.
--- NOTE | 2020-09-11 16:58 | P.PN ---
Subjective Date of Service: 09/11/20 Chief Complaint: Pneumonia Subjective: Worsening (requiring O2 this morning. wheezing, breathing heavy, otherwise reports feeling ok) Review of Systems 10-point ROS is otherwise unremarkable Physical Examination - Vital Signs Temperature: 98.3 F Blood Pressure: 136/65 Pulse: 74 Respirations: 18 Pulse Ox (%): 98 Assessment & Plan Physician Review Additional Text: Physical Exam General: Alert, mild distress HEENT: Mucous membr. moist/pink Respiratory: b/l wheeze, mild labored respirations on 2L NC Cardiovascular: No edema, Regular rate/rhythm, Normal S1 S2 Gastrointestinal: Soft and benign, Non-distended, No tenderness Musculoskeletal: No swelling, No tenderness Integumentary: No rashes, No erythema Problem List Septic shock secondary to acute community acquired pneumonia MANNY on CKD3 Anemia COPD metabolic encephalopathy Chronic atrial fibrillation on anticoagulation DM2 GI bleed elevated troponin Septic shock resolved, de-escalate IV antibiotics today - for pneumonia Blood/Urine cultures: no growth so far Patient seen by speech. MBS ok on 09/09 greco catheter placed for accurate I/Os, dc'd on 09/10, voiding without issue hypernatremia, hyperchloremia, h/o cKD, changed IVF to D5 1/2NS on 09/10, nephrology consulted S/p 1 unit PRBC transfusion. Hemoglobin up to 9 and stable. Continue to monitor H&H. Eliquis on hold due to anemia and positive occult stool. Insulin sliding scale for glucose management. Serum creatinine is improving. Monitor renal function. Nephrology consulted. Troponin mildly elevated but trended flat. No ACS. CXR today to eval pneumonia or having pulm edema Dispo: anticipate dc home in ~24-48hrs, monitor h/h, PT consulted, correction of electrolytes Time Spent Managing Pts Care (In Minutes): 35
[2020-09-11] MEDS: GABAPENTIN 100 MG CAP PO SCH (20:30)
[2020-09-11] MEDS: AMIODARONE HCL 200 MG TAB PO SCH (20:30)
[2020-09-11] MEDS: ATORVASTATIN 40 MG TAB PO SCH (20:30)
[2020-09-11] MEDS: predniSONE 20 MG TAB PO SCH (20:30)
[2020-09-12 04:41] LABS: Absolute Lymphocytes (CBC) 0.3 K/uL (0.7-4.9); Basophils % 0.3 % (0-1.3); Hematocrit 29.2 % (39.6-49.0); Lymphocytes % 5.8 % (15.3-44.8); MPV 8.5 fL (7.6-11.3)
[2020-09-12 05:29] LABS: Phosphorus 3.2 mg/dL (2.5-4.9); Potassium 5.2 mmol/L (3.5-5.1)
[2020-09-12] MEDS: INSULIN -REGULAR HUMAN 50 UNIT/0.5 ML ML SQ SCH ×4 (07:30→21:00)
--- NOTE | 2020-09-12 08:04 | P.PN ---
Subjective Date of Service: 09/12/20 Chief Complaint: Pneumonia Subjective: Other (Reports SOB not worse) Physical Examination - Vital Signs Temperature: 97.2 F Blood Pressure: 123/59 Pulse: 56 Respirations: 16 Pulse Ox (%): 98 - Physical Exam General: Other (Appears as his stated age) HEENT: Atraumatic, Normocephalic Neck: Supple Respiratory: Diminished Cardiovascular: No rubs, No murmurs Gastrointestinal: Soft and benign Assessment And Plan - Plan # MANNY 2/2 ATN Has baseline CKD3 Renal fxn improved back to baseline Monitor renal panel # Htn BP controlled Cont current BP meds # Low serum bicarb Probably compensatory from acute respi alk Monitor for now # Hypernatremia Resolving Encouraged po hydration # Septic shock 2/2 CAP Shock resolved Abx per primary team # Afib Eliquis on hold d/t +FOBT # Anemia Received pRBC transf Monitor H/H # Acute on chronic COPD Mngt per primary team # DM2 Mngt per primary team Physician Review Additional Text: Physical Exam General: Alert, mild distress HEENT: Mucous membr. moist/pink Respiratory: b/l wheeze, mild labored respirations on 2L NC Cardiovascular: No edema, Regular rate/rhythm, Normal S1 S2 Gastrointestinal: Soft and benign, Non-distended, No tenderness Musculoskeletal: No swelling, No tenderness Integumentary: No rashes, No erythema Problem List Septic shock secondary to acute community acquired pneumonia MANNY on CKD3 Anemia COPD metabolic encephalopathy Chronic atrial fibrillation on anticoagulation DM2 GI bleed elevated troponin Septic shock resolved, de-escalate IV antibiotics today - for pneumonia Blood/Urine cultures: no growth so far Patient seen by speech. MBS ok on 09/09 greco catheter placed for accurate I/Os, dc'd on 09/10, voiding without issue hypernatremia, hyperchloremia, h/o cKD, changed IVF to D5 1/2NS on 09/10, nephrology consulted S/p 1 unit PRBC transfusion. Hemoglobin up to 9 and stable. Continue to monitor H&H. Eliquis on hold due to anemia and positive occult stool. Insulin sliding scale for glucose management. Serum creatinine is improving. Monitor renal function. Nephrology consulted. Troponin mildly elevated but trended flat. No ACS. CXR today to eval pneumonia or having pulm edema Dispo: anticipate dc home in ~24-48hrs, monitor h/h, PT consulted, correction of electrolytes
[2020-09-12 08:12] LABS: Anisocytosis 1+; Blood Morphology Comment NOTED (NOT SEEN); Platelet Estimate ADEQ
[2020-09-12] MEDS: ARFORMOTEROL TARTRATE 15 MCG/2 ML VIAL.NEB NEB SCH ×2 (09:00→20:00)
[2020-09-12] MEDS: levoFLOXacin 500 MG TAB PO SCH (09:13)
[2020-09-12] MEDS: predniSONE 20 MG TAB PO SCH ×2 (09:14→20:14)
[2020-09-12] MEDS: AMIODARONE HCL 200 MG TAB PO SCH ×2 (09:14→20:14)
[2020-09-12] MEDS: FUROSEMIDE 40 MG/4 ML VIAL IV SCH ×2 (13:00→17:00)
--- NOTE | 2020-09-12 14:54 | P.PN ---
Subjective Date of Service: 09/12/20 Chief Complaint: Pneumonia Subjective: No new changes (patient feels slightly better this morning, still appears dyspneic / labored breathing at rest required O2 overnight, especially when laying flat) Review of Systems 10-point ROS is otherwise unremarkable Physical Examination - Vital Signs Temperature: 97.6 F Blood Pressure: 139/67 Pulse: 95 Respirations: 19 Pulse Ox (%): 100 Assessment & Plan Physician Review Additional Text: Physical Exam General: Alert, sitting up and eating breakfast HEENT: Mucous membr. moist/pink Respiratory: mild b/l wheeze, labored respirations on 2L NC Cardiovascular: No edema, Regular rate/rhythm, Normal S1 S2 Gastrointestinal: Soft and benign, nontender, nondistended Musculoskeletal: No swelling, No tenderness Integumentary: No rashes, No erythema Problem List Septic shock secondary to acute community acquired pneumonia MANNY on CKD3, improved Anemia acute on chronic COPD exacerbation metabolic encephalopathy Chronic atrial fibrillation on anticoagulation DM2 GI bleed elevated troponin Septic shock resolved, de-escalated IV antibiotics on 09/11 - for pneumonia Blood/Urine cultures: no growth so far Patient seen by speech. MBS ok on 09/09 - continue pureed diet Rodas catheter placed for accurate I/Os, dc'd on 09/10, voiding without issue hypernatremia, hyperchloremia, h/o cKD, changed IVF to D5 1/2NS on 09/10, ne phrology consulted, fluids discontinued on 09/11 S/p 1 unit PRBC transfusion. Hemoglobin up to 9 and has been stable. Continue to monitor H&H. Eliquis on hold due to anemia and positive occult stool. Serum creatinine is improving. Monitor renal function. Nephrology consulted. Insulin sliding scale for glucose management. Troponin mildly elevated but trended flat. No ACS suspected. CXR on 09/11 with mild pulm effusion, slight pulm edema wheeze on exam, patient previously long time smoker, initiated COPD exacerbation treatment, steroids, nebs/inhalers on 09/11 will discuss with nephrology - patient may benefit from some diuresis echo done last week with normal EF Dispo: anticipate dc home in ~24hrs, wean O2 Time Spent Managing Pts Care (In Minutes): 35
[2020-09-12] MEDS: GABAPENTIN 100 MG CAP PO SCH (20:14)
[2020-09-12] MEDS: ATORVASTATIN 40 MG TAB PO SCH (20:14)
--- NOTE | 2020-09-13 05:21 | P.PN ---
Subjective Date of Service: 09/13/20 Chief Complaint: Pneumonia Still c/o SOB. Physical Examination - Vital Signs Temperature: 97 F Blood Pressure: 138/63 Pulse: 57 Respirations: 15 Pulse Ox (%): 100 - Physical Exam General: Mild distress HEENT: Atraumatic, Normocephalic Neck: Supple, JVD distended Respiratory: Diminished Cardiovascular: No rubs, No murmurs Gastrointestinal: Soft and benign - Studies Microbiology Data (last 24 hrs): 09/07/20 15:05 Blood - Blood Aerobic Blood Culture - Final No growth in 5 days. 09/07/20 15:05 Blood - Blood Anaerobic Blood Culture - Final No growth in 5 days. 09/07/20 14:55 Blood - Blood Aerobic Blood Culture - Final No growth in 5 days. 09/07/20 14:55 Blood - Blood Anaerobic Blood Culture - Final No growth in 5 days. Assessment And Plan - Plan # MANNY 2/2 ATN Has baseline CKD3 (baseline SCr 1.1-1.3 as of 2018) SCr 1.47, close to baseline [place] po fluid intake Dec lasix to 40 mg po bid Monitor renal panel # Acute on chronic COPD +JVD, +BLE edema TTE on 09/10/[address] on 09/13 shows loculated mod R pleural effusion; no clear e/o sig pulmo Htn Elevated BNP likely driven by pulmonary issues & not primarily cardiogenic Urine chem showing adeq natriuresis w/ lasix Cont lasix as above Further mngt per pulmo service # Hyperkalemia Lasix as above # Htn BP controlled Cont current BP meds # Hypernatremia Resolved Encouraged po hydration # Septic shock 2/2 CAP Shock resolved Abx per primary team # Afib Eliquis on hold d/t +FOBT # Anemia Received pRBC transf Monitor H/H # DM2 Mngt per primary team
[2020-09-13 06:02] LABS: Hematocrit 28.1 % (39.6-49.0); MPV 8.5 fL (7.6-11.3); RBC Red Blood Cell Count 3.15 M/uL (4.33-5.43)
[2020-09-13 06:24] LABS: Bilirubin Total 0.3 mg/dL (0.2-1.0); Magnesium 2.1 mg/dL (1.8-2.4); Potassium 5.3 mmol/L (3.5-5.1); Protein, Total 6.4 g/dL (6.4-8.2)
[2020-09-13] MEDS: INSULIN -REGULAR HUMAN 50 UNIT/0.5 ML ML SQ SCH ×4 (09:04→20:53)
[2020-09-13] MEDS: AMIODARONE HCL 200 MG TAB PO SCH ×2 (09:05→20:52)
[2020-09-13] MEDS: predniSONE 20 MG TAB PO SCH ×2 (09:05→20:52)
[2020-09-13] MEDS: FUROSEMIDE 40 MG/4 ML VIAL IV SCH (09:05)
[2020-09-13] MEDS: levoFLOXacin 500 MG TAB PO SCH (09:05)
[2020-09-13] MEDS: ARFORMOTEROL TARTRATE 15 MCG/2 ML VIAL.NEB NEB SCH ×2 (10:02→19:45)
--- NOTE | 2020-09-13 12:42 | RAD REPORT ---
EXAM DESCRIPTION: CT - Thorax Wo Con CLINICAL HISTORY: Chest pain Eval for hypoxia COMPARISON: Chest Single View dated 09/07/2020 FINDINGS: A moderate right pleural effusion is seen with evidence of some loculation medially and vega periorly along the thoracic cage. Opacity in the right lung base may represent atelectasis. No pneumo thorax. No axillary, mediastinal or hilar adenopathy. No lytic or blastic bone lesion. Small liver cyst present. All CT scans are performed using dose optimization technique as appropriate and may include automated exposure control or mA/KV adjustment according to patient size. IMPRESSION: Moderate right pleural effusion with loculation superiorly noted.
--- NOTE | 2020-09-13 16:47 | P.PN ---
Subjective Date of Service: 09/13/20 Chief Complaint: Pneumonia Subjective: No new changes (feels about the same, maybe slightly better, still requiring O2. feels short of breath - especially when laying flat. continues with weakness. otherwise doing ok, good appetite. wants to go home.) Review of Systems 10-point ROS is otherwise unremarkable Physical Examination - Vital Signs Temperature: 97.8 F Blood Pressure: 171/72 Pulse: 68 Respirations: 18 Pulse Ox (%): 100 - Studies Microbiology Data (last 24 hrs): 09/07/20 15:05 Blood - Blood Aerobic Blood Culture - Final No growth in 5 days. 09/07/20 15:05 Blood - Blood Anaerobic Blood Culture - Final No growth in 5 days. 09/07/20 14:55 Blood - Blood Aerobic Blood Culture - Final No growth in 5 days. 09/07/20 14:55 Blood - Blood Anaerobic Blood Culture - Final No growth in 5 days. Assessment & Plan Physician Review Additional Text: Physical Exam General: Alert, mild distress HEENT: normal conjunctiva, sclera anicteric Pulm: b/l wheeze, labored respirations on 2L NC CV: trace edema, Regular rate/rhythm, Normal S1 S2 Abd: Soft and benign, Non-distended, No tenderness Ext: No swelling, No tenderness Integumentary: No rashes, No erythema Problem List Septic shock secondary to acute community acquired pneumonia MANNY on CKD3 Anemia COPD metabolic encephalopathy Chronic atrial fibrillation on anticoagulation DM2 GI bleed elevated troponin Septic shock resolved, de-escalated IV antibiotics 09/12 - for pneumonia Blood/Urine cultures: no growth so far Patient seen by speech. MBS ok on 09/09 greco catheter placed for accurate I/Os, dc'd on 09/10, voiding without issue hypernatremia, hyperchloremia, h/o cKD, changed IVF to D5 1/2NS on 09/10 and then discontinued, nephrology consulted S/p 1 unit PRBC transfusion. Hemoglobin up to 9 and stable. Continue to monitor H&H. Eliquis on hold due to anemia and positive occult stool. Insulin sliding scale for glucose management. Serum creatinine improved. Monitor renal function. Nephrology consulted. Troponin mildly elevated but trended flat. No ACS. CT chest ordered to further evaluate Dispo: anticipate dc home in ~24hrs, PT consulted, wean O2 Time Spent Managing Pts Care (In Minutes): 35
[2020-09-13 17:05] LABS: UR CREAT < 13.0 mg/dL (20-370); UR PROTEIN < 5 mg/dL (<11.9); Urine Protein/Creatinine Ratio ND ratio (<0.15)
--- NOTE | 2020-09-13 17:29 | RAD REPORT ---
EXAM DESCRIPTION: RAD - Chest Lateral Decubitus - 09/13/2020 5:23 pm CLINICAL HISTORY: Pleural effusion FINDINGS: A moderate partially layering right pleural effusion is present
[2020-09-13] MEDS: FUROSEMIDE 40 MG TABLET PO SCH (17:35)
[2020-09-13] MEDS: GABAPENTIN 100 MG CAP PO SCH (20:52)
[2020-09-13] MEDS: ATORVASTATIN 40 MG TAB PO SCH (20:52)
[2020-09-14 06:21] LABS: Absolute Lymphocytes (CBC) 0.5 K/uL (0.7-4.9); Basophils % 0.2 % (0-1.3); Hematocrit 30.7 % (39.6-49.0); Lymphocytes % 5.7 % (15.3-44.8); MPV 8.1 fL (7.6-11.3)
[2020-09-14 07:10] LABS: Albumin 2.4 g/dL (3.4-5.0); Bilirubin Total 0.4 mg/dL (0.2-1.0); C-Reactive Protein 59.8 mg/L (<3.00); Magnesium 1.9 mg/dL (1.8-2.4); Phosphorus 3.9 mg/dL (2.5-4.9); Potassium 4.8 mmol/L (3.5-5.1); Protein, Total 7.5 g/dL (6.4-8.2)
[2020-09-14] MEDS: INSULIN -REGULAR HUMAN 50 UNIT/0.5 ML ML SQ SCH ×4 (08:24→21:00)
[2020-09-14] MEDS: predniSONE 20 MG TAB PO SCH ×2 (08:24→21:43)
[2020-09-14] MEDS: FUROSEMIDE 40 MG TABLET PO SCH ×2 (08:24→16:11)
[2020-09-14] MEDS: levoFLOXacin 500 MG TAB PO SCH (08:24)
[2020-09-14] MEDS: AMIODARONE HCL 200 MG TAB PO SCH ×2 (08:24→21:43)
[2020-09-14] MEDS: ARFORMOTEROL TARTRATE 15 MCG/2 ML VIAL.NEB NEB SCH ×2 (08:56→20:30)
--- NOTE | 2020-09-14 11:39 | RAD REPORT ---
EXAM DESCRIPTION: RAD - Chest Single View - 09/14/2020 10:54 am CLINICAL HISTORY: volume overload COMPARISON: September 11 TECHNIQUE: AP portable chest image was obtained 09/14/2020 10:54 am . 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 Central vasculature and lung markings are prominent. Card iomegaly is present. Scattered patchy airspace opacities are seen in both lower lung richards. Trachea is midline. No measurable pleural effusion and no pneumothorax. No acute bony abnormality seen. No ac mendy aortic findings suspected. IMPRESSION: Mild to moderate CHF/volume overload pattern.
[2020-09-14] MEDS ORDERED: ALBUTEROL 2.5 MG/3 ML NEB SOL NEB PRN (13:38)
--- NOTE | 2020-09-14 14:24 | RAD REPORT ---
EXAM DESCRIPTION: RAD - Chest Single View - 09/14/2020 1:59 pm CLINICAL HISTORY: VOLUME OVERLOAD COMPARISON: Cubitus chest films September 13, CT chest September 13, two view chest September 11 TECHNIQUE: AP portable chest image was obtained 09/14/2020 1:59 pm . FINDINGS: Right-side pleural effusion with atelectasis and/ or infiltrate again noted. Pleural fluid component is similar or slightly enlarged. Lower lung volumes accentuate the lung parenchymal patter n. Overall differential from September 11 is minimal. Heart size is upper normal. Pulmonary vasculature within normal limits. No pneumothorax. No acute anneliese ny abnormality seen. No acute aortic findings suspected. IMPRESSION: Right pleural effusion similar or slightly increased comparing back to September 11 Right base atelectasis or less likely infiltrate not significantly different. Heart, vasculature and lung markings are all accentuated. This is mostly due to lower lung volumes. A mild component of failure or volume overload is possible.
[2020-09-14] MEDS: TOPIRAMATE 25 MG TAB PO SCH ×2 (14:44→21:43)
--- NOTE | 2020-09-14 15:36 | P.PN ---
Subjective Date of Service: 09/14/20 Chief Complaint: Pneumonia Subjective: No new changes (remains afebrile, slight labored respiratiosn - worse when laying flat. continues with tremors - reports h/o parkinsons and was recently switched to a different medication but unsure) Review of Systems 10-point ROS is otherwise unremarkable Physical Examination - Vital Signs Temperature: 99.3 F Blood Pressure: 129/62 Pulse: 69 Respirations: 20 Pulse Ox (%): 99 Assessment & Plan Physician Review Additional Text: Physical Exam General: Alert, mild distress HEENT: normal conjunctiva, sclera anicteric Pulm: b/l wheeze, labored respirations on 2L NC CV: trace edema, Regular rate/rhythm, Normal S1 S2 Abd: Soft and benign, Non-distended, No tenderness Ext: trace b/l edema to ankles, No tenderness Integumentary: No rashes, No erythema Neuro: b/l upper extremity tremor with movement Problem List Septic shock secondary to acute community acquired pneumonia MANNY on CKD3 R loculated effusion acute on chronic anemia acute on chronic COPD acute on chronic diastolic CHF exacerbation in setting of manny on ckd metabolic encephalopathy Chronic atrial fibrillation on anticoagulation DM2 GI bleed elevated troponin Septic shock resolved, de-escalated IV antibiotics 09/12 - for pneumonia. Blood/Urine cultures: no growth so far Patient seen by speech. MBS ok on 09/09 - recommended pureed diet - speech to re- eval greco catheter placed for accurate I/Os, dc'd on 09/10, voiding without issue hypernatremia, hyperchloremia, h/o cKD, changed IVF to D5 1/2NS on 09/10 and then discontinued, nephrology consulted S/p 1 unit PRBC transfusion. Hemoglobin stable. Continue to monitor H&H. Eliquis on hold due to anemia and positive occult stool. Hgb stable, continue pepcid, started Lovenox Insulin sliding scale for glucose management. Troponin mildly elevated but trended flat. No ACS. R loculated effusion - layering seen on lateral decubitus film, discussed with pulm and radiology- continue diuresis, if no improvement by Wednesday, may need thoracentesis continue lasix, slight increase in renal function Dispo: anticipate dc home Wed/ Time Spent Managing Pts Care (In Minutes): 35
[2020-09-14] MEDS: ENOXAPARIN 30 MG/0.3 ML SQ SCH (16:10)
--- NOTE | 2020-09-14 17:08 | PN ---
Date of Progress Note: 09/14/2020 Subjective: The patient was admitted with sepsis, acute kidney injury on chronic kidney disease, hyponatremia. Physical Examination: Vital Signs: Blood pressure 123/78, pulse of 60, afebrile. The patient had good urine output voiding of 1400. Chest: Faint rales bilateral. Heart: S1, S2. Systolic murmur. Abdomen: Soft, nontender. Extremities: No edema. Neurologic: Alert, pleasantly confused. No focality. Laboratory Data: WBC 8.4, H and H 10.1/30.7, sodium 140, potassium 4.8, bicarb 26, BUN 37, creatinine 1.7, GFR 38, calcium 8.5, phosphorus 3.9, magnesium 1.9. Current Medications: Include: 1. Levaquin. 2. Amiodarone. 3. Atorvastatin. 4. Gabapentin. 5. Lasix 40 b.i.d. 6. Prednisone. Assessment And Plan: 1. Acute kidney injury secondary to cardiorenal continue Lasix has been resumed yesterday. We will follow up repeated chest x-ray to decide about the Lasix. 2. Hypertension, controlled, optimal. Continue current treatment. Keep avoid any JOE inhibitor or ARB. 3. Hypernatremia, resolved. 4. Pneumonia with septic shock, on the recovery phase. Continue to monitor. Follow up with the primary. Time spent discussing with the patient, examining the patient, [id number] with the patient, placing orders, discussing the case with our presentation team member including nursing, discussing the case with the other subspecialty including Cardiology and hospitalist 35 minutes. SANDI Voice ID: [id number] Report ID: [id number] CODEY
[2020-09-14] MEDS: ATORVASTATIN 40 MG TAB PO SCH (21:43)
[2020-09-14] MEDS: GABAPENTIN 100 MG CAP PO SCH (21:43)
[2020-09-14] MEDS: FAMOTIDINE 20 MG TAB PO SCH (21:45)
[2020-09-15 07:22] LABS: Albumin 2.2 g/dL (3.4-5.0); C-Reactive Protein 35.5 mg/L (<3.00); Phosphorus 4.2 mg/dL (2.5-4.9); Potassium 4.6 mmol/L (3.5-5.1)
[2020-09-15] MEDS: ENOXAPARIN 30 MG/0.3 ML SQ SCH (08:10)
[2020-09-15] MEDS: INSULIN -REGULAR HUMAN 50 UNIT/0.5 ML ML SQ SCH ×2 (08:10→11:30)
[2020-09-15] MEDS: levoFLOXacin 500 MG TAB PO SCH (08:10)
[2020-09-15] MEDS: predniSONE 20 MG TAB PO SCH (08:10)
[2020-09-15] MEDS: FAMOTIDINE 20 MG TAB PO SCH (08:10)
[2020-09-15] MEDS: TOPIRAMATE 25 MG TAB PO SCH (08:10)
[2020-09-15] MEDS: AMIODARONE HCL 200 MG TAB PO SCH (08:10)
[2020-09-15] MEDS: FUROSEMIDE 40 MG TABLET PO SCH (08:10)
[2020-09-15] MEDS: ARFORMOTEROL TARTRATE 15 MCG/2 ML VIAL.NEB NEB SCH (09:10)
[2020-09-15 10:25] VITALS: O2SAT 99
[2020-09-15] MEDS ORDERED: MAGNESIUM SULFATE 1 gm IVPB 1 GM/100 ML BAG IV ONE (11:07)
--- NOTE | 2020-09-15 11:19 | P.PN ---
Subjective Date of Service: 09/15/20 Chief Complaint: Pneumonia Subjective: Improving (Patient is doing better room-air saturation is satisfactory) Physical Examination - Vital Signs Temperature: 98.1 F Blood Pressure: 135/62 Pulse: 60 Respirations: 18 Pulse Ox (%): 97 Assessment & Plan - Problems (Diagnosis) (1) Pneumonia Current Visit: Yes Status: Acute Plan: Patient has improved room-air saturation is satisfactory patient has chronic renal failure renal function has also improved chest x-ray shows pleural effusion he does not appear to be septic recommend discharge home Levaquin for 7-10 days thoracentesis poly not indicated at this time as patient is doing well he is refusing x-rays follow-up with me in 2 week low-dose prednisone 10 mg twice a day for a week chest x-rays reviewed Qualifiers: Pneumonia type: due to unspecified organism Laterality: right
--- NOTE | 2020-09-15 12:42 | P.DS ---
Admission Date: 09/07/20 Discharge Date: 09/15/20 Disposition: DC HOME/HOME HEALTH CARE Discharge Condition: FAIR Reason for Admission: Pneumonia Consultations: [facility] Leon [facility] Pulmonology - Dr. Quiñones Procedures: CXR (09/07): Mild to moderate pulmonary opacities are present, greater on the right. Findings appear similar in severity compared to prior study. Small right pleural effusion is noted. Cardiac size is upper limit of normal. Modified Barium Swallow (09/09): mild-moderate impairment across oral and esophageal phases. Recommended Pureed diet. CXR (09/11): Infiltrate pattern in right lower lobe posteriorly is again seen appearing similar to prior study. Mild pulmonary edema pattern is unchanged. Small right pleural effusion again seen. The heart is normal in size. CT Chest (09/13): A moderate right pleural effusion is seen with evidence of some loculation medially and superiorly along the thoracic cage. Opacity in the right lung base may represent atelectasis. No pneumothorax. CXR decubitus (09/13): A moderate partially layering right pleural effusion is present CXR (09/14): Right pleural effusion similar or slightly increased comparing back to September 11 Right base atelectasis or less likely infiltrate not significantly different. Heart, vasculature and lung markings are all accentuated. This is mostly due to lower lung volumes. A mild component of failure or volume overload is possible TTE (09/10): normal LVEF: 79%, mild TR, normal RV syst. pressure. mitral annular calcification. Aortic sclerosis with no stenosis. Problem List Septic shock secondary to acute community acquired pneumonia MANNY on CKD3 R partially loculated pleural effusion acute on chronic anemia acute on chronic COPD acute on chronic diastolic CHF exacerbation in setting of manny on ckd metabolic encephalopathy Dysphagia Hemoccult + Chronic atrial fibrillation on anticoagulation DM2 Tremor NSTEMI, demand ischemia Brief History of Present Illness: 80-year-old Amharic-speaking gentleman with a history hypertension, COPD, chronic atrial fibrillation, [id number] diabetes was brought to the emergency department because of episode of hypotension, fever and lethargy at home. Patient at baseline walks with a walker or uses a wheelchair. According to the daughter home health noted he was hypotensive, unresponsive and had a fever with a temperature up to 103. EMS was called and he was brought to the emergency department. Patient was given dopamine drip on the way to the ED. Per report his blood pressure and mental status improved prior to arrival to the ED. His systolic blood pressure in the low 100s on arrival. Blood work showed mild leukocytosis, hemoglobin of 7.8. Chest x-ray shows bilateral opacities worse on the left. Daughter denies any aspiration event. Patient given IV normal saline, IV Zosyn, IV Zithromax, IV central line placed. Patient admitted for further management. Hospital Course: Patient was empirically treated with vancomycin and cefepime for pneumonia. His septic shock resolved with these and IV fluids. He did not require vasopressors. His blood cultures remained negative. And he was de-escalated to PO Levaquin. Patient had continued improvement. He also continued to require oxygen supplementation. Imaging revealed a partially loculated right pleural effusion. Pulmonology was consulted. Patient was able to be weaned off oxygen with the use of diuretics. He was also noted to have wheezes on exam and has a significant smoking history. Likely undiagnosed COPD. He was treated with prednisone for acute COPD exacerbation. On day of discharge, patient was to have a repeat chest x-ray, however patient refused. Pulmonology recommended discharge home, as patient was breathing comfortably on room air. He is to follow up with pulmonology in 1 week. MANNY on CKD - improved with IVF hydration. Cr on admission was 4.2, and trended down to 1.7 on day of discharge. Acute on chronic anemia, Hemoccult-positive - patient's Eliquis was held during hospitalization, he received 1u PRBC early in his course. His hgb remained stable on VTE prophylaxis lovenox. He was advised to resume on discharge, f/u with PCP and with GI. Would benefit from EGD/C-scope in near future. NSTEMI - troponin was mildly elevated in setting of septic shock, due to demand ischemia. Dysphagia - pt was evaluated by speech therapy on 09/09 and noted to have moderate impairment. He was advised to continue Pureed diet. He will need to follow up with Speech therapy as outpatient. Vital Signs/Physical Exam: Physical Exam General: Alert, NAD HEENT: normal conjunctiva, sclera anicteric Pulm: Clear to auscultation bilaterally, diminished at R base, nonlabored on room air CV: no edema, Regular rate/rhythm, Normal S1 S2 Abd: Soft and benign, Non-distended, No tenderness Ext: no edema, No tenderness Integumentary: No rashes, No erythema Neuro: b/l upper extremity tremor with movement Temp Pulse Resp BP Pulse Ox 98.1 F 60 18 135/62 97 09/15/20 11:20 09/15/20 11:20 09/15/20 11:20 09/15/20 11:20 09/15/20 11:20 Laboratory Data at Discharge: WBC 8.40 K/uL (4.3-10.9) D 09/14/20 05:55 Hgb 10.1 g/dL (13.6-17.9) L 09/14/20 05:55 Hct 30.7 % (39.6-49.0) L 09/14/20 05:55 Plt Count 322 K/uL (152-406) 09/14/20 05:55 PT 21.1 SECONDS (9.5-12.5) H 09/07/20 21:03 INR 1.82 09/07/20 21:03 Sodium 140 mmol/L (136-145) 09/15/20 06:27 Potassium Cancelled 09/15/20 15:00 BUN 47 mg/dL (7-18) H 09/15/20 06:27 Creatinine 1.74 mg/dL (0.55-1.3) H 09/15/20 06:27 Glucose 211 mg/dL (74-106) H 09/15/20 06:27 Uric Acid 7.6 mg/dL (3.5-7.2) H 09/10/20 07:07 Phosphorus 4.2 mg/dL (2.5-4.9) 09/15/20 06:27 Magnesium 1.9 mg/dL (1.8-2.4) 09/14/20 05:55 Total Bilirubin 0.4 mg/dL (0.2-1.0) 09/14/20 05:55 AST 46 U/L (15-37) H 09/14/20 05:55 ALT 87 U/L (12-78) H 09/14/20 05:55 Alkaline Phosphatase 112 U/L (45-117) 09/14/20 05:55 Troponin I 0.06 ng/mL (0.0-0.045) H 09/08/20 00:50 Home Medications: Fluticasone/Salmeterol [Advair 250-50 Diskus] 1 each IH BID 09/24/17 Famotidine 40 mg PO BID 03/30/20 Atorvastatin Calcium [Lipitor] 40 mg PO BEDTIME #30 tab 04/03/20 Amiodarone HCl [Cordarone*] 200 mg PO BID 05/11/20 Apixaban [Eliquis *] 5 mg PO BID 07/05/20 Cetirizine HCl [Zyrtec] 10 mg PO DAILY PRN 07/05/20 Linagliptin [Tradjenta] 5 mg PO DAILY 07/05/20 Acetaminophen with Codeine [Acetaminophen-Cod #3 Tablet] 1 each PO TID* PRN 09/08/20 Benzonatate [Tessalon Perle*] 200 mg PO TID PRN 09/08/20 Furosemide [Lasix] 40 mg PO DAILY 09/08/20 Gabapentin [Neurontin*] 100 mg PO BEDTIME 09/08/20 Glimepiride 1 mg PO BIDWM 09/08/20 Topiramate [Topamax*] 25 mg PO BID 09/14/20 levoFLOXacin [Levaquin*] 500 mg PO DAILY 2 Days #2 tab 09/15/20 predniSONE [Deltasone*] 10 mg PO BID 7 Days #14 tab 09/15/20 New Medications: predniSONE [Deltasone*] 10 mg PO BID 7 Days #14 tab levoFLOXacin [Levaquin*] 500 mg PO DAILY 2 Days #2 tab Diet: ADA (Pureed) Activity: Fall precautions Followup: Zackery Quiñones MD [ACTIVE - CAN ADMIT] - Jacques Bob MD [ACTIVE - CAN ADMIT] - NONE,NONE [Primary Care Provider] - Time spent managing pt's care (in minutes): 35
[2020-09-15 12:55] VITALS: BP 136/65; TEMP 98.7
--- NOTE | 2020-09-15 13:39 | PN ---
Date of Progress Note: 09/15/2020 Subjective: The patient was admitted with acute kidney injury, urosepsis. Physical Examination: Vital Signs: When I saw the patient; blood pressure 135/62, pulse of 60, afebrile. Chest: Decreased entry right base. Heart: S1, S2. Systolic murmur. Abdomen: Soft, nontender. Extremities: No edema. Neuro: Alert. No focal. Laboratory Data: Sodium 140, potassium 4.6, bicarb 27, BUN 47, creatinine 1.7, calcium 8.6, phosphor us 4.2, albumin 2.2, corrected calcium 10.1. Current Medications: The patient on include Lovenox, amiodarone, atorvastatin, gabapentin, Lasix 40 b.i.d., Pepcid. Assessment And Plan: 1.Acute kidney injury secondary to toxic ATN, poor perfusion, ATN, recovered, back to baseline. We will continue current treatment. 2.Hypernatremia secondary to poor intake, resolved. 3.Congestive heart failure. Continue Lasix 40 daily. 4.Pleural effusion as by Pulmonary. 5.Septic shock secondary to pneumonia, recovered. Continue current treatment. We will follow up [facility] primary. The patient cleared from the renal standpoint for discharge planning to follow up in the office in 2-3 weeks. SANDI Voice ID: [id number] Report ID: [id number]
[2020-09-16] MEDS ORDERED: FUROSEMIDE 40 MG TABLET PO SCH (09:00)
== END 2020-09-15 14:00 | disposition home health service (06) | DRG 871 ==
LOC: ER 14:45 → ERHOLD 18:09 → 2ND 09-08 23:13
PROVIDERS: ADMIT Internal Medicine; ATTEND Hospitalist
PROC: 30233N1 Transfusion of Nonautologous Red Blood Cells into Peripheral Vein, Percutaneous Approach (ICD-10-PCS; principal; 2020-09-07)
PROC: 06HY33Z Insertion of Infusion Device into Lower Vein, Percutaneous Approach (ICD-10-PCS; 2020-09-08)
DX: A41.9 Sepsis, unspecified organism (principal); R65.21 Severe sepsis with septic shock; J18.9 Pneumonia, unspecified organism; G93.41 Metabolic encephalopathy; N17.0 Acute kidney failure with tubular necrosis; I50.33 Acute on chronic diastolic (congestive) heart failure; I21.A1 Myocardial infarction type 2; J44.0 Chronic obstructive pulmonary disease with (acute) lower respiratory infection; I48.20 Chronic atrial fibrillation, unspecified; K92.2 Gastrointestinal hemorrhage, unspecified; I13.0 Hypertensive heart and chronic kidney disease with heart failure and stage 1 through stage 4 chronic kidney disease, or unspecified chronic kidney disease; E87.0 Hyperosmolality and hypernatremia; E87.2 Acidosis; E87.3 Alkalosis; J44.1 Chronic obstructive pulmonary disease with (acute) exacerbation; N18.30 Chronic kidney disease, stage 3 unspecified; E11.22 Type 2 diabetes mellitus with diabetic chronic kidney disease; E11.40 Type 2 diabetes mellitus with diabetic neuropathy, unspecified; E87.5 Hyperkalemia; I25.10 Atherosclerotic heart disease of native coronary artery without angina pectoris; D64.9 Anemia, unspecified; E87.8 Other disorders of electrolyte and fluid balance, not elsewhere classified; K21.9 Gastro-esophageal reflux disease without esophagitis; E78.5 Hyperlipidemia, unspecified; R13.10 Dysphagia, unspecified; R25.1 Tremor, unspecified; R77.8 Other specified abnormalities of plasma proteins; Z79.52 Long term (current) use of systemic steroids; Z79.01 Long term (current) use of anticoagulants; Z79.899 Other long term (current) drug therapy; Z96.643 Presence of artificial hip joint, bilateral; Z20.822 Contact with and (suspected) exposure to COVID-19
CPT/HCPCS: 0240U; 36415; 51702; 71045; 71046; 71250; 74230; 80048; 80053; 80069; 80076; 80202; 81003; 81015; 82272; 82550; 82570; 82805; 82947; 83605; 83735; 83880; 83935; 84100; 84132; 84145; 84156; 84300; 84484; 84550; 85025; 85027; 85610; 86140; 86850; 86900; 86901; 87040; 87086; 87088; 92610; 92611; 93005; 93306; 94640; 94760; 97110; 97112; 97116; 97162; 97530; 97542; 99285; C9113; J0456; J0692; J1650; J1720; J1940; J2543; J3370; J7030; J7040; J7050; J7512; J7605; J7799; P9016

== ENCOUNTER 2021-12-01 22:27 | Emergency (ER) | payer OTHER ==
[2021-12-02 00:14] LABS: Urine Blood Negative (Negative); Urine Glucose 2+ (Negative); Urine Protein Negative (Negative)
[2021-12-02 00:28] LABS: Absolute Lymphocytes (CBC) 0.9 K/uL (0.7-4.9); Lymphocytes % 9.4 % (15.3-44.8); MCV 87.8 fL (80-100); MPV 7.5 fL (7.6-11.3); RBC Red Blood Cell Count 4.22 M/uL (4.33-5.43)
[2021-12-02 00:35] LABS: BUN Blood Urea Nitrogen 41 mg/dL (7-18); Bicarbonate 27 mmol/L (21-32); Glomerular Filtration Rate 40 ml/min (=/>90); Glucose Level 366 mg/dL (74-106); Potassium 4.4 mmol/L (3.5-5.1); Sodium Level 134 mmol/L (136-145)
[2021-12-02] MEDS ORDERED: INSULIN -REGULAR HUMAN 50 UNIT/0.5 ML ML ONE (01:12)
[2021-12-02] MEDS ORDERED: NA CHLORIDE 0.9% 1,000 ML ONE (01:12)
--- NOTE | 2021-12-02 01:57 | EDPHYS ---
Physician Documentation [facility] Name: Redd Tapia Age: 81 yrs Sex: Male : 1940 Arrival Date: 12/01/2021 Time: 22:29 Bed 27 Private MD: ED Physician Vinny Felder HPI: 12/02 01:07 This 81 yrs old Male presents to ER via Wheelchair with complaints of High kb Blood Sugar. 01:07 The patient or guardian reports generalized fatigue, hyperglycemia, that was kb potentially precipitated by no particular event. Onset: The symptoms/episode began/occurred yesterday. Associated signs and symptoms: Pertinent positives: None. Current symptoms: In the emergency department the patient's symptoms are unchanged from the initial presentation. The patient has not experienced similar symptoms in the past. The patient has not recently seen a physician. Daughter states pt started complaining of fatigue yesterday and today his BGL has been in the 400s. Historical: - Allergies: 12/01 22:40 No Known Allergies; hb - PMHx: 22:40 Asthma; Breathing Problems; Hypertension; heart problems; Diabetes - NIDDM; hb Hyperlipidemia; kidney problems; tremors; - Immunization history:: Adult Immunizations up to date. - Social history:: Smoking status: Patient denies any tobacco usage or history of. ROS: 12/02 01:07 Abdomen/GI: Negative for abdominal pain, nausea, vomiting, diarrhea, and constipation. kb Constitutional: Positive for fatigue. All other systems are negative. Exam: 01:07 Constitutional: This is a well developed, well nourished patient who is awake, alert, kb and in no acute distress. Head/Face: Normocephalic, atraumatic. ENT: Moist Mucous membranes Cardiovascular: Regular rate and rhythm with a normal S1 and S2. No gallops, murmurs, or rubs. No pulse deficits. Respiratory: Respirations even and unlabored. No increased work of breathing. Talking in full sentences Abdomen/GI: Soft, non-tender. No distention Skin: Warm, dry with normal turgor. Normal color. MS/ Extremity: Pulses equal, no cyanosis. Neurovascular intact. Full, normal range of motion. Neuro: Awake and alert, GCS 15, oriented to person, place, time, and situation. Moves all extremities. Normal gait. Vital Signs: 12/01 22:39 BP 168 / 53; Pulse 59; Resp 16; Temp 97.8(TE); Pulse Ox 100% on R/A; hb 12/02 02:00 BP 126 / 49; Pulse 52; Resp 16; Pulse Ox 100% ; vc1 MDM: 12/01 22:41 Patient medically screened. kb 12/02 01:07 Data reviewed: vital signs, nurses notes. Data interpreted: Pulse oximetry: on room air kb is 100 %. Interpretation: normal. Counseling: I had a detailed discussion with the patient and/or guardian regarding: the historical points, exam findings, and any diagnostic results supporting the discharge/admit diagnosis, lab results, the need for outpatient follow up, a family practitioner, to return to the emergency department if symptoms worsen or persist or if there are any questions or concerns that arise at home. 12/01 22:41 Order name: CBC with Diff; Complete Time: 00:33 kb 12/01 22:41 Order name: Basic Metabolic Panel; Complete Time: 00:44 kb 12/01 22:41 Order name: Acetone, Serum; Complete Time: 00:44 kb 12/01 22:51 Order name: Glucose, Ancillary Testing; Complete Time: 22:53 EDMS 12/02 00:14 Order name: Urine Dipstick-Ancillary; Complete Time: 00:17 EDMS 12/02 02:03 Order name: Glucose, Ancillary Testing EDMS 12/01 22:41 Order name: Urine Dipstick-Ancillary (obtain specimen); Complete Time: 00:14 kb 12/01 22:41 Order name: IV Start; Complete Time: 00:14 kb Administered Medications: 01:08 Drug: NS 0.9% 1000 ml Route: IV; Rate: 1000 ml; Site: right forearm; vc1 02:12 Follow up: IV Status: Completed infusion; IV Intake: 1000ml vc1 01:09 Drug: Insulin Regular Human 5 units {Co-Signature: lg3 (Eileen Dumont RN).} Route: IVP; vc1 Site: right forearm; 02:12 Follow up: Response: No adverse reaction; Marked relief of symptoms; Blood sugar is vc1 lowered Disposition: 04:25 Co-signature as Attending Physician, Vinny Felder MD. rn Disposition Summary: 12/02/21 01:57 Discharge Ordered Location: Home kb Condition: Stable kb Diagnosis - Hyperglycemia, unspecified kb Followup: kb - With: Emergency Department - When: As needed - Reason: Worsening of condition Followup: kb - With: Private Physician - When: 2 - 3 days - Reason: Recheck today's complaints, Continuance of care, Re-evaluation by your physician Discharge Instructions: - Discharge Summary Sheet kb - Hyperglycemia, [id number] kb - Type 2 Diabetes Mellitus, Diagnosis, Adult, [id number] kb Forms: - Medication Reconciliation Form kb - Thank You Letter kb - Antibiotic Education kb - Prescription Opioid Use kb Signatures: Dispatcher [employer] EDMS Tammy Mccullough, [facility]EARCH C[facility] DIRECTOR-C RESEARCH CENTER DIRECTOR-Ckb Vinny Felder MD MD rn Attema, Lee RESEARCH CENTER DIRECTOR-C RESEARCH CENTER DIRECTOR-Heather1 Zoraida Schmidt, JAS RN Nadya Harry RN RN vc1 Eileen Dumont RN lg3
--- NOTE | 2021-12-02 01:57 | ER ---
Nurse's Notes [facility] Name: Redd Tapia Age: 81 yrs Sex: Male : 1940 Arrival Date: 12/01/2021 Time: 22:29 Bed 27 Private MD: Diagnosis: Hyperglycemia, unspecified Presentation: 12/01 22:39 Chief complaint: Patient's son or daughter states: Home BGL 400s, reports feeling tired hb since yesterday. Coronavirus screen: At this time, the client does not indicate any symptoms associated with coronavirus-19. Ebola Screen: No symptoms or risks identified at this time. Risk Assessment: Do you want to hurt yourself or someone else? Patient reports no desire to harm self or others. Onset of symptoms was December 01, 2021. 22:39 Method Of Arrival: Wheelchair hb 22:39 Acuity: KIRAN 3 hb 12/02 01:10 Initial Sepsis Screen: Does the patient meet any 2 criteria? No. Patient's initial vc1 sepsis screen is negative. Does the patient have a suspected source of infection? No. Patient's initial sepsis screen is negative. Triage Assessment: 01:10 General: Appears in no apparent distress. Behavior is calm, cooperative, appropriate vc1 for age. Pain: Denies pain. Historical: - Allergies: 12/01 22:40 No Known Allergies; hb - PMHx: 22:40 Asthma; Breathing Problems; Hypertension; heart problems; Diabetes - NIDDM; hb Hyperlipidemia; kidney problems; tremors; - Immunization history:: Adult Immunizations up to date. - Social history:: Smoking status: Patient denies any tobacco usage or history of. Screenin/19 01:09 Abuse screen: Denies threats or abuse. Nutritional screening: No deficits noted. vc1 Tuberculosis screening: No symptoms or risk factors identified. Fall Risk None identified. Assessment: 01:00 Reassessment: Patient and/or family updated on plan of care and expected duration. Pain vc1 level reassessed. Patient is alert, oriented x 3, equal unlabored respirations, skin warm/dry/pink. Patient states symptoms have improved. 02:00 Reassessment: No changes from previously documented assessment. Patient and/or family vc1 updated on plan of care and expected duration. Pain level reassessed. Patient is alert, oriented x 3, equal unlabored respirations, skin warm/dry/pink. Vital Signs: 12/01 22:39 BP 168 / 53; Pulse 59; Resp 16; Temp 97.8(TE); Pulse Ox 100% on R/A; hb 12/02 02:00 BP 126 / 49; Pulse 52; Resp 16; Pulse Ox 100% ; vc1 ED Course: 12/01 22:29 Patient arrived in ED. bp1 22:33 Tammy Mccullough FNP-C is [facility] kb 22:33 Vinny Felder MD is Attending Physician. kb 22:40 Triage completed. hb 22:40 Arm band placed on. hb 23:50 No provider procedures requiring assistance completed. Inserted saline lock: 20 gauge vc1 in right forearm, using aseptic technique. Blood collected. 12/02 01:10 Patient has correct armband on for positive identification. vc1 01:48 Nadya Haro, JAS is Primary Nurse. vc1 02:12 IV discontinued, intact, bleeding controlled, No redness/swelling at site. Pressure vc1 dressing applied. Administered Medications: 01:08 Drug: NS 0.9% 1000 ml Route: IV; Rate: 1000 ml; Site: right forearm; vc1 02:12 Follow up: IV Status: Completed infusion; IV Intake: 1000ml vc1 01:09 Drug: Insulin Regular Human 5 units {Co-Signature: lg3 (Eileen Dumont RN).} Route: IVP; vc1 Site: right forearm; 02:12 Follow up: Response: No adverse reaction; Marked relief of symptoms; Blood sugar is vc1 lowered Medication: 01:59 VIS not applicable for this client. vc1 Intake: 02:12 IV: 1000ml; Total: 1000ml. vc1 Outcome: 01:10 Condition: good vc1 01:57 Discharge ordered by . kb 02:01 Discharge instructions given to patient, front desk administrator. vc1 02:13 Discharged to home via wheelchair, with family. vc1 02:13 Patient left the ED. vc1 Signatures: Tammy Mccullough FNP-C FNP-Ckb Baxter, Heather RN RN PranaymookieAnna bp1 Nadya Haro, JAS MARK vc1 Eileen Dumont RN lg3
[2021-12-02 02:19] VITALS: TEMP 97.8; O2SAT 100
[2021-12-02 02:21] VITALS: BP 126/49
--- OUTSIDE RECORDS SUMMARY | 2021-12-04 13:39 | XMS REPORT | Continuity of Care Document ---
:1940 Author Organization [facility] t Address [address] [place] [address] Care Team Providers Name Role Phone ADAMARIS DONOVAN Primary Care Physician Unavailable James Donovan Attending Clinician Unavailable Last MCKINNEY Attending Clinician Unavailable Stefan LEÓN, S Attending Clinician Kel MULLER III Attending Clinician Unavailable Isaac NADREWS Attending Clinician Kel Muller MD Attending Clinician Dread Snider MD Attending Clinician Payers Payer Name Policy Type Policy Number Effective Date Expiration Date Last NEAL/[facility] DUAL [id number] 2020 00:00:00 COMP HMO D SNP [facility] [place] STAR [id number] 2020 00:00:00 PLUS Problems Condition Condition Condition Status Onset Resolution Last Treating Co mments Source Name Details Category Date Date Treatment Clinician Date CHF CHF Disease Active 2020-05 Univers (congestiv (congestiv 1-12 it y of e heart e heart 00:00: [place] failure), failure), 00 Medi paulina NYHA class NYHA class Br anch I, acute I, acute on on chronic, chronic, 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 U nivers e vomiting e vomiting 1-11 it y of with with 00:00: [place] nausea nausea 00 [facility] Branch Troponin I Troponin I Disease Active U nivers above above 2-27 [place] of reference [place] 00:[place] range range 00 [place] 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 00:00: [place] and and 00 Medical diastolic diastolic Bran ch congestive congestive heart heart failure failure Longstandi Longstandi Disease Active U nivers ng ng 2-27 [place]y [place] persistent [place] atrial atrial 00 Medical fibrillati fibrillati Br anch on on Type 2 Type 2 Disease Active Univers diabetes diabetes 2-27 ity of mellitus mellitus 00:00: [place] without without 00 Medical complicati complicati Br anch on, on, without without long-term long-term current current use of use of insulin insulin MANNY (acute MANNY (acute Disease Active U nivers kidney kidney 2-27 ity of injury) injury) 00:00: [place] 00 Medical Branch Pneumonia Pneumonia Disease Active Uni vers due to due to 2-26 ity of COVID-19 COVID-19 00:00: [place] virus virus 00 [facility] Branch Allergies, Adverse Reactions, Alerts Allergy Allergy Status Severity Reaction(s) Onset Inactive Treating Comm ents Source Name Type Date Date Clinician NO KNOWN Drug Active Univers ALLERGIE Class ity of S [facility] Social History Social Habit Start Date Stop Date Quantity Comments Source History of tobacco Cigarette Smoker University of use [facility] Exposure to Not sure University of SARS-CoV-2 (event) [facility] Alcohol intake 2021-07-03 2021-07-03 Ex-drinker University 00:00:00 00:00:00 (finding) [facility] Tobacco Comment 2020-12-03 2020-12-03 quit 20 years Univer sity of 00:00:00 00:00:00 ago [facility] Cigarettes smoked 2020-10-28 2020-10-28 Univers ity of current (pack per 00:00:00 00:00:00 ) - Reported Branch Cigarette 2020-10-28 2020-10-28 University of pack-years 00:00:00 00:00:00 [facility] Tobacco use and 2020-10-28 2020-10-28 Never used Universit y of exposure 00:00:00 00:00:00 [facility] Sex Ass[birth year] At [birth year] Universit y of 00:00:00 00:00:00 [facility] Smoking Status Start Date Stop Date Source Former smoker 2020-10-28 00:00:00 2020-10-28 00:00:00 Universi ty [facility] Medications Ordered Filled Start Stop Current Ordering Indication Dosage Frequency Signature Comments Components Source Medication Medication Date Date Medication? Clinician (SIG) Name Name fluticasone Yes INHALAR Uni vers propion-vish 2-09 RANDEE ity of meteroL 13:05: [place] (ADVAIR 39 POR VIA Medical DISKUS) ORAL DOS Branch 250-50 VECES POR mcg/dose APURVA inhalation disk furosemide Yes 20mg Take 20 mg U nivers 20 mg 2-09 by mouth ity of tablet 13:05: daily. [address] fluticasone Yes INHALAR Uni vers propion-vish 2-09 RANDEE ity of meteroL 13:05: [place] (ADVAIR 39 POR VIA Medical DISKUS) ORAL DOS Branch 250-50 VECES POR mcg/dose APURVA inhalation disk furosemide Yes 20mg Take 20 mg U nivers 20 mg 2-09 by mouth ity of tablet 13:05: daily. [address] fluticasone Yes INHALAR Uni vers propion-vish 2-09 RANDEE ity of meteroL 13:05: [place] (ADVAIR 39 POR VIA Medical DISKUS) ORAL DOS Branch 250-50 VECES POR mcg/dose APURVA inhalation disk furosemide Yes 20mg Take 20 mg U nivers 20 mg 2-09 by mouth ity of tablet 13:05: daily. [address] rOPINIRole 2022-0 Yes .25mg Take 1 Univ ers 0.25 mg 2-08 tablet by ity of tablet 00:00: mouth 3 [place] 00 (three) Medical times Branch daily. rOPINIRole 2-0 Yes .25mg Take 1 Univ ers 0.25 mg 2-08 tablet by ity of tablet 00:00: mouth 3 [place] 00 (three) Medical times Branch daily. rOPINIRole 2-0 Yes .25mg Take 1 Univ ers 0.25 mg 2-08 tablet by ity of tablet 00:00: mouth 3 [place] 00 (three) Medical times Branch daily. triamcinolo 2020-05 Yes Univer s ne 2-02 ity of acetonide 00:00: [place] 0.1 % 00 Medical ointment Branch triamcinolo 2020-05 Yes Univer s ne 2-02 ity of acetonide 00:00: [place] 0.1 % 00 Medical ointment Branch triamcinolo 2020-05 Yes Univer s ne 2-02 ity of acetonide 00:00: [place] 0.1 % 00 Medical ointment Branch ferrous 2020-05 Yes 324mg Take 324 Unive rs gluconate 1-14 mg by ity of 324 mg 13:55: mouth 2 [place] (37.5 mg 37 (two) Medical iron) times Branch tablet daily. atorvastati 2020-05 Yes 40mg Take 40 mg Univers n 40 mg 1-14 by mouth ity of tablet 13:55: at [place] [address] bedtime. Medical Branch ferrous 2020-05 Yes 324mg Take 324 Unive rs gluconate 1-14 mg by ity of 324 mg 13:55: mouth 2 [place] (37.5 mg 37 (two) Medical iron) times Branch tablet daily. atorvastati 2020-05 Yes 40mg Take 40 mg Univers n 40 mg 1-14 by mouth ity of tablet 13:55: at [place] [address] bedtime. Medical Branch ferrous 2020-05 Yes 324mg Take 324 Unive rs gluconate 1-14 mg by ity of 324 mg 13:55: mouth 2 [place] (37.5 mg 37 (two) Medical iron) times Branch tablet daily. atorvastati 2020-05 Yes 40mg Take 40 mg Univers n 40 mg 1-14 by mouth ity of tablet 13:55: at [place] [address] bedtime. Medical Branch topiramate 0 Yes [id number] 50mg Take 2 Univers 25 mg 6-14 tablets by ity of tablet 00:00: mouth 2 [place] 00 (two) Medical times Branch daily. topiramate 0 Yes [id number] 50mg Take 2 Univers 25 mg 6-14 tablets by ity of tablet 00:00: mouth 2 [place] 00 (two) Medical times Branch daily. topiramate 0 Yes [id number] 50mg Take 2 Univers 25 mg 6-14 tablets by ity of tablet 00:00: mouth 2 [place] 00 (two) Medical times Branch daily. ergocalcife 0 Yes [id number] 90151G Take 1 Univers rol, 3- [id number] capsule by ity of vitamin d2, 00:00: mouth [place] 1,250 mcg 00 weekly. Medical (50,000 Branch unit) capsule ergocalcife 0 Yes [id number] 00209W Take 1 Univers rol, 3- [id number] capsule by ity of vitamin d2, 00:00: mouth [place] 1,250 mcg 00 weekly. Medical (50,000 Branch unit) capsule ergocalcife 0 Yes [id number] Take 1 Univers rol, 3- [id number] capsule by ity of vitamin d2, 00:00: mouth [place] 1,250 mcg 00 weekly. Medical (50,000 Branch unit) capsule ascorbic Yes [id number] 500mg Take 1 Univers acid, 3- [id number] tablet by ity of vitamin C, 00:00: mouth [place] 500 mg 00 daily. Medical tablet Branch zinc 0 Yes [id number] 220mg Take 1 Uni vers sulfate 220 - [id number] capsule by ity of (50) mg 00:00: mouth [place] capsule 00 daily. Medical Branch linaGLIPtin 0 Yes [id number] 5mg Take 1 Univers (TRADJENTA) 3- [id number] tablet by ity of 5 mg tablet 00:00: mouth [place] 00 daily. Medical Branch amiodarone 0 Yes [id number] 200mg Take 1 Univers 200 mg 3- [id number] tablet by ity o f tablet 00:00: mouth 2 [place] 00 (two) Medical times Branch daily. apixaban 2021-0 Yes [id number] 5mg Take 1 Univers (ELIQUIS) 5 3-04 tablet by ity of mg tablet 00:00: mouth 2 00 (two) Medical times Branch daily. Indication s: atrial fibrillati on famotidine 2020-0 Yes [id number] 20mg Take 1 Univers 20 mg 3-04 [id number] tablet by ity of tablet 00:00: mouth 2 [place] 00 (two) Medical times Branch daily. gabapentin 2020-0 Yes [id number] 100mg Take 1 Univers 100 mg 3-04 [id number] capsule by ity of capsule 00:00: mouth at [place] 00 bedtime. Medical Branch ascorbic 2020-0 Yes [id number] 500mg Take 1 Univers acid, 3-04 [id number] tablet by ity of vitamin C, 00:00: mouth [place] 500 mg 00 daily. Medical tablet Branch zinc 0 Yes [id number] 220mg Take 1 Uni vers sulfate 220 3-04 [id number] capsule by ity of (50) mg 00:00: mouth [place] capsule 00 daily. Medical Branch linaGLIPtin 0 Yes [id number] 5mg Take 1 Univers (TRADJENTA) 3-04 [id number] tablet by ity of 5 mg tablet 00:00: mouth [place] 00 daily. Medical Branch amiodarone 0 Yes [id number] 200mg Take 1 Univers 200 mg 3-04 [id number] tablet by ity o f tablet 00:00: mouth 2 00 (two) Medical times Branch daily. apixaban 2020-0 Yes [id number] 5mg Take 1 Univers (ELIQUIS) 5 3-04 tablet by ity of mg tablet 00:00: mouth 2 [place] 00 (two) Medical times Branch daily. Indication s: atrial fibrillati on famotidine 2020-0 Yes [id number] 20mg Take 1 Univers 20 mg 3-04 [id number] tablet by ity of tablet 00:00: mouth 2 [place] 00 (two) Medical times Branch daily. gabapentin 2020-0 Yes [id number] 100mg Take 1 Univers 100 mg 3-04 [id number] capsule by ity of capsule 00:00: mouth at [place] 00 bedtime. Medical Branch ascorbic 2020-0 Yes [id number] 500mg Take 1 Univers acid, 3-04 [id number] tablet by ity of vitamin C, 00:00: mouth [place] 500 mg 00 daily. Medical tablet Branch zinc Yes [id number] 220mg Take 1 Uni vers sulfate 220 [id number] capsule by ity of (50) mg 00:00: mouth [place] capsule 00 daily. Medical Branch linaGLIPtin Yes [id number] 5mg Take 1 Univers (TRADJENTA) 07-18 [id number] tablet by ity of 5 mg tablet 00:00: mouth [place] 00 daily. Medical Branch amiodarone Yes [id number] 200mg Take 1 Univers 200 mg [id number] tablet by ity o f tablet 00:00: mouth 2 [place] 00 (two) Medical times Branch daily. apixaban Yes 1358 5mg Take 1 Univers (ELIQUIS) 5 07-18 tablet by ity of mg tablet 00:00: mouth 2 [place] 00 (two) Medical times Branch daily. Indication s: atrial fibrillati on famotidine Yes [id number] 20mg Take 1 Univers 20 mg [id number] tablet by ity of tablet 00:00: mouth 2 [place] 00 (two) Medical times Branch daily. gabapentin Yes [id number] 100mg Take 1 Univers 100 mg [id number] capsule by ity of capsule 00:00: mouth at [place] 00 bedtime. Medical Branch Gabapentin Gabapentin Yes Na Donovan 1 capsule Common 30 Spirit 00:00: - [facility] Famotidine Famotidine Yes Na Donovan 1 tablet Common 7-07 as needed Spirit 00:00: - [facility] 00 [facility] Zantac 150 Zantac 150 Yes Na Donovan 1 tablet Common Maximum Maximum at bedtime Spi rit Strength Strength - [facility] Metformin Metformin Yes Na Donovan TOME RANDEE Common HCl HCl TABLETA Spirit POR VIA - [facility] ORAL DOS St VECES POR [facility] Magnesium Magnesium Yes Na Donovan 1 tablet Common Oxide Oxide as needed Spirit - [facility] Hemocyte Hemocyte Yes Na Donovan TOME RANDEE Common Plus Plus CAPSULA Spirit RANDEE VEZ AL - CHI APURVA POR St VIA ORAL [facility] Zyrtec Zyrtec Yes Na Donovan 1 tablet Comm on Allergy Allergy [facility] Metformin Metformin Yes Na Donovan 1 tablet Common HCl HCl with meals [facility] Advair Advair Yes Na Donovan INHALAR Commo n Diskus Diskus RANDEE Spirit APLICACION - CHI POR VIA St ORAL DOS kes VECES POR Medical APURVA Center Melatonin Melatonin Yes Na Donovan as Co mmon directed [facility] Zestoretic Zestoretic Yes Na Donovan TOME RANDEE Common TABLETA Spirit RANDEE VEZ AL - CHI APURVA POR [facility] Zocor Zocor Yes Na Donovan TOME RANDEE Common TABLETA Spirit RANDEE VEZ AL - CHI APURVA POR St VIA [facility] Flonase Flonase Yes Na Donovan 2 spray in Common each Spirit nostril [facility] ProAir HFA ProAir HFA Yes Na Donovan INHALAR Common DOS [facility] APLICACION - CHI ES POR [facility] CUATRO Medical VECES POR Center APURVA Aspir-81 Aspir-81 Yes Na Donovan 1 tablet Common [facility] Benzonatate Benzonatate Yes Na Donovan 1 capsule Common as needed [facility] Sotalol HCl Sotalol HCl Yes Na Donovan 1/2 tablet Common [facility] Azithromyci Azithromyci Yes Na Donovan 2 tablets Common n n on the Spirit first day, - [facility] then [address] tablet [facility] daily for Medical 4 days Center Doxycycline Doxycycline Yes Na Donovan 1 capsule Common Hyclate Hyclate [facility] Immunizations Ordered Filled Immunization Date Status Comments [facility] e Immunization Name Name Influenza High Dose 2020-02-16 Completed Unive rsity of Quad 00:00:00 [facility] Influenza High Dose 2020-02-16 Completed Unive rsity of Quad 00:00:00 [facility] Influenza High Dose 2020-02-16 Completed Unive rsity of Quad 00:00:00 [facility] FluAD FluAD 2019-04-05 Completed Common Spirit - 00:00:00 [facility] FluAD FluAD 2018-02-09 Completed Common Spirit - 00:00:00 [facility] Vital Signs Vital Name Observation Time Observation Value Comments Source Systolic blood 2021-07-04 15:12:00 155 mm[Hg] Univer sity of pressure [place] [facility] Diastolic blood 2021-07-04 15:12:00 62 mm[Hg] Unive rsity of pressure [place] [facility] [place] Heart rate 2021-07-04 15:01:00 68 /min Universi ty [facility] [place] [facility] [place] Body weight 2021-07-04 15:01:00 63.504 kg Universi ty [facility] [place] [facility] [place] BMI 2021-07-04 15:01:00 26.45 kg/m2 Universi ty of [facility] Oxygen saturation in 2021-07-04 15:01:00 99 /min University of Arterial blood by [facility] Pulse oximetry Branch Systolic blood 2021-07-03 22:21:00 153 mm[Hg] Univer sity of pressure [facility] Diastolic blood 2021-07-03 22:21:00 63 mm[Hg] Unive rsity of pressure [facility] Heart rate 2021-07-03 22:17:00 64 /min [facility]i ty [facility] [place] [facility] [place] Body temperature 2021-07-03 22:17:00 36.67 Gina Univ ersity of [place] [facility] [place] Respiratory rate 2021-07-03 22:17:00 18 /min Univ ersity of [facility] Body height 2021-07-03 22:17:00 154.9 cm Universi ty [facility] [place] [facility] [place] Body weight 2021-07-03 22:17:00 64.411 kg [facility]i ty [facility] [place] [facility] [place] BMI 2021-07-03 22:17:00 26.83 kg/m2 Universi ty of [facility] Oxygen saturation in 2021-07-03 22:17:00 98 /min University of Arterial blood by [facility] Pulse oximetry Branch Procedures This patient has no known procedures. Encounters Start End Encounter Admission Attending Care Care Encounter Source Date/Time Date/Time Type Type Clinicians Facility Department ID 2021-10-24 Outpatient Adamaris Donovan STLC STLC [id number] 2 Common 13:52:00 [facility] 2021-10-23 Outpatient Adamaris Donovan STTAMERALC STLMLC [id number] Common 11:28:00 [facility] 2021-06-13 Outpatient Adamaris Donovan STLC STLMLC [id number] 2 Common 13:10:00 [facility] 2021-06-11 Outpatient Donovan, Na STLMLC STLMLC [id number] 2 Common 13:35:23 [id number] [facility] 2021-06-11 Outpatient Donovan, Na STLMLC STLMLC [id number] 2 Common 13:29:28 [id number] [facility] 2021-06-11 Outpatient Donovan, Na STLMLC STLMLC [id number] 2 Common 13:28:08 [id number] [facility] 2021-06-11 Outpatient Donovan, Na STLMLC STLMLC [id number] 2 Common 13:18:22 [id number] [facility] 2021-06-11 Outpatient Donovan, Na STLMLC STLMLC [id number] 2 Common 13:16:33 [id number] [facility] 2021-06-11 Outpatient Donovan, Na STLMLC STLMLC [id number] 2 Common 13:13:11 [id number] [facility] 2021-06-11 Outpatient Donovan, Na STLMLC STLMLC [id number] 2 Common 12:45:55 [id number] [facility] 2021-06-11 Outpatient Donovan, Na STLMLC STLMLC [id number] 2 Common 12:43:09 [id number] [facility] 2021-06-11 Outpatient Donovan, Na STLMLC STLMLC [id number] 2 Common 12:26:30 [id number] [facility] 2021-06-11 Outpatient Donovan, Na STLMLC STLMLC [id number] Common 12:25:57 [id number] [facility] 2021-06-11 Outpatient Donovan, Na STLMLC STLMLC [id number] 2 Common 12:25:14 [id number] [facility] 2021-06-11 Outpatient Donovan, Na STLMLC STLMLC [id number] 2 Common 12:23:42 [id number] [facility] 2021-06-11 Outpatient Donovan, Na STLMLC STLMLC [id number] 2 Common 12:10:42 [id number] [facility] 2021-06-11 Outpatient Donovan, Na STLMLC STLMLC [id number] 2 Common 12:09:46 [id number] [facility] 2021-06-11 Outpatient Donovan, Na STLMLC STLMLC [id number] 2 Common 12:08:44 [id number] [facility] 2021-06-11 Outpatient Donovan, Na STLMLC STLMLC [id number] 2 Common 12:08:09 [id number] [facility] 2021-06-11 Outpatient Donovan, Na STLMLC STLMLC [id number] 2 Common 12:07:31 [id number] [facility] 2021-06-11 Outpatient Donovan, Na STLMLC STLMLC [id number] 2 Common 12:07:20 [id number] [facility] 2021-06-11 Outpatient Donovan, Na STLMLC STLMLC [id number] 2 Common 12:00:59 [id number] [facility] 2021-06-11 Outpatient Donovan, Na STLMLC STLMLC [id number] 2 Common 11:59:45 [id number] [facility] 2021-06-11 Outpatient Donovan, Na STLMLC STLMLC [id number] 2 Common 10:59:13 [id number] [facility] 2021-12-03 2021-12-03 ambulatory STLMLC STLMLC [id number] Common 00:00:00 00:00:00 [facility] 2021-10-27 2021-10-27 ambulatory STLMLC STLMLC [id number] Common 00:00:00 00:00:00 [facility] 2021-09-22 2021-09-22 ambulatory STLMLC STLMLC [id number] Common 00:00:00 00:00:00 [facility] 2021-09-19 2021-09-19 ambulatory STLMLC STLMLC [id number] Common 00:00:00 00:00:00 [facility] 2021-09-15 2021-09-15 ambulatory STLMLC STLMLC [id number] Common 00:00:00 00:00:00 [facility] 2021-07-25 2021-07-25 Outpatient Fredi MCKINNEY [facility] [id number] Univers 11:15:00 11:15:00 GERDA [id number] [facility] 2021-07-25 2021-07-25 [id number] Univers 11:15:00 11:15:00 [facility] 2021-07-04 2021-07-04 [facility] [id number] Univers 09:00:00 09:40:25 [facility] 2021-07-04 2021-07-04 [facility] [id number] Univers 09:00:00 09:30:00 Visit [facility] [id number] it y of [place] [id number] Miguel as ERVIN?BLEA [id number] Nh justin [facility] [address] MEDICAL OFFICE BUILDING 2021-07-03 2021-07-03 Outpatient Fredi MULLER ERROL [facility] [id number] Univers 16:00:00 17:05:35 [place] [facility] 2021-07-03 2021-07-03 Urgent Poppy Gray [facility] [id number] Univers 16:00:00 17:05:35 Al Garcia [facility] [id number] ity of [place] [id number] Miguel as ERVIN?BLEA [id number] [facility] [address] MEDICAL OFFICE BUILDING 2021-06-22 2021-06-22 ambulatory STLMLC STLMLC [id number] Common 00:00:00 00:00:00 [facility] 2021-06-13 2021-06-13 ambulatory STLMLC STLMLC [id number] Common 00:00:00 00:00:00 [facility] 2021-06-07 2021-06-07 ambulatory STLMLC STLMLC [id number] Common 00:00:00 00:00:00 [facility] 2021-04-08 2021-04-08 ambulatory STLMLC STLMLC [id number] Common 00:00:00 00:00:00 [facility] 2021-04-02 2021-04-02 ambulatory STLMLC STLMLC [id number] Common 00:00:00 00:00:00 [facility] 2021-03-31 2021-03-31 ambulatory STLMLC STLMLC [id number] Common 00:00:00 00:00:00 [facility] 2021-03-13 2021-03-13 ambulatory STLMLC STLMLC [id number] Common 00:00:00 00:00:00 [facility] 2021-02-19 2021-02-19 Outpatient STLMLC STLMLC [id number] Common 00:00:00 00:00:00 [facility] 2020-12-27 2020-12-27 Outpatient STLMLC STLMLC [id number] Common 00:00:00 00:00:00 [facility] 2020-12-17 2020-12-17 Outpatient STLMLC STLMLC [id number] Common 00:00:00 00:00:00 [facility] 2020-12-10 2020-12-10 Outpatient STLMLC STLMLC [id number] Common 00:00:00 00:00:00 [facility] 2020-12-10 2020-12-10 Outpatient STLMLC STLMLC [id number] Common 00:00:00 00:00:00 [facility] 2020-11-29 2020-11-29 Outpatient STLMLC STLMLC [id number] Common 00:00:00 00:00:00 [facility] 2020-11-04 2020-11-04 Outpatient STLMLC STLMLC [id number] Common 00:00:00 00:00:00 [facility] 2020-11-01 2020-11-01 Outpatient STLMLC STLMLC [id number] Common 00:00:00 00:00:00 [facility] 2020-10-25 2020-10-25 Outpatient STLMLC STLMLC [id number] Common 00:00:00 00:00:00 [facility] 2020-10-18 2020-10-18 Outpatient STLMLC STLMLC [id number] Common 00:00:00 00:00:00 [facility] 2020-09-19 2020-09-19 Outpatient STLMLC STLMLC [id number] Common 00:00:00 00:00:00 [facility] 2020-09-16 2020-09-16 Outpatient STLMLC STLMLC [id number] Common 00:00:00 00:00:00 [facility] 2020-08-26 2020-08-26 Outpatient STLMLC STLMLC [id number] Common 00:00:00 00:00:00 [facility] 2020-08-21 2020-08-21 Outpatient STLMLC STLMLC [id number] Common 00:00:00 00:00:00 [facility] 2020-08-13 2020-08-13 Office Tylor [facility] [id number] 14:18:27 14:56:20 Visit Bill Judge [id number] [place] [id number] Kole [id number] [facility] 2020-08-13 2020-08-13 Outpatient STLMLC STLMLC [id number] Common 00:00:00 00:00:00 [facility] 2020-08-05 2020-08-05 Outpatient STLMLC STLMLC [id number] Common 00:00:00 00:00:00 [facility] 2020-07-29 2020-07-29 Outpatient STLMLC STLMLC [id number] Common 00:00:00 00:00:00 [facility] 2020-07-12 2020-07-12 Outpatient STLMLC STLMLC [id number] Common 00:00:00 00:00:00 [facility] 2020-06-17 2020-06-17 Outpatient STLMLC STLMLC [id number] Common 00:00:00 00:00:00 [facility] 2020-06-13 2020-06-13 Outpatient STLMLC STLMLC [id number] Common 00:00:00 00:00:00 [facility] 2020-06-08 2020-06-08 Outpatient STLMLC STLMLC [id number] Common 00:00:00 00:00:00 [facility] 2020-05-02 2020-05-02 Outpatient STLMLC STLMLC [id number] Common 00:00:00 00:00:00 [facility] 2020-04-16 2020-04-16 Outpatient STLMLC STLMLC [id number] Common 00:00:00 00:00:00 [facility] 2020-04-04 2020-04-04 Outpatient STLMLC STLMLC [id number] Common 00:00:00 00:00:00 [facility] 2020-03-15 2020-03-15 Outpatient STLMLC STLMLC [id number] Common 00:00:00 00:00:00 [facility] 2019-12-14 2019-12-14 Out[facility] [id number] Common 10:00:00 10:00:[address] [facility] 2019-11-21 2019-11-21 Outpatient [facility] [id number] Common 11:36:00 11:36:[address] [facility] 2019-10-17 2019-10-17 Outpatient [facility] [id number] Common 11:07:00 11:07:00 [address] [facility] [address] Sp[address] [facility] 2019-10-16 2019-10-16 Outpatient [facility] [id number] Common 11:06:00 11:06:[address] [facility] 2019-10-13 2019-10-13 Outpatient [facility] [id number] Common 10:00:00 10:00:[address] [facility] 2019-05-25 2019-05-25 Outpatient [facility] [id number] Common 08:20:00 08:20:[address] [facility] 2019-04-21 2019-04-21 Outpatient [facility] [id number] Common 14:32:00 14:32:[address] [facility] 2019-04-05 2019-04-05 Outpatient [facility] [id number] Common 13:00:00 13:00:[address] [facility] 2019-03-14 2019-03-14 [facility] [id number] Common 17:12:00 17:12:[address] [facility] 2018-07-27 2018-07-27 [facility] [id number] Common 14:49:00 14:49:[address] [facility] 2018-06-15 2018-06-15 [facility] [id number] Common 08:52:00 08:52:[address] [facility] 2018-06-03 2018-06-03 [facility] [id number] Common 12:06:00 12:06:[address] [facility] 2018-05-04 2018-05-04 [facility] [id number] Common 10:00:00 10:00:[address] [facility] 2018-02-09 2018-02-09 [facility] [id number] Common 10:00:00 10:00:[address] [facility] 2017-12-21 2017-12-21 [facility] [id number] Common 09:45:00 09:45:[address] [facility] 2017-08-30 2017-08-30 [facility] [id number] Common 17:31:00 17:31:[address] [facility] 2017-08-12 2017-08-12 Outpatient Nakul Mena [id number] Common 11:00:00 11:00:[address] [facility] Results This patient has no known results.
== END 2021-12-02 02:13 | disposition home or self-care (01) ==
LOC: ER 22:27
DX: E11.65 Type 2 diabetes mellitus with hyperglycemia (principal); I10 Essential (primary) hypertension
CPT/HCPCS: 85025; 80048; 36415; 82010; 82947 ×2; 81003; J1815; J7030; 96361; 96374; 99283

== ENCOUNTER 2022-12-31 13:17 | Emergency (ER) | payer OTHER ==
--- OUTSIDE RECORDS SUMMARY | 2022-12-31 13:31 | XMS REPORT | Continuity of Care Document ---
:1940 Author Organization [facility] t Address [address] [facility] [address] [place] [address] Care Team Providers Name Role Phone Jolanta Tsai Primary Care Physician Jolanta Tsai Attending Clinician Unavailable JUAN LUIS ELLSWORTH Attending Clinician Unavailable BREE LANZA Attending Clinician Unavailable ALLISON ALBARADO Attending Clinician Unavailable ALLISON ALBARADO Attending Clinician Unavailable Bree Lanza MD Attending Clinician Doctor Unassigned, [place] Attending Clinician Unavailable GILBERTO BENNETT Attending Clinician Unavailable Daniela Godwin PTA Attending Clinician Unavailable Gilberto Bennett MD Attending Clinician Khushbu Carreon PTA Attending Clinician Unavailable Brad Godwin PTA Attending Clinician Unavailable Xi PT, Maryse T Attending Clinician Unavailable GERDA MCKINNEY Attending Clinician Unavailable Faye LEÓN, Gerda S Attending Clinician KIMBERLY ESPOSITO Attending Clinician Unavailable Kimberly Dong Attending Clinician Al Muller MD Attending Clinician AL MULLER III Attending Clinician Unavailable RAMEY, ARJUN S Attending Clinician Unavailable Ramey PAC, Arjun S Attending Clinician Bill Snider MD Attending Clinician BILL SNIDER Attending Clinician Unavailable BILL SNIDER Attending Clinician Unavailable Shelly Sanford RN Attending Clinician Unavailable JOHANNY MEYER Attending Clinician Unavailable Yamel BAE, Sarah Angel Attending Clinician Johanny Meyer DO Attending Clinician Seng ALEXANDRE, Juan Luis Begum Attending Clinician Yinka Newman MD Attending Clinician Diana ALEXANDRE, Indy Fierro Attending Clinician [phone] GISSELLE INIGUEZ Attending Clinician Unavailable JUAN LUIS ELLSWORTH Admitting Clinician Unavailable JOHANNY MEYER Admitting Clinician Unavailable Johanny Meyer DO Admitting Clinician Juan Luis Ellsworth MD Admitting Clinician Diana ALEXANDRE, Indy Fierro Admitting Clinician [phone] Payers Payer Name Policy Type Policy Number Effective Date Expiration Date S lou [facility] DUAL [id number] 2020 COMP HMO D SNP 00:00:00 [facility] [place] STAR [id number] 2020 PLUS 00:00:00 [place] [id number] 2020 [place] 00:[place] [id number] 2021 Common HEALTHCARE DUAL 00:00:00 [place] [id number] 2018 Common HEALTHCARE 00:00:00 [facility] MEDICARE NOVITAS MB [id number] [facility] MEDICARE NOVITAS MB [id number] [place] [address] [id number] 2018 Common HEALTHCARE 00:00:00 [place] [address] [id number] 2018 Common HEALTHCARE 00:00:00 [facility] MEDICARE NOV[place]AS MB [id number] [place] [id number] 2018 Common HE[facility]CARE 00:00:00 [facility]ARE [facility] [place] [id number] [place] [address] [id number] 2018 Common [facility]CARE 00:00:00 [facility] MEDICARE NOV[place]AS MB [id number] [facility] MEDICARE NOVITAS [id number] [place] [address] [id number] 2018 [facility] 00:00:00 [place] [address] [id number] 2018 [facility] 00:00:00 [place] [address] [id number] 2018 [facility] 00:00:00 [place] [address] [id number] 2018 [facility] 00:00:00 [facility]IC[facility] [id number] [facility] Problems Condition Condition Condition Status Onset Resolution Last Treating Co mments Source Name Details Category Date Date Treatment Clinician Date PAF PAF Disease Active Univers (paroxysma (paroxysma 11-16 it y of l atrial l atrial 00:00: [place] fibrillati fibrillati 00 Me dical on) on) Branch Stage 3 Stage 3 Disease Active Univers chronic chronic 11-16 ity of kidney kidney 00:00: [place] disease, disease, 00 Medica l unspecifie unspecifie Br anch d whether d whether stage 3a stage 3a or 3b CKD or 3b CKD Left Left Disease Active Univers shoulder shoulder 5-08 ity of pain pain 00:00: [place] [facility] Decreased Decreased Disease Active Uni vers range of range of 5-08 [place] of motion of motion of [place] 00 [place] shoulder shoulder Branch Muscular Muscular Disease Active Unive rs weakness weakness 5-08 ity of 00:00: [place] [facility] CHF CHF Disease Active 2020-05 Univers (congestiv (congestiv 1-12 it y of e heart e heart 00:00: [place] failure), failure), 00 Medi paulina NYHA class NYHA class Br anch I, acute I, acute on on chronic, chronic, 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 U nivers e vomiting e vomiting 1-11 it y of with with 00:00: [place] nausea nausea 00 Medical Branch Troponin I Troponin I Disease Active U nivers above above 2-27 [place] of reference [place] Longstandi Longstandi Disease Active U nivers ng ng 2-27 [place] of persistent persistent [place] atrial atrial 00 Medical fibrillati fibrillati Br anch on on MANNY (acute MANNY (acute Disease Active U nivers kidney kidney 2-27 ity of injury) injury) 00:00: [place] 00 Medical Branch Pneumonia Pneumonia Disease Active Uni vers due to due to 2-26 ity of COVID-19 COVID-19 00:00: [place] virus virus 00 Medical Branch Family Family Problem Common history of history of Sp shara ischemic ischemic - CHI heart heart St disease disease [facility] and other Medical diseases 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 Asthma Asthma Problem Common 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 - CHI lower [facility] extremitie [facility] s with Medical pain Center [id number] Pressure Problem Comm on injury of Spirit left heel, - CHI stage 1 [facility] [id number] PAD Problem Common (periphera Spirit l artery - CHI disease) [facility] [id number] Essential Problem Comm on hypertensi Spirit on - [facility] [id number] Parkinson Problem Comm on disease Spirit - [facility] History of History of Problem C ommon anemia anemia Spirit - [facility] Hyperlipid Hyperlipid Problem C ommon emia emia Spirit CH[facility] [id number] Wheezing Problem Commo n Spirit - [facility] [id number] Chronic Problem Commo n kidney Spirit disease - CHI (CKD), St stage IV [facility] (severe) [facility] [id number] Iron Problem Common deficiency Spirit anemia, - CHI unspecifie St d iron [facility] deficiency Medica l anemia Center type [id number] Need for Problem Comm on assistance Spirit due to - CHI unsteady [facility] [id number] Acute on Problem Comm on chronic Spirit congestive - CHI heart St failure, [facility] unspecifie Medica l d heart Center failure type [id number] 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 - CHI (congestiv St e) and [facility] diastolic Medical (congestiv Center e) heart failure Chronic Chronic Problem Common ulcer of skin Spirit skin ulcer, - CHI limited to St breakdown [facility] Gastroesop GERD Problem Commo n hageal (gastroeso Spirit reflux phageal - CHI disease reflux St disease) [facility] 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 - CHI without St complicati [facility] Long-term High risk Problem Com mon current medication Spiri t use of s (not - CHI drug anticoagul St therapy ants) [facility] long-term Medical use Center [id number] Chronic Problem Common obstructiv Spirit e - CHI pulmonary St disease, [facility] unspecifie Medica l d COPD Center type [id number] Acute Problem Common bronchitis Spirit , - CHI unspecifie St d organism [facility] Allergies, Adverse Reactions, Alerts Allergy Allergy Status Severity Reaction(s) Onset Inactive Treating Comm ents Source Name Type Date Date Clinician NO KNOWN Drug Active Univers ALLERGIE Class ity [facility] Social History Social Habit Start Date Stop Date Quantity Comments Source Gender identity [facility] acute hospital Sexual orientation [facility] History of tobacco Cigarette Smoker University of use [facility] History of Social 2022-11-16 2022-11-16 Univers ity of function 00:00:00 00:00:00 [facility] Tobacco Comment 2022-11-16 2022-11-16 quit 20 years Univer sity of 00:00:00 00:00:00 ago [facility] Cigarettes smoked 2022-11-16 2022-11-16 Univers ity of current (pack per 00:00:00 00:00:00 [facility] ) - Reported Branch Cigarette 2022-11-16 2022-11-16 University of pack-years 00:00:00 00:00:00 [facility] Tobacco use and 2022-11-16 2022-11-16 Smokeless Universit y of exposure 00:00:00 00:00:00 tobacco non-user [facility] Alcohol intake 2022-11-16 2022-11-16 Ex-drinker University 00:00:00 00:00:00 (finding) [facility] Exposure to 2022-09-11 2022-09-21 Not sure [facility] SARS-CoV-2 (event) 00:00:00 10:27:00 [facility] Sex Assigned At [birth year] HUSSEIN Payan 00:00:00 00:00:00 [facility] Smoking Status Start Date Stop Date Source Ex-smoker 2022-11-16 00:00:00 2022-11-16 00:00:00 Universi ty [facility] Medications Ordered Filled Start Stop Current Ordering Indication Dosage Frequency Signature Comments Components Source Medication Medication Date Date Medication? Clinician (SIG) Name Name sulfur 2022- No [id number] 5mL 5 mL, Un raymon hexafluorid 12-07 9100 Intravenou i ty of e microsphr 13:45: 13:54 s, ONCE, 1 Vitaliy (LUMASON) 00 :00 dose, On Medica l injection 5 Mon Branch mL 12/07/22 at 0845, Routine
engineering faculty member approving Restricted medication : BREN FREIRE.HRebecca ferrous Yes 324mg Take 1 Univers gluconate 3-21 tablet by ity o f 324 mg 14:08: mouth 2 [place] (37.5 mg 20 (two) Medical iron) times Branch tablet daily. atorvastati 0 Yes 40mg Take 1 Univ ers n 40 mg 3-21 tablet by ity of tablet 14:08: mouth at [place] 20 bedtime. Medical Branch fluticasone 0 Yes INHALAR Uni vers propion-vish 3-21 RANDEE ity of meteroL 14:08: [place]ION [place] 250-[place] 20 POR VIA Medical mcg/dose ORAL DOS Branch inhalation VECES POR disk APURVA furosemide 0 Yes 40mg Take 2 Unive rs 20 mg 3-21 tablets by ity of tablet 14:08: mouth [place] 20 daily. Medical Branch LOSARTAN 0 Yes 25mg 25 mg Univers POTASSIUM, 3-21 daily. ity of BULK, MISC 14:08: [place] 20 Medical Branch ZINC ORAL 2022-0 Yes 50mg Take 50 mg Un raymon 3-21 by mouth ity of 14:08: daily. [place] [address] Medical Branch ferrous 2022-0 Yes 324mg Take 1 Univers gluconate 3-21 tablet by ity o f 324 mg 14:08: mouth 2 [place] (37.5 mg 20 (two) Medical iron) times Branch tablet daily. atorvastati Yes 40mg Take 1 Univ ers n 40 mg 3-21 tablet by ity of tablet 14:08: mouth at [place] 20 bedtime. Medical Branch fluticasone 0 Yes INHALAR Uni vers propion-vish 3-21 RANDEE ity of meteroL 14:08: APL[place]ION [place] 250-[place] 20 POR VIA Medical mcg/dose ORAL DOS Branch inhalation VECES POR disk APURVA furosemide 0 Yes 40mg Take 2 Unive rs 20 mg 3-21 tablets by ity of tablet 14:08: mouth [place] 20 daily. Medical Branch LOSARTAN 0 Yes 25mg 25 mg Univers POTASSIUM, 3-21 daily. ity of BULK, MISC 14:08: [place] 20 Medical Branch ZINC ORAL 2022-0 Yes 50mg Take 50 mg Un raymon 3-21 by mouth ity of 14:08: daily. [place] [address] Medical Branch ferrous 2022-0 Yes 324mg Take 1 Univers gluconate 3-21 tablet by ity o f 324 mg 14:08: mouth 2 [place] (37.5 mg 20 (two) Medical iron) times Branch tablet daily. atorvastati 0 Yes 40mg Take 1 Univ ers n 40 mg 3-21 tablet by ity of tablet 14:08: mouth at [place] 20 bedtime. Medical Branch fluticasone 0 Yes INHALAR Uni vers propion-vish 3-21 RANDEE ity of meteroL 14:08: APLIC[place]ION [place] 250-[place] 20 POR VIA Medical mcg/dose ORAL DOS Branch inhalation VECES POR disk APURVA furosemide 0 Yes 40mg Take 2 Unive rs 20 mg 3-21 tablets by ity of tablet 14:08: mouth [place] 20 daily. Medical Branch LOSARTAN 0 Yes 25mg 25 mg Univers POTASSIUM, 3-21 daily. ity of BULK, MISC 14:08: [place] 20 Medical Branch ZINC ORAL 2022-0 Yes 50mg Take 50 mg Un raymon 3-21 by mouth ity of 14:08: daily. [place] [address] Medical Branch ferrous 2022-0 Yes 324mg Take 1 Univers gluconate 3-21 tablet by ity o f 324 mg 14:08: mouth 2 [place] (37.5 mg 20 (two) Medical iron) times Branch tablet daily. atorvastati 0 Yes 40mg Take 1 Univ ers n 40 mg 3-21 tablet by ity of tablet 14:08: mouth at [place] 20 bedtime. Medical Branch fluticasone 0 Yes INHALAR Uni vers propion-vish 3-21 RANDEE ity of meteroL 14:08: APLIC[place]ION [place] 250-50 20 POR VIA Medical mcg/dose ORAL DOS Branch inhalation VECES POR disk APURVA furosemide 0 Yes 40mg Take 2 Unive rs 20 mg 3-21 tablets by ity of tablet 14:08: mouth [place] 20 daily. Medical Branch LOSARTAN 0 Yes 25mg 25 mg Univers POTASSIUM, 3-21 daily. ity of BULK, MISC 14:08: [place] 20 Medical Branch ZINC ORAL 2022-0 Yes 50mg Take 50 mg Un raymon 3-21 by mouth ity of 14:08: daily. [place] [address] Medical Branch ferrous 2022-0 Yes 324mg Take 1 Univers gluconate 3-21 tablet by ity o f 324 mg 14:08: mouth 2 [place] (37.5 mg 20 (two) Medical iron) times Branch tablet daily. atorvastati 0 Yes 40mg Take 1 Univ ers n 40 mg 3-21 tablet by ity of tablet 14:08: mouth at [place] 20 bedtime. Medical Branch fluticasone Yes INHALAR Uni vers propion-vish 3-21 RANEDE ity of meteroL 14:08: APLICACION [place] 250-50 20 POR VIA Medical mcg/dose ORAL DOS Branch inhalation VECES POR disk APURVA furosemide 0 Yes 40mg Take 2 Unive rs 20 mg 3-21 tablets by ity of tablet 14:08: mouth [place] 20 daily. Medical Branch LOSARTAN Yes 25mg 25 mg Univers POTASSIUM, 3-21 daily. ity of BULK, MISC 14:08: [place] [address] Medical Branch ZINC ORAL 0 Yes 50mg Take 50 mg Un raymon 3-21 by mouth ity of 14:08: daily. [place] [address] Medical Branch ferrous 0 Yes 324mg Take 1 Univers gluconate 3-21 tablet by ity o f 324 mg 14:08: mouth 2 [place] (37.5 mg 20 (two) Medical iron) times Branch tablet daily. atorvastati Yes 40mg Take 1 Univ ers n 40 mg 3-21 tablet by ity of tablet 14:08: mouth at [place] 20 bedtime. Medical Branch fluticasone Yes INHALAR Uni vers propion-vish 3-21 RANDEE ity of meteroL 14:08: APLICACION [place] 250-50 20 POR VIA Medical mcg/dose ORAL DOS Branch inhalation VECES POR disk APURVA furosemide Yes 40mg Take 2 Unive rs 20 mg 3-21 tablets by ity of tablet 14:08: mouth [place] 20 daily. Medical Branch LOSARTAN Yes 25mg 25 mg Univers POTASSIUM, 3-21 daily. ity of BULK, MISC 14:08: [place] [address] Medical Branch ZINC ORAL 2022-0 Yes 50mg Take 50 mg Un raymon 3-21 by mouth ity of 14:08: daily. [place] [address] Medical Branch ferrous 2022-0 Yes 324mg Take 1 Univers gluconate 3-21 tablet by ity o f 324 mg 14:08: mouth 2 [place] (37.5 mg 20 (two) Medical iron) times Branch tablet daily. atorvastati 0 Yes 40mg Take 1 Univ ers n 40 mg 3-21 tablet by ity of tablet 14:08: mouth at [place] 20 bedtime. Medical Branch fluticasone Yes INHALAR Uni vers propion-vish 3-21 RANDEE ity of meteroL 14:08: APLICACION [place] 250-50 20 POR VIA Medical mcg/dose ORAL DOS Branch inhalation VECES POR disk APURVA furosemide Yes 40mg Take 2 Unive rs 20 mg 3-21 tablets by ity of tablet 14:08: mouth [place] 20 daily. Medical Branch LOSARTAN 0 Yes 25mg 25 mg Univers POTASSIUM, 3-21 daily. ity of BULK, MISC 14:08: [place] 20 Medical Branch ZINC ORAL 0 Yes 50mg Take 50 mg Un raymon 3-21 by mouth ity of 14:08: daily. Medical Branch ferrous 0 Yes 324mg Take 1 Univers gluconate 3-21 tablet by ity o f 324 mg 14:08: mouth 2 [place] (37.5 mg 20 (two) Medical iron) times Branch tablet daily. atorvastati Yes 40mg Take 1 Univ ers n 40 mg 3-21 tablet by ity of tablet 14:08: mouth at [place] 20 bedtime. Medical Branch fluticasone Yes INHALAR Uni vers propion-vish 3-21 RANDEE ity of meteroL 14:08: APLICACION [place] 250-50 20 POR VIA Medical mcg/dose ORAL DOS Branch inhalation VECES POR disk APURVA furosemide Yes 40mg Take 2 Unive rs 20 mg 3-21 tablets by ity of tablet 14:08: mouth [place] 20 daily. Medical Branch LOSARTAN 0 Yes 25mg 25 mg Univers POTASSIUM, 3-21 daily. ity of BULK, MISC 14:08: [place] 20 Medical Branch ZINC ORAL 2022-0 Yes 50mg Take 50 mg Un raymon 3-21 by mouth ity of 14:08: daily. [place] 20 Medical Branch ferrous 2022-0 Yes 324mg Take 1 Univers gluconate 3-21 tablet by ity o f 324 mg 14:08: mouth 2 [place] (37.5 mg 20 (two) Medical iron) times Branch tablet daily. atorvastati 0 Yes 40mg Take 1 Univ ers n 40 mg 3-21 tablet by ity of tablet 14:08: mouth at [place] 20 bedtime. Medical Branch fluticasone 0 Yes INHALAR Uni vers propion-vish 3-21 RANDEE ity of meteroL 14:08: APLICACION [place] 250-50 20 POR VIA Medical mcg/dose ORAL DOS Branch inhalation VECES POR disk APURVA furosemide 2022-0 Yes 40mg Take 2 Unive rs 20 mg 3-21 tablets by ity of tablet 14:08: mouth [place] 20 daily. Medical Branch LOSARTAN 0 Yes 25mg 25 mg Univers POTASSIUM, 3-21 daily. ity of BULK, MISC 14:08: [place] [facility] ZINC ORAL 2022-0 Yes 50mg Take 50 mg Un raymon 3-21 by mouth ity of 14:08: daily. [place] [facility] ferrous 2022-0 Yes 324mg Take 1 Univers gluconate 3-21 tablet by ity o f 324 mg 14:08: mouth 2 [place] (37.5 mg 20 (two) Medical iron) times Branch tablet daily. atorvastati 0 Yes 40mg Take 1 Univ ers n 40 mg 3-21 tablet by ity of tablet 14:08: mouth at [place] 20 bedtime. Medical Branch fluticasone 0 Yes INHALAR Uni vers propion-vish 3-21 RANDEE ity of meteroL 14:08: APLICACION [place] 250-50 20 POR VIA Medical mcg/dose ORAL DOS Branch inhalation VECES POR disk APURVA furosemide 0 Yes 40mg Take 2 Unive rs 20 mg 3-21 tablets by ity of tablet 14:08: mouth [place] 20 daily. Medical Branch LOSARTAN 0 Yes 25mg 25 mg Univers POTASSIUM, 3-21 daily. ity of BULK, MISC 14:08: [place] [facility] ZINC ORAL 2022-0 Yes 50mg Take 50 mg Un raymon 3-21 by mouth ity of 14:08: daily. [place] [facility] ferrous 2022-0 Yes 324mg Take 1 Univers gluconate 3-21 tablet by ity o f 324 mg 14:08: mouth 2 [place] (37.5 mg 20 (two) Medical iron) times Branch tablet daily. atorvastati 2022-0 Yes 40mg Take 1 Univ ers n 40 mg 3-21 tablet by ity of tablet 14:08: mouth at [place] 20 bedtime. Medical Branch fluticasone 0 Yes INHALAR Uni vers propion-vish 3-21 RANDEE ity of meteroL 14:08: APLICACION [place] 250-50 20 POR VIA Medical mcg/dose ORAL DOS Branch inhalation VECES POR disk APURVA furosemide Yes 40mg Take 2 Unive rs 20 mg 3-21 tablets by ity of tablet 14:08: mouth [place] 20 daily. Medical Branch LOSARTAN 0 Yes 25mg 25 mg Univers POTASSIUM, 3-21 daily. ity of BULK, MISC 14:08: [place] [facility] ZINC ORAL 0 Yes 50mg Take 50 mg Un raymon 3-21 by mouth ity of 14:08: daily. Medical Branch ferrous 0 Yes 324mg Take 1 Univers gluconate 3-21 tablet by ity o f 324 mg 14:08: mouth 2 [place] (37.5 mg 20 (two) Medical iron) times Branch tablet daily. atorvastati Yes 40mg Take 1 Univ ers n 40 mg 3-21 tablet by ity of tablet 14:08: mouth at [place] 20 bedtime. Medical Branch fluticasone Yes INHALAR Uni vers propion-vish 3-21 RANDEE ity of meteroL 14:08: APLICACION [place] 250-[place] 20 POR VIA Medical mcg/dose ORAL DOS Branch inhalation VECES POR disk APURVA furosemide Yes 40mg Take 2 Unive rs 20 mg 3-21 tablets by ity of tablet 14:08: mouth [place] 20 daily. Medical Branch LOSARTAN 0 Yes 25mg 25 mg Univers POTASSIUM, 3-21 daily. ity of BULK, MISC 14:08: Medical Branch ZINC ORAL 0 Yes 50mg Take 50 mg Un raymon 3-21 by mouth ity of 14:08: daily. Medical Branch ferrous 2022-0 Yes 324mg Take 1 Univers gluconate 3-21 tablet by ity o f 324 mg 14:08: mouth 2 [place] (37.5 mg 20 (two) Medical iron) times Branch tablet daily. atorvastati 2022-0 Yes 40mg Take 1 Univ ers n 40 mg 3-21 tablet by ity of tablet 14:08: mouth at [place] 20 bedtime. Medical Branch fluticasone Yes INHALAR Uni vers propion-vish 3-21 RANDEE ity of meteroL 14:08: APLICACION [place] 250-50 20 POR VIA Medical mcg/dose ORAL DOS Branch inhalation VECES POR disk APURVA furosemide Yes 40mg Take 2 Unive rs 20 mg 3-21 tablets by ity of tablet 14:08: mouth [place] 20 daily. Medical Branch LOSARTAN Yes 25mg 25 mg Univers POTASSIUM, 3-21 daily. ity of BULK, MISC 14:08: [place] [address] Medical Branch ZINC ORAL 0 Yes 50mg Take 50 mg Un raymon 3-21 by mouth ity of 14:08: daily. [place] [address] Medical Branch ferrous 0 Yes 324mg Take 1 Univers gluconate 3-21 tablet by ity o f 324 mg 14:08: mouth 2 [place] (37.5 mg 20 (two) Medical iron) times Branch tablet daily. atorvastati Yes 40mg Take 1 Univ ers n 40 mg 3-21 tablet by ity of tablet 14:08: mouth at [place] 20 bedtime. Medical Branch fluticasone Yes INHALAR Uni vers propion-vish 3-21 RANDEE ity of meteroL 14:08: APLICACION [place] 250-50 20 POR VIA Medical mcg/dose ORAL DOS Branch inhalation VECES POR disk APURVA furosemide Yes 40mg Take 2 Unive rs 20 mg 3-21 tablets by ity of tablet 14:08: mouth [place] 20 daily. Medical Branch LOSARTAN Yes 25mg 25 mg Univers POTASSIUM, 3-21 daily. ity of BULK, MISC 14:08: [place] [facility] ZINC ORAL 0 Yes 50mg Take 50 mg Un raymon 3-21 by mouth ity of 14:08: daily. [place] [address] Medical Branch ferrous 0 Yes 324mg Take 1 Univers gluconate 3-21 tablet by ity o f 324 mg 14:08: mouth 2 [place] (37.5 mg 20 (two) Medical iron) times Branch tablet daily. atorvastati Yes 40mg Take 1 Univ ers n 40 mg 3-21 tablet by ity of tablet 14:08: mouth at [place] 20 bedtime. Medical Branch fluticasone Yes INHALAR Uni vers propion-vish 3-21 RANDEE ity of meteroL 14:08: APLICACION [place] 250-50 20 POR VIA Medical mcg/dose ORAL DOS Branch inhalation VECES POR disk APURVA furosemide Yes 40mg Take 2 Unive rs 20 mg 3-21 tablets by ity of tablet 14:08: mouth [place] 20 daily. Medical Branch LOSARTAN Yes 25mg 25 mg Univers POTASSIUM, 3-21 daily. ity of BULK, MISC 14:08: Medical Branch ZINC ORAL 0 Yes 50mg Take 50 mg Un raymon 3-21 by mouth ity of 14:08: daily. Medical Branch ferrous 0 Yes 324mg Take 1 Univers gluconate 3-21 tablet by ity o f 324 mg 14:08: mouth 2 [place] (37.5 mg 20 (two) Medical iron) times Branch tablet daily. atorvastati Yes 40mg Take 1 Univ ers n 40 mg 3-21 tablet by ity of tablet 14:08: mouth at [place] 20 bedtime. Medical Branch fluticasone Yes INHALAR Uni vers propion-vish 3-21 RANDEE ity of meteroL 14:08: APLICACION [place] 250-50 20 POR VIA Medical mcg/dose ORAL DOS Branch inhalation VECES POR disk APURVA furosemide Yes 40mg Take 2 Unive rs 20 mg 3-21 tablets by ity of tablet 14:08: mouth [place] 20 daily. Medical Branch LOSARTAN Yes 25mg 25 mg Univers POTASSIUM, 3-21 daily. ity of BULK, MISC 14:08: Medical Branch ZINC ORAL Yes 50mg Take 50 mg Un raymon 3-21 by mouth ity of 14:08: daily. [place] [facility] Branch ferrous 0 Yes 324mg Take 1 Univers gluconate 3-21 tablet by ity o f 324 mg 14:08: mouth 2 [place] (37.5 mg 20 (two) Medical iron) times Branch tablet daily. atorvastati 0 Yes 40mg Take 1 Univ ers n 40 mg 3-21 tablet by ity of tablet 14:08: mouth at [place] 20 bedtime. Medical Branch fluticasone 0 Yes INHALAR Uni vers propion-vish 3-21 RANDEE ity of meteroL 14:08: APLICACION [place] 250-50 20 POR VIA Medical mcg/dose ORAL DOS Branch inhalation VECES POR disk APURVA furosemide Yes 40mg Take 2 Unive rs 20 mg 3-21 tablets by ity of tablet 14:08: mouth [place] 20 daily. Medical Branch LOSARTAN Yes 25mg 25 mg Univers POTASSIUM, 3-21 daily. ity of BULK, MIS 14:08: Medical Branch ZINC ORAL 0 Yes 50mg Take 50 mg Un raymon 3-21 by mouth ity of 14:08: daily. [place] [facility] ferrous 0 Yes 324mg Take 1 Univers gluconate 3-21 tablet by ity o f 324 mg 14:08: mouth 2 [place] (37.5 mg 20 (two) Medical iron) times Branch tablet daily. atorvastati Yes 40mg Take 1 Univ ers n 40 mg 3-21 tablet by ity of tablet 14:08: mouth at [place] 20 bedtime. Medical Branch fluticasone Yes INHALAR Uni vers propion-vish 3-21 RANDEE ity of meteroL 14:08: [place] 250-50 20 POR VIA Medical mcg/dose ORAL DOS Branch inhalation VECES POR disk APURVA furosemide Yes 40mg Take 2 Unive rs 20 mg 3-21 tablets by ity of tablet 14:08: mouth [place] 20 daily. Medical Branch LOSARTAN Yes 25mg 25 mg [facility] POTASSIUM, 3-21 daily. ity of BULK, MISC 14:08: [place] [facility] ZINC ORAL Yes 50mg Take 50 mg Un raymon 3-21 by mouth ity of 14:08: daily. [place] [facility] ferrous 0 Yes 324mg Take 1 [facility] gluconate 3-21 tablet by ity o f 324 mg 14:08: mouth 2 [place] (37.5 mg 20 (two) Medical iron) times Branch tablet daily. atorvastati 0 Yes 40mg Take 1 Univ ers n 40 mg 3-21 tablet by ity of tablet 14:08: mouth at [place] 20 bedtime. Medical Branch fluticasone 0 Yes INHALAR Uni vers propion-vish 3-21 RANDEE ity of meteroL 14:08: A[place]ICACION [place] 250-50 20 POR VIA Medical mcg/dose ORAL DOS Branch inhalation VECES POR disk APURVA furosemide Yes 40mg Take 2 Unive rs 20 mg 3-21 tablets by ity of tablet 14:08: mouth [place] 20 daily. Medical Branch LOSARTAN 2022-0 Yes 25mg 25 mg [facility] POTASSIUM, 3-21 daily. ity of BULK, MISC 14:08: [place] [address] Medical Branch ZINC ORAL 2022-0 Yes 50mg Take 50 mg Un raymon 3-21 by mouth ity of 14:08: daily. [place] [address] Medical Branch Glimepiride Glimepiride 2021-0 No 1{table Glimepirid 1 MG 1 MG 7-21 t} e 1 MG 00:00: 00 Glimepiride Glimepiride 2021-0 No 1{table Glimepirid 1 MG 1 MG 7-21 t} e 1 MG 00:00: 00 Glimepiride Glimepiride 2021-0 No 1{table Glimepirid 1 MG 1 MG 7-21 t} e 1 MG 00:00: 00 Glimepiride Glimepiride 2021-0 No 1{table Glimepirid 1 MG 1 MG 7-21 t} e 1 MG 00:00: 00 Gabapentin Gabapentin 2021-0 No 1{capsu Gabapentin 100 MG 100 MG 5-02 le} 100 MG 00:00: 00 rOPINIRole rOPINIRole 2021-0 No 1{table BID rOPINIRole HCl 0.25 MG HCl 0.25 MG 5-02 t} HCl 0.25 00:00: MG 00 Gabapentin Gabapentin 2022-0 No 1{capsu Gabapentin 100 MG 100 MG 5-02 le} 100 MG 00:00: 00 rOPINIRole rOPINIRole 2021-0 No 1{table BID rOPINIRole HCl 0.25 MG HCl 0.25 MG 5-02 t} HCl 0.25 00:00: MG 00 Gabapentin Gabapentin 2022-0 No 1{capsu Gabapentin 100 MG 100 MG 5-02 le} 100 MG 00:00: 00 rOPINIRole rOPINIRole 2021-0 No 1{table BID rOPINIRole HCl 0.25 MG HCl 0.25 MG 5-02 t} HCl 0.25 00:00: MG 00 Santyl 250 Santyl 250 2021-0 2021- No BID Santyl 250 UNIT/GM UNIT/GM 09-15 05-22 UNIT/GM 00:00: 00:00 00 :00 Santyl 250 Santyl 250 2021-0 2021- No BID Santyl 250 UNIT/GM UNIT/GM 09-15 05-22 UNIT/GM 00:00: 00:00 00 :00 Santyl 250 Santyl 250 2021-0 2021- No BID Santyl 250 UNIT/GM UNIT/GM 09-15 05-22 UNIT/GM 00:00: 00:00 00 :00 fluticasone 0 Yes INHALAR Uni vers propion-vish 2-09 RANDEE ity of meteroL 13:05: [place] (ADVAIR 39 POR VIA Medical DISKUS) ORAL DOS Branch 250-50 VECES POR mcg/dose APURVA inhalation disk furosemide 0 Yes 20mg Take 20 mg U nivers 20 mg 2-09 by mouth ity of tablet 13:05: daily. [address] fluticasone Yes INHALAR Uni vers propion-vish 2-09 RANDEE ity of meteroL 13:05: A[place]ION [place] (ADVAIR 39 POR VIA Medical DISKUS) ORAL DOS Branch 250-50 VECES POR mcg/dose APURVA inhalation disk furosemide 2021-0 Yes 20mg Take 20 mg U nivers 20 mg 2-09 by mouth ity of tablet 13:05: daily. [address] fluticasone Yes INHALAR Uni vers propion-vish 2-09 RANDEE ity of meteroL 13:05: APLICACION [place] (ADVAIR 39 POR VIA Medical DISKUS) ORAL DOS Branch 250-50 VECES POR mcg/dose APURVA inhalation disk furosemide 2021-0 Yes 20mg Take 20 mg U nivers 20 mg 2-09 by mouth ity of tablet 13:05: daily. [address] Branch fluticasone Yes INHALAR Uni vers propion-vish 2-09 RANDEE ity of meteroL 13:05: APLICACION [place] (ADVAIR 39 POR VIA Medical DISKUS) ORAL DOS Branch 250-50 VECES POR mcg/dose APURVA inhalation disk furosemide 2021-0 Yes 20mg Take 20 mg U nivers 20 mg 2-09 by mouth ity of tablet 13:05: daily. [place] [address] Medical Branch rOPINIRole 2022-0 Yes .25mg Take 1 Univ ers 0.25 mg 2-08 tablet by ity of tablet 00:00: mouth (three) Medical times Branch daily. rOPINIRole 2022-0 Yes .25mg Take 1 Univ ers 0.25 mg 2-08 tablet by ity of tablet 00:00: mouth (three) Medical times Branch daily. rOPINIRole 2022-0 Yes .25mg Take 1 Univ ers 0.25 mg 2-08 tablet by ity of tablet 00:00: mouth (three) Medical times Branch daily. rOPINIRole 2022-0 Yes .25mg Take 1 Univ ers 0.25 mg 2-08 tablet by ity of tablet 00:00: mouth (three) Medical times Branch daily. rOPINIRole 2022-0 Yes .25mg Take 1 Univ ers 0.25 mg 2-08 tablet by ity of tablet 00:00: mouth (three) Medical times Branch daily. rOPINIRole 2022-0 Yes .25mg Take 1 Univ ers 0.25 mg 2-08 tablet by ity of tablet 00:00: mouth (three) Medical times Branch daily. rOPINIRole 2022-0 Yes .25mg Take 1 Univ ers 0.25 mg 2-08 tablet by ity of tablet 00:00: mouth (three) Medical times Branch daily. rOPINIRole 2022-0 Yes .25mg Take 1 Univ ers 0.25 mg 2-08 tablet by ity of tablet 00:00: mouth (three) Medical times Branch daily. rOPINIRole 2022-0 Yes .25mg Take 1 Univ ers 0.25 mg 2-08 tablet by ity of tablet 00:00: mouth (three) Medical times Branch daily. rOPINIRole 2022-0 Yes .25mg Take 1 Univ ers 0.25 mg 2-08 tablet by ity of tablet 00:00: mouth 3 [place] (three) Medical times Branch daily. rOPINIRole 2022-0 Yes .25mg Take 1 Univ ers 0.25 mg 2-08 tablet by ity of tablet 00:00: mouth [place] (three) Medical times Branch daily. rOPINIRole 2022-0 Yes .25mg Take 1 Univ ers 0.25 mg 2-08 tablet by ity of tablet 00:00: mouth (three) Medical times Branch daily. rOPINIRole 2022-0 Yes .25mg Take 1 Univ ers 0.25 mg 2-08 tablet by ity of tablet 00:00: mouth 3 (three) Medical times Branch daily. rOPINIRole 2022-0 Yes .25mg Take 1 Univ ers 0.25 mg 2-08 tablet by ity of tablet 00:00: mouth (three) Medical times Branch daily. rOPINIRole 2022-0 Yes .25mg Take 1 Univ ers 0.25 mg 2-08 tablet by ity of tablet 00:00: mouth (three) Medical times Branch daily. rOPINIRole 2022-0 Yes .25mg Take 1 Univ ers 0.25 mg 2-08 tablet by ity of tablet 00:00: mouth (three) Medical times Branch daily. rOPINIRole 2022-0 Yes .25mg Take 1 Univ ers 0.25 mg 2-08 tablet by ity of tablet 00:00: mouth (three) Medical times Branch daily. rOPINIRole 2022-0 Yes .25mg Take 1 Univ ers 0.25 mg 2-08 tablet by ity of tablet 00:00: mouth (three) Medical times Branch daily. rOPINIRole 2022-0 Yes .25mg Take 1 Univ ers 0.25 mg 2-08 tablet by ity of tablet 00:00: mouth (three) Medical times Branch daily. rOPINIRole 2022-0 Yes .25mg Take 1 Univ ers 0.25 mg 2-08 tablet by ity of tablet 00:00: mouth (three) Medical times Branch daily. rOPINIRole 2022-0 Yes .25mg Take 1 Univ ers 0.25 mg 2-08 tablet by ity of tablet 00:00: mouth (three) Medical times Branch daily. rOPINIRole 2022-0 Yes .25mg Take 1 Univ ers 0.25 mg 2-08 tablet by ity of tablet 00:00: mouth 3 (three) Medical times Branch daily. rOPINIRole 2022-0 Yes .25mg Take 1 Univ ers 0.25 mg 2-08 tablet by ity of tablet 00:00: mouth 3 [place] 00 (three) Medical times Branch daily. tricinolo 2020-05 Yes Ivelisse bonilla ne 2-02 ity of acetonide 00:00: [place] 0.1 % 00 Medical ointment Branch tricinolo 2020-05 Yes Ivelisse bonilla ne 2-02 ity of acetonide 00:00: [place] 0.1 % 00 Medical ointment Branch tricinolo 2020-05 Yes Ivelisse bonilla ne 2- ity of acetonide 00:00: [place] 0.1 % 00 Medical ointment Branch tricinolo 2020-05 Yes Ivelisse bonilla ne 2- ity of acetonide 00:00: [place] 0.1 % 00 Medical ointment Branch tricinolo 2020-05 Yes Ivelisse bonilla ne 2- ity of acetonide 00:00: [place] 0.1 % 00 [facility] Yes Ivelisse [place] ne 2-02 ity of acetonide 00:00: [place] 0.1 % 00 [facility]-05 Yes Ivelisse [place] ne 2-02 ity of acetonide 00:00: [place] 0.1 % 00 [facility] Yes Ivelisse bonilla ne 2-02 ity of acetonide 00:00: [place] 0.1 % 00 Medical ointment Branch tricinolo 2020-05 Yes Ivelisse bonilla ne 2-02 ity of acetonide 00:00: [place] 0.1 % 00 Medical ointment Branch tricinolo 2020-05 Yes Ivelisse bonilla ne 2-02 ity of acetonide 00:00: [place] 0.1 % 00 Medical ointment Branch tricinolo 2020-05 Yes Ivelisse bonilla ne 2-02 ity of acetonide 00:00: [place] 0.1 % 00 Medical ointment Branch tricinolo 2020-05 Yes Ivelisse bonilla ne 2-02 ity of acetonide 00:00: [place] 0.1 % 00 Medical ointment Branch tricinolo 2020-05 Yes Ivelisse bonilla ne 2-02 ity of acetonide 00:00: [place] 0.1 % 00 [facility] Yes Univer s ne 2- ity of acetonide 00:00: [place] 0.1 % 00 Medical ointment Branch [facility] 2020-05 Yes Univer s ne 2- ity of acetonide 00:00: [place] 0.1 % 00 Medical ointment [facility] 2020-05 Yes Univer s ne 2- ity of acetonide 00:00: [place] 0.1 % 00 Medical ointment [facility] 2020-05 Yes Univer s ne 2- ity of acetonide 00:00: [place] 0.1 % 00 Medical ointment [facility] 2020-05 Yes Univer s ne 2- ity of acetonide 00:00: [place] 0.1 % 00 Medical ointment [facility] 2020-05 Yes Univer s ne 2- ity of acetonide 00:00: [place] 0.1 % 00 Medical ointment Branch [facility] 2020-05 Yes Univnayan s ne 2- ity of acetonide 00:00: [place] 0.1 % 00 Medical ointment [facility] 2020-05 Yes Univer s ne 2- ity of acetonide 00:00: [place] 0.1 % 00 Medical ointment [facility] 2020-05 Yes Univer s ne 2- ity of acetonide 00:00: [place] 0.1 % 00 Medical ointment Branch [facility] 2020-05 Yes Univer s ne 2-02 ity of acetonide 00:00: [place] 0.1 % 00 Medical ointment Branch Furosemide Furosemide 2020-05 No QD Furosemide 20 MG 20 MG 1-23 20 MG 00:00: 00 Furosemide Furosemide 2020-05 No QD Furosemide 20 MG 20 MG 1-23 20 MG 00:00: 00 ferrous 2020-05 Yes 324mg Take 324 Unive rs gluconate 1-14 mg by ity of 324 mg 13:55: mouth 2 [place] (37.5 mg 37 (two) Medical iron) times Branch tablet daily. atorvastati 2020-05 Yes 40mg Take 40 mg [facility] n 40 mg 1-14 by mouth ity of tablet 13:55: at [place] 37 bedtime. Medical Branch ferrous 2020-05 Yes 324mg Take 324 Unive rs gluconate 1-14 mg by ity of 324 mg 13:55: mouth 2 [place] (37.5 mg 37 (two) Medical iron) times Branch tablet daily. atorvastati 2020-05 Yes 40mg Take 40 mg [facility] n 40 mg 1-14 by mouth ity of tablet 13:55: at [place] [address] bedtime. Medical Branch ferrous 2020-05 Yes 324mg Take 324 Unive rs gluconate 1-14 mg by ity of 324 mg 13:55: mouth 2 [place] (37.5 mg 37 (two) Medical iron) times Branch tablet daily. atorvastati 2020-05 Yes 40mg Take 40 mg [facility] n 40 mg 1-14 by mouth ity of tablet 13:55: at [place] [address] bedtime. Medical Branch ferrous 2020-05 Yes 324mg Take 324 Unive rs gluconate 1-14 mg by ity of 324 mg 13:55: mouth 2 [place] (37.5 mg 37 (two) Medical iron) times Branch tablet daily. atorvastati 2020-05 Yes 40mg Take 40 mg [facility] n 40 mg 1-14 by mouth ity of tablet 13:55: at [place] [address] bedtime. Medical Branch topiramate Yes [id number] 50mg Take 2 [facility] 25 mg 6-14 tablets by ity of tablet 00:00: mouth [address] [place] [address] (two) Medical times Branch daily. topiramate Yes [id number] 50mg Take 2 [facility] 25 mg 6-14 tablets by ity of tablet 00:00: mouth [address] [place] [address] (two) Medical times Branch daily. topiramate Yes [id number] 50mg Take 2 [facility] 25 mg 6-14 tablets by ity of tablet 00:00: mouth 2 [place] (two) Medical times Branch daily. topiramate Yes [id number] 50mg Take 2 [facility] 25 mg 6-14 tablets by ity of tablet 00:00: mouth 2 [place] (two) Medical times Branch daily. topiramate Yes [id number] 50mg Take 2 [facility] 25 mg 6-14 tablets by ity of tablet 00:00: mouth 2 [place] (two) Medical times Branch daily. topiramate Yes [id number] 50mg Take 2 [facility] 25 mg 6-14 tablets by ity of tablet 00:00: mouth 2 [place] (two) Medical times Branch daily. topiramate 2020-0 Yes [id number] 50mg Take 2 [facility] 25 mg 6-14 tablets by ity of tablet 00:00: mouth [place] (two) Medical times Branch daily. topiramate 2020-0 Yes [id number] 50mg Take 2 [facility] 25 mg 6-14 tablets by ity of tablet 00:00: mouth [place] (two) Medical times Branch daily. topiramate 2020-0 Yes [id number] 50mg Take 2 [facility] 25 mg 6-14 tablets by ity of tablet 00:00: mouth [place] (two) Medical times Branch daily. topiramate 2020-0 Yes [id number] 50mg Take 2 [facility] 25 mg 6-14 tablets by ity of tablet 00:00: mouth [address] [place] [address] (two) Medical times Branch daily. topiramate 2020-0 Yes [id number] 50mg Take 2 [facility] 25 mg 6-14 tablets by ity of tablet 00:00: mouth [place] (two) Medical times Branch daily. topiramate 2020-0 Yes [id number] 50mg Take 2 [facility] 25 mg 6-14 tablets by ity of tablet 00:00: mouth [place] (two) Medical times Branch daily. topiramate 2020-0 Yes [id number] 50mg Take 2 [facility] 25 mg 6-14 tablets by ity of tablet 00:00: mouth [place] (two) Medical times Branch daily. topiramate 2020-0 Yes [id number] 50mg Take 2 [facility] 25 mg 6-14 tablets by ity of tablet 00:00: mouth [address] [place] [address] (two) Medical times Branch daily. topiramate 2020-0 Yes [id number] 50mg Take 2 [facility] 25 mg 6-14 tablets by ity of tablet 00:00: mouth [place] (two) Medical times Branch daily. topiramate 1-0 Yes [id number] 50mg Take 2 [facility] 25 mg 6-14 tablets by ity of tablet 00:00: mouth [address] [place] [address] (two) Medical times Branch daily. topiramate 1-0 Yes [id number] 50mg Take 2 [facility] 25 mg 6-14 tablets by ity of tablet 00:00: mouth [address] [place] [address] (two) Medical times Branch daily. topiramate 2020-0 Yes [id number] 50mg Take 2 [facility] 25 mg 6-14 tablets by ity of tablet 00:00: mouth 2 [place] 00 (two) Medical times Branch daily. topiramate 2021-0 Yes [id number] 50mg Take 2 [facility] 25 mg 6-14 tablets by ity of tablet 00:00: mouth 2 [place] 00 (two) Medical times Branch daily. topiramate 2021-0 Yes [id number] 50mg Take 2 [facility] 25 mg 6-14 tablets by ity of tablet 00:00: mouth 2 [place] 00 (two) Medical times Branch daily. topiramate 2021-0 Yes [id number] 50mg Take 2 [facility] 25 mg 6-14 tablets by ity of tablet 00:00: mouth 2 [place] 00 (two) Medical times Branch daily. topiramate 2021-0 Yes [id number] 50mg Take 2 [facility] 25 mg 6-14 tablets by ity of tablet 00:00: mouth 2 [place] 00 (two) Medical times Branch daily. topiramate 2021-0 Yes [id number] 50mg Take 2 [facility] 25 mg 6-14 tablets by ity of tablet 00:00: mouth 2 [place] (two) Medical times Branch daily. ergocalcife 2021-0 Yes [id number] Take 1 Univers rol, 3-06 [id number] capsule by ity of vitamin d2, 00:00: mouth [place] 1,250 mcg 00 weekly. Medical (50,000 Branch unit) capsule ergocalcife 2021-0 Yes [id number] Take 1 [facility] rol, 3-06 [id number] capsule by ity of vitamin d2, 00:00: mouth [place] 1,250 mcg 00 weekly. Medical (50,000 Branch unit) capsule ergocalcife 2021-0 Yes [id number] Take 1 [facility] rol, 3-06 [id number] capsule by ity of vitamin d2, 00:00: mouth [place] 1,250 mcg 00 weekly. Medical (50,000 Branch unit) capsule ergocalcife 2021-0 Yes [id number] Take 1 [facility] rol, 3-06 [id number] capsule by ity of vitamin d2, 00:00: mouth [place] 1,250 mcg 00 weekly. Medical (50,000 Branch unit) capsule ergocalcife 2021-0 Yes [id number] Take 1 [facility] rol, 3-06 [id number] capsule by ity of vitamin d2, 00:00: mouth [place] 1,250 mcg 00 weekly. Medical (50,000 Branch unit) capsule ergocalcife 2021-0 Yes [id number] Take 1 [facility] rol, 3-06 [id number] capsule by ity of vitamin d2, 00:00: mouth [place] 1,250 mcg 00 weekly. Medical (50,000 Branch unit) capsule ergocalcife 2021-0 Yes [id number] Take 1 [facility] rol, 3-06 [id number] capsule by ity of vitamin d2, 00:00: mouth [place] 1,250 mcg 00 weekly. Medical (50,000 Branch unit) capsule ergocalcife 2021-0 Yes [id number] Take 1 [facility] rol, 3-06 [id number] capsule by ity of vitamin d2, 00:00: mouth [place] 1,250 mcg 00 weekly. Medical (50,000 Branch unit) capsule ergocalcife 2021-0 Yes [id number] Take 1 [facility] rol, 3-06 [id number] capsule by ity of vitamin d2, 00:00: mouth [place] 1,250 mcg 00 weekly. Medical (50,000 Branch unit) capsule ergocalcife 2021-0 Yes [id number] Take 1 [facility] rol, 3-06 [id number] capsule by ity of vitamin d2, 00:00: mouth [place] 1,250 mcg 00 weekly. Medical (50,000 Branch unit) capsule ergocalcife 2021-0 Yes [id number] Take 1 [facility] rol, 3-06 [id number] capsule by ity of vitamin d2, 00:00: mouth [place] 1,250 mcg 00 weekly. Medical (50,000 Branch unit) capsule ergocalcife 2021-0 Yes [id number] Take 1 [facility] rol, 3-06 [id number] capsule by ity of vitamin d2, 00:00: mouth [place] 1,250 mcg 00 weekly. Medical (50,000 Branch unit) capsule ergocalcife 2021-0 Yes [id number] Take 1 [facility] rol, 3-06 [id number] capsule by ity of vitamin d2, 00:00: mouth [place] 1,250 mcg 00 weekly. Medical (50,000 Branch unit) capsule ergocalcife 2021-0 Yes [id number] Take 1 [facility] rol, 3-06 [id number] capsule by ity of vitamin d2, 00:00: mouth [place] 1,250 mcg 00 weekly. Medical (50,000 Branch unit) capsule ergocalcife 2021-0 Yes [id number] Take 1 [facility] rol, 3-06 [id number] capsule by ity of vitamin d2, 00:00: mouth [place] 1,250 mcg 00 weekly. Medical (50,000 Branch unit) capsule ergocalcife 2021-0 Yes [id number] Take 1 [facility] rol, 3-06 [id number] capsule by ity of vitamin d2, 00:00: mouth [place] 1,250 mcg 00 weekly. Medical (50,000 Branch unit) capsule ergocalcife 2021-0 Yes [id number] Take 1 [facility] rol, 3-06 [id number] capsule by ity of vitamin d2, 00:00: mouth [place] 1,250 mcg 00 weekly. Medical (50,000 Branch unit) capsule ergocalcife 2021-0 Yes [id number] Take 1 [facility] rol, 3-06 [id number] capsule by ity of vitamin d2, 00:00: mouth [place] 1,250 mcg 00 weekly. Medical (50,000 Branch unit) capsule ergocalcife 2021-0 Yes [id number] Take 1 [facility] rol, 3-06 [id number] capsule by ity of vitamin d2, 00:00: mouth [place] 1,250 mcg 00 weekly. Medical (50,000 Branch unit) capsule ergocalcife 2021-0 Yes [id number] Take 1 [facility] rol, 3-06 [id number] capsule by ity of vitamin d2, 00:00: mouth [place] 1,250 mcg 00 weekly. Medical (50,000 Branch unit) capsule ergocalcife 2021-0 Yes [id number] Take 1 [facility] rol, 3-06 [id number] capsule by ity of vitamin d2, 00:00: mouth [place] 1,250 mcg 00 weekly. Medical (50,000 Branch unit) capsule ergocalcife 2021-0 Yes [id number] Take 1 [facility] rol, 3-06 [id number] capsule by ity of vitamin d2, 00:00: mouth [place] 1,250 mcg 00 weekly. Medical (50,000 Branch unit) capsule ergocalcife 0 Yes [id number] Take 1 [facility] rol, 3- [id number] capsule by ity of vitamin d2, 00:00: mouth [place] 1,250 mcg 00 weekly. Medical (50,000 Branch unit) capsule apixaban 0 Yes [id number] 5mg Take 1 Univers (ELIQUIS) 5 3-04 tablet by ity of mg tablet 00:00: mouth 2 [place] 00 (two) Medical times Branch daily. Indication s: atrial fibrillati on famotidine Yes [id number] 20mg Take 1 [facility] 20 mg 3-04 [id number] tablet by ity of tablet 00:00: mouth 2 00 (two) Medical times Branch daily. gabapentin 0 Yes [id number] 100mg Take 1 [facility] 100 mg - [id number] capsule by ity of capsule 00:00: mouth at [place] 00 bedtime. Medical Branch ascorbic 2020-0 Yes [id number] 500mg Take 1 [facility] acid, - [id number] tablet by ity of vitamin C, 00:00: mouth [place] 500 mg 00 daily. Medical tablet Branch zinc 2020-0 Yes [id number] 220mg Take 1 Uni vers sulfate 220 - [id number] capsule by ity of (50) mg 00:00: mouth [place] capsule 00 daily. Medical Branch linaGLIPtin 0 Yes [id number] 5mg Take 1 [facility] (TRADJENTA) 3- [id number] tablet by ity of 5 mg tablet 00:00: mouth [place] 00 daily. Medical Branch amiodarone 2020-0 Yes [id number] 200mg Take 1 [facility] 200 mg 3-04 [id number] tablet by ity o f tablet 00:00: mouth 2 [place] 00 (two) Medical times Branch daily. apixaban 2020-0 Yes [id number] 5mg Take 1 [facility] (ELIQUIS) 5 3-04 tablet by ity of mg tablet 00:00: mouth 2 [place] 00 (two) Medical times Branch daily. Indication s: atrial fibrillati on famotidine 2020-0 Yes [id number] 20mg Take 1 [facility] 20 mg 3-04 [id number] tablet by ity of tablet 00:00: mouth 2 00 (two) Medical times Branch daily. gabapentin 2020-0 Yes [id number] 100mg Take 1 [facility] 100 mg 3-04 [id number] capsule by ity of capsule 00:00: mouth at [place] 00 bedtime. Medical Branch ascorbic 2020-0 Yes [id number] 500mg Take 1 [facility] acid, 3-04 [id number] tablet by ity of vitamin C, 00:00: mouth [place] 500 mg 00 daily. Medical tablet Branch zinc 2020-0 Yes [id number] 220mg Take 1 Uni vers sulfate 220 3-04 [id number] capsule by ity of (50) mg 00:00: mouth [place] capsule 00 daily. Medical Branch linaGLIPtin 2020- Yes [id number] 5mg Take 1 [facility] (TRADJENTA) 3-04 [id number] tablet by ity of 5 mg tablet 00:00: mouth [place] 00 daily. Medical Branch amiodarone 0 Yes [id number] 200mg Take 1 [facility] 200 mg 3-04 [id number] tablet by ity o f tablet 00:00: mouth 2 (two) Medical times Branch daily. apixaban 0 Yes 1358 5mg Take 1 [facility] (ELIQUIS) 5 3-04 tablet by ity of mg tablet 00:00: mouth 2 (two) Medical times Branch daily. Indication s: atrial fibrillati on famotidine 2020-0 Yes [id number] 20mg Take 1 [facility] 20 mg 3-04 [id number] tablet by ity of tablet 00:00: mouth 2 (two) Medical times Branch daily. gabapentin 2020-0 Yes [id number] 100mg Take 1 [facility] 100 mg 3-04 [id number] capsule by ity of capsule 00:00: mouth at [place] 00 bedtime. Medical Branch ascorbic 2020-0 Yes [id number] 500mg Take 1 [facility] acid, 3-04 [id number] tablet by ity of vitamin C, 00:00: mouth [place] 500 mg 00 daily. Medical tablet Branch zinc 2020-0 Yes [id number] 220mg Take 1 Uni vers sulfate 220 3-04 [id number] capsule by ity of (50) mg 00:00: mouth [place] capsule 00 daily. Medical Branch linaGLIPtin 2020-0 Yes [id number] 5mg Take 1 [facility] (TRADJENTA) 3-04 [id number] tablet by ity of 5 mg tablet 00:00: mouth [place] 00 daily. Medical Branch amiodarone 2020-0 Yes [id number] 200mg Take 1 [facility] 200 mg 3-04 [id number] tablet by ity o f tablet 00:00: mouth 2 00 (two) Medical times Branch daily. apixaban 2020-0 Yes 1358 5mg Take 1 [facility] (ELIQUIS) 5 3-04 tablet by ity of mg tablet 00:00: mouth 2 00 (two) Medical times Branch daily. Indication s: atrial fibrillati on famotidine 2020-0 Yes [id number] 20mg Take 1 [facility] 20 mg 3-04 [id number] tablet by ity of tablet 00:00: mouth 2 00 (two) Medical times Branch daily. gabapentin 2020-0 Yes [id number] 100mg Take 1 [facility] 100 mg - [id number] capsule by ity of capsule 00:00: mouth at [place] 00 bedtime. Medical Branch ascorbic 2020-0 Yes [id number] 500mg Take 1 [facility] acid, 3- [id number] tablet by ity of vitamin C, 00:00: mouth [place] 500 mg 00 daily. Medical tablet Branch zinc 2020-0 Yes [id number] 220mg Take 1 Uni vers sulfate 220 - [id number] capsule by ity of (50) mg 00:00: mouth [place] capsule 00 daily. Medical Branch linaGLIPtin 2020-0 Yes [id number] 5mg Take 1 [facility] (TRADJENTA) 3-04 [id number] tablet by ity of 5 mg tablet 00:00: mouth [place] 00 daily. Medical Branch amiodarone 2020-0 Yes [id number] 200mg Take 1 [facility] 200 mg 3-04 [id number] tablet by ity o f tablet 00:00: mouth 2 [place] 00 (two) Medical times Branch daily. apixaban 2020-0 Yes [id number] 5mg Take 1 [facility] (ELIQUIS) 5 3-04 tablet by ity of mg tablet 00:00: mouth 2 [place] 00 (two) Medical times Branch daily. Indication s: atrial fibrillati on famotidine 2020-0 Yes [id number] 20mg Take 1 [facility] 20 mg 3-04 [id number] tablet by ity of tablet 00:00: mouth 2 00 (two) Medical times Branch daily. gabapentin 2020-0 Yes [id number] 100mg Take 1 [facility] 100 mg 3-04 [id number] capsule by ity of capsule 00:00: mouth at [place] 00 bedtime. Medical Branch ascorbic 2020-0 Yes [id number] 500mg Take 1 [facility] acid, 3-04 [id number] tablet by ity of vitamin C, 00:00: mouth [place] 500 mg 00 daily. Medical tablet Branch zinc 2020-0 Yes [id number] 220mg Take 1 Uni vers sulfate 220 3-04 [id number] capsule by ity of (50) mg 00:00: mouth [place] capsule 00 daily. Medical Branch linaGLIPtin 2020-0 Yes [id number] 5mg Take 1 [facility] (TRADJENTA) 3-04 [id number] tablet by ity of 5 mg tablet 00:00: mouth [place] 00 daily. Medical Branch amiodarone 2020-0 Yes [id number] 200mg Take 1 [facility] 200 mg 3-04 [id number] tablet by ity o f tablet 00:00: mouth 2 (two) Medical times Branch daily. apixaban 2020-0 Yes 1358 5mg Take 1 [facility] ([facility]) 5 3-04 tablet by [facility] mg tablet 00:00: mouth 2 (two) Medical times Branch daily. Indication s: atrial fibrillati on famotidine 2020-0 Yes [id number] 20mg Take 1 [facility] 20 mg 3-04 [id number] tablet by [facility] tablet 00:00: mouth 2 (two) Medical times Branch daily. gabapentin 2020-0 Yes [id number] 100mg Take 1 [facility] 100 mg 3-04 [id number] capsule by [facility] capsule 00:00: mouth at [place] 00 bedtime. Medical Branch ascorbic 2020-0 Yes [id number] 500mg Take 1 [facility] acid, 3-04 [id number] tablet by [facility] of vitamin C, 00:00: mouth [place] 500 mg 00 daily. Medical tablet Branch zinc 2020-0 Yes [id number] 220mg Take 1 [facility] vers sulfate 220 3-04 [id number] capsule by [facility] of (50) mg 00:00: mouth [place] capsule 00 daily. Medical Branch linaGLIPtin 2020-0 Yes [id number] 5mg Take 1 [facility] (TRADJENTA) 3-04 [id number] tablet by [facility] of 5 mg tablet 00:00: mouth [place] 00 daily. Medical Branch amiodarone 2020-0 Yes [id number] 200mg Take 1 [facility] 200 mg 3-04 [id number] tablet by [facility] o f tablet 00:00: mouth 2 00 (two) Medical times Branch daily. apixaban 2020-0 Yes 1358 5mg Take 1 [facility] (ELIQUIS) 5 3-04 tablet by [facility] mg tablet 00:00: mouth 2 00 (two) Medical times Branch daily. Indication s: atrial fibrillati on famotidine 2020-0 Yes [id number] 20mg Take 1 [facility] 20 mg 3-04 [id number] tablet by [facility] of tablet 00:00: mouth 2 (two) Medical times [facility] daily. gabapentin 2020-0 Yes [id number] 100mg Take 1 [facility] 100 mg - [id number] capsule by [facility] of capsule 00:00: mouth at [place] 00 bedtime. Medical [facility] ascorbic 2020-0 Yes [id number] 500mg Take 1 [facility] acid, 3- [id number] tablet by [facility] of vitamin C, 00:00: mouth [place] 500 mg 00 daily. Medical tablet Branch zinc 2020-0 Yes [id number] 220mg Take 1 [facility] vers sulfate 220 3- [id number] capsule by [facility] of (50) mg 00:00: mouth [place] capsule 00 daily. Medical Branch linaGLIPtin 2020-0 Yes [id number] 5mg Take 1 [facility] (TRADJENTA) 3-04 [id number] tablet by [facility] of 5 mg tablet 00:00: mouth [place] 00 daily. Medical [facility] amiodarone 2020-0 Yes [id number] 200mg Take 1 [facility] 200 mg 3-04 [id number] tablet by [facility] o f tablet 00:00: mouth 2 00 (two) Medical times [facility] daily. apixaban 2020-0 Yes 1358 5mg Take 1 [facility] (ELIQUIS) 5 3-04 tablet by [facility] mg tablet 00:00: mouth 2 00 (two) Medical times Branch daily. Indication s: atrial fibrillati on famotidine 2020-0 Yes [id number] 20mg Take 1 [facility] 20 mg 3-04 [id number] tablet by [facility] of tablet 00:00: mouth 2 (two) Medical times [facility] daily. gabapentin 2020-0 Yes [id number] 100mg Take 1 [facility] 100 mg 3-04 [id number] capsule by [facility] capsule 00:00: mouth at [place] 00 bedtime. Medical [facility] ascorbic 2020-0 Yes [id number] 500mg Take 1 [facility] acid, 3-04 [id number] tablet by [facility] of vitamin C, 00:00: mouth [place] 500 mg 00 daily. Medical tablet Branch zinc 2020-0 Yes [id number] 220mg Take 1 [facility] vers sulfate 220 3-04 [id number] capsule by [facility] of (50) mg 00:00: mouth [place] capsule 00 daily. Medical Branch linaGLIPtin 2020-0 Yes [id number] 5mg Take 1 [facility] (TRADJENTA) 3-04 [id number] tablet by [facility] of 5 mg tablet 00:00: mouth [place] 00 daily. Medical [facility] amiodarone 2020-0 Yes [id number] 200mg Take 1 [facility] 200 mg 3-04 [id number] tablet by [facility] o f tablet 00:00: mouth 2 (two) Medical times [facility] daily. apixaban 0 Yes 1358 5mg Take 1 [facility] (ELIQUIS) 5 3-04 tablet by [facility] of mg tablet 00:00: mouth 2 (two) Medical times Branch daily. Indication s: atrial fibrillati on famotidine 2020-0 Yes [id number] 20mg Take 1 [facility] 20 mg 3-04 [id number] tablet by [facility] of tablet 00:00: mouth 2 (two) Medical times Branch daily. gabapentin 2020-0 Yes [id number] 100mg Take 1 [facility] 100 mg 3-04 [id number] capsule by [facility] of capsule 00:00: mouth at [place] 00 bedtime. Medical [facility] ascorbic 2020-0 Yes [id number] 500mg Take 1 [facility] acid, 3-04 [id number] tablet by [facility] of vitamin C, 00:00: mouth [place] 500 mg 00 daily. Medical tablet Branch zinc 2020-0 Yes [id number] 220mg Take 1 [facility] vers sulfate 220 3-04 [id number] capsule by [facility] of (50) mg 00:00: mouth [place] capsule 00 daily. Medical Branch linaGLIPtin 2020-0 Yes [id number] 5mg Take 1 [facility] (TRADJENTA) 3-04 [id number] tablet by [facility] of 5 mg tablet 00:00: mouth [place] 00 daily. Medical [facility] amiodarone 2020-0 Yes [id number] 200mg Take 1 [facility] 200 mg 3-04 [id number] tablet by [facility] o f tablet 00:00: mouth 2 00 (two) Medical times Branch daily. apixaban 2020-0 Yes 1358 5mg Take 1 [facility] (ELIQUIS) 5 3-04 tablet by [facility] of mg tablet 00:00: mouth 2 00 (two) Medical times Branch daily. Indication s: atrial fibrillati on famotidine 2020-0 Yes [id number] 20mg Take 1 [facility] 20 mg 3-04 [id number] tablet by [facility] of tablet 00:00: mouth 2 00 (two) Medical times Branch daily. gabapentin 2020-0 Yes [id number] 100mg Take 1 [facility] 100 mg 3- [id number] capsule by [facility] of capsule 00:00: mouth at [place] 00 bedtime. Medical [facility] ascorbic 2020-0 Yes [id number] 500mg Take 1 [facility] acid, 3- [id number] tablet by [facility] of vitamin C, 00:00: mouth [place] 500 mg 00 daily. Medical tablet Branch zinc 2020-0 Yes [id number] 220mg Take 1 [facility] vers sulfate 220 3-04 [id number] capsule by [facility] of (50) mg 00:00: mouth [place] capsule 00 daily. Medical Branch linaGLIPtin 2020-0 Yes [id number] 5mg Take 1 [facility] (TRADJENTA) 3-04 [id number] tablet by [facility] of 5 mg tablet 00:00: mouth [place] 00 daily. Medical [facility] amiodarone 2020-0 Yes [id number] 200mg Take 1 [facility] 200 mg 3-04 [id number] tablet by [facility] o f tablet 00:00: mouth 2 [place] 00 (two) Medical times Branch daily. apixaban 2020-0 Yes 1358 5mg Take 1 [facility] (ELIQUIS) 5 3-04 tablet by [facility] of mg tablet 00:00: mouth 2 [place] 00 (two) Medical times Branch daily. Indication s: atrial fibrillati on famotidine 0 Yes [id number] 20mg Take 1 [facility] 20 mg 3-04 [id number] tablet by [facility] of tablet 00:00: mouth 2 (two) Medical times Branch daily. gabapentin 2020-0 Yes [id number] 100mg Take 1 [facility] 100 mg 3-04 [id number] capsule by [facility] of capsule 00:00: mouth at [place] 00 bedtime. Medical [facility] ascorbic 2020-0 Yes [id number] 500mg Take 1 [facility] acid, 3-04 [id number] tablet by [facility] of vitamin C, 00:00: mouth [place] 500 mg 00 daily. Medical tablet Branch zinc 2020-0 Yes [id number] 220mg Take 1 [facility] vers sulfate 220 3-04 [id number] capsule by [facility] of (50) mg 00:00: mouth [place] capsule 00 daily. Medical Branch linaGLIPtin 0 Yes [id number] 5mg Take 1 [facility] (TRADJENTA) 3-04 [id number] tablet by [facility] of 5 mg tablet 00:00: mouth [place] 00 daily. Medical Branch amiodarone 0 Yes [id number] 200mg Take 1 [facility] 200 mg 3-04 [id number] tablet by [facility] o f tablet 00:00: mouth 2 00 (two) Medical times Branch daily. apixaban Yes 1358 5mg Take 1 [facility] (ELIQUIS) 5 3-04 tablet by [facility] of mg tablet 00:00: mouth 2 (two) Medical times Branch daily. Indication s: atrial fibrillati on famotidine 0 Yes [id number] 20mg Take 1 [facility] 20 mg 3-04 [id number] tablet by [facility] of tablet 00:00: mouth 2 00 (two) Medical times Branch daily. gabapentin 2020-0 Yes [id number] 100mg Take 1 [facility] 100 mg 3-04 [id number] capsule by [facility] of capsule 00:00: mouth at [place] 00 bedtime. Medical [facility] ascorbic 2020-0 Yes [id number] 500mg Take 1 [facility] acid, 3-04 [id number] tablet by [facility] of vitamin C, 00:00: mouth [place] 500 mg 00 daily. Medical tablet Branch zinc 2020-0 Yes [id number] 220mg Take 1 [facility] vers sulfate 220 3-04 [id number] capsule by [facility] of (50) mg 00:00: mouth [place] capsule 00 daily. Medical Branch linaGLIPtin 2020-0 Yes [id number] 5mg Take 1 [facility] (TRADJENTA) 3-04 [id number] tablet by [facility] of 5 mg tablet 00:00: mouth [place] 00 daily. Medical [facility] amiodarone 2020-0 Yes [id number] 200mg Take 1 [facility] 200 mg 3-04 [id number] tablet by [facility] o f tablet 00:00: mouth 2 00 (two) Medical times Branch daily. apixaban 2020-0 Yes 1358 5mg Take 1 [facility] (ELIQUIS) 5 3-04 tablet by [facility] of mg tablet 00:00: mouth 2 (two) Medical times Branch daily. Indication s: atrial fibrillati on famotidine 2020-0 Yes [id number] 20mg Take 1 [facility] 20 mg 3-04 [id number] tablet by [facility] of tablet 00:00: mouth 2 (two) Medical times Branch daily. gabapentin 2020-0 Yes [id number] 100mg Take 1 [facility] 100 mg 3-04 [id number] capsule by [facility] of capsule 00:00: mouth at [place] 00 bedtime. Medical Branch ascorbic 2020-0 Yes [id number] 500mg Take 1 [facility] acid, 3-04 [id number] tablet by [facility] of vitamin C, 00:00: mouth [place] 500 mg 00 daily. Medical tablet Branch zinc 2020-0 Yes [id number] 220mg Take 1 [facility] vers sulfate 220 3-04 [id number] capsule by [facility] of (50) mg 00:00: mouth [place] capsule 00 daily. Medical Branch linaGLIPtin 2020-0 Yes [id number] 5mg Take 1 [facility] (TRADJENTA) 3-04 [id number] tablet by [facility] of 5 mg tablet 00:00: mouth [place] 00 daily. Medical Branch amiodarone 2020-0 Yes [id number] 200mg Take 1 [facility] 200 mg 3-04 [id number] tablet by [facility] o f tablet 00:00: mouth 2 00 (two) Medical times Branch daily. apixaban 2020-0 Yes 1358 5mg Take 1 [facility] (EL[facility]QUIS) 5 3-04 tablet by [facility] of mg tablet 00:00: mouth 2 00 (two) Medical times Branch daily. Indication s: atrial fibrillati on famotidine 2020-0 Yes [id number] 20mg Take 1 [facility] 20 mg 3-04 [id number] tablet by [facility] of tablet 00:00: mouth 2 00 (two) Medical times Branch daily. gabapentin 2020-0 Yes [id number] 100mg Take 1 [facility] 100 mg 3-04 [id number] capsule by [facility] of capsule 00:00: mouth at [place] 00 bedtime. Medical [facility] ascorbic 2020-0 Yes [id number] 500mg Take 1 [facility] acid, 3-04 [id number] tablet by [facility] of vitamin C, 00:00: mouth [place] 500 mg 00 daily. Medical tablet Branch zinc 2020-0 Yes [id number] 220mg Take 1 [facility] vers sulfate 220 3-04 [id number] capsule by [facility] of (50) mg 00:00: mouth [place] capsule 00 daily. Medical Branch linaGLIPtin 0 Yes [id number] 5mg Take 1 [facility] (TRADJENTA) 3-04 [id number] tablet by [facility] of 5 mg tablet 00:00: mouth [place] 00 daily. Medical Branch amiodarone 0 Yes [id number] 200mg Take 1 [facility] 200 mg 3-04 [id number] tablet by [facility] o f tablet 00:00: mouth 2 00 (two) Medical times Branch daily. apixaban 0 Yes 1358 5mg Take 1 [facility] (ELIQUIS) 5 3-04 tablet by [facility] of mg tablet 00:00: mouth 2 00 (two) Medical times Branch daily. Indication s: atrial fibrillati on famotidine 2020-0 Yes [id number] 20mg Take 1 [facility] 20 mg 3-04 [id number] tablet by [facility] of tablet 00:00: mouth 2 00 (two) Medical times Branch daily. gabapentin 2020-0 Yes [id number] 100mg Take 1 [facility] 100 mg 3-04 [id number] capsule by [facility] of capsule 00:00: mouth at [place] 00 bedtime. Medical [facility] ascorbic 2020-0 Yes [id number] 500mg Take 1 [facility] acid, 3-04 [id number] tablet by [facility] of vitamin C, 00:00: mouth [place] 500 mg 00 daily. Medical tablet Branch zinc 2020-0 Yes [id number] 220mg Take 1 [facility] vers sulfate 220 3-04 [id number] capsule by [facility] of (50) mg 00:00: mouth [place] capsule 00 daily. Medical Branch linaGLIPtin 2020-0 Yes [id number] 5mg Take 1 [facility] (TRADJENTA) 3-04 [id number] tablet by [facility] of 5 mg tablet 00:00: mouth [place] 00 daily. Medical Branch amiodarone 2020-0 Yes [id number] 200mg Take 1 [facility] 200 mg 3-04 [id number] tablet by [facility] o f tablet 00:00: mouth 2 00 (two) Medical times Branch daily. apixaban 2020-0 Yes 1358 5mg Take 1 [facility] (EL[facility]QUIS) 5 3-04 tablet by [facility] of mg tablet 00:00: mouth 2 (two) Medical times Branch daily. Indication s: atrial fibrillati on famotidine 2020-0 Yes [id number] 20mg Take 1 [facility] 20 mg 3-04 [id number] tablet by [facility] of tablet 00:00: mouth 2 (two) Medical times Branch daily. gabapentin 2020-0 Yes [id number] 100mg Take 1 [facility] 100 mg 3-04 [id number] capsule by [facility] of capsule 00:00: mouth at [place] 00 bedtime. Medical [facility] ascorbic 2020-0 Yes [id number] 500mg Take 1 [facility] acid, 3-04 [id number] tablet by [facility] of vitamin C, 00:00: mouth [place] 500 mg 00 daily. Medical tablet Branch zinc 2020-0 Yes [id number] 220mg Take 1 [facility] vers sulfate 220 3-04 [id number] capsule by [facility] of (50) mg 00:00: mouth [place] capsule 00 daily. Medical Branch linaGLIPtin 2020-0 Yes [id number] 5mg Take 1 [facility] (TRADJENTA) 3-04 [id number] tablet by [facility] of 5 mg tablet 00:00: mouth [place] 00 daily. Medical [facility] amiodarone 2020-0 Yes [id number] 200mg Take 1 [facility] 200 mg 3-04 [id number] tablet by [facility] o f tablet 00:00: mouth 2 00 (two) Medical times Branch daily. apixaban 2020-0 Yes 1358 5mg Take 1 [facility] (EL[facility]QU[facility]) 5 3-04 tablet by [facility] of mg tablet 00:00: mouth 2 (two) Medical times Branch daily. Indication s: atrial fibrillati on famotidine 2020-0 Yes [id number] 20mg Take 1 [facility] 20 mg 3-04 [id number] tablet by [facility] of tablet 00:00: mouth 2 00 (two) Medical times Branch daily. gabapentin 2020-0 Yes [id number] 100mg Take 1 [facility] 100 mg 3-04 [id number] capsule by [facility] of capsule 00:00: mouth at [place] 00 bedtime. Medical Branch ascorbic 2020-0 Yes [id number] 500mg Take 1 [facility] acid, 3-04 [id number] tablet by [facility] of vitamin C, 00:00: mouth [place] 500 mg 00 daily. Medical tablet Branch zinc 2020-0 Yes [id number] 220mg Take 1 [facility] vers sulfate 220 3-04 [id number] capsule by [facility] of (50) mg 00:00: mouth [place] capsule 00 daily. Medical Branch linaGLIPtin 0 Yes [id number] 5mg Take 1 [facility] (TRADJENTA) 3-04 [id number] tablet by [facility] of 5 mg tablet 00:00: mouth [place] 00 daily. Medical Branch amiodarone 0 Yes [id number] 200mg Take 1 [facility] 200 mg 3-04 [id number] tablet by [facility] o f tablet 00:00: mouth 2 00 (two) Medical times Branch daily. apixaban 0 Yes 1358 5mg Take 1 [facility] (EL[facility]QUIS) 5 3-04 tablet by [facility] of mg tablet 00:00: mouth 2 (two) Medical times Branch daily. Indication s: atrial fibrillati on famotidine 2020-0 Yes [id number] 20mg Take 1 [facility] 20 mg 3-04 [id number] tablet by [facility] of tablet 00:00: mouth 2 00 (two) Medical times Branch daily. gabapentin 2020-0 Yes [id number] 100mg Take 1 [facility] 100 mg 3-04 [id number] capsule by [facility] of capsule 00:00: mouth at [place] 00 bedtime. Medical Branch ascorbic 2020-0 Yes [id number] 500mg Take 1 [facility] acid, 3-04 [id number] tablet by [facility] of vitamin C, 00:00: mouth [place] 500 mg 00 daily. Medical tablet Branch zinc 2020-0 Yes [id number] 220mg Take 1 [facility] vers sulfate 220 3-04 [id number] capsule by [facility] of (50) mg 00:00: mouth [place] capsule 00 daily. Medical Branch linaGLIPtin 2020-0 Yes [id number] 5mg Take 1 [facility] (TRADJENTA) 3-04 [id number] tablet by [facility] of 5 mg tablet 00:00: mouth [place] 00 daily. Medical [facility] amiodarone 2020-0 Yes [id number] 200mg Take 1 [facility] 200 mg 3-04 [id number] tablet by [facility] o f tablet 00:00: mouth 2 [place] 00 (two) Medical times Branch daily. apixaban 2020-0 Yes 1358 5mg Take 1 [facility] (ELIQUIS) 5 3-04 tablet by [facility] of mg tablet 00:00: mouth 2 00 (two) Medical times Branch daily. Indication s: atrial fibrillati on famotidine 2020-0 Yes [id number] 20mg Take 1 [facility] 20 mg 3-04 [id number] tablet by [facility] of tablet 00:00: mouth 2 00 (two) Medical times Branch daily. gabapentin 2020-0 Yes [id number] 100mg Take 1 [facility] 100 mg 3-04 [id number] capsule by [facility] of capsule 00:00: mouth at [place] 00 bedtime. Medical Branch ascorbic 2020-0 Yes [id number] 500mg Take 1 [facility] acid, 3-04 [id number] tablet by [facility] of vitamin C, 00:00: mouth [place] 500 mg 00 daily. Medical tablet Branch zinc 2020-0 Yes [id number] 220mg Take 1 [facility] vers sulfate 220 3-04 [id number] capsule by [facility]y of (50) mg 00:00: mouth [place] capsule 00 daily. Medical Branch linaGLIPtin 2020-0 Yes [id number] 5mg Take 1 [facility] (TRADJENTA) 3-04 [id number] tablet by [facility] of 5 mg tablet 00:00: mouth [place] 00 daily. Medical [facility] amiodarone 2020-0 Yes [id number] 200mg Take 1 [facility] 200 mg 3-04 [id number] tablet by [facility]y o f tablet 00:00: mouth 2 [place] 00 (two) Medical times Branch daily. apixaban 2020-0 Yes 1358 5mg Take 1 [facility] (ELIQUIS) 5 3-04 tablet by [facility]y of mg tablet 00:00: mouth 2 [place] 00 (two) Medical times Branch daily. Indication s: atrial fibrillati on famotidine 0 Yes [id number] 20mg Take 1 [facility] 20 mg 3-04 [id number] tablet by [facility] of tablet 00:00: mouth 2 (two) Medical times Branch daily. gabapentin 2020-0 Yes [id number] 100mg Take 1 [facility] 100 mg 3-04 [id number] capsule by [facility] of capsule 00:00: mouth at [place] 00 bedtime. Medical Branch ascorbic 2020-0 Yes [id number] 500mg Take 1 [facility] acid, 3-04 [id number] tablet by [facility] of vitamin C, 00:00: mouth [place] 500 mg 00 daily. Medical tablet Branch zinc Yes [id number] 220mg Take 1 [facility] vers sulfate 220 3-04 [id number] capsule by [facility] of (50) mg 00:00: mouth [place] capsule 00 daily. Medical Branch linaGLIPtin Yes [id number] 5mg Take 1 [facility] (TRADJENTA) 3-04 [id number] tablet by [facility] of 5 mg tablet 00:00: mouth [place] 00 daily. Medical Branch amiodarone Yes [id number] 200mg Take 1 [facility] 200 mg 3-04 [id number] tablet by [facility] o f tablet 00:00: mouth 2 (two) Medical times Branch daily. apixaban Yes 1358 5mg Take 1 [facility] (ELIQUIS) 5 3-04 tablet by [facility] of mg tablet 00:00: mouth 2 (two) Medical times Branch daily. Indication s: atrial fibrillati on famotidine 0 Yes [id number] 20mg Take 1 [facility] 20 mg 3-04 [id number] tablet by [facility] of tablet 00:00: mouth 2 (two) Medical times Branch daily. gabapentin 2020-0 Yes [id number] 100mg Take 1 [facility] 100 mg 3-04 [id number] capsule by [facility] of capsule 00:00: mouth at [place] 00 bedtime. Medical Branch ascorbic 2020-0 Yes [id number] 500mg Take 1 [facility] acid, 3-04 [id number] tablet by [facility] of vitamin C, 00:00: mouth [place] 500 mg 00 daily. Medical tablet Branch zinc 2020-0 Yes [id number] 220mg Take 1 [facility] vers sulfate 220 3-04 [id number] capsule by [facility] of (50) mg 00:00: mouth [place] capsule 00 daily. Medical Branch linaGLIPtin 2020-0 Yes [id number] 5mg Take 1 [facility] (TRADJ[facility]A) 3-04 [id number] tablet by [facility] of 5 mg tablet 00:00: mouth [place] 00 daily. Medical Branch amiodarone 2020-0 Yes [id number] 200mg Take 1 [facility] 200 mg 3-04 [id number] tablet by [facility] o f tablet 00:00: mouth 2 [place] 00 (two) Medical times Branch daily. apixaban 2020-0 Yes 1358 5mg Take 1 [facility] (EL[facility]QUIS) 5 3-04 tablet by it[facility] of mg tablet 00:00: mouth 2 (two) Medical times Branch daily. Indication s: atrial fibrillati on famotidine 2020-0 Yes [id number] 20mg Take 1 [facility] 20 mg 3-04 [id number] tablet by [facility] of tablet 00:00: mouth 2 (two) Medical times Branch daily. gabapentin 2020-0 Yes [id number] 100mg Take 1 [facility] 100 mg 3-04 [id number] capsule by [facility] of capsule 00:00: mouth at [place] 00 bedtime. Medical Branch ascorbic 2020-0 Yes [id number] 500mg Take 1 [facility] acid, 3-04 [id number] tablet by [facility] of vitamin C, 00:00: mouth [place] 500 mg 00 daily. Medical tablet Branch zinc 2020-0 Yes [id number] 220mg Take 1 [facility] vers sulfate 220 3-04 [id number] capsule by it[facility] of (50) mg 00:00: mouth [place] capsule 00 daily. Medical Branch linaGLIPtin 2020-0 Yes [id number] 5mg Take 1 [facility] (TRADJENTA) 3-04 [id number] tablet by [facility] of 5 mg tablet 00:00: mouth [place] 00 daily. Medical Branch amiodarone 2020-0 Yes [id number] 200mg Take 1 [facility] 200 mg 3-04 [id number] tablet by [facility] o f tablet 00:00: mouth 2 [place] 00 (two) Medical times Branch daily. apixaban 2020-0 Yes 1358 5mg Take 1 [facility] (ELIQUIS) 5 3-04 tablet by [facility] of mg tablet 00:00: mouth 2 [place] 00 (two) Medical times Branch daily. Indication s: atrial fibrillati on famotidine Yes [id number] 20mg Take 1 [facility] 20 mg 3- [id number] tablet by [facility] of tablet 00:00: mouth 2 (two) Medical times Branch daily. gabapentin Yes [id number] 100mg Take 1 [facility] 100 mg 3- [id number] capsule by [facility] of capsule 00:00: mouth at [place] 00 bedtime. Medical Branch ascorbic 2020-0 Yes [id number] 500mg Take 1 [facility] acid, 3- [id number] tablet by [facility] of vitamin C, 00:00: mouth [place] 500 mg 00 daily. Medical tablet Branch zinc Yes [id number] 220mg Take 1 [facility] vers sulfate 220 3- [id number] capsule by it[facility] of (50) mg 00:00: mouth [place] capsule 00 daily. Medical Branch linaGLIPtin Yes [id number] 5mg Take 1 [facility] ([facility]) 3- [id number] tablet by ity of 5 mg tablet 00:00: mouth [place] 00 daily. Medical Branch amiodarone Yes [id number] 200mg Take 1 [facility] 200 mg 3- [id number] tablet by ity o f tablet 00:00: mouth 2 (two) Medical times Branch daily. Gabapentin Gabapentin Yes [facility] [place] 1 capsule [facility] 12-13 [facility]: - [facility] Famotidine Famotidine 2019-0 Yes [facility] [place] 1 tablet Common 11-20 as needed [facility] 00:[facility]: - [facility] 00 [facility] Ferrous Ferrous No BID Ferrous Gluconate Gluconate Gluconate 324 (38 Fe) 324 (38 Fe) 324 (38 MG MG Fe) MG Advair Advair No 1{puff} BID Advair Diskus Diskus Diskus 250-50 250-50 250-50 Amiodarone Amiodarone No 1{table QD Amiodarone HCl 100 MG HCl 100 MG t} HCl 100 MG Tradjenta 5 Tradjenta 5 No 1{table QD Tradjenta MG MG t} 5 MG Atorvastati Atorvastati No 1{table QD Atorvastat n Calcium n Calcium t} in Calcium 40 MG 40 MG 40 MG Famotidine Famotidine No 1{table BID Famotidine 40 MG 40 MG t_as_ne 40 MG eded} Gabapentin Gabapentin No Gabapentin 100 MG 100 MG 100 MG Furosemide Furosemide No QD Furosemide 40 MG 40 MG 40 MG Zinc 50 MG Zinc 50 MG No 1{table QD Zinc 50 MG t} Loratadine Loratadine No 1{table QD Loratadine 10 MG 10 MG t} 10 MG Vitamin C Vitamin C No 1{table QD Vitamin C 500 MG 500 MG t} 500 MG Furosemide Furosemide No QD Furosemide 20 MG 20 MG 20 MG Ergocalcife Ergocalcife No 1{capsu Ergocalcif rol 1.25 MG rol 1.25 MG le} brian 1.25 (90141 UT) (83547 UT) MG (29948 UT) Ferrous Ferrous No BID Ferrous Gluconate Gluconate Gluconate 324 (38 Fe) 324 (38 Fe) 324 (38 MG MG Fe) MG Advair Advair No 1{puff} BID Advair Diskus Diskus Diskus 250-50 250-50 250-50 Amiodarone Amiodarone No 1{table QD Amiodarone HCl 100 MG HCl 100 MG t} HCl 100 MG Tradjenta 5 Tradjenta 5 No 1{table QD Tradjenta MG MG t} 5 MG Atorvastati Atorvastati No 1{table QD Atorvastat n Calcium n Calcium t} in Calcium 40 MG 40 MG 40 MG Famotidine Famotidine No 1{table BID Famotidine 40 MG 40 MG t_as_ne 40 MG eded} Gabapentin Gabapentin No Gabapentin 100 MG 100 MG 100 MG Furosemide Furosemide No QD Furosemide 40 MG 40 MG 40 MG Zinc 50 MG Zinc 50 MG No 1{table QD Zinc 50 MG t} Loratadine Loratadine No 1{table QD Loratadine 10 MG 10 MG t} 10 MG Vitamin C Vitamin C No 1{table QD Vitamin C 500 MG 500 MG t} 500 MG Furosemide Furosemide No QD Furosemide 40 MG 40 MG 40 MG Atorvastati Atorvastati No 1{table QD Atorvastat n Calcium n Calcium t} in Calcium 40 MG 40 MG 40 MG rOPINIRole rOPINIRole No 1{table BID rOPINIRole HCl 0.25 MG HCl 0.25 MG t} HCl 0.25 MG Ferrous Ferrous No Ferrous Gluconate Gluconate Gluconate 324 (38 Fe) 324 (38 Fe) 324 (38 MG MG Fe) MG Famotidine Famotidine No 1{table BID Famotidine 40 MG 40 MG t_as_ne 40 MG eded} Advair Advair No 1{puff} BID Advair Diskus Diskus Diskus 250-50 250-50 250-50 Gabapentin Gabapentin No 1{capsu Gabapentin 100 MG 100 MG le} 100 MG Gabapentin Gabapentin No Gabapentin 100 MG 100 MG 100 MG Vitamin C Vitamin C No 1{table QD Vitamin C 500 MG 500 MG t} 500 MG Loratadine Loratadine No 1{table QD Loratadine 10 MG 10 MG t} 10 MG Zinc 50 MG Zinc 50 MG No 1{table QD Zinc 50 MG t} Amiodarone Amiodarone No 1{table QD Amiodarone HCl 100 MG HCl 100 MG t} HCl 100 MG Tradjenta 5 Tradjenta 5 No 1{table QD Tradjenta MG MG t} 5 MG Ergocalcife Ergocalcife No 1{capsu Ergocalcif rol 1.25 MG rol 1.25 MG le} brian 1.25 (99025 UT) (04510 UT) MG (06690 UT) Furosemide Furosemide No QD Furosemide 20 MG 20 MG 20 MG Furosemide Furosemide No QD Furosemide 40 MG 40 MG 40 MG Atorvastati Atorvastati No 1{table QD Atorvastat n Calcium n Calcium t} in Calcium 40 MG 40 MG 40 MG rOPINIRole rOPINIRole No 1{table BID rOPINIRole HCl 0.25 MG HCl 0.25 MG t} HCl 0.25 MG Ferrous Ferrous No Ferrous Gluconate Gluconate Gluconate 324 (38 Fe) 324 (38 Fe) 324 (38 MG MG Fe) MG Famotidine Famotidine No 1{table BID Famotidine 40 MG 40 MG t_as_ne 40 MG eded} Advair Advair No 1{puff} BID Advair Diskus Diskus Diskus 250-50 250-50 250-50 Gabapentin Gabapentin No 1{capsu Gabapentin 100 MG 100 MG le} 100 MG Gabapentin Gabapentin No Gabapentin 100 MG 100 MG 100 MG Vitamin C Vitamin C No 1{table QD Vitamin C 500 MG 500 MG t} 500 MG Loratadine Loratadine No 1{table QD Loratadine 10 MG 10 MG t} 10 MG Zinc 50 MG Zinc 50 MG No 1{table QD Zinc 50 MG t} Amiodarone Amiodarone No 1{table QD Amiodarone HCl 100 MG HCl 100 MG t} HCl 100 MG Tradjenta 5 Tradjenta 5 No 1{table QD Tradjenta MG MG t} 5 MG Ergocalcife Ergocalcife No 1{capsu Ergocalcif rol 1.25 MG rol 1.25 MG le} brian 1.25 (13110 UT) (83516 UT) MG (90986 UT) Furosemide Furosemide No QD Furosemide 20 MG 20 MG 20 MG rOPINIRole rOPINIRole No 1{table BID rOPINIRole HCl 0.25 MG HCl 0.25 MG t} HCl 0.25 MG Zinc 50 MG Zinc 50 MG No 1{table QD Zinc 50 MG t} Furosemide Furosemide No QD Furosemide 20 MG 20 MG 20 MG Ergocalcife Ergocalcife No 1{capsu Ergocalcif rol 1.25 MG rol 1.25 MG le} brian 1.25 (31210 UT) (64141 UT) MG (35117 UT) Gabapentin Gabapentin No Gabapentin 100 MG 100 MG 100 MG Amiodarone Amiodarone No 1{table QD Amiodarone HCl 100 MG HCl 100 MG t} HCl 100 MG Gabapentin Gabapentin No 1{capsu Gabapentin 100 MG 100 MG le} 100 MG Tradjenta 5 Tradjenta 5 No 1{table QD Tradjenta MG MG t} 5 MG Loratadine Loratadine No 1{table QD Loratadine 10 MG 10 MG t} 10 MG Atorvastati Atorvastati No 1{table QD Atorvastat n Calcium n Calcium t} in Calcium 40 MG 40 MG 40 MG Vitamin C Vitamin C No 1{table QD Vitamin C 500 MG 500 MG t} 500 MG Furosemide Furosemide No QD Furosemide 40 MG 40 MG 40 MG Ferrous Ferrous No Ferrous Gluconate Gluconate Gluconate 324 (38 Fe) 324 (38 Fe) 324 (38 MG MG Fe) MG Ipratropium Ipratropium No 2{puffs QID Ipratropiu [place] HFA [place] HFA } m [place] 17 MCG/ACT 17 MCG/ACT HFA 17 MCG/ACT Advair Advair No 1{puff} BID Advair Diskus Diskus Diskus 250-50 250-50 250-50 Famotidine Famotidine No 1{table BID Famotidine 40 MG 40 MG t_as_ne 40 MG eded} rOPINIRole rOPINIRole No 1{table BID rOPINIRole HCl 0.25 MG HCl 0.25 MG t} HCl 0.25 MG Zinc 50 MG Zinc 50 MG No 1{table QD Zinc 50 MG t} Furosemide Furosemide No QD Furosemide 20 MG 20 MG 20 MG Ergocalcife Ergocalcife No 1{capsu Ergocalcif rol 1.25 MG rol 1.25 MG le} brian 1.25 (61109 UT) (78693 UT) MG (81038 UT) Gabapentin Gabapentin No Gabapentin 100 MG 100 MG 100 MG Amiodarone Amiodarone No 1{table QD Amiodarone HCl 100 MG HCl 100 MG t} HCl 100 MG Gabapentin Gabapentin No 1{capsu Gabapentin 100 MG 100 MG le} 100 MG Tradjenta 5 Tradjenta 5 No 1{table QD Tradjenta MG MG t} 5 MG Loratadine Loratadine No 1{table QD Loratadine 10 MG 10 MG t} 10 MG Atorvastati Atorvastati No 1{table QD Atorvastat n Calcium n Calcium t} in Calcium 40 MG 40 MG 40 MG Vitamin C Vitamin C No 1{table QD Vitamin C 500 MG 500 MG t} 500 MG Furosemide Furosemide No QD Furosemide 40 MG 40 MG 40 MG Ferrous Ferrous No Ferrous Gluconate Gluconate Gluconate 324 (38 Fe) 324 (38 Fe) 324 (38 MG MG Fe) MG Ipratropium Ipratropium No 2{puffs QID Ipratropiu [place] HFA [place] HFA } m [place] 17 MCG/ACT 17 MCG/ACT HFA 17 MCG/ACT Advair Advair No 1{puff} BID Advair Diskus Diskus Diskus 250-50 250-50 250-50 Famotidine Famotidine No 1{table BID Famotidine 40 MG 40 MG t_as_ne 40 MG eded} Ipratropium Ipratropium No 2{puffs QID Ipratropiu [place] HFA [place] HFA } m [place] 17 MCG/ACT 17 MCG/ACT HFA 17 MCG/ACT Gabapentin Gabapentin No Gabapentin 100 MG 100 MG 100 MG Advair Advair No 1{puff} BID Advair Diskus Diskus Diskus 250-50 250-50 250-50 Vitamin C Vitamin C No 1{table QD Vitamin C 500 MG 500 MG t} 500 MG Atorvastati Atorvastati No 1{table QD Atorvastat n Calcium n Calcium t} in Calcium 40 MG 40 MG 40 MG Zinc 50 MG Zinc 50 MG No 1{table QD Zinc 50 MG t} rOPINIRole rOPINIRole No 1{table BID rOPINIRole HCl 0.25 MG HCl 0.25 MG t} HCl 0.25 MG Famotidine Famotidine No 1{table BID Famotidine 40 MG 40 MG t_as_ne 40 MG eded} Ergocalcife Ergocalcife No 1{capsu Ergocalcif rol 1.25 MG rol 1.25 MG le} brian 1.25 (32263 UT) (00086 UT) MG (66031 UT) Tradjenta 5 Tradjenta 5 No 1{table QD Tradjenta MG MG t} 5 MG Loratadine Loratadine No 1{table QD Loratadine 10 MG 10 MG t} 10 MG Furosemide Furosemide No QD Furosemide 40 MG 40 MG 40 MG Gabapentin Gabapentin No 1{capsu Gabapentin 100 MG 100 MG le} 100 MG Amiodarone Amiodarone No 1{table QD Amiodarone HCl 100 MG HCl 100 MG t} HCl 100 MG Ferrous Ferrous No Ferrous Gluconate Gluconate Gluconate 324 (38 Fe) 324 (38 Fe) 324 (38 MG MG Fe) MG Ipratropium Ipratropium No 2{puffs QID Ipratropiu [place] HFA [place] HFA } m [place] 17 MCG/ACT 17 MCG/ACT HFA 17 MCG/ACT Gabapentin Gabapentin No Gabapentin 100 MG 100 MG 100 MG Zinc 50 MG Zinc 50 MG No 1{table QD Zinc 50 MG t} rOPINIRole rOPINIRole No 1{table BID rOPINIRole HCl 0.25 MG HCl 0.25 MG t} HCl 0.25 MG Atorvastati Atorvastati No 1{table QD Atorvastat n Calcium n Calcium t} in Calcium 40 MG 40 MG 40 MG Gabapentin Gabapentin No 1{capsu Gabapentin 100 MG 100 MG le} 100 MG Ergocalcife Ergocalcife No 1{capsu Ergocalcif rol 1.25 MG rol 1.25 MG le} brian 1.25 (56276 UT) (77879 UT) MG (04747 UT) Advair Advair No 1{puff} BID Advair Diskus Diskus Diskus 250-50 250-50 250-50 Vitamin C Vitamin C No 1{table QD Vitamin C 500 MG 500 MG t} 500 MG Furosemide Furosemide No QD Furosemide 40 MG 40 MG 40 MG Amiodarone Amiodarone No 1{table QD Amiodarone HCl 100 MG HCl 100 MG t} HCl 100 MG Famotidine Famotidine No 1{table BID Famotidine 40 MG 40 MG t_as_ne 40 MG eded} Ferrous Ferrous No Ferrous Gluconate Gluconate Gluconate 324 (38 Fe) 324 (38 Fe) 324 (38 MG MG Fe) MG Tradjenta 5 Tradjenta 5 No 1{table QD Tradjenta MG MG t} 5 MG Loratadine Loratadine No 1{table QD Loratadine 10 MG 10 MG t} 10 MG Zantac 150 Zantac 150 Yes Na Tsai 1 tablet Common Maximum Maximum at bedtime Spi rit Strength Strength [facility] Metformin Metformin Yes Na Tsai TOME RANDEE Common HCl HCl TABLETA Spirit POR VIA - [facility] ORAL DOS [facility] Magnesium Magnesium Yes Na Tsai 1 tablet Common Oxide Oxide as needed [facility] Hemocyte Hemocyte Yes Na Tsai TOME RANDEE Common Plus Plus [place] Spirit RANDEE VEZ [place] - [facility] APURVA POR [facility] VIA [facility] Zyrtec Zyrtec Yes Na Tsai 1 tablet Comm on Allergy Allergy [facility] Metformin Metformin Yes Na Tsai 1 tablet Common HCl HCl with meals [facility] Advair Advair Yes Na Tsai INHALAR Commo n Diskus Diskus RANDEE Spirit APLICACION - [facility] POR VIA St ORAL DOS [facility] VECES POR Medical APURVA Center Melatonin Melatonin Yes Na Tsai as Co mmon directed [facility] Zestoretic Zestoretic Yes Na Tsai TOME RANDEE Common TABLETA Spirit RANDEE VEZ AL - [facility]I APURVA POR [facility] Zocor Zocor Yes Na Tsai TOME RANDEE Common TABLETA Spirit RANDEE VEZ AL - [facility] APURVA POR [facility] VIA [facility] Flonase Flonase Yes Na Tsai 2 spray in Common each Spirit nostril [facility] ProAir HFA ProAir HFA Yes Na Tsai INHALAR Common DOS Spirit APLICACION - [facility]I ES POR [facility] Medical VECES POR Center APURVA Aspir-81 Aspir-81 Yes Na Tsai [address] [facility] Benzonatate Benzonatate Yes Na Tsai 1 capsule Common as needed [facility] Sotalol HCl Sotalol HCl Yes Na Tsai 1/[address] [facility] Azithromyci Azithromyci Yes Na Tsai 2 tablets Common n n on the Spirit first day, - [facility] then [address] [facility] Center Doxycycline Doxycycline Yes Na Tsai 1 capsule Common Hyclate Hyclate [facility] Furosemide Furosemide No Furosemide 40 MG 40 MG 40 MG traMADol traMADol No 1{table QD traMADol HCl 50 MG HCl 50 MG t_as_ne HCl 50 MG eded} Topiramate Topiramate No 1{table BID Topiramate 25 MG 25 MG t} 25 MG Advair Advair No Advair Diskus Diskus Diskus 250-50 250-50 250-50 Eliquis 5 Eliquis 5 No Eliquis 5 mg 5 mg mg 5 mg mg 5 mg Atorvastati Atorvastati No 1{table QD Atorvastat n Calcium n Calcium t} in Calcium 40 MG 40 MG 40 MG Hemocyte Hemocyte No Hemocyte Plus 106 mg Plus 106 mg Plus 106 iron- iron- mg iron- Amiodarone Amiodarone No 1{table QD Amiodarone HCl 200 MG HCl 200 MG t} HCl 200 MG Magnesium Magnesium No 1{table QD Magnesium Oxide 400 Oxide 400 t_as_ne Oxide 400 MG MG eded} MG Glimepiride Glimepiride No 1{table Glimepirid 1 MG 1 MG t} e 1 MG Zocor 20 Zocor 20 No Zocor 20 Azithromyci Azithromyci No QD Azithromyc n 250 MG n 250 MG in 250 MG Zestoretic Zestoretic No Zestoretic 20-12.5 MG 20-12.5 MG 20-12.5 MG Aspir-81 81 Aspir-81 81 No 1{table QD Aspir-81 MG MG t} 81 MG Advair Advair No Advair Diskus Diskus Diskus 250-50 250-50 250-50 MCG/DOSE MCG/DOSE MCG/DOSE Doxycycline Doxycycline No 1{capsu BID Doxycyclin Hyclate 100 Hyclate 100 le} e Hyclate MG MG 100 MG Melatonin Melatonin No Melatonin 10 MG 10 MG 10 MG ZyrTEC ZyrTEC No 1{table QD ZyrTEC Allergy 10 Allergy 10 t} Allergy 10 MG MG MG Famotidine Famotidine No 1{table BID Famotidine 40 MG 40 MG t_as_ne 40 MG eded} Furosemide Furosemide No 1{table BID Furosemide 40 MG 40 MG t} 40 MG ProAir HFA ProAir HFA No ProAir HFA 90 90 90 Ferrous Ferrous No 2{table QD Ferrous Gluconate Gluconate ts} Gluconate 324 (38 Fe) 324 (38 Fe) 324 (38 MG MG Fe) MG Tradjenta 5 Tradjenta 5 No 1{table QD Tradjenta MG MG t} 5 MG Acetaminoph Acetaminoph No 1{table QID Acetaminop en-Codeine en-Codeine t_as_ne hen-Codein #3 300-30 #3 300-30 eded} e #3 MG MG 300-30 MG Primidone Primidone No Primidone 50 MG 50 MG 50 MG Primidone Primidone No BID Primidone 50 MG 50 MG 50 MG predniSONE predniSONE No 1{table QD predniSONE 10 MG 10 MG t} 10 MG Gabapentin Gabapentin No Gabapentin 100 MG 100 MG 100 MG Zestoretic Zestoretic No Zestoretic 20-12.5 20-12.5 20-12.5 Zantac 150 Zantac 150 No Zantac 150 Maximum Maximum Maximum Strength Strength Strength 150 MG 150 MG 150 MG Cetirizine Cetirizine No 1{table QD Cetirizine HCl 10 MG HCl 10 MG t} HCl 10 MG Zocor 20 Zocor 20 No Zocor 20 Benzonatate Benzonatate No 1{capsu TID Benzonatat 200 MG 200 MG le} e 200 MG levoFLOXaci levoFLOXaci No 1{table QD levoFLOXac n 500 MG n 500 MG t} in 500 MG Zocor 20 MG Zocor 20 MG No Zocor 20 MG Flonase 50 Flonase 50 No 2{spray QD Flonase 50 MCG/ACT MCG/ACT _in_eac MCG/ACT h_nostr il} Benzonatate Benzonatate No 1{capsu TID Benzonatat 100 MG 100 MG le_as_n e 100 MG eeded} Hemocyte Hemocyte No Hemocyte Plus 106-1 Plus 106-1 Plus 106-1 MG MG MG Lisinopril- Lisinopril- No 1{table QD Lisinopril hydroCHLORO hydroCHLORO t} -hydroCHLO thiazide thiazide ROthiazide 20-12.5 MG 20-12.5 MG 20-12.5 MG Sotalol HCl Sotalol HCl No BID Sotalol 80 MG 80 MG HCl 80 MG Magnesium Magnesium No Magnesium Oxide 400 Oxide 400 Oxide 400 (241.3 Mg) (241.3 Mg) (241.3 Mg) MG MG MG Doxycycline Doxycycline No 1{capsu QD Doxycyclin Hyclate 100 Hyclate 100 le} e Hyclate MG MG 100 MG Furosemide Furosemide No Furosemide 40 MG 40 MG 40 MG traMADol traMADol No 1{table QD traMADol HCl 50 MG HCl 50 MG t_as_ne HCl 50 MG eded} Topiramate Topiramate No 1{table BID Topiramate 25 MG 25 MG t} 25 MG Advair Advair No Advair Diskus Diskus Diskus 250-50 250-50 250-50 Eliquis 5 Eliquis 5 No Eliquis 5 mg 5 mg mg 5 mg mg 5 mg Atorvastati Atorvastati No 1{table QD Atorvastat n Calcium n Calcium t} in Calcium 40 MG 40 MG 40 MG Hemocyte Hemocyte No Hemocyte Plus 106 mg Plus 106 mg Plus 106 iron- iron- mg iron- Amiodarone Amiodarone No 1{table QD Amiodarone HCl 200 MG HCl 200 MG t} HCl 200 MG Magnesium Magnesium No 1{table QD Magnesium Oxide 400 Oxide 400 t_as_ne Oxide 400 MG MG eded} MG Glimepiride Glimepiride No 1{table Glimepirid 1 MG 1 MG t} e 1 MG Zocor 20 Zocor 20 No Zocor 20 Azithromyci Azithromyci No QD Azithromyc n 250 MG n 250 MG in 250 MG Zestoretic Zestoretic No Zestoretic 20-12.5 MG 20-12.5 MG 20-12.5 MG Aspir-81 81 Aspir-81 81 No 1{table QD Aspir-81 MG MG t} 81 MG Advair Advair No Advair Diskus Diskus Diskus 250-50 250-50 250-50 MCG/DOSE MCG/DOSE MCG/DOSE Doxycycline Doxycycline No 1{capsu BID Doxycyclin Hyclate 100 Hyclate 100 le} e Hyclate MG MG 100 MG Melatonin Melatonin No Melatonin 10 MG 10 MG 10 MG ZyrTEC ZyrTEC No 1{table QD ZyrTEC Allergy 10 Allergy 10 t} Allergy 10 MG MG MG Famotidine Famotidine No 1{table BID Famotidine 40 MG 40 MG t_as_ne 40 MG eded} Furosemide Furosemide No 1{table BID Furosemide 40 MG 40 MG t} 40 MG ProAir HFA ProAir HFA No ProAir HFA 90 90 90 Ferrous Ferrous No 2{table QD Ferrous Gluconate Gluconate ts} Gluconate 324 (38 Fe) 324 (38 Fe) 324 (38 MG MG Fe) MG Tradjenta 5 Tradjenta 5 No 1{table QD Tradjenta MG MG t} 5 MG Acetaminoph Acetaminoph No 1{table QID Acetaminop en-Codeine en-Codeine t_as_ne hen-Codein #3 300-30 #3 300-30 eded} e #3 MG MG 300-30 MG Primidone Primidone No Primidone 50 MG 50 MG 50 MG Primidone Primidone No BID Primidone 50 MG 50 MG 50 MG predniSONE predniSONE No 1{table QD predniSONE 10 MG 10 MG t} 10 MG Gabapentin Gabapentin No Gabapentin 100 MG 100 MG 100 MG Zestoretic Zestoretic No Zestoretic 20-12.5 20-12.5 20-12.5 Zantac 150 Zantac 150 No Zantac 150 Maximum Maximum Maximum Strength Strength Strength 150 MG 150 MG 150 MG Cetirizine Cetirizine No 1{table QD Cetirizine HCl 10 MG HCl 10 MG t} HCl 10 MG Zocor 20 Zocor 20 No Zocor 20 Benzonatate Benzonatate No 1{capsu TID Benzonatat 200 MG 200 MG le} e 200 MG levoFLOXaci levoFLOXaci No 1{table QD levoFLOXac n 500 MG n 500 MG t} in 500 MG Zocor 20 MG Zocor 20 MG No Zocor 20 MG Flonase 50 Flonase 50 No 2{spray QD Flonase 50 MCG/ACT MCG/ACT _in_eac MCG/ACT h_nostr il} Benzonatate Benzonatate No 1{capsu TID Benzonatat 100 MG 100 MG le_as_n e 100 MG eeded} Hemocyte Hemocyte No Hemocyte Plus 106-1 Plus 106-1 Plus 106-1 MG MG MG Lisinopril- Lisinopril- No 1{table QD Lisinopril hydroCHLORO hydroCHLORO t} -hydroCHLO thiazide thiazide ROthiazide 20-12.5 MG 20-12.5 MG 20-12.5 MG Sotalol HCl Sotalol HCl No BID Sotalol 80 MG 80 MG HCl 80 MG Magnesium Magnesium No Magnesium Oxide 400 Oxide 400 Oxide 400 (241.3 Mg) (241.3 Mg) (241.3 Mg) MG MG MG Doxycycline Doxycycline No 1{capsu QD Doxycyclin Hyclate 100 Hyclate 100 le} e Hyclate MG MG 100 MG Furosemide Furosemide No Furosemide 40 MG 40 MG 40 MG traMADol traMADol No 1{table QD traMADol HCl 50 MG HCl 50 MG t_as_ne HCl 50 MG eded} Topiramate Topiramate No 1{table BID Topiramate 25 MG 25 MG t} 25 MG Advair Advair No Advair Diskus Diskus Diskus 250-50 250-50 250-50 Eliquis 5 Eliquis 5 No Eliquis 5 mg 5 mg mg 5 mg mg 5 mg Atorvastati Atorvastati No 1{table QD Atorvastat n Calcium n Calcium t} in Calcium 40 MG 40 MG 40 MG Hemocyte Hemocyte No Hemocyte Plus 106 mg Plus 106 mg Plus 106 iron- iron- mg iron- Amiodarone Amiodarone No 1{table QD Amiodarone HCl 200 MG HCl 200 MG t} HCl 200 MG Magnesium Magnesium No 1{table QD Magnesium Oxide 400 Oxide 400 t_as_ne Oxide 400 MG MG eded} MG Glimepiride Glimepiride No 1{table Glimepirid 1 MG 1 MG t} e 1 MG Zocor 20 Zocor 20 No Zocor 20 Azithromyci Azithromyci No QD Azithromyc n 250 MG n 250 MG in 250 MG Zestoretic Zestoretic No Zestoretic 20-12.5 MG 20-12.5 MG 20-12.5 MG Aspir-81 81 Aspir-81 81 No 1{table QD Aspir-81 MG MG t} 81 MG Advair Advair No Advair Diskus Diskus Diskus 250-50 250-50 250-50 MCG/DOSE MCG/DOSE MCG/DOSE Doxycycline Doxycycline No 1{capsu BID Doxycyclin Hyclate 100 Hyclate 100 le} e Hyclate MG MG 100 MG Melatonin Melatonin No Melatonin 10 MG 10 MG 10 MG ZyrTEC ZyrTEC No 1{table QD ZyrTEC Allergy 10 Allergy 10 t} Allergy 10 MG MG MG Famotidine Famotidine No 1{table BID Famotidine 40 MG 40 MG t_as_ne 40 MG eded} Furosemide Furosemide No 1{table BID Furosemide 40 MG 40 MG t} 40 MG ProAir HFA ProAir HFA No ProAir HFA 90 90 90 Ferrous Ferrous No 2{table QD Ferrous Gluconate Gluconate ts} Gluconate 324 (38 Fe) 324 (38 Fe) 324 (38 MG MG Fe) MG Tradjenta 5 Tradjenta 5 No 1{table QD Tradjenta MG MG t} 5 MG Acetaminoph Acetaminoph No 1{table QID Acetaminop en-Codeine en-Codeine t_as_ne hen-Codein #3 300-30 #3 300-30 eded} e #3 MG MG 300-30 MG Primidone Primidone No Primidone 50 MG 50 MG 50 MG Primidone Primidone No BID Primidone 50 MG 50 MG 50 MG predniSONE predniSONE No 1{table QD predniSONE 10 MG 10 MG t} 10 MG Gabapentin Gabapentin No Gabapentin 100 MG 100 MG 100 MG Zestoretic Zestoretic No Zestoretic 20-12.5 20-12.5 20-12.5 Zantac 150 Zantac 150 No Zantac 150 Maximum Maximum Maximum Strength Strength Strength 150 MG 150 MG 150 MG Cetirizine Cetirizine No 1{table QD Cetirizine HCl 10 MG HCl 10 MG t} HCl 10 MG Zocor 20 Zocor 20 No Zocor 20 Benzonatate Benzonatate No 1{capsu TID Benzonatat 200 MG 200 MG le} e 200 MG levoFLOXaci levoFLOXaci No 1{table QD levoFLOXac n 500 MG n 500 MG t} in 500 MG Zocor 20 MG Zocor 20 MG No Zocor 20 MG Flonase 50 Flonase 50 No 2{spray QD Flonase 50 MCG/ACT MCG/ACT _in_eac MCG/ACT h_nostr il} Benzonatate Benzonatate No 1{capsu TID Benzonatat 100 MG 100 MG le_as_n e 100 MG eeded} Hemocyte Hemocyte No Hemocyte Plus 106-1 Plus 106-1 Plus 106-1 MG MG MG Lisinopril- Lisinopril- No 1{table QD Lisinopril hydroCHLORO hydroCHLORO t} -hydroCHLO thiazide thiazide ROthiazide 20-12.5 MG 20-12.5 MG 20-12.5 MG Sotalol HCl Sotalol HCl No BID Sotalol 80 MG 80 MG HCl 80 MG Magnesium Magnesium No Magnesium Oxide 400 Oxide 400 Oxide 400 (241.3 Mg) (241.3 Mg) (241.3 Mg) MG MG MG Doxycycline Doxycycline No 1{capsu QD Doxycyclin Hyclate 100 Hyclate 100 le} e Hyclate MG MG 100 MG Furosemide Furosemide No Furosemide 40 MG 40 MG 40 MG traMADol traMADol No 1{table QD traMADol HCl 50 MG HCl 50 MG t_as_ne HCl 50 MG eded} Topiramate Topiramate No 1{table BID Topiramate 25 MG 25 MG t} 25 MG Advair Advair No Advair Diskus Diskus Diskus 250-50 250-50 250-50 Eliquis 5 Eliquis 5 No Eliquis 5 mg 5 mg mg 5 mg mg 5 mg Atorvastati Atorvastati No 1{table QD Atorvastat n Calcium n Calcium t} in Calcium 40 MG 40 MG 40 MG Hemocyte Hemocyte No Hemocyte Plus 106 mg Plus 106 mg Plus 106 iron- iron- mg iron- Amiodarone Amiodarone No 1{table QD Amiodarone HCl 200 MG HCl 200 MG t} HCl 200 MG Magnesium Magnesium No 1{table QD Magnesium Oxide 400 Oxide 400 t_as_ne Oxide 400 MG MG eded} MG Glimepiride Glimepiride No 1{table Glimepirid 1 MG 1 MG t} e 1 MG Zocor 20 Zocor 20 No Zocor 20 Azithromyci Azithromyci No QD Azithromyc n 250 MG n 250 MG in 250 MG Zestoretic Zestoretic No Zestoretic 20-12.5 MG 20-12.5 MG 20-12.5 MG Aspir-81 81 Aspir-81 81 No 1{table QD Aspir-81 MG MG t} 81 MG Advair Advair No Advair Diskus Diskus Diskus 250-50 250-50 250-50 MCG/DOSE MCG/DOSE MCG/DOSE Doxycycline Doxycycline No 1{capsu BID Doxycyclin Hyclate 100 Hyclate 100 le} e Hyclate MG MG 100 MG Melatonin Melatonin No Melatonin 10 MG 10 MG 10 MG ZyrTEC ZyrTEC No 1{table QD ZyrTEC Allergy 10 Allergy 10 t} Allergy 10 MG MG MG Famotidine Famotidine No 1{table BID Famotidine 40 MG 40 MG t_as_ne 40 MG eded} Furosemide Furosemide No 1{table BID Furosemide 40 MG 40 MG t} 40 MG ProAir HFA ProAir HFA No ProAir HFA 90 90 90 Ferrous Ferrous No 2{table QD Ferrous Gluconate Gluconate ts} Gluconate 324 (38 Fe) 324 (38 Fe) 324 (38 MG MG Fe) MG Tradjenta 5 Tradjenta 5 No 1{table QD Tradjenta MG MG t} 5 MG Acetaminoph Acetaminoph No 1{table QID Acetaminop en-Codeine en-Codeine t_as_ne hen-Codein #3 300-30 #3 300-30 eded} e #3 MG MG 300-30 MG Primidone Primidone No Primidone 50 MG 50 MG 50 MG Primidone Primidone No BID Primidone 50 MG 50 MG 50 MG predniSONE predniSONE No 1{table QD predniSONE 10 MG 10 MG t} 10 MG Gabapentin Gabapentin No Gabapentin 100 MG 100 MG 100 MG Zestoretic Zestoretic No Zestoretic 20-12.5 20-12.5 20-12.5 Zantac 150 Zantac 150 No Zantac 150 Maximum Maximum Maximum Strength Strength Strength 150 MG 150 MG 150 MG Cetirizine Cetirizine No 1{table QD Cetirizine HCl 10 MG HCl 10 MG t} HCl 10 MG Zocor 20 Zocor 20 No Zocor 20 Benzonatate Benzonatate No 1{capsu TID Benzonatat 200 MG 200 MG le} e 200 MG levoFLOXaci levoFLOXaci No 1{table QD levoFLOXac n 500 MG n 500 MG t} in 500 MG Zocor 20 MG Zocor 20 MG No Zocor 20 MG Flonase 50 Flonase 50 No 2{spray QD Flonase 50 MCG/ACT MCG/ACT _in_eac MCG/ACT h_nostr il} Benzonatate Benzonatate No 1{capsu TID Benzonatat 100 MG 100 MG le_as_n e 100 MG eeded} Hemocyte Hemocyte No Hemocyte Plus 106-1 Plus 106-1 Plus 106-1 MG MG MG Lisinopril- Lisinopril- No 1{table QD Lisinopril hydroCHLORO hydroCHLORO t} -hydroCHLO thiazide thiazide ROthiazide 20-12.5 MG 20-12.5 MG 20-12.5 MG Sotalol HCl Sotalol HCl No BID Sotalol 80 MG 80 MG HCl 80 MG Magnesium Magnesium No Magnesium Oxide 400 Oxide 400 Oxide 400 (241.3 Mg) (241.3 Mg) (241.3 Mg) MG MG MG Doxycycline Doxycycline No 1{capsu QD Doxycyclin Hyclate 100 Hyclate 100 le} e Hyclate MG MG 100 MG Furosemide Furosemide No Furosemide 40 MG 40 MG 40 MG traMADol traMADol No 1{table QD traMADol HCl 50 MG HCl 50 MG t_as_ne HCl 50 MG eded} Topiramate Topiramate No 1{table BID Topiramate 25 MG 25 MG t} 25 MG Advair Advair No Advair Diskus Diskus Diskus 250-50 250-50 250-50 Eliquis 5 Eliquis 5 No Eliquis 5 mg 5 mg mg 5 mg mg 5 mg Atorvastati Atorvastati No 1{table QD Atorvastat n Calcium n Calcium t} in Calcium 40 MG 40 MG 40 MG Hemocyte Hemocyte No Hemocyte Plus 106 mg Plus 106 mg Plus 106 iron- iron- mg iron- Amiodarone Amiodarone No 1{table QD Amiodarone HCl 200 MG HCl 200 MG t} HCl 200 MG Magnesium Magnesium No 1{table QD Magnesium Oxide 400 Oxide 400 t_as_ne Oxide 400 MG MG eded} MG Glimepiride Glimepiride No 1{table Glimepirid 1 MG 1 MG t} e 1 MG Zocor 20 Zocor 20 No Zocor 20 Azithromyci Azithromyci No QD Azithromyc n 250 MG n 250 MG in 250 MG Zestoretic Zestoretic No Zestoretic 20-12.5 MG 20-12.5 MG 20-12.5 MG Aspir-81 81 Aspir-81 81 No 1{table QD Aspir-81 MG MG t} 81 MG Advair Advair No Advair Diskus Diskus Diskus 250-50 250-50 250-50 MCG/DOSE MCG/DOSE MCG/DOSE Doxycycline Doxycycline No 1{capsu BID Doxycyclin Hyclate 100 Hyclate 100 le} e Hyclate MG MG 100 MG Melatonin Melatonin No Melatonin 10 MG 10 MG 10 MG ZyrTEC ZyrTEC No 1{table QD ZyrTEC Allergy 10 Allergy 10 t} Allergy 10 MG MG MG Famotidine Famotidine No 1{table BID Famotidine 40 MG 40 MG t_as_ne 40 MG eded} Furosemide Furosemide No 1{table BID Furosemide 40 MG 40 MG t} 40 MG ProAir HFA ProAir HFA No ProAir HFA 90 90 90 Ferrous Ferrous No 2{table QD Ferrous Gluconate Gluconate ts} Gluconate 324 (38 Fe) 324 (38 Fe) 324 (38 MG MG Fe) MG Tradjenta 5 Tradjenta 5 No 1{table QD Tradjenta MG MG t} 5 MG Acetaminoph Acetaminoph No 1{table QID Acetaminop en-Codeine en-Codeine t_as_ne hen-Codein #3 300-30 #3 300-30 eded} e #3 MG MG 300-30 MG Primidone Primidone No Primidone 50 MG 50 MG 50 MG Primidone Primidone No BID Primidone 50 MG 50 MG 50 MG predniSONE predniSONE No 1{table QD predniSONE 10 MG 10 MG t} 10 MG Gabapentin Gabapentin No Gabapentin 100 MG 100 MG 100 MG Zestoretic Zestoretic No Zestoretic 20-12.5 20-12.5 20-12.5 Zantac 150 Zantac 150 No Zantac 150 Maximum Maximum Maximum Strength Strength Strength 150 MG 150 MG 150 MG Cetirizine Cetirizine No 1{table QD Cetirizine HCl 10 MG HCl 10 MG t} HCl 10 MG Zocor 20 Zocor 20 No Zocor 20 Benzonatate Benzonatate No 1{capsu TID Benzonatat 200 MG 200 MG le} e 200 MG levoFLOXaci levoFLOXaci No 1{table QD levoFLOXac n 500 MG n 500 MG t} in 500 MG Zocor 20 MG Zocor 20 MG No Zocor 20 MG Flonase 50 Flonase 50 No 2{spray QD Flonase 50 MCG/ACT MCG/ACT _in_eac MCG/ACT h_nostr il} Benzonatate Benzonatate No 1{capsu TID Benzonatat 100 MG 100 MG le_as_n e 100 MG eeded} Hemocyte Hemocyte No Hemocyte Plus 106-1 Plus 106-1 Plus 106-1 MG MG MG Lisinopril- Lisinopril- No 1{table QD Lisinopril hydroCHLORO hydroCHLORO t} -hydroCHLO thiazide thiazide ROthiazide 20-12.5 MG 20-12.5 MG 20-12.5 MG Sotalol HCl Sotalol HCl No BID Sotalol 80 MG 80 MG HCl 80 MG Magnesium Magnesium No Magnesium Oxide 400 Oxide 400 Oxide 400 (241.3 Mg) (241.3 Mg) (241.3 Mg) MG MG MG Doxycycline Doxycycline No 1{capsu QD Doxycyclin Hyclate 100 Hyclate 100 le} e Hyclate MG MG 100 MG Advair Advair No Advair Diskus Diskus Diskus 250-50 250-50 250-50 Amiodarone Amiodarone No 1{table BID Amiodarone HCl 200 MG HCl 200 MG t} HCl 200 MG Cetirizine Cetirizine No 1{table QD Cetirizine HCl 10 MG HCl 10 MG t} HCl 10 MG Famotidine Famotidine No 1{table BID Famotidine 40 MG 40 MG t_as_ne 40 MG eded} Gabapentin Gabapentin No Gabapentin 100 MG 100 MG 100 MG Furosemide Furosemide No 1{table Furosemide 40 MG 40 MG t_as_ne 40 MG eded} Eliquis 5 Eliquis 5 No .5{tabl Eliquis 5 mg 5 mg mg 5 mg et} mg 5 mg Ergocalcife Ergocalcife No 1{capsu Ergocalcif rol 1.25 MG rol 1.25 MG le} brian 1.25 (76449 UT) (74024 UT) MG (06941 UT) Topiramate Topiramate No 1{table BID Topiramate 25 MG 25 MG t} 25 MG Tradjenta 5 Tradjenta 5 No 1{table QD Tradjenta MG MG t} 5 MG Glimepiride Glimepiride No 1{table Glimepirid 1 MG 1 MG t} e 1 MG Ferrous Ferrous No BID Ferrous Gluconate Gluconate Gluconate 324 (38 Fe) 324 (38 Fe) 324 (38 MG MG Fe) MG Atorvastati Atorvastati No 1{table QD Atorvastat n Calcium n Calcium t} in Calcium 40 MG 40 MG 40 MG Benzonatate Benzonatate No TID Benzonatat 200 MG 200 MG e 200 MG Sotalol HCl Sotalol HCl No BID Sotalol 80 MG 80 MG HCl 80 MG Advair Advair No Advair Diskus Diskus Diskus 250-50 250-50 250-50 Amiodarone Amiodarone No 1{table BID Amiodarone HCl 200 MG HCl 200 MG t} HCl 200 MG Cetirizine Cetirizine No 1{table QD Cetirizine HCl 10 MG HCl 10 MG t} HCl 10 MG Famotidine Famotidine No 1{table BID Famotidine 40 MG 40 MG t_as_ne 40 MG eded} Gabapentin Gabapentin No Gabapentin 100 MG 100 MG 100 MG Furosemide Furosemide No 1{table Furosemide 40 MG 40 MG t_as_ne 40 MG eded} Eliquis 5 Eliquis 5 No .5{tabl Eliquis 5 mg 5 mg mg 5 mg et} mg 5 mg Ergocalcife Ergocalcife No 1{capsu Ergocalcif rol 1.25 MG rol 1.25 MG le} brian 1.25 (47716 UT) (41541 UT) MG (43603 UT) Topiramate Topiramate No 1{table BID Topiramate 25 MG 25 MG t} 25 MG Tradjenta 5 Tradjenta 5 No 1{table QD Tradjenta MG MG t} 5 MG Glimepiride Glimepiride No 1{table Glimepirid 1 MG 1 MG t} e 1 MG Ferrous Ferrous No BID Ferrous Gluconate Gluconate Gluconate 324 (38 Fe) 324 (38 Fe) 324 (38 MG MG Fe) MG Atorvastati Atorvastati No 1{table QD Atorvastat n Calcium n Calcium t} in Calcium 40 MG 40 MG 40 MG Benzonatate Benzonatate No TID Benzonatat 200 MG 200 MG e 200 MG Sotalol HCl Sotalol HCl No BID Sotalol 80 MG 80 MG HCl 80 MG Advair Advair No Advair Diskus Diskus Diskus 250-50 250-50 250-50 Amiodarone Amiodarone No 1{table BID Amiodarone HCl 200 MG HCl 200 MG t} HCl 200 MG Cetirizine Cetirizine No 1{table QD Cetirizine HCl 10 MG HCl 10 MG t} HCl 10 MG Famotidine Famotidine No 1{table BID Famotidine 40 MG 40 MG t_as_ne 40 MG eded} Gabapentin Gabapentin No Gabapentin 100 MG 100 MG 100 MG Furosemide Furosemide No 1{table Furosemide 40 MG 40 MG t_as_ne 40 MG eded} Eliquis 5 Eliquis 5 No .5{tabl Eliquis 5 mg 5 mg mg 5 mg et} mg 5 mg Ergocalcife Ergocalcife No 1{capsu Ergocalcif rol 1.25 MG rol 1.25 MG le} brian 1.25 (37739 UT) (33821 UT) MG (15372 UT) Topiramate Topiramate No 1{table BID Topiramate 25 MG 25 MG t} 25 MG Tradjenta 5 Tradjenta 5 No 1{table QD Tradjenta MG MG t} 5 MG Glimepiride Glimepiride No 1{table Glimepirid 1 MG 1 MG t} e 1 MG Ferrous Ferrous No BID Ferrous Gluconate Gluconate Gluconate 324 (38 Fe) 324 (38 Fe) 324 (38 MG MG Fe) MG Atorvastati Atorvastati No 1{table QD Atorvastat n Calcium n Calcium t} in Calcium 40 MG 40 MG 40 MG Benzonatate Benzonatate No TID Benzonatat 200 MG 200 MG e 200 MG Sotalol HCl Sotalol HCl No BID Sotalol 80 MG 80 MG HCl 80 MG Topiramate Topiramate No 1{table BID Topiramate 25 MG 25 MG t} 25 MG Furosemide Furosemide No QD Furosemide 40 MG 40 MG 40 MG Ferrous Ferrous No BID Ferrous Gluconate Gluconate Gluconate 324 (38 Fe) 324 (38 Fe) 324 (38 MG MG Fe) MG Eliquis 5 Eliquis 5 No .5{tabl Eliquis 5 mg 5 mg mg 5 mg et} mg 5 mg Advair Advair No Advair Diskus Diskus Diskus 250-50 250-50 250-50 Ergocalcife Ergocalcife No 1{capsu Ergocalcif rol 1.25 MG rol 1.25 MG le} brian 1.25 (47222 UT) (69109 UT) MG (38493 UT) Glimepiride Glimepiride No 1{table Glimepirid 1 MG 1 MG t} e 1 MG Famotidine Famotidine No 1{table BID Famotidine 40 MG 40 MG t_as_ne 40 MG eded} Tradjenta 5 Tradjenta 5 No 1{table QD Tradjenta MG MG t} 5 MG Benzonatate Benzonatate No TID Benzonatat 200 MG 200 MG e 200 MG Gabapentin Gabapentin No Gabapentin 100 MG 100 MG 100 MG Cetirizine Cetirizine No 1{table QD Cetirizine HCl 10 MG HCl 10 MG t} HCl 10 MG Sotalol HCl Sotalol HCl No BID Sotalol 80 MG 80 MG HCl 80 MG Amiodarone Amiodarone No 1{table BID Amiodarone HCl 200 MG HCl 200 MG t} HCl 200 MG Atorvastati Atorvastati No 1{table QD Atorvastat n Calcium n Calcium t} in Calcium 40 MG 40 MG 40 MG Topiramate Topiramate No 1{table BID Topiramate 25 MG 25 MG t} 25 MG Furosemide Furosemide No QD Furosemide 40 MG 40 MG 40 MG Ferrous Ferrous No BID Ferrous Gluconate Gluconate Gluconate 324 (38 Fe) 324 (38 Fe) 324 (38 MG MG Fe) MG Eliquis 5 Eliquis 5 No .5{tabl Eliquis 5 mg 5 mg mg 5 mg et} mg 5 mg Advair Advair No Advair Diskus Diskus Diskus 250-50 250-50 250-50 Ergocalcife Ergocalcife No 1{capsu Ergocalcif rol 1.25 MG rol 1.25 MG le} brian 1.25 (29671 UT) (17424 UT) MG (80472 UT) Glimepiride Glimepiride No 1{table Glimepirid 1 MG 1 MG t} e 1 MG Famotidine Famotidine No 1{table BID Famotidine 40 MG 40 MG t_as_ne 40 MG eded} Tradjenta 5 Tradjenta 5 No 1{table QD Tradjenta MG MG t} 5 MG Benzonatate Benzonatate No TID Benzonatat 200 MG 200 MG e 200 MG Gabapentin Gabapentin No Gabapentin 100 MG 100 MG 100 MG Cetirizine Cetirizine No 1{table QD Cetirizine HCl 10 MG HCl 10 MG t} HCl 10 MG Sotalol HCl Sotalol HCl No BID Sotalol 80 MG 80 MG HCl 80 MG Amiodarone Amiodarone No 1{table BID Amiodarone HCl 200 MG HCl 200 MG t} HCl 200 MG Atorvastati Atorvastati No 1{table QD Atorvastat n Calcium n Calcium t} in Calcium 40 MG 40 MG 40 MG Zinc 50 MG Zinc 50 MG No 1{table QD Zinc 50 MG t} Furosemide Furosemide No QD Furosemide 40 MG 40 MG 40 MG Advair Advair No Advair Diskus Diskus Diskus 250-50 250-50 250-50 Famotidine Famotidine No 1{table BID Famotidine 40 MG 40 MG t_as_ne 40 MG eded} Topiramate Topiramate No 1{table BID Topiramate 25 MG 25 MG t} 25 MG Vitamin C Vitamin C No 1{table QD Vitamin C 500 MG 500 MG t} 500 MG Amiodarone Amiodarone No 1{table BID Amiodarone HCl 200 MG HCl 200 MG t} HCl 200 MG Eliquis 5 Eliquis 5 No .5{tabl Eliquis 5 mg 5 mg mg 5 mg et} mg 5 mg Atorvastati Atorvastati No 1{table QD Atorvastat n Calcium n Calcium t} in Calcium 40 MG 40 MG 40 MG Ferrous Ferrous No BID Ferrous Gluconate Gluconate Gluconate 324 (38 Fe) 324 (38 Fe) 324 (38 MG MG Fe) MG Furosemide Furosemide No QD Furosemide 20 MG 20 MG 20 MG Tradjenta 5 Tradjenta 5 No 1{table QD Tradjenta MG MG t} 5 MG Ergocalcife Ergocalcife No 1{capsu Ergocalcif rol 1.25 MG rol 1.25 MG le} brian 1.25 (84090 UT) (94558 UT) MG (25439 UT) Sotalol HCl Sotalol HCl No BID Sotalol 80 MG 80 MG HCl 80 MG Gabapentin Gabapentin No Gabapentin 100 MG 100 MG 100 MG Loratadine Loratadine No 1{table QD Loratadine 10 MG 10 MG t} 10 MG Zinc 50 MG Zinc 50 MG No 1{table QD Zinc 50 MG t} Furosemide Furosemide No QD Furosemide 40 MG 40 MG 40 MG Advair Advair No Advair Diskus Diskus Diskus 250-50 250-50 250-50 Famotidine Famotidine No 1{table BID Famotidine 40 MG 40 MG t_as_ne 40 MG eded} Topiramate Topiramate No 1{table BID Topiramate 25 MG 25 MG t} 25 MG Vitamin C Vitamin C No 1{table QD Vitamin C 500 MG 500 MG t} 500 MG Amiodarone Amiodarone No 1{table BID Amiodarone HCl 200 MG HCl 200 MG t} HCl 200 MG Eliquis 5 Eliquis 5 No .5{tabl Eliquis 5 mg 5 mg mg 5 mg et} mg 5 mg Atorvastati Atorvastati No 1{table QD Atorvastat n Calcium n Calcium t} in Calcium 40 MG 40 MG 40 MG Ferrous Ferrous No BID Ferrous Gluconate Gluconate Gluconate 324 (38 Fe) 324 (38 Fe) 324 (38 MG MG Fe) MG Furosemide Furosemide No QD Furosemide 20 MG 20 MG 20 MG Tradjenta 5 Tradjenta 5 No 1{table QD Tradjenta MG MG t} 5 MG Ergocalcife Ergocalcife No 1{capsu Ergocalcif rol 1.25 MG rol 1.25 MG le} brian 1.25 (43871 UT) (90343 UT) MG (08765 UT) Sotalol HCl Sotalol HCl No BID Sotalol 80 MG 80 MG HCl 80 MG Gabapentin Gabapentin No Gabapentin 100 MG 100 MG 100 MG Loratadine Loratadine No 1{table QD Loratadine 10 MG 10 MG t} 10 MG Furosemide Furosemide No QD Furosemide 20 MG 20 MG 20 MG Ergocalcife Ergocalcife No 1{capsu Ergocalcif rol 1.25 MG rol 1.25 MG le} brian 1.25 (94900 UT) (68832 UT) MG (98680 UT) Ferrous Ferrous No BID Ferrous Gluconate Gluconate Gluconate 324 (38 Fe) 324 (38 Fe) 324 (38 MG MG Fe) MG Advair Advair No 1{puff} BID Advair Diskus Diskus Diskus 250-50 250-50 250-50 Amiodarone Amiodarone No 1{table QD Amiodarone HCl 100 MG HCl 100 MG t} HCl 100 MG Tradjenta 5 Tradjenta 5 No 1{table QD Tradjenta MG MG t} 5 MG Atorvastati Atorvastati No 1{table QD Atorvastat n Calcium n Calcium t} in Calcium 40 MG 40 MG 40 MG Famotidine Famotidine No 1{table BID Famotidine 40 MG 40 MG t_as_ne 40 MG eded} Gabapentin Gabapentin No Gabapentin 100 MG 100 MG 100 MG Furosemide Furosemide No QD Furosemide 40 MG 40 MG 40 MG Zinc 50 MG Zinc 50 MG No 1{table QD Zinc 50 MG t} Loratadine Loratadine No 1{table QD Loratadine 10 MG 10 MG t} 10 MG Vitamin C Vitamin C No 1{table QD Vitamin C 500 MG 500 MG t} 500 MG Furosemide Furosemide No QD Furosemide 20 MG 20 MG 20 MG Ergocalcife Ergocalcife No 1{capsu Ergocalcif rol 1.25 MG rol 1.25 MG le} brian 1.25 (74943 UT) (81396 UT) MG (26801 UT) Immunizations Ordered Filled Immunization Date Status Comments [facility] e Immunization Name Name FLUZONE HIGH DOSE FLUZONE HIGH DOSE 2022-03-27 Completed [facility] - OVER 65 OVER 65 15:58:00 [facility] FLUZONE HIGH DOSE FLUZONE HIGH DOSE 2022-03-27 Completed [facility] - OVER 65 OVER 65 15:58:00 [facility] FluAD FluAD 2021-03-13 Completed [facility] - 16:19:00 [facility] FluAD FluAD 2021-03-13 Completed [facility] - 16:19:00 [facility] FluAD FluAD 2021-03-13 Completed [facility] - 16:19:00 [facility] FluAD FluAD 2021-03-13 Completed [facility] - 16:19:00 [facility] FluAD FluAD 2021-03-13 Completed [facility] - 16:19:00 [facility] FluAD FluAD 2021-03-13 Completed [facility] - 16:19:00 [facility] FluAD FluAD 2021-03-13 Completed [facility] - 16:19:00 [facility] FluAD FluAD 2021-03-13 Completed [facility] - 16:19:00 [facility] FluAD FluAD 2021-03-13 Completed [facility] - 16:19:00 [facility] FluAD FluAD 2021-03-13 Completed [facility] - 16:19:00 [facility] FluAD FluAD 2021-03-13 Completed [facility] - 16:19:00 [facility] FluAD FluAD 2021-03-13 Completed [facility] - 16:19:00 [facility] FluAD FluAD 2021-03-13 Completed [facility] - 16:19:00 [facility] FluAD FluAD 2021-03-13 Completed [facility] - 16:19:00 [facility] FluAD FluAD 2021-03-13 Completed [facility] - 16:19:00 [facility] FluAD FluAD 2021-03-13 Completed [facility] - 16:19:00 [facility] Shingrix Shingrix 2021-02-24 Completed [facility] - 15:20:00 [facility] Shingrix Shingrix 2021-02-24 Completed [facility] - 15:20:00 [facility] Shingrix Shingrix 2021-02-24 Completed [facility] - 15:20:00 [facility] Shingrix Shingrix 2021-02-24 Completed [facility] - 15:20:00 [facility] Shingrix Shingrix 2021-02-24 Completed [facility] - 15:20:00 [facility] Shingrix Shingrix 2021-02-24 Completed [facility] - 15:20:00 [facility] Shingrix Shingrix 2021-02-24 Completed [facility] - 15:20:00 [facility] Shingrix Shingrix 2021-02-24 Completed [facility] - 15:20:00 [facility] Shingrix Shingrix 2021-02-24 Completed [facility] - 15:20:00 [facility] Shingrix Shingrix 2021-02-24 Completed [facility] - 15:20:00 [facility] Shingrix Shingrix 2021-02-24 Completed [facility] - 15:20:00 [facility] Shingrix Shingrix 2021-02-24 Completed [facility] - 15:20:00 [facility] Shingrix Shingrix 2021-02-24 Completed [facility] - 15:20:00 [facility] Shingrix Shingrix 2021-02-24 Completed [facility] - 15:20:00 [facility] Shingrix Shingrix 2021-02-24 Completed [facility] - 15:20:00 [facility] Shingrix Shingrix 2021-02-24 Completed [facility] - 15:20:00 [facility] Moderna COVID-19 Moderna COVID-19 2020-11-29 Completed [facility] Vaccine Vaccine 11:06:00 [facility] Moderna COVID-19 Moderna COVID-19 2020-11-29 Completed [facility] - Vaccine Vaccine 11:06:00 [facility] Moderna COVID-19 Moderna COVID-19 2020-11-29 Completed [facility] - Vaccine Vaccine 11:06:00 [facility] Moderna COVID-19 Moderna COVID-19 2020-11-29 Completed [facility] - Vaccine Vaccine 11:06:00 [facility] Moderna COVID-19 Moderna COVID-19 2020-11-29 Completed [facility] - Vaccine Vaccine 11:06:00 [facility] Moderna COVID-19 Moderna COVID-19 2020-11-29 Completed [facility] - Vaccine Vaccine 11:06:00 [facility] Moderna COVID-19 Moderna COVID-19 2020-11-29 Completed [facility] - Vaccine Vaccine 11:06:00 [facility] Moderna COVID-19 Moderna COVID-19 2020-11-29 Completed [facility] - Vaccine Vaccine 11:06:00 [facility] Moderna COVID-19 Moderna COVID-19 2020-11-29 Completed [facility] - Vaccine Vaccine 11:06:00 [facility] Moderna COVID-19 Moderna COVID-19 2020-11-29 Completed [facility] - Vaccine Vaccine 11:06:00 [facility] Moderna COVID-19 Moderna COVID-19 2020-11-29 Completed [facility] - Vaccine Vaccine 11:06:00 [facility] Moderna COVID-19 Moderna COVID-19 2020-11-29 Completed [facility] - Vaccine Vaccine 11:06:00 [facility] Moderna COVID-19 Moderna COVID-19 2020-11-29 Completed [facility] - Vaccine Vaccine 11:06:00 [facility] Moderna COVID-19 Moderna COVID-19 2020-11-29 Completed [facility] - Vaccine Vaccine 11:06:00 [facility] Moderna COVID-19 Moderna COVID-19 2020-11-29 Completed [facility] - Vaccine Vaccine 11:06:00 [facility] Moderna COVID-19 Moderna COVID-19 2020-11-29 Completed [facility] - Vaccine Vaccine 11:06:00 [facility] Moderna COVID-19 Moderna COVID-19 2020-11-29 Completed [facility] - Vaccine Vaccine 11:06:00 [facility] Moderna COVID-19 Moderna COVID-19 2020-11-29 Completed [facility] - Vaccine Vaccine 11:06:00 [facility] Moderna COVID-19 Moderna COVID-19 2020-11-29 Completed [facility] - Vaccine Vaccine 11:06:00 [facility] Moderna COVID-19 Moderna COVID-19 2020-11-29 Completed [facility] - Vaccine Vaccine 11:06:00 [facility] Moderna COVID-19 Moderna COVID-19 2020-11-29 Completed [facility] - Vaccine Vaccine 11:06:00 [facility] Moderna COVID-19 Moderna COVID-19 2020-11-01 Completed [facility] - Vaccine Vaccine 11:37:00 [facility] Moderna COVID-19 Moderna COVID-19 2020-11-01 Completed [facility] - Vaccine Vaccine 11:37:00 [facility] Moderna COVID-19 Moderna COVID-19 2020-11-01 Completed [facility] - Vaccine Vaccine 11:37:00 [facility] Moderna COVID-19 Moderna COVID-19 2020-11-01 Completed [facility] - Vaccine Vaccine 11:37:00 [facility] Moderna COVID-19 Moderna COVID-19 2020-11-01 Completed [facility] - Vaccine Vaccine 11:37:00 [facility] Moderna COVID-19 Moderna COVID-19 2020-11-01 Completed [facility] - Vaccine Vaccine 11:37:00 [facility] Moderna COVID-19 Moderna COVID-19 2020-11-01 Completed [facility] - Vaccine Vaccine 11:37:00 [facility] Moderna COVID-19 Moderna COVID-19 2020-11-01 Completed [facility] - Vaccine Vaccine 11:37:00 [facility] Moderna COVID-19 Moderna COVID-19 2020-11-01 Completed [facility] - Vaccine Vaccine 11:37:00 [facility] Moderna COVID-19 Moderna COVID-19 2020-11-01 Completed [facility] - Vaccine Vaccine 11:37:00 [facility] Moderna COVID-19 Moderna COVID-19 2020-11-01 Completed [facility] - Vaccine Vaccine 11:37:00 [facility] Moderna COVID-19 Moderna COVID-19 2020-11-01 Completed [facility] - Vaccine Vaccine 11:37:00 [facility] Moderna COVID-19 Moderna COVID-19 2020-11-01 Completed [facility] - Vaccine Vaccine 11:37:00 [facility] Moderna COVID-19 Moderna COVID-19 2020-11-01 Completed [facility] - Vaccine Vaccine 11:37:00 [facility] Moderna COVID-19 Moderna COVID-19 2020-11-01 Completed [facility] - Vaccine Vaccine 11:37:00 [facility] Moderna COVID-19 Moderna COVID-19 2020-11-01 Completed [facility] - Vaccine Vaccine 11:37:00 [facility] Moderna COVID-19 Moderna COVID-19 2020-11-01 Completed [facility] - Vaccine Vaccine 11:37:00 [facility] Moderna COVID-19 Moderna COVID-19 2020-11-01 Completed [facility] - Vaccine Vaccine 11:37:00 [facility] Moderna COVID-19 Moderna COVID-19 2020-11-01 Completed [facility] - Vaccine Vaccine 11:37:00 [facility] Moderna COVID-19 Moderna COVID-19 2020-11-01 Completed [facility] - Vaccine Vaccine 11:37:00 [facility] Moderna COVID-19 Moderna COVID-19 2020-11-01 Completed [facility] - Vaccine Vaccine 11:37:00 [facility] Prevnar 13 (PCV13) Prevnar 13 (PCV13) 2020-04-19 Completed [facility] - 15:21:00 [facility] Prevnar 13 (PCV13) Prevnar 13 (PCV13) 2020-04-19 Completed [facility] - 15:21:00 [facility] Prevnar 13 (PCV13) Prevnar 13 (PCV13) 2020-04-19 Completed [facility] - 15:21:00 [facility] Prevnar 13 (PCV13) Prevnar 13 (PCV13) 2020-04-19 Completed [facility] - 15:21:00 [facility] Prevnar 13 (PCV13) Prevnar 13 (PCV13) 2020-04-19 Completed [facility] - 15:21:00 [facility] Prevnar 13 (PCV13) Prevnar 13 (PCV13) 2020-04-19 Completed [facility] - 15:21:00 [facility] Prevnar 13 (PCV13) Prevnar 13 (PCV13) 2020-04-19 Completed [facility] - 15:21:00 [facility] Prevnar 13 (PCV13) Prevnar 13 (PCV13) 2020-04-19 Completed [facility] - 15:21:00 [facility] Prevnar 13 (PCV13) Prevnar 13 (PCV13) 2020-04-19 Completed [facility] - 15:21:00 [facility] Prevnar 13 (PCV13) Prevnar 13 (PCV13) 2020-04-19 Completed [facility] - 15:21:00 [facility] Prevnar 13 (PCV13) Prevnar 13 (PCV13) 2020-04-19 Completed [facility] - 15:21:00 [facility] Prevnar 13 (PCV13) Prevnar 13 (PCV13) 2020-04-19 Completed [facility] - 15:21:00 [facility] Prevnar 13 (PCV13) Prevnar 13 (PCV13) 2020-04-19 Completed [facility] - 15:21:00 [facility] Prevnar 13 (PCV13) Prevnar 13 (PCV13) 2020-04-19 Completed [facility] - 15:21:00 [facility] Prevnar 13 (PCV13) Prevnar 13 (PCV13) 2020-04-19 Completed [facility] - 15:21:00 [facility] Prevnar 13 (PCV13) Prevnar 13 (PCV13) 2020-04-19 Completed [facility] - 15:21:00 [facility] Influenza High Dose 2020-02-16 Completed [facility] 00:[facility]:00 [facility] Influenza High Dose 2020-02-16 Completed [facility] 00:00:00 [facility] Influenza High Dose 2020-02-16 Completed [facility] 00:00:00 [facility] Influenza High Dose 2020-02-16 Completed [facility] 00:00:00 [facility] Influenza High Dose 2020-02-16 Completed [facility] 00:00:00 [facility] Influenza High Dose 2020-02-16 Completed [facility] 00:00:00 [facility] Influenza High Dose 2020-02-16 Completed [facility] 00:00:00 [facility] Influenza High Dose 2020-02-16 Completed [facility] 00[facility]00:00 [facility] Influenza High Dose 2020-02-16 Completed [facility] 00:00:00 [facility] Influenza High Dose 2020-02-16 Completed [facility] 00:00:00 [facility] Influenza High Dose 2020-02-16 Completed [facility] 00:00:00 [facility] Influenza High Dose 2020-02-16 Completed [facility] 00:00:00 [facility] Influenza High Dose 2020-02-16 Completed [facility] 00:00:00 [facility] Influenza High Dose 2020-02-16 Completed [facility] 00:00:00 [facility] Influenza High Dose 2020-02-16 Completed [facility] 00:00:00 [facility] Influenza High Dose 2020-02-16 Completed [facility] 00:00:00 [facility] Influenza High Dose 2020-02-16 Completed [facility] 00:00:00 [facility] Influenza High Dose 2020-02-16 Completed [facility] 00:00:00 [facility] Influenza High Dose 2020-02-16 Completed [facility] 00:00:00 [facility] Influenza High Dose 2020-02-16 Completed [facility] 00:00:00 [facility] Influenza High Dose 2020-02-16 Completed [facility] 00:00:00 [facility] Influenza High Dose 2020-02-16 Completed [facility] 00:00:00 [facility] Influenza High Dose 2020-02-16 Completed [facility] 00:00:00 [facility] FluAD FluAD 2019-04-05 Completed [facility] - 14:26:00 [facility] FluAD FluAD 2019-04-05 Completed [facility] - 14:26:00 [facility] FluAD FluAD 2019-04-05 Completed [facility] - 14:26:00 [facility] FluAD FluAD 2019-04-05 Completed [facility] - 14:26:00 [facility] FluAD FluAD 2019-04-05 Completed [facility] - 14:26:00 [facility] FluAD FluAD 2019-04-05 Completed [facility] - 14:26:00 [facility] FluAD FluAD 2019-04-05 Completed [facility] - 14:26:00 [facility] FluAD FluAD 2019-04-05 Completed [facility] - 14:26:00 [facility] FluAD FluAD 2019-04-05 Completed [facility] - 14:26:00 [facility] FluAD FluAD 2019-04-05 Completed [facility] - 14:26:00 [facility] FluAD FluAD 2019-04-05 Completed [facility] - 14:26:00 [facility] FluAD FluAD 2019-04-05 Completed [facility] - 14:26:00 [facility] FluAD FluAD 2019-04-05 Completed [facility] - 14:26:00 [facility] FluAD FluAD 2019-04-05 Completed [facility] - 14:26:00 [facility] FluAD FluAD 2019-04-05 Completed [facility] - 14:26:00 [facility] FluAD FluAD 2019-04-05 Completed [facility] - 14:26:00 [facility] FluAD FluAD 2019-04-05 Completed [facility] - 14:26:00 [facility] FluAD FluAD 2019-04-05 Completed [facility] - 14:26:00 [facility] FluAD FluAD 2019-04-05 Completed [facility] - 14:26:00 [facility] FluAD FluAD 2019-04-05 Completed [facility] - 14:26:00 [facility] FluAD FluAD 2019-04-05 Completed [facility] - 14:26:00 [facility] FluAD FluAD 2019-04-05 Completed [facility] - 00:00:00 [facility] FluAD FluAD 2018-02-09 Completed [facility] - 10:43:00 [facility] FluAD FluAD 2018-02-09 Completed [facility] - 10:43:00 [facility] FluAD FluAD 2018-02-09 Completed [facility] - 10:43:00 [facility] FluAD FluAD 2018-02-09 Completed [facility] - 10:43:00 [facility] FluAD FluAD 2018-02-09 Completed [facility] - 10:43:00 [facility] FluAD FluAD 2018-02-09 Completed [facility] - 10:43:00 [facility] FluAD FluAD 2018-02-09 Completed [facility] - 10:43:00 [facility] FluAD FluAD 2018-02-09 Completed [facility] - 10:43:00 [facility] FluAD FluAD 2018-02-09 Completed [facility] - 10:43:00 [facility] FluAD FluAD 2018-02-09 Completed [facility] - 10:43:00 [facility] FluAD FluAD 2018-02-09 Completed [facility] - 10:43:00 [facility] FluAD FluAD 2018-02-09 Completed [facility] - 10:43:00 [facility] FluAD FluAD 2018-02-09 Completed [facility] - 10:43:00 [facility] FluAD FluAD 2018-02-09 Completed [facility] - 10:43:00 [facility] FluAD FluAD 2018-02-09 Completed [facility] - 10:43:00 [facility] FluAD FluAD 2018-02-09 Completed [facility] - 10:43:00 [facility] FluAD FluAD 2018-02-09 Completed [facility] - 10:43:00 [facility] FluAD FluAD 2018-02-09 Completed [facility] - 10:43:00 [facility] FluAD FluAD 2018-02-09 Completed [facility] - 10:43:00 [facility] FluAD FluAD 2018-02-09 Completed [facility] - 10:43:00 [facility] FluAD FluAD 2018-02-09 Completed [facility] - 10:43:00 [facility] FluAD FluAD 2018-02-09 Completed [facility] - 00:00:00 [facility] Vital Signs Vital Name Observation Time Observation Value Comments Source Systolic blood 2022-11-16 18:27:00 140 mm[Hg] Univer [facility]ity of [facility] Diastolic blood 2022-11-16 18:27:00 56 mm[Hg] Unive rsity of [facility] Heart rate 2022-11-16 18:23:00 71 /min [facility] Respiratory rate 2022-11-16 18:23:00 20 /min Univ ersity of [facility] Body height 2022-11-16 18:23:00 165.1 cm [facility] [place] Body weight 2022-11-16 18:23:00 72.031 kg [facility] [place] BMI 2022-11-16 18:23:00 26.43 kg/m2 Universi ty of [facility] Oxygen saturation in 2022-11-16 18:23:00 99 /min University of Arterial blood by [facility] Pulse oximetry Branch Systolic blood 2022-08-04 19:11:00 132 mm[Hg] Univer sity of [facility] [place] Diastolic blood 2022-08-04 19:11:00 59 mm[Hg] Unive rsity of [facility] [place] Heart rate 2022-08-04 19:11:00 74 /min [facility] [place] Body temperature 2022-08-04 19:11:00 36.72 Gina Univ ersity of [facility] Respiratory rate 2022-08-04 19:11:00 18 /min Univ ersity of [facility] Body weight 2022-08-04 19:11:00 66.996 kg [facility] [place] BMI 2022-08-04 19:11:00 27.91 kg/m2 [facility] [place] Oxygen saturation in 2022-08-04 19:11:00 95 /min University of Arterial blood by [facility] Pulse oximetry Branch height 2022-03-27 14:30:00 63 [in_i] [facility] weight 2022-03-27 14:30:00 138 [lb_av] [facility] temperature 2022-03-27 14:30:00 97.9 [degF] [facility] bmi 2022-03-27 14:30:00 24.44 kg/m2 [facility] oximetry 2022-03-27 14:30:00 97 % [facility] respiratory rate 2022-03-27 14:30:00 20 /min Comm on [facility] blood pressure 2022-03-27 14:30:00 118 mm[Hg] [facility] - systolic [facility] blood pressure 2022-03-27 14:30:00 70 mm[Hg] Common [facility] - diastolic [facility] height 2022-03-27 15:00:00 62 [in_i] Common [facility] weight 2022-03-27 15:00:00 138 [lb_av] [facility] temperature 2022-03-27 15:00:00 97.9 [degF] [facility] bmi 2022-03-27 15:00:00 25.24 kg/m2 [facility] oximetry 2022-03-27 15:00:00 97 % [facility] respiratory rate 2022-03-27 15:00:00 20 /min Comm on [facility] blood pressure 2022-03-27 15:00:00 118 mm[Hg] Common [facility] - systolic [facility] blood pressure 2022-03-27 15:00:00 70 mm[Hg] Common [facility] - diastolic [facility] height 2021-10-27 15:20:00 63 [in_i] [facility] weight 2021-10-27 15:20:00 142.0 [lb_av] Common [facility] temperature 2021-10-27 15:20:00 98.0 [degF] [facility] bmi 2021-10-27 15:20:00 25.15 kg/m2 [facility] oximetry 2021-10-27 15:20:00 97 % [facility] respiratory rate 2021-10-27 15:20:00 16 /min Comm on [facility] blood pressure 2021-10-27 15:20:00 131 mm[Hg] Common [facility] - systolic [facility] blood pressure 2021-10-27 15:20:00 58 mm[Hg] Common [facility] - diastolic [facility] height 2021-09-15 13:40:00 63 [in_i] [facility] weight 2021-09-15 13:40:00 143.2 [lb_av] [facility] temperature 2021-09-15 13:40:00 98.3 [degF] [facility] bmi 2021-09-15 13:40:00 25.36 kg/m2 [facility] oximetry 2021-09-15 13:40:00 99 % [facility] respiratory rate 2021-09-15 13:40:00 16 /min Comm on [facility] blood pressure 2021-09-15 13:40:00 125 mm[Hg] Common [facility] - systolic [facility] blood pressure 2021-09-15 13:40:00 64 mm[Hg] Common [facility] diastolic [facility] Systolic blood 2021-07-04 15:12:00 155 mm[Hg] Univer sity of pressure [facility] Diastolic blood 2021-07-04 15:12:00 62 mm[Hg] Unive rsity of pressure [facility] Heart rate 2021-07-04 15:01:00 68 /min [facility] Body weight 2021-07-04 15:01:[address] [facility] BMI 2021-07-04 15:01:00 26.45 kg/m2 [facility] Oxygen saturation in 2021-07-04 15:01:00 99 /min University Arterial blood by [facility] Pulse oximetry Branch Systolic blood 2021-07-03 22:21:00 153 mm[Hg] Univer sity of pressure [facility] Diastolic blood 2021-07-03 22:21:00 63 mm[Hg] Unive rsity of pressure [facility] Heart rate 2021-07-03 22:17:00 64 /min Universi ty of [facility] Body temperature 2021-07-03 22:17:00 36.67 Gina Univ ersity of [facility] Respiratory rate 2021-07-03 22:17:00 18 /min Univ ersity of [facility] Body height 2021-07-03 22:17:00 154.9 cm Universi ty of [facility] Body weight 2021-07-03 22:17:00 64.411 kg Universi ty of [facility] BMI 2021-07-03 22:17:00 26.83 kg/m2 Universi ty [facility] Oxygen saturation in 2021-07-03 22:17:00 98 /min [facility] blood by [facility] Pulse oximetry Branch height 2021-06-13 13:00:00 63 [in_i] [facility] weight 2021-06-13 13:00:00 142 [lb_av] [facility] bmi 2021-06-13 13:00:00 25.15 kg/m2 [facility] height 2021-04-08 11:40:00 63 [in_i] [facility] weight 2021-04-08 11:40:00 145 [lb_av] [facility] bmi 2021-04-08 11:40:00 25.68 kg/m2 [facility] height 2021-03-13 15:00:00 63.00 [in_i] [facility] weight 2021-03-13 15:00:00 145 [lb_av] [facility] temperature 2021-03-13 15:00:00 98.2 [degF] [facility] bmi 2021-03-13 15:00:00 25.68 kg/m2 [facility] oximetry 2021-03-13 15:00:00 98 % [facility] respiratory rate 2021-03-13 15:00:00 16 /min Comm on [facility] blood pressure 2021-03-13 15:00:00 120 mm[Hg] [facility] - systolic [facility] blood pressure 2021-03-13 15:00:00 64 mm[Hg] [facility] - diastolic [facility] height 2020-12-10 15:00:00 63.00 [in_i] [facility] weight 2020-12-10 15:00:00 133.2 [lb_av] Common [facility] temperature 2020-12-10 15:00:00 97.8 [degF] [facility] bmi 2020-12-10 15:00:00 23.59 kg/m2 [facility] oximetry 2020-12-10 15:00:00 98 % Common [facility] respiratory rate 2020-12-10 15:00:00 16 /min Comm on [facility] blood pressure 2020-12-10 15:00:00 124 mm[Hg] [facility] - systolic [facility] blood pressure 2020-12-10 15:00:00 64 mm[Hg] Common [facility] - diastolic [facility] height 2020-12-10 15:00:00 63.00 [in_i] [facility] weight 2020-12-10 15:00:00 133.2 [lb_av] Common [facility] temperature 2020-12-10 15:00:00 97.8 [degF] [facility] bmi 2020-12-10 15:00:00 23.59 kg/m2 [facility] oximetry 2020-12-10 15:00:00 98 % [facility] blood pressure 2020-12-10 15:00:00 124 mm[Hg] [facility] - systolic [facility] blood pressure 2020-12-10 15:00:00 64 mm[Hg] Common [facility] Procedures Procedure Date / Time Performing Clinician Source Performed MARIA EUGENIA MULTI LEVEL - BY 2022-12-07 15:00:00 Bree Lanza [facility] VASCULAR LAB Medical Branch TRANSTHORACIC ECHO (TTE) 2022-12-07 13:52:35 Bree Lanza [facility] COMPLETE W/ CONTRAST [facility] EXTERNAL PROVIDER - ADC 2022-11-16 05:01:00 Doctor Unassigned, N o [facility] PHYSICIAN ORDERS 2022-09-21 05:01:00 Doctor Unassigned, No [facility] EXTERNAL PROVIDER - ADC 2022-09-10 05:01:00 Doctor Unassigned, N o [facility] HB ECG ROUTINE & RHYTHM 2022-08-04 19:16:01 Bree Lanza [facility] ASSIGNMENT OF BENEFITS 2022-08-04 18:48:45 Doctor Unassigned, No [facility] Encounters Start End Encounter Admission Attending Care Care Encounter Source Date/Time Date/Time Type Type Clinicians Facility Department ID 2022-03-24 Outpatient Tsai, Na STLMLC STLMLC [id number] 2 Common 08:20:[id number] [facility] 2022-01-23 Outpatient Tsai, Na STLMLC STLMLC [id number] 2 Common 08:56:00 [facility] 2021-10-24 Outpatient Tsai, Na STLMLC STLMLC [id number] 2 Common 13:52:00 [facility] 2021-10-23 Outpatient Tsai, Na STLMLC STLMLC [id number] 2 Common 11:28:00 [facility] 2021-06-13 Outpatient Tsai, Na STLMLC STLMLC [id number] 2 Common 13:10:00 [facility] 2021-06-11 Outpatient Tsai, Na STLMLC STLMLC [id number] 2 Common 13:35:23 [facility] 2021-06-11 Outpatient Tsai, Na STLMLC STLMLC [id number] 2 Common 13:29:[id number] [facility] 2021-06-11 Outpatient Tsai, Na STLMLC STLMLC [id number] 2 Common 13:28:[id number] [facility] 2021-06-11 Outpatient Tsai, Na STLMLC STLMLC [id number] 2 Common 13:18:[id number] [facility] 2021-06-11 Outpatient Tsai, Na STLMLC STLMLC [id number] 2 Common 13:16:[id number] [facility] 2021-06-11 Outpatient Tsai, Na STLMLC STLMLC [id number] 2 Common 13:13:[id number] [facility] 2021-06-11 Outpatient Tsai, Na STLMLC STLMLC [id number] 2 Common 12:45:[id number] [facility] 2021-06-11 Outpatient Tsai, Na STLMLC STLMLC [id number] 2 Common 12:43:[id number] [facility] 2021-06-11 Outpatient Tsai, Na STLMLC STLMLC [id number] 2 Common 12:26:[id number] [facility] 2021-06-11 Outpatient Tsai, Na STLMLC STLMLC [id number] 2 Common 12:25:[id number] [facility] 2021-06-11 Outpatient Tsai, Na STLMLC STLMLC [id number] 2 Common 12:25:[id number] [facility] 2021-06-11 Outpatient Tsai, Na STLMLC STLMLC [id number] 2 Common 12:23:[id number] [facility] 2021-06-11 Outpatient Tsai, Na STLMLC STLMLC [id number] 2 Common 12:10:[id number] [facility] 2021-06-11 Outpatient Tsai, Na STLMLC STLMLC [id number] 2 Common 12:09:[id number] [facility] 2021-06-11 Outpatient Tsai, Na STLMLC STLMLC [id number] 2 Common 12:08:[id number] [facility] 2021-06-11 Outpatient Tsai, Na STLMLC STLMLC [id number] 2 Common 12:08:[id number] [facility] 2021-06-11 Outpatient Tsai, Na STLMLC STLMLC [id number] 2 Common 12:07:[id number] [facility] 2021-06-11 Outpatient Tsai, Na STLMLC STLMLC [id number] 2 Common 12:07:[id number] [facility] 2021-06-11 Outpatient Tsai, Na STLMLC STLMLC [id number] 2 Common 12:00:[id number] [facility] 2021-06-11 Outpatient Tsai, Na STLMLC STLMLC [id number] 2 Common 11:59:[id number] [facility] 2021-06-11 Outpatient Tsai, Na STLMLC STLMLC [id number] 2 Common 10:59:[id number] [facility] 2021-03-17 Outpatient [facility] [id number] Univers 05:43:57 EJUAN LUIS ity [facility] 2021-03-16 Emergency [facility] [id number] Univers 01:47:32 ity [facility] 2022-12-08 2022-12-08 [facility] 1.2.103.215 [id number] Univers 00:00:00 00:00:00 Bree [facility] [id number] [facility] [phone] [address] 2022-12-07 2022-12-07 [facility] [id number] Univers 07:47:50 23:59:00 BREE rodriguez o f [facility] 2022-12-07 2022-12-07 [facility] .2.840.114 [id number] Univers 07:47:50 23:59:00 Encounter Bree [facility]WE[id number] [facility] [place] [phone] Pr dical NAL 843 [facility] 2022-12-07 2022-12-07 Hospital [facility] 1.2.840.114 [id number] Univers 07:47:30 23:59:00 Encounter Bree BRASWELL [id number] ity of [facility] [id number] [phone] Pr dical NAL 843 [facility] 2022-11-16 2022-11-16 [facility] [id number] Univers 13:20:00 13:52:25 BREE rodriguez o f [facility] 2022-11-16 2022-11-16 Office [facility] 1.2.840.114 [id number] Univers 13:20:00 13:52:25 Visit Bree BRASWELL [id number] ity of [facility] [place] [phone] Pr dical NAL 059 [facility] 2022-11-16 2022-11-16 Orders Doctor EDUARDO 1.2.840.114 [id number] Univers 00:00:00 00:00:00 Only Unassigned, NARA [id number] ity of [place] [facility] [id number] Miguel as [phone] [address] 2022-11-10 2022-11-10 Outpatient R SABRINA [facility] [id number] Univers 16:00:00 16:00:00 GILBERTO rodriguez [facility] 2022-11-05 2022-11-05 Ancillary Daniela Godwin [facility] 1.2.840 .114 [id number] Univers 14:30:00 15:15:00 Visit Gilberto Bennett [id number] ity of [facility] [id number] [id number] Pr dical NAL 179 [facility] 2022-10-22 2022-10-22 Ancillary Khushbu Carreon [facility] 1.2. 840.114 [id number] Univers 15:15:00 16:00:00 Visit Gilberto Bennett [id number] ity of [id number] [id number] Pr dical NAL 179 Branch BUILDING 2022-10-20 2022-10-20 Ancillary LauriKhushbu [place] 1.2. 840.114 [id number] [facility] 15:15:00 15:42:40 Visit Gilberto Bennett [id number] ity of [place] [phone] Me dical NAL [address] [facility] 2022-10-15 2022-10-15 Ancillary Khushbu Carreon [facility] 1.2. 840.114 [id number] Univers 09:30:00 10:15:00 Visit Gilberto Bennett [id number] ity of [place] [id number] Pr dical NAL [address] [facility] 2022-10-08 2022-10-08 Ancillary Brad Godwin [facility] 1.2.840. 114 [id number] [facility] 14:30:00 15:15:00 Visit Gilberto Bennett [id number] ity of [place] [id number] Pr dical NAL 179 Branch [facility] 2022-10-06 2022-10-06 Ancillary Daniela Godwin [facility] 1.2.840 .114 [id number] [facility] 14:30:00 15:15:00 Visit Gilberto Bennett [id number] ity of [place] [id number] Pr dical NAL [address] [facility] 2022-09-30 2022-09-30 Ancillary Brad Godwin [facility] 1.2.840. 114 [id number] [facility] 11:00:00 11:45:00 Visit BennettGilberto bassettCHRIS 350.1.13.10 ity of [place] [phone] Me dical NAL 179 Branch BUILDING 2022-09-21 2022-09-21 Outpatient R SABRINA [facility] [id number] Univers 10:15:00 11:24:25 GILBERTO ity of [facility] 2022-09-21 2022-09-21 Ancillary Maryse Layne [facility] 1.2.84 0.114 [id number] Univers 10:15:00 11:24:25 Visit Gilberto Bennett [id number] ity of [facility] 4[place] [id number] Pr dical NAL 179 [facility] 2022-09-21 2022-09-21 Orders Doctor EDUARDO 1.2.840.114 [id number] Univers 00:00:00 00:00:00 Only Unassigned, NARA 350.1.13.10 ity of [place] [facility] [id number] Miguel as [phone] [address] 2022-09-10 2022-09-10 Orders Doctor EDUARDO 1.2.840.114 [id number] Univers 00:00:00 00:00:00 Only Unassigned, NARA [id number] ity of [place] [facility] 4.2.7.2.686 Miguel as [phone] [address] 2022-08-04 2022-08-04 Office [facility] 1.2.840.114 [id number] Univers 13:40:00 14:36:47 Visit Bree BRASWELL [id number] ity of [facility] [id number] [id number] Pr dical NAL 059 [facility] 2022-08-04 2022-08-04 Outpatient R JAMES [facility] [id number] Univers 13:40:00 14:36:47 BREE rodriugez o f [facility] 2022-08-04 2022-08-04 Orders Doctor CLARK 1.2.840.114 [id number] Univers 00:00:00 00:00:00 Only Unassigned, NARA 350.1.13.10 ity of [place] [facility] 4.2.7.2.686 Miguel as [phone] [place] [address] Branch 2022-03-27 2022-03-27 SUB ANNUAL STLMLC STLMLC [id number] Common 00:00:00 00:00:00 [facility] WELLNESS - CHI VISIT [facility] 2022-03-27 2022-03-27 OFFICE STLMLC STLMLC [id number] Co mmon 00:00:00 00:00:00 VISIT EST Spir it PT LEVEL 3 - CHI [facility] 2021-12-04 2021-12-04 (TEL) STLMLC STLMLC [id number] Co mmon 00:00:00 00:00:00 Spirit - CHI [facility] 2021-12-04 2021-12-04 OL DIG E/M STLMLC STLMLC [id number] Common 00:00:00 00:00:00 [facility] 04-05 Spir it MIN - CHI [facility] 2021-12-03 2021-12-03 (TEL) STLMLC STLMLC [id number] Co mmon 00:00:00 00:00:00 Spirit - CHI [facility] 2021-10-27 2021-10-27 OFFICE STLMLC STLMLC [id number] Co mmon 00:00:00 00:00:00 VISIT EST Spir it PT LEVEL 3 - CHI [facility] 2021-09-22 2021-09-22 (TEL) STLMLC STLMLC [id number] Co mmon 00:00:00 00:00:00 [facility] CHI [facility] 2021-09-19 2021-09-19 (TEL) STLMLC STLMLC [id number] Co mmon 00:00:00 00:00:00 Spirit - CHI [facility] 2021-09-15 2021-09-15 OFFICE STLMLC STLMLC [id number] Co mmon 00:00:00 00:00:00 VISIT Spirit ESTAB PT - CHI LEVEL 4 [facility] 2021-07-25 2021-07-25 Outpatient Fredi MCKINNEY [facility] [id number] Univers 11:15:00 11:15:00 GERDA rodriguez [facility] 2021-07-04 2021-07-04 [facility] [id number] Univers 09:00:00 09:40:25 GERDA [facility] 2021-07-04 2021-07-04 Office [facility] 1.2.840.114 [id number] Univers 09:00:00 09:30:00 Visit [facility] [id number] it y of [place] 4.2.7.2.686 Miguel as ERVIN?BLEA [phone] Pr rikióscar [address]ASS[address] [place] MEDICAL OFFICE [facility] 2021-07-04 2021-07-04 [facility] [id number] Univers 09:00:00 09:00:00 GERDA [facility] 2021-07-03 2021-07-03 [facility] [id number] Univers 16:54:16 23:59:00 [facility] 2021-07-03 2021-07-03 Hospital [facility] 1.2.840.114 [id number] Univers 16:54:16 23:59:00 Encounter [facility] [id number] ity of [place] 4.2.7.2.686 Miguel as ERVIN?BLEA [phone] Pr rikióscar BANEGAS [address] [facility] OFFICE [facility] 2021-07-03 2021-07-03 Urgent Isaac Kimberly [facility] 1.2.840.114 [id number] Univers 16:00:00 17:05:35 [facility] [id number] ity of [place] 4.2.7.2.686 Miguel as ERVIN?BLEA [phone] Pr rikióscar BASSAM [address] [facility] OFFICE [facility] 2021-07-03 2021-07-03 Outpatient R KING ERROL [facility] [id number] Univers 16:00:00 17:05:35 AL [facility] 2021-06-25 2021-06-25 Emergency X ADRIANNA [facility] ERT [id number] Univers 10:38:00 17:02:00 ARJUN [facility] 2021-06-25 2021-06-25 Emergency [facility] 1.2.792.125 [id number] Univers 10:38:00 17:02:00 [facility]jun [facility] 350.1.13.10 i [place] of [place] [phone] [address] 2021-06-23 2021-06-23 Telephone [facility] 1.2.840.114 [id number] Univers 00:00:00 00:00:00 [facility] [id number] ity of [place] 4.2.7.2.686 Miguel as ERVIN?BLEA [phone] [address] MEDICAL OFFICE BUILDING 2021-06-22 2021-06-22 (TEL) STLMLC STLMLC [id number] Co mmon 00:00:00 00:00:00 [facility] 2021-06-13 2021-06-13 OFFICE STLMLC STLMLC [id number] Co mmon 00:00:00 00:00:00 VISIT EST Spir it PT LEVEL 3 [facility] 2021-06-10 2021-06-10 Outpatient R BILL SNIDER [facility] [id number] Univers 14:20:00 16:39:04 BILL SNIDER [facility] 2021-06-10 2021-06-10 Office [facility] 1.2.840.114 [id number] Univers 14:20:00 16:39:04 Visit [facility] 350.1.13.10 ity [place] [facility] [id number] Miguel as ERVIN?BLEA [phone] [address] MEDICAL OFFICE BUILDING 2021-06-07 2021-06-07 (TEL) STLMLC STLMLC [id number] Co mmon 00:00:00 00:00:00 [facility] 2021-04-08 2021-04-08 OL DIG E/M STLMLC STLMLC [id number] Common 00:00:00 00:00:00 SVC 21+ [facility] 2021-04-02 2021-04-02 (TEL) STLMLC STLMLC [id number] Co mmon 00:00:00 00:00:00 Spirit [facility] 2021-04-01 2021-04-01 Transition KAMRAN [facility] 1.2.840.114 [id number] Univers 00:00:00 00:00:00 of Jimmie HANDY [id number] it y ALISSA [id number] [facility] [phone] [facility] [address] 2021-03-31 2021-03-31 (TEL) STLMLC STLMLC [id number] Co mmon 00:00:00 00:00:00 Spirit [facility] 2021-03-27 2021-03-30 Inpatient Carmen MITCH [facility] SUSANNA [id number] Univers 14:47:00 13:35:00 JOHANNY rodriguez [facility] 2021-03-27 2021-03-30 [facility] Sarah Montesinos [facility] 1.2.840. 114 [id number] Univers 14:47:00 13:35:00 Encounter Johanny Meyer [id number] ity [place] [id number] [facility] [phone] [facility] [address] 2021-03-28 2021-03-28 Outpatient BILL JOAQUIN [facility] [id number] Univers 15:40:00 15:40:00 BILL SNIDER [facility] 2021-03-13 2021-03-13 OFFICE STLMLC STLMLC [id number] Co mmon 00:00:00 00:00:00 VISIT [facility] CHI LEVEL 4 [facility] 2021-02-19 2021-02-19 (TEL) STLMLC STLMLC [id number] Co mmon 00:00:00 00:00:00 Spirit [facility] 2020-12-27 2020-12-27 (TEL) STLMLC STLMLC [id number] Co mmon 00:00:00 00:00:00 Spirit [facility] 2020-12-17 2020-12-17 (TEL) STLMLC STLMLC [id number] Co mmon 00:00:00 00:00:00 [facility] 2020-12-10 2020-12-10 OFFICE STLMLC STLMLC [id number] Co mmon 00:00:00 00:00:00 VISIT EST Spir it PT LEVEL 3 - [facility] 2020-12-10 2020-12-10 SUB ANNUAL STLMLC STLMLC [id number] Common 00:00:00 00:00:00 MCR Spirit WELLNESS - CHI VISIT [facility] 2020-12-04 2020-12-04 [facility] [id number] Univers 09:15:00 11:59:00 Encounter Juan Luis faith [id number] [id number] [phone] [facility] [address] 2020-12-04 2020-12-04 Surgery [facility] 1.2.840.114 [id number] Univers 11:09:00 11:46:00 Juan Luis faith [id number] [id number] [phone] [facility] [address] 2020-12-04 2020-12-04 Orders Doctor EDUARDO 1.2.840.114 [id number] Univers 00:00:00 00:00:00 Only Unassigned, NARA [id number] ity of [place] [facility] [id number] Miguel as [phone] [place] [address] [address] 2020-12-03 2020-12-03 Outpatient R [facility] [id number] Univers 08:30:00 08:30:00 JUAN LUIS Faith o f [facility] 2020-11-29 2020-11-29 Outpatient STLMLC STLMLC [id number] Common 00:00:00 00:00:00 Spirit [facility] 2020-11-04 2020-11-04 Outpatient STLMLC STLMLC [id number] Common 00:00:00 00:00:00 [facility] 2020-11-01 2020-11-01 Outpatient STLMLC STLMLC [id number] Common 00:00:00 00:00:00 [facility] 2020-10-28 2020-10-28 Office Jagruti [facility] 1.2.840.114 [id number] Univers 09:37:03 10:28:59 Visit Bill Braswell [id number] [id number] [phone] [address] 2020-10-28 2020-10-28 Outpatient Fredi ELLISONTim [facility]ILL [facility] [id number] Univers 09:40:00 09:40:00 BILL SNIDER ity [facility] 2020-10-25 2020-10-25 Outpatient STLMLC STLC [id number] Common 00:00:00 00:00:00 [facility] 2020-10-18 2020-10-18 Outpatient STLMLC STLC [id number] Common 00:00:00 00:00:00 [facility] 2020-10-16 2020-10-16 [facility] 1.2.840.114 [id number] Univers 00:00:00 00:00:00 Bill Braswell [id number] [id number] [phone] [address] 2020-10-15 2020-10-15 [facility] 1.2.840.114 [id number] Univers 00:00:00 00:00:00 Bill Braswell [id number] [id number] [phone] [address] 2020-10-08 2020-10-08 [facility] 1.2.840.114 [id number] Univers 00:00:00 00:00:00 Bill Braswell [id number] [id number] [phone] [address] 2020-09-19 2020-09-19 Outpatient STLMLC STLMLC [id number] Common 00:00:00 00:00:00 [facility] 2020-09-16 2020-09-16 Outpatient STLMLC STLMLC [id number] Common 00:00:00 00:00:00 [facility] 2020-09-10 2020-09-10 Outpatient [facility] [id number] Univers 15:40:00 15:40:00 JAGRUTI BILL [facility] 2020-08-26 2020-08-26 Outpatient STLMLC STLMLC [id number] Common 00:00:00 00:00:00 [facility] 2020-08-21 2020-08-21 Outpatient STLMLC STLMLC [id number] Common 00:00:00 00:00:00 [facility] 2020-08-13 2020-08-13 Office [facility] 1.2.840.114 [id number] 14:18:27 14:56:20 Visit Bill Braswell [id number] [place] [id number] Professio [phone] 2020-08-13 2020-08-13 Office Jagruti [facility] 1.2.840.114 [id number] Univers 14:18:27 14:56:20 Visit Bill Braswell [id number] jovany [id number] [phone] [address] 2020-08-13 2020-08-13 Outpatient [facility] [id number] Univers 14:20:00 14:20:00 BILL SNIDER [facility] 2020-08-13 2020-08-13 Outpatient STLMLC STLMLC [id number] Common 00:00:00 00:00:00 [facility] 2020-08-05 2020-08-05 Outpatient STLMLC STLMLC [id number] Common 00:00:00 00:00:00 [facility] 2020-07-29 2020-07-29 Outpatient STLMLC STLMLC [id number] Common 00:00:00 00:00:00 [facility] 2020-07-19 2020-07-19 Transition Kamran [facility] 1.2.840.114 [id number] Univers 00:00:00 00:00:00 of Jimmie Handy [id number] it y of [id number] [phone] [facility] [address] 2020-07-19 2020-07-19 Telephone Jagruti, [facility] 1.2.840.114 [id number] Univers 00:00:00 00:00:00 Bill Dread [place] [id number] [id number] [facility] [phone] [facility] [address] Building 2020-07-12 2020-07-18 [facility] Yinka Newman [facility] 1.2.840.1 [id number] Univers 19:21:00 14:00:00 Encounter Indy Ortiz on [id number] [id number] [phone] [facility] [address] 2020-07-12 2020-07-12 Outpatient STLMLC STLMLC [id number] Common 00:00:00 00:00:00 [facility] 2020-06-17 2020-06-17 Outpatient STLMLC STLMLC [id number] Common 00:00:00 00:00:00 [facility] 2020-06-13 2020-06-13 Outpatient STLMLC STLMLC [id number] Common 00:00:00 00:00:00 [facility] 2020-06-10 2020-06-10 [id number] Univers 14:30:00 14:30:00 GISSELLE ity [facility] 2020-06-08 2020-06-08 Outpatient STLMLC STLMLC [id number] Common 00:00:00 00:00:00 [facility] 2020-05-02 2020-05-02 Outpatient STLMLC STLMLC [id number] Common 00:00:00 00:00:00 [facility] 2020-04-16 2020-04-16 Outpatient STLMLC STLMLC [id number] Common 00:00:00 00:00:00 [facility] 2020-04-08 2020-04-08 Office Jagruti [facility] 1.2.840.114 [id number] Univers 10:02:48 10:42:13 Visit Bill Braswell [id number] michael bragg [place] [id number] Michelle Sharif [phone] [address] 2020-04-08 2020-04-08 Outpatient BILL [facility]QUIN [facility] [id number] Univers 10:00:00 10:00:00 BILL SNIDER [facility] 2020-04-04 2020-04-04 Outpatient STLMLC STLMLC [id number] Common 00:00:00 00:00:00 [facility] 2020-03-15 2020-03-15 Outpatient STLMLC STLMLC [id number] Common 00:00:00 00:00:00 [facility] 2019-12-14 2019-12-14 [facility] [id number] Common 10:00:00 10:00:[address] Sp[address] Drive [facility] 2019-11-21 2019-11-21 Outpatient [facility] [id number] Common 11:36:00 11:36:[address] Spir [address] Drive [facility] 2019-10-17 2019-10-17 Outpatient [facility] [id number] Common 11:07:00 11:07:00 t [facility] Spir [address] Road [facility] 2019-10-16 2019-10-16 Outpatient [facility] [id number] Common 11:06:00 11:06:00 t [address] Spir [address] Drive [facility] 2019-10-13 2019-10-13 Outpatient [facility] [id number] Common 10:00:00 10:00:00 t [address] Spir [address] Drive [facility] 2019-05-25 2019-05-25 Outpatient [facility] [id number] Common 08:20:00 08:20:00 t [address] Spir [address] Drive [facility] 2019-04-21 2019-04-21 Outpatient [facility] [id number] Common 14:32:00 14:32:00 t [address] Spir [address] Drive [facility] 2019-04-05 2019-04-05 Outpatient [facility] [id number] Common 13:00:00 13:00:00 t [address] Spir [address] Drive [facility] 2019-03-14 2019-03-14 Outpatient [facility] [id number] Common 17:12:00 17:12:00 t [address] Spir [address] Drive [facility] 2018-07-27 2018-07-27 Outpatient [facility] [id number] Common 14:49:00 14:49:00 t [address] Spir [address] Drive [facility] 2018-06-15 2018-06-15 Outpatient [facility] [id number] Common 08:52:00 08:52:00 t [address] Spir [address] Drive [facility] 2018-06-03 2018-06-03 Outpatient [facility] [id number] Common 12:06:00 12:06:00 t [address] Spir [address] Drive [facility] 2018-05-04 2018-05-04 Outpatient [facility] [id number] Common 10:00:00 10:00:00 t [address] Spir [address] Drive [facility] 2018-02-09 2018-02-09 Out[facility] [id number] Common 10:00:00 10:00:00 t [address] Spir [address] Drive [facility] 2017-12-21 2017-12-21 Outpatient Nakul Motat [id number] Common 09:45:00 09:45:00 t [address] Spir [address] Drive [facility] 2017-08-30 2017-08-30 Outpatient Nakul Motat [id number] Common 17:31:00 17:31:00 t [address] Spir [address] Drive [facility] 2017-08-12 2017-08-12 Outpatient Nakul Motat [id number] Common 11:00:00 11:00:00 t [address] Spir [address] Drive [facility] Results Test Description Test Time Test Comments Results Result Comments Source Transthoracic echo (TTE) 2022-12-08 03:34:21 Test Item Value Reference Range Interpretation Comme nts LVIDD (test code = 5781010765) 4.50 cm Interventricular Septum Diastolic 1.04 cm Thickness by 2D (test code = 7117535) PW (test code = 2576794256) 0.97 cm 0.6-1.1 LVIDS (test code = 5643234360) 3.20 cm LA size (test code = 9735279902) 4.1 cm LVPWD (test code = 3478124448) 0.97 cm AV regurgitation pressure 1/2 time 366.0 ms (test code = 4998989296) AV mean gradient (test code = 2.6 mmHg 6252085159) AV valve area (test code = 1.59 cm2 0071337946) AV LVOT peak gradient (test code = 2.31 mmHg 4526589000) MV valve area p 1/2 method (test code 5.10 cm2 = 3314138182) PV peak gradient (test code = 2.8 mmHg 1558387686) E/A ratio (test code = 3128451375) 2.41 ratio LVOT diameter (test code = 1.77 cm 3204699172) LVOT peak VTI (test code = 18.2 cm 1972230042) Ao peak delta (test code = 4291322314) 129.5 cm/s Ao VTI (test code = 7636201995) 28.2 cm Mr max delta (test code = 9930697522) 549.4 m/s LVOT stroke volume (test code = 44.90 cm3 2744966170) AV peak gradient (test code = 6.7 mmHg 9546862002) Triscuspid Valve Regurgitation Peak 62.1 mmHg Gradient (test code = 3603978124) MV Peak E Delta (test code = 101.1 cm/s 0960576814) MV Peak A Delta (test code = 41.9 cm/s 4135798520) IVS (test code = 3189222571) 1.04 cm Aortic root (test code = 4965287874) 2.9 cm EF - 2D (test code = 65916082) 55.20 % Left Ventricular End Diastolic Volume 91.1 mL by Teichholz Method (test code = 1427072) Left Ventricular End Systolic Volume 40.8 mL by Teichholz Method (test code = 8840142) PV PEAK VELOCITY (test code = 83.3 cm/s 1719283323) Ao root annulus (test code = 2.9 cm 1291754266) FS (test code = 9045532728) 29 % Aortic valve mean velocity (test code 73.0 cm/s = 9665522124) LVOT mn grad (test code = 4476231470) 1.1 mmHg AV area by cont VTI (test code = 1.6 cm2 3960118502) AV area peak delta (test code = 1.5 cm2 9084085854) TR Peak Delta (test code = 1035192398) 393.9 cm/s LVOT area (test code = 4850002380) 2.46 cm2 LVOT peak delta (test code = 76.0 cm/s 9675306625) BSA (test code = 4133183772) 1.79 m2 ACS (test code = 2991275837) 1.78 cm AI dec slope (test code = 3727685045) 290.10 cm/s2 AI max delta (test code = 3822997858) 362.50 cm/s Ao root diam (test code = 5165776195) 2.90 cm EF(Teich) (test code = 3056865499) 55.20 % LV V1 mean (test code = 6777672541) 46.90 cm/s MR max PG (test code = 8291995570) 109.00 mm[Hg] MR max delta (test code = 1309740022) 549.40 cm/s MV dec slope (test code = 5839800526) 683.90 cm/s2 MV E-F slope (test code = 7088208698) 39.20 cm/s MV P1/2t max delta (test code = 101.70 cm/s 6210922460) Ao max PG (test code = 3569852411) 6.70 mm[Hg] AI max PG (test code = 5264278547) 52.60 mm[Hg] Height (test code = 1728200682) 65 in Weight (test code = 6288096326) 158 lbs Systolic BP (test code = 8006628667) 154 mmHg Diastolic BP (test code = 8715330610) 76 mmHg Heart Rate (test code = 4559319921) 83 bpm LAV(MOD-sp4) (test code = 7398655240) 33.70 mL LA Volume Index (BP) (test code = 22.8 mL/m2 4313568420) LA volume (BP) (test code = 40.9 mL 8267305290) LAV(MOD-sp2) (test code = 6403548414) 45.90 mL Radiology Study observation (narrative) (test code = 96262-5) JA (test code = JA) ?Left?Ventricle: Left ventricle size is normal. Normal wall thickness. Mild global hypokinesis present. Mildly reduced systolic function with a visually estimated EF of 45 - 50%. Diastolic dysfunction. Elevated left ventricular filling pressure . ?Tricuspid?Valve: Moderate to severe transvalvular regurgitation. Right ventricular systolic pressure is greater than 60 mmHg. ?RA pressure is 0-5 mmHg. ?Left?Atrium: Left atrium is mildly dilated. ?Right?Ventricle: Right ventricle is mildly dilated. Normal systolic function. ?Aortic?Valve: Mild transvalvular regurgitation. ?Mitral?Valve: Mild to moderate transvalvular regurgitation. ?Aorta: Borderline enlarged ascending aorta. Left VentricleLeft ventricle size is normal. Normal wall thickness. Mild global hypokinesis present. Mildly reduced systolic function with a visually estimated EF of 45 - 50%. Diastolic dysfunction. Elevated left ventricular filling pressure.Right VentricleRight ventricle is mildly dilated. Normal systolic function.Left AtriumLeft atrium is mildly dilated.Right AtriumRight atrium size is normal.IVC/SVCRA pressure is 0-5 mmHg.Mitral ValveMildly thickened leaflets. Mild mitral annular calcification. Mild to moderate transvalvular regurgitation.Tricuspid ValveTricuspid valve structure is grossly normal. Moderate to severe transvalvular regurgitation. Right ventricular systolic pressure is greater than 60 mmHg. RA pressure is 0-5 mmHg.Aortic ValveAortic valve opens well. Mildly calcified cusps. Mild transvalvular regurgitation.Pulmonic ValvePulmonic valve is grossly normal in structure and function. Trace transvalvular regurgitation.Ascending AortaBorderline enlarged ascending aorta.PericardiumNo pericardial effusion.Study DetailsStudy quality was adequate. A complete echocardiogram was performed using 2D, color flow Doppler and spectral Doppler. 5 mL of Lumason ultrasound enhancing agent used. [facility] AntigenSARS-COV 2 Antigen Notes Date/Time Note Provider Source 2022-12-08 Formatting of this note might be differe nt from the original. Farheen Regan RN [facility] 08:54:28-00:00 Images from the original note were not included. 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 Echocardi ogram showed mildly reduced ejection fraction at 45 to 50%. He does have tricuspid regurgitation with pulmonary hypertension. We will check on his heart every year. Continue same medications.
[2022-12-31 13:45] LABS: Absolute Lymphocytes (CBC) 0.6 K/uL (0.7-4.9); Hematocrit 38.5 % (39.6-49.0); Lymphocytes % 5.1 % (15.3-44.8); MPV 7.1 fL (7.6-11.3); Platelets 201 thou/uL (152-406); RBC Red Blood Cell Count 4.05 M/uL (4.33-5.43)
[2022-12-31] MEDS ORDERED: ONDANSETRON 4 MG/2 ML VIAL ONE (13:51)
[2022-12-31] MEDS ORDERED: NA CHLORIDE 0.9% 1,000 ML ONE (13:51)
[2022-12-31] MEDS ORDERED: FAMOTIDINE 20 MG/2 ML VIAL IV ONE (13:51)
[2022-12-31 13:52] LABS: Protime INR 1.09
[2022-12-31 14:08] LABS: Albumin 3.4 g/dL (3.4-5.0); Bilirubin Direct 0.2 mg/dL (0-0.2); Bilirubin Indirect, Calculated 0.3 mg/dL (0.2-0.8); Bilirubin Total 0.5 mg/dL (0.2-1.0); Magnesium 2.2 mg/dL (1.6-2.4); Potassium 4.9 mEq/L (3.5-5.1); Protein, Total 7.9 g/dL (6.4-8.2); Troponin High Sensitivity 21.7 pg/mL (<58.9)
--- NOTE | 2022-12-31 14:20 | RAD REPORT ---
EXAM DESCRIPTION: CTAbdomen Pelvis Wo Contrast - 12/31/2022 1:52 pm CLINICAL HISTORY: ABD PAIN COMPARISON: No comparisons TECHNIQUE: CT of the abdomen and pelvis was performed without contrast. All CT scans are performed using dose optimization technique as appropriate and may include automated exposure control or mA/KV adjustment according to patient size. FINDINGS: Lower chest: Chronic appearing small right pleural effusion with underline pleural thicken ing/round atelectasis . Coronary artery calcifications. Liver: Low-density lesion in the caudate has benign imaging features. Biliary: No biliary ductal dilatation. Stomach: No significant focal abnormality. Duodenum: No significant focal abnormality. Pancreas: No significant abnormality. Spleen: No significant abnormality. Adrenal: No suspicious lesions. Kidney/ureter: No hydronephrosis. No renal calculi. Retroperitoneum: No retroperitoneal adenopathy. Vascular: No aneurysm. Atherosclerosis. Bowel: Wall thickening of the sigmoid colon and rectum. No appendicitis . Peritoneum: No ascites or free air. Moderate fat containing right inguinal hernia. Bladder: Grossly unremarkable. Reproductive: Unremarkable Bones: No acute fracture. Bilateral hip arthroplasties. Other: n/a IMPRESSION: Wall thickening at the sigmoid colon consistent with a proctocolitis.
--- NOTE | 2022-12-31 14:34 | RAD REPORT ---
EXAM DESCRIPTION: RAD - Chest Single View - 12/31/2022 2:08 pm CLINICAL HISTORY: ABDOMINAL DISTENTION COMPARISON: Chest Single View dated 09/14/2020; Chest Pa And Lat (2 Views) dated 09/11/2020; Chest Sing le View dated 09/07/2020; Chest Single View dated 08/17/2020; Abdomen Pelvis Wo Contrast dated 01/01/20 FINDINGS: Lines: None. Lungs: Right basilar opacities . Left lung is clear. Pleural: Small right pleural effusion . Cardiac: The heart size is within normal limits. Mediastinum: Within normal limits. Bones: No acute fractures. Other: None IMPRESSION: Small chronic right pleural effusion with underlying scarring/round atelectasis. The lef t lung remains clear.
[2022-12-31] MEDS ORDERED: NA CHLORIDE 0.9% 500 ML ONE (15:04)
[2022-12-31] MEDS ORDERED: CIPROFLOXACIN 400mg IV 400 MG/200 ML BAG IV ONE (15:05)
[2022-12-31] MEDS ORDERED: METRONIDAZOLE 500mg IVPB 500 MG/100 ML BAG IV ONE (15:05)
--- NOTE | 2022-12-31 15:26 | ER ---
Nurse's Notes [facility] Name: Redd Tapia Age: 82 yrs Sex: Male : 1940 Arrival Date: 12/31/2022 Time: 13:17 Bed 20 Private MD: Richard Lee Diagnosis: Left sided colitis without complications-sigmoid proctocolitis;Nausea with vomiting, unspecified;Diarrhea, unspecified;Unspecified kidney failure-chronic;Pleural effusion, not elsewhere classified-small right;Type 2 diabetes mellitus with hyperglycemia Presentation: 12/31 13:28 Chief complaint: Patient states: Vomiting X5 episodes and Diarrhea X6 episodes onset cm10 this morning at 0600. Family member reports that he may have eaten something bad because she is sick as well. 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 Coronavirus screen: Vaccine status: Patient reports receiving the 2nd dose of the covid vaccine. Ebola Screen: Patient denies travel to an Ebola-affected area in the 21 days before illness onset. No symptoms or risks identified at this time. Initial Sepsis Screen: Does the patient meet any 2 criteria? No. Patient's initial sepsis screen is negative. Does the patient have a suspected source of infection? No. Patient's initial sepsis screen is negative. Risk Assessment: Do you want to hurt yourself or someone else? Patient reports no desire to harm self or others. Onset of symptoms was December 31, 2022. 13:28 Method Of Arrival: Wheelchair cm10 13:28 Acuity: KIRAN 3 cm10 Historical: - Allergies: 13:30 No Known Allergies; cm10 - PMHx: 13:30 Asthma; Diabetes - NIDDM; tremors; Hypertension; Hyperlipidemia; heart problems; cm10 Breathing Problems; kidney problems; - Immunization history:: Adult Immunizations unknown. - Social history:: Smoking status: Patient/guardian denies using tobacco, but has a distant history of tobacco abuse. Screenin:30 [facility] ED Fall Risk Assessment (Adult) Score/Fall Risk Level 0 - 2 = Low Risk. Abuse eh3 screen: Denies threats or abuse. Denies injuries from another. Nutritional screening: No deficits noted. Tuberculosis screening: No symptoms or risk factors identified. Assessment: 13:30 General: Appears in no apparent distress. uncomfortable, Behavior is calm, cooperative, eh3 appropriate for age. Pain: Denies pain. Neuro: Level of Consciousness is awake, alert, obeys commands, Oriented to person, place, time, situation. Cardiovascular: Capillary refill < 3 seconds Patient's skin is warm and dry. Respiratory: Airway is patent Respiratory effort is even, unlabored, Respiratory pattern is regular, symmetrical. GI: Abdomen is round distended. Derm: Skin is pink, warm \T\ dry. Musculoskeletal: Circulation, motion, and sensation intact. 14:30 Reassessment: Patient appears in no apparent distress at this time. Patient and/or 3 family updated on plan of care and expected duration. Pain level reassessed. Patient is alert, oriented x 3, equal unlabored respirations, skin warm/dry/pink. 15:30 Reassessment: Patient appears in no apparent distress at this time. Patient and/or 3 family updated on plan of care and expected duration. Pain level reassessed. Patient is alert, oriented x 3, equal unlabored respirations, skin warm/dry/pink. 16:30 Reassessment: Patient appears in no apparent distress at this time. Patient and/or 3 family updated on plan of care and expected duration. Pain level reassessed. Patient is alert, oriented x 3, equal unlabored respirations, skin warm/dry/pink. Vital Signs: 13:28 BP 139 / 55; Pulse 93; Resp 18; Temp 98.2; Pulse Ox 96% ; Weight 74.84 kg; Height 5 ft. cm10 2 in. ; Pain 0/10; 14:30 BP 112 / 48; Pulse 77; Resp 18; Pulse Ox 98% on R/A; eh3 15:30 BP 124 / 49; Pulse 74; Resp 15; Pulse Ox 100% on R/A; eh3 16:30 BP 119 / 48; Pulse 74; Resp 20; Pulse Ox 100% on R/A; eh3 13:28 Body Mass Index 30.18 (74.84 kg, 157.48 cm) cm10 13:28 Pain Scale: Adult cm10 ED Course: 13:18 Patient arrived in ED. rg4 13:19 Richard Lee MD is Private Physician. rg4 13:21 Rinku Estrella MD is Attending Physician. [facility] 13:28 Maddie Thomas RN is Primary Nurse. eh3 13:30 Triage completed. cm10 13:30 Arm band placed on Patient placed in an exam room, on a stretcher. cm10 13:30 Patient has correct armband on for positive identification. Bed in low position. Call eh3 light in reach. Side rails up X2. Adult w/ patient. Provided Education on: Use of call diallo. Client placed on continuous cardiac and pulse oximetry monitoring. NIBP monitoring applied. Warm blanket given. 13:30 Inserted saline lock: 20 gauge in left antecubital area, using aseptic technique. Blood eh3 collected. 13:36 EKG done, by ED staff. aw1 13:53 CT Abd/Pelvis - Without Contrast In Process Unspecified. EDMS 14:10 XRAY Chest (1 view) In Process Unspecified. EDMS 15:25 Richard Lee MD is Referral Physician. stefano 15:26 Oliva Prakash MD is Referral Physician. stefano 15:50 Diet: Patient given juice. Patient given water. Tolerated well. eh3 17:00 IV discontinued, intact, bleeding controlled, No redness/swelling at site. Pressure eh3 dressing applied. 17:08 No provider procedures requiring assistance completed. eh3 Administered Medications: 14:10 Drug: Ondansetron IVP 4 mg Route: IVP; Site: left antecubital; eh3 15:27 Follow up: Response: No adverse reaction eh3 14:10 Drug: NS 0.9% IV 1000 ml Route: IV; Rate: 1 bolus; Site: left antecubital; eh3 15:27 Follow up: IV Status: Completed infusion; IV Intake: 1000ml eh3 14:10 Drug: Famotidine IVP 20 mg Route: IVP; Site: left antecubital; eh3 15:27 Follow up: Response: No adverse reaction eh3 15:10 Drug: NS 0.9% IV 500 ml Route: IV; Rate: bolus; Site: left antecubital; eh3 15:10 Drug: Ciprofloxacin IVPB 400 mg Volume: 200 ml; Route: IVPB; Infused Over: 60 mins; eh3 Site: left antecubital; 15:10 Drug: metroNIDAZOLE IVPB 500 mg Volume: 100 ml; Route: IVPB; Rate: 200 ml/hr; Infused eh3 Over: 30 mins; Site: left antecubital; 15:40 Follow up: Response: No adverse reaction; IV Status: Completed infusion; IV Intake: eh3 100ml Medication: 17:00 VIS not applicable for this client. eh3 Intake: 15:27 IV: 1000ml; Total: 1000ml. eh3 15:40 IV: 100ml; Total: 1100ml. eh3 Outcome: 15:25 Discharge ordered by . stefano 17:00 Discharged to home via wheelchair, with family. 3 17:00 Condition: stable 17:00 Discharge instructions given to patient, family, Instructed on discharge instructions, follow up and referral plans. medication usage, Demonstrated understanding of instructions, follow-up care, medications, Prescriptions given X 4. 17:11 Patient left the ED. eh3 Signatures: Dispatcher [employer] EDMS Rinku Estrella MD MD cha Garcia, Rubi rg4 Maddie Thomas RN RN eh3 Christine Connors RN RN cm10 Marian Wise 1
--- NOTE | 2022-12-31 15:26 | EDPHYS ---
Physician Documentation [facility] Name: Redd Tapia Age: 82 yrs Sex: Male : 1940 Arrival Date: 12/31/2022 Time: 13:17 Bed 20 Private MD: Richard Lee ED Physician Rinku Estrella HPI: 12/31 14:09 This 82 yrs old Male presents to ER via Wheelchair with complaints of stefano Vomiting/Diarrhea. 14:09 The patient presents to the emergency department with nausea, vomiting, that is stefano continuous, described as bilious. Onset: The symptoms/episode began/occurred 1 day(s) ago. Possible causes: unknown. The symptoms are aggravated by nothing. The symptoms are alleviated by nothing. Associated signs and symptoms: Pertinent positives: diarrhea. Severity of symptoms: At their worst the symptoms were moderate in the emergency department the symptoms are unchanged. The patient has not experienced similar symptoms in the past. Historical: - Allergies: 13:30 No Known Allergies; cm10 - PMHx: 13:30 Asthma; Diabetes - NIDDM; tremors; Hypertension; Hyperlipidemia; heart problems; cm10 Breathing Problems; kidney problems; - Immunization history:: Adult Immunizations unknown. - Social history:: Smoking status: Patient/guardian denies using tobacco, but has a distant history of tobacco abuse. ROS: 14:10 Constitutional: Negative for fever, chills, and weight loss, Eyes: Negative for injury, stefano pain, redness, and discharge, ENT: Negative for injury, pain, and discharge, Neck: Negative for injury, pain, and swelling, Cardiovascular: Negative for chest pain, palpitations, and edema, Respiratory: Negative for shortness of breath, cough, wheezing, and pleuritic chest pain, Back: Negative for injury and pain, : Negative for injury, bleeding, discharge, and swelling, MS/Extremity: Negative for injury and deformity, Skin: Negative for injury, rash, and discoloration, Neuro: Negative for headache, weakness, numbness, tingling, and seizure, Psych: Negative for depression, anxiety, suicide ideation, homicidal ideation, and hallucinations, Allergy/Immunology: Negative for hives, rash, and allergies, Endocrine: Negative for neck swelling, polydipsia, polyuria, polyphagia, and marked weight changes, Hematologic/Lymphatic: Negative for swollen nodes, abnormal bleeding, and unusual bruising. 14:10 Abdomen/GI: Positive for abdominal pain, nausea, vomiting, diarrhea. Exam: 14:10 Constitutional: This is a well developed, well nourished patient who is awake, alert, stefano and in no acute distress. Head/Face: Normocephalic, atraumatic. Eyes: Pupils equal round and reactive to light, extra-ocular motions intact. Lids and lashes normal. Conjunctiva and sclera are non-icteric and not injected. Cornea within normal limits. Periorbital areas with no swelling, redness, or edema. ENT: Nares patent. No nasal discharge, no septal abnormalities noted. Tympanic membranes are normal and external auditory canals are clear. Oropharynx with no redness, swelling, or masses, exudates, or evidence of obstruction, uvula midline. Mucous membranes moist. Neck: Trachea midline, no thyromegaly or masses palpated, and no cervical lymphadenopathy. Supple, full range of motion without nuchal rigidity, or vertebral point tenderness. No Meningismus. Chest/axilla: Normal chest wall appearance and motion. Nontender with no deformity. No lesions are appreciated. Cardiovascular: Regular rate and rhythm with a normal S1 and S2. No gallops, murmurs, or rubs. Normal PMI, no JVD. No pulse deficits. Respiratory: Lungs have equal breath sounds bilaterally, clear to auscultation and percussion. No rales, rhonchi or wheezes noted. No increased work of breathing, no retractions or nasal flaring. Abdomen/GI: Soft, non-tender, with normal bowel sounds. No distension or tympany. No guarding or rebound. No evidence of tenderness throughout. Back: No spinal tenderness. No costovertebral tenderness. Full range of motion. Skin: Warm, dry with normal turgor. Normal color with no rashes, no lesions, and no evidence of cellulitis. MS/ Extremity: Pulses equal, no cyanosis. Neurovascular intact. Full, normal range of motion. Neuro: Awake and alert, GCS 15, oriented to person, place, time, and situation. Cranial nerves II-XII grossly intact. Motor strength 5/5 in all extremities. Sensory grossly intact. Cerebellar exam normal. Normal gait. Psych: Awake, alert, with orientation to person, place and time. Behavior, mood, and affect are within normal limits. 14:10 ECG was reviewed by the Attending Physician. Vital Signs: 13:28 BP 139 / 55; Pulse 93; Resp 18; Temp 98.2; Pulse Ox 96% ; Weight 74.84 kg; Height 5 ft. cm10 2 in. ; Pain 0/10; 14:30 BP 112 / 48; Pulse 77; Resp 18; Pulse Ox 98% on R/A; eh3 15:30 BP 124 / 49; Pulse 74; Resp 15; Pulse Ox 100% on R/A; eh3 16:30 BP 119 / 48; Pulse 74; Resp 20; Pulse Ox 100% on R/A; eh3 13:28 Body Mass Index 30.18 (74.84 kg, 157.48 cm) cm10 13:28 Pain Scale: Adult cm10 MDM: 13:21 Patient medically screened. stefano 14:12 Differential diagnosis: Nonspecific abd pain, gastritis, pancreatitis, diverticulitis, stefano viral gastroenteritis, gastroenteritis, diverticulitis, gastritis, non-specific abd pain, pancreatitis, Peptic Ulcer Disease. Data reviewed: vital signs, nurses notes, lab test result(s), EKG, radiologic studies, CT scan, plain films. Consideration of Admission/Observation Escalation of care including admission/observation considered. I considered the following discharge prescriptions or medication management in the emergency department Medications were administered in the Emergency Department. See MAR. Test considered but Not performed: Ultrasound no abd usg. Care significantly affected by the following chronic conditions: Diabetes, Hypertension, Obesity, asthma. Counseling: I had a detailed discussion with the patient and/or guardian regarding the historical points, exam findings, and any diagnostic results supporting the discharge/admit diagnosis, lab results, radiology results. 12/31 13:23 Order name: Basic Metabolic Panel; Complete Time: 14:17 [facility] 12/31 13:23 Order name: CBC with Diff 12/31 13:23 Order name: LFT's; Complete Time: 14:17 stefano 12/31 13:23 Order name: Magnesium; Complete Time: 14:17 stefano 12/31 13:23 Order name: NT PRO-BNP; Complete Time: 14:17 [facility] 12/31 13:23 Order name: PT-INR; Complete Time: 14:06 12/31 13:23 Order name: Troponin HS; Complete Time: 14:17 [facility] 12/31 13:23 Order name: Lipase; Complete Time: 14:17 [facility] 12/31 13:23 Order name: XRAY Chest (1 view); Complete Time: 14:36 [facility] 12/31 13:23 Order name: CT Abd/Pelvis - Without Contrast; Complete Time: 14:36 [facility] 12/31 13:23 Order name: EKG; Complete Time: 13:23 [facility] 12/31 13:23 Order name: Cardiac monitoring; Complete Time: 13:54 [facility] 12/31 13:23 Order name: EKG - Nurse/Tech; Complete Time: 13:36 [facility] 12/31 13:23 Order name: IV Saline Lock; Complete Time: 13:54 [facility] 12/31 13:23 Order name: Labs collected and sent; Complete Time: 13:54 [facility] 12/31 13:23 Order name: O2 Per Protocol; Complete Time: 13:54 [facility] 12/31 13:23 Order name: O2 Sat Monitoring; Complete Time: 13:54 [facility] 12/31 15:24 Order name: PO challenge; Complete Time: 15:49 [facility] EC:10 Rate is 88 beats/min. Rhythm is regular. QRS [place] is Normal. [place] interval is normal. QRS stefano interval is normal. QT interval is normal. No Q waves. T waves are Normal. No ST changes noted. Clinical impression: NSR w/ Non-specific ST/T Changes and No evidence of ischemia. Interpreted by me. Reviewed by me. Administered Medications: 14:10 Drug: Ondansetron IVP 4 mg Route: IVP; Site: left antecubital; 3 15:27 Follow up: Response: No adverse reaction 3 14:10 Drug: NS 0.9% IV 1000 ml Route: IV; Rate: 1 bolus; Site: left antecubital; 3 15:27 Follow up: IV Status: Completed infusion; IV Intake: 1000ml 3 14:10 Drug: Famotidine IVP 20 mg Route: IVP; Site: left antecubital; 3 15:27 Follow up: Response: No adverse reaction 3 15:10 Drug: NS 0.9% IV 500 ml Route: IV; Rate: bolus; Site: left antecubital; 3 15:10 Drug: Ciprofloxacin IVPB 400 mg Volume: 200 ml; Route: IVPB; Infused Over: 60 mins; 3 Site: left antecubital; 15:10 Drug: metroNIDAZOLE IVPB 500 mg Volume: 100 ml; Route: IVPB; Rate: 200 ml/hr; Infused eh3 Over: 30 mins; Site: left antecubital; 15:40 Follow up: Response: No adverse reaction; IV Status: Completed infusion; IV Intake: eh3 100ml Disposition Summary: 12/31/22 15:25 Discharge Ordered Location: Home stefano Problem: new stefano Symptoms: have improved stefano Condition: Stable stefano Diagnosis - Left sided colitis without complications - sigmoid proctocolitis stefano - Nausea with vomiting, unspecified stefano - Diarrhea, unspecified stefano - Unspecified kidney failure - chronic stefano - Pleural effusion, not elsewhere classified - small right stefano - Type 2 diabetes mellitus with hyperglycemia stefano Followup: stefano - With: - When: 2 - 3 days - Reason: Recheck today's complaints, Continuance of care, Re-evaluation by your physician Followup: stefano - With: Oliva Prakash MD - When: 2 - 3 days - Reason: Recheck today's complaints, Re-evaluation by your physician Discharge Instructions: - Discharge Summary Sheet stefano - Abdominal Pain, Adult stefano - Type 2 Diabetes Mellitus, Diagnosis, Adult stefano - Diarrhea, Adult stefano - Hyperglycemia stefano - Pleural Effusion stefano - Nausea and Vomiting, Adult, [id number] stefano - Diabetes Mellitus and Nutrition, Adult stefano - Chronic Kidney Disease, Adult, [id number] stefano - Chronic Kidney Disease, Adult stefano - Colitis [facility] Forms: - Medication Reconciliation Form [facility] - Thank You Letter [facility] - Antibiotic Education stefano - Prescription Opioid Use [facility] - Patient Portal Instructions [facility] - Leadership Thank You Letter [facility] Prescriptions: - ondansetron 4 mg Oral Tablet,disintegrating - take 1 tablet by ORAL route 3 times per day for 5 days; 20 tablet; Refills: 0, [facility] Product Selection Permitted - Cipro 250 mg Oral Tablet - take 1 tablet by ORAL route every 12 hours; 14 tablet; Refills: 0, Product [facility] Selection Permitted - Flagyl 500 mg Oral Tablet - take 1 tablet by ORAL route every 8 hours for 7 days; 21 tablet; Refills: 0, [facility] Product Selection Permitted - dicyclomine 10 mg/5 mL Oral Solution - take 10 milliliters by ORAL route 4 times per day; 160 milliliter; Refills: 0, [facility] Product Selection Permitted Signatures: Dispatcher [employer] Rinku Moyer MD MD cha Hall, Erin RN RN 3 Christine Connors, RN RN cm10
[2022-12-31 17:18] VITALS: TEMP 98.2
[2022-12-31 17:20] VITALS: O2SAT 100
[2022-12-31 17:21] VITALS: BP 119/48
[2022-12-31 18:57] LABS: Blood Morphology Comment NOT SEEN (NOT SEEN); Platelet Estimate ADEQ; White Blood Cell Scan OK (OK)
--- NOTE | 2023-01-01 13:58 | EKG ---
Test Date: 2022-12-31 Test Time: 13:33:19 Head Chopper: JASKARAN MEASUREMENT RESULTS: Intervals: Rate: 88 [place]: 196 QRSD: 100 QT: 388 QTc: 469 [place]: P: 40 [place]: 196 QRS: -60 T: 5 INTERPRETIVE STATEMENTS: Normal sinus rhythm Left axis deviation Abnormal ECG Compared to ECG 09/07/2020 15:05:27 Ventricular-paced complex(es) or rhythm no longer present Junctional rhythm no longer present Fusion complex(es) no longer present Electronically Signed On 01-01-23 13:56:20 CDT by Jhon Araujo
== END 2022-12-31 17:11 | disposition home or self-care (01) ==
LOC: ER 13:17
DX: K51.50 Left sided colitis without complications (principal); J90 Pleural effusion, not elsewhere classified; E11.65 Type 2 diabetes mellitus with hyperglycemia; I12.9 Hypertensive chronic kidney disease with stage 1 through stage 4 chronic kidney disease, or unspecified chronic kidney disease; N18.9 Chronic kidney disease, unspecified; R19.7 Diarrhea, unspecified
CPT/HCPCS: 96365; 96361; 93005; 85025; 80048; 36415; 83735; 85610; 80076; 84484; 83690; 83880; 74176; 71045; 96375; 99284; J2405; J0744; J7040; J7030

== ENCOUNTER 2023-12-12 16:36 | Inpatient (IN) | payer OTHER ==
[2023-12-12] MEDS ORDERED: ALBUTEROL 2.5 MG/3 ML NEB SOL ONE (17:44)
[2023-12-12] MEDS ORDERED: CEFTRIAXONE 1000 MG/VIAL ONE (17:44)
[2023-12-12] MEDS ORDERED: ONDANSETRON 4 MG/2 ML VIAL ONE (17:44)
[2023-12-12] MEDS ORDERED: IPRATROPIUM BROM 0.5MG/2.5ML ONE (17:44)
[2023-12-12] MEDS ORDERED: NA CHLORIDE 0.9% 1,000 ML ONE ×2 (17:45→19:03)
[2023-12-12] MEDS ORDERED: ACETAMINOPHEN 500 MG TAB ONE (17:45)
[2023-12-12 18:20] LABS: Absolute Lymphocytes (CBC) 0.7 K/uL (0.7-4.9); Absolute Monocytes 0.8 K/uL (0.1-1.3); Absolute Neutrophil 14.5 K/uL (1.8-8.0); Basophils % 0.1 % (0-1.3); Eosinophils % 0.2 % (0-4.4); Hematocrit 34.2 % (39.6-49.0); Hemoglobin 11.3 g/dL (13.6-17.9); Lymphocytes % 4.5 % (15.3-44.8); MCH 30.9 pg (27.0-35.0); MCV 93.7 fL (80-100); Monocytes % 4.9 % (3.3-12.3); Neutrophils % 90.3 % (41.7-73.7); Nucleated Red Blood Cells % 0.1 % (0-0); Platelets 208 thou/uL (152-406); RBC Red Blood Cell Count 3.65 M/uL (4.33-5.43); Red Cell Distribution Width 16.2 % (12.1-15.2)
[2023-12-12] MEDS ORDERED: AZITHROMYCIN 500 MG INJ IVPB ONE (18:24)
[2023-12-12] MEDS ORDERED: NA CHLORIDE 0.9% 250 ML ONE (18:25)
--- NOTE | 2023-12-12 18:55 | EDPHYS ---
Physician Documentation [facility] Name: Redd Tapia Age: 83 yrs Sex: Male : 1940 Arrival Date: 12/12/2023 Time: 16:36 Bed 4 Private MD: ED Physician Chris Grajeda HPI: 12/11 17:42 This 83 yrs old Male presents to ER via Wheelchair with complaints of Cough, ec2 Flu Symptoms. 17:42 Patient arrives today for evaluation of cough and cold symptoms. Reports that he been ec2 having productive sputum along with nausea as well as diarrhea and bodyaches. Some fevers at home, has been taking Advil. A bout of vomiting earlier today as well. Reports frequent cough.. Historical: - Allergies: 17:37 No Known Allergies; tl4 - PMHx: 17:37 Asthma; Breathing Problems; Diabetes - NIDDM; heart problems; Hyperlipidemia; tl4 Hypertension; kidney problems; tremors; - PSHx: 17:38 Watchman procedure; tl4 - Immunization history:: Adult Immunizations unknown. - Infectious Disease History:: Denies. - Social history:: Smoking status: Patient/guardian denies using tobacco, the patient reports quitting approximately 20 years ago. ROS: 17:42 Constitutional: as per hpi ec2 Exam: 17:42 Constitutional: GEN: NAD Head: atraumatic Eyes: EOMI Ears: External ears are ec2 normal. CV: regular rate LUNGS: no respiratory distress, scattered rales ABD: non-distended SKIN: no evidence of rashes MSK: no evidence of trauma NEURO: moves all extremities equally Vital Signs: 17:35 BP 118 / 64; Pulse 94; Resp 16; Temp 100.9(O); Pulse Ox 94% on R/A; Weight 66.68 kg; tl4 Height 5 ft. 1 in. ; 19:07 BP 100 / 57; Pulse 121; Resp 23; Temp 101.1; Pulse Ox 96% on R/A; Pain 0/10; ko1 20:24 BP 90 / 52; Pulse 110; Resp 23; Temp 99.8; Pulse Ox 96% on R/A; Pain 0/10; ko1 17:35 Body Mass Index 27.78 (66.68 kg, 154.94 cm) tl4 19:07 Pain Scale: Adult ko1 20:24 Pain Scale: Adult ko1 Kilo Coma Score: 19:07 Eye Response: spontaneous(4). Motor Response: obeys commands(6). Verbal Response: ko1 oriented(5). Total: 15. MDM: 17:40 Patient medically screened. ec2 17:43 Data reviewed: vital signs. ED course: Patient arrives today for evaluation of cough ec2 and cold symptoms. Examination remarkable for febrile individuals otherwise in no acute respiratory distress he does have a frequent cough noted on examination. Will obtain lab work, chest x-ray, viral swab. Differential includes process such as pneumonia, viral infection, volume overload . 18:02 ED course: EKG independently reviewed and interpreted by me, shows sinus tachycardia, ec2 rate of 106, no acute ST segment elevations, motion artifact noted, intervals are otherwise nonconcerning.. 18:20 ED course: Chest x-ray independently reviewed and interpreted by me, shows right lower ec2 lobe pneumonia. Patient already given ceftriaxone, will add on azithromycin as well.. 18:53 ED course: CBC shows leukocytosis. Slight anemia noted. Metabolic profile shows renal ec2 dysfunction with a creatinine of 2.06, GFR of 31, lactic acidosis noted at 2.9. Will give the patient additional crystalloid. . 18:53 ED course: Patient currently receiving crystalloid part of the 30 cc/kg fluid bolus. ec2 Sepsis reassessment complete.. 19:33 ED course: Second liter fluid going. Sepsis reassessment completed.. ec2 12/11 17:07 Order name: SARS RAPID; Complete Time: 19:12 ec2 12/11 17:39 Order name: CBC with Diff ec2 12/11 17:39 Order name: BMP; Complete Time: 18:53 ec2 12/11 17:41 Order name: Blood Culture Adult (2) ec2 12/11 17:41 Order name: Lactate w/ 2H reflex if indic.; Complete Time: 18:53 ec2 12/11 17:41 Order name: Protime (+inr); Complete Time: 19:12 ec2 12/11 17:41 Order name: Ptt, Activated; Complete Time: 19:12 ec2 12/11 18:44 Order name: CBC Smear Scan EDMS 12/11 19:46 Order name: Urinalysis w/ reflexes EDMS 12/11 19:46 Order name: CBC with Automated Diff EDMS 12/11 19:46 Order name: CBC with Automated Diff EDMS 12/11 19:46 Order name: Comprehensive Metabolic Panel EDMS 12/11 19:46 Order name: Comprehensive Metabolic Panel EDMS 12/11 19:59 Order name: Manual Differential EDMS 12/11 20:46 Order name: Ghost Lactate-NO COLLECT Timer EDMS 12/11 17:07 Order name: CXR XRAY; Complete Time: 19:12 ec2 12/11 17:41 Order name: Accucheck; Complete Time: 18:08 ec2 12/11 17:41 Order name: Cardiac monitoring; Complete Time: 17:46 ec2 12/11 17:41 Order name: EKG - Nurse/Tech; Complete Time: 18:01 ec2 12/11 17:41 Order name: IV Saline Lock - Large Bore; Complete Time: 18:08 ec2 12/11 17:41 Order name: Labs collected and sent; Complete Time: 18:08 ec2 12/11 17:41 Order name: O2 Per Protocol; Complete Time: 17:46 ec2 12/11 17:41 Order name: O2 Sat Monitoring; Complete Time: 17:46 ec2 12/11 17:41 Order name: Vital Signs; Complete Time: 17:46 ec2 Administered Medications: 18:01 Drug: DuoNeb Nebulize (3:1) (2.5 mg - 0.5 mg) 3 ml Nebulizer once Route: Nebulizer; ko1 18:35 Follow up: Response: No adverse reaction ko1 18:01 Drug: Acetaminophen PO 1000 mg PO once Route: PO; ko1 18:35 Follow up: Response: No adverse reaction ko1 18:08 Drug: NS 0.9% IV 1000 ml IV at 1 bolus Per protocol; 1000 mL bolus Route: IV; Rate: 1 ko1 bolus; Site: right forearm; 19:11 Follow up: Response: No adverse reaction; IV Status: Completed infusion; IV Intake: ko1 1000ml 18:08 Drug: Ondansetron IVP 4 mg IVP once; over 2 minutes Route: IVP; Site: right forearm; ko1 18:23 Follow up: Response: No adverse reaction ko1 18:08 Drug: Rocephin IV 1 grams IV at calculated rate once; Given slow IV push per pharmacy ko1 instructions Route: IV; Rate: calculated rate; Site: right forearm; 18:23 Follow up: Response: No adverse reaction; IV Status: Completed infusion; IV Intake: [id number] 18:34 Drug: AZITHromycin IVPB 500 mg IVPB once over 1 hrs; (mix in 250 mL NS) Route: IVPB; ko1 Infused Over: 1 hrs; Site: right forearm; 19:10 Follow up: Response: No adverse reaction; IV Status: Completed infusion; IV Intake: ko1 250ml 19:36 Drug: NS 0.9% IV (30 ml/kg) 30 ml/kg IV at bolus once; Sepsis Protocol, minus 1 liter ko1 Route: IV; Rate: bolus; Site: left antecubital; 20:24 Follow up: Response: No adverse reaction; IV Status: Completed infusion; IV Intake: ko1 1000ml 19:36 Drug: Ibuprofen PO 600 mg PO once Route: PO; ko1 20:24 Follow up: Response: No adverse reaction ko1 Disposition Summary: 12/12/23 18:54 Hospitalization Ordered Notes: Hospitalization Status: Inpatient Admission ec2 Provider: Pee Alas ec2 Location: Telemetry/[facility] (Inpatient) ec2 Condition: Stable ec2 Problem: new ec2 Symptoms: have improved ec2 Bed/Room Type: Standard ec2 Room Assignment: 209(12/12/23 19:48) rv1 Diagnosis - Pneumonia, unspecified organism ec2 - Sepsis, unspecified organism ec2 Forms: - Medication Reconciliation Form ec2 - SBAR form ec2 - Leadership Thank You Letter ec2 Critical care time excluding procedures: 18:53 Critical care time: Bedside Care: 30 minutes, Consultation: 5 minutes. Total time: 35 ec2 minutes Signatures: Dispatcher [employer] EDMS Hermelinda Gaines, RN RN ko1 Vale Mari rv1 Chris Grajeda MD MD ec2 Cj Suh RN RN tl4 Corrections: (The following items were deleted from the chart) 17:39 17:37 PSHx: Watchman procedure (tremors); tl4 tl4 17:42 17:42 BLOOD CULTURE*+BA.LAB.BRZ ordered. EDMS EDMS 17:42 17:42 LACTATE+C.LAB.BRZ ordered. EDMS EDMS 17:42 17:42 PROTIME (+INR)+COAG.LAB.BRZ ordered. EDMS EDMS 17: 17:42 PTT, ACTIVATED+COAG.LAB.BRZ ordered. EDMS EDMS 17: 17:42 Constitutional: No acute distress ec2 ec2 19:48 18:54 ec2 rv1
--- NOTE | 2023-12-12 18:55 | ER ---
Nurse's Notes [facility] Name: Redd Tapia Age: 83 yrs Sex: Male : 1940 Arrival Date: 12/12/2023 Time: 16:36 Bed 4 Private MD: Diagnosis: Pneumonia, unspecified organism;Sepsis, unspecified organism Presentation: 12/11 17:35 Chief complaint: Patient states: Pt c/o fever, nausea, vomiting, diarrhea, and cough tl4 since yesterday. Coronavirus screen: cough unrelated to allergies, diarrhea, fever, nausea, vomiting. Ebola Screen: No symptoms or risks identified at this time. Initial Sepsis Screen: Does the patient meet any 2 criteria? No. Patient's initial sepsis screen is negative. Does the patient have a suspected source of infection? No. Patient's initial sepsis screen is negative. Risk Assessment: Do you want to hurt yourself or someone else? Patient reports no desire to harm self or others. Onset of symptoms was December 11, 2023. 17:35 Method Of Arrival: Wheelchair tl4 17:35 Acuity: KIRAN 3 tl4 Triage Assessment: 17:39 General: Appears in no apparent distress. Behavior is cooperative. Pain: Denies pain. tl4 EENT: Reports nasal congestion. Neuro: Level of Consciousness is awake, alert, obeys commands, Oriented to person, place, time, situation. Cardiovascular: Capillary refill < 3 seconds Patient's skin is warm and dry. Respiratory: Reports cough that is Airway is patent Respiratory effort is even, unlabored, Respiratory pattern is regular, symmetrical. GI: Reports diarrhea, nausea, vomiting. : No signs and/or symptoms were reported regarding the genitourinary system. Derm: No signs and/or symptoms reported regarding the dermatologic system. Musculoskeletal: No signs and/or symptoms reported regarding the musculoskeletal system. Historical: - Allergies: 17:37 No Known Allergies; tl4 - PMHx: 17:37 Asthma; Breathing Problems; Diabetes - NIDDM; heart problems; Hyperlipidemia; tl4 Hypertension; kidney problems; tremors; - PSHx: 17:38 Watchman procedure; tl4 - Immunization history:: Adult Immunizations unknown. - Infectious Disease History:: Denies. - Social history:: Smoking status: Patient/guardian denies using tobacco, the patient reports quitting approximately 20 years ago. Screenin:07 [facility] ED Fall Risk Assessment (Adult) History of falling in the last 3 months, ko1 including since admission No falls in past 3 months (0 pts) Confusion or Disorientation No (0 pts) Intoxicated or Sedated No (0 pts) Impaired Gait Yes (1 pt) Mobility Assist Device Used Yes (1 pt) Altered Elimination No (0 pt) Score/Fall Risk Level 0 - 2 = Low Risk Oriented to surroundings, Maintained a safe environment, Educated pt \T\ family on fall prevention, incl call for assistance when getting out of bed, Provided non-skid footwear, Hourly rounding (assess needs \T\ fall precautionary measures) done, Used ambulatory aids as needed (educated on \T\ assisted with). Abuse screen: Denies threats or abuse. Nutritional screening: No deficits noted. Tuberculosis screening: No symptoms or risk factors identified. Assessment: 19:07 General: Appears in no apparent distress. comfortable, Behavior is calm, cooperative, ko1 appropriate for age. Pain: Denies pain. Neuro: No deficits noted. Level of Consciousness is awake, alert, obeys commands, Oriented to person, place, time, situation, Appropriate for age. Cardiovascular: Denies chest pain, Capillary refill < 3 seconds Patient's skin is warm and dry. Rhythm is sinus tachycardia. Respiratory: Airway is patent Respiratory effort is even, unlabored, Respiratory pattern is regular, symmetrical, Breath sounds are diminished bilaterally. GI: No signs and/or symptoms were reported involving the gastrointestinal system. : No signs and/or symptoms were reported regarding the genitourinary system. EENT: No signs and/or symptoms were reported regarding the EENT system. Derm: No signs and/or symptoms reported regarding the dermatologic system. Musculoskeletal: No signs and/or symptoms reported regarding the musculoskeletal system. Vital Signs: 17:35 BP 118 / 64; Pulse 94; Resp 16; Temp 100.9(O); Pulse Ox 94% on R/A; Weight 66.68 kg; tl4 Height 5 ft. 1 in. ; 19:07 BP 100 / 57; Pulse 121; Resp 23; Temp 101.1; Pulse Ox 96% on R/A; Pain 0/10; ko1 20:24 BP 90 / 52; Pulse 110; Resp 23; Temp 99.8; Pulse Ox 96% on R/A; Pain 0/10; ko1 17:35 Body Mass Index 27.78 (66.68 kg, 154.94 cm) tl4 19:07 Pain Scale: Adult ko1 20:24 Pain Scale: Adult ko1 [place] Coma Score: 19:07 Eye Response: spontaneous(4). Motor Response: obeys commands(6). Verbal Response: ko1 oriented(5). Total: 15. ED Course: 17:06 Patient arrived in ED. ts1 17:07 Chris Grajeda MD is Attending Physician. ec2 17:37 Triage completed. tl4 17:40 Arm band placed on right wrist. tl4 18:08 SARS RAPID Sent. ko1 18:08 CBC with Diff Sent. ko1 18:08 BMP Sent. ko1 18:08 Blood Culture Adult (2) Sent. ko1 18:08 Lactate w/ 2H reflex if indic. Sent. ko1 18:09 Protime (+inr) Sent. ko1 18:09 Ptt, Activated Sent. ko1 18:14 CXR XRAY In Process Unspecified. EDMS 18:22 Hermelinda Gaines, RN is Primary Nurse. ko1 18:54 Pee Alas MD is Hospitalizing Provider. ec2 19:07 Patient has correct armband on for positive identification. Placed in gown. Bed in low ko1 position. Call light in reach. Side rails up X2. Adult w/ patient. Client placed on continuous cardiac and pulse oximetry monitoring. NIBP monitoring applied. radiation monitor on. Pulse ox on. NIBP on. Door closed. Warm blanket given. Pillow given. Verbal reassurance given. Head of bed elevated. 19:07 No provider procedures requiring assistance completed. Inserted saline lock: 20 gauge ko1 in right antecubital area, using aseptic technique. Blood collected. Flushed with 10 mL NS. 20:33 Provided Education on: need for admission. ko1 20:33 Patient admitted, IV remains in place. ko1 Administered Medications: 18:01 Drug: DuoNeb Nebulize (3:1) (2.5 mg - 0.5 mg) 3 ml Nebulizer once Route: Nebulizer; ko1 18:35 Follow up: Response: No adverse reaction ko1 18:01 Drug: Acetaminophen PO 1000 mg PO once Route: PO; ko1 18:35 Follow up: Response: No adverse reaction ko1 18:08 Drug: NS 0.9% IV 1000 ml IV at 1 bolus Per protocol; 1000 mL bolus Route: IV; Rate: 1 ko1 bolus; Site: right forearm; 19:11 Follow up: Response: No adverse reaction; IV Status: Completed infusion; IV Intake: ko1 1000ml 18:08 Drug: Ondansetron IVP 4 mg IVP once; over 2 minutes Route: IVP; Site: right forearm; ko1 18:23 Follow up: Response: No adverse reaction ko1 18:08 Drug: Rocephin IV 1 grams IV at calculated rate once; Given slow IV push per pharmacy ko1 instructions Route: IV; Rate: calculated rate; Site: right forearm; 18:23 Follow up: Response: No adverse reaction; IV Status: Completed infusion; IV Intake: 68fere8 18:34 Drug: AZITHromycin IVPB 500 mg IVPB once over 1 hrs; (mix in 250 mL NS) Route: IVPB; ko1 Infused Over: 1 hrs; Site: right forearm; 19:10 Follow up: Response: No adverse reaction; IV Status: Completed infusion; IV Intake: ko1 250ml 19:36 Drug: NS 0.9% IV (30 ml/kg) 30 ml/kg IV at bolus once; Sepsis Protocol, minus 1 liter ko1 Route: IV; Rate: bolus; Site: left antecubital; 20:24 Follow up: Response: No adverse reaction; IV Status: Completed infusion; IV Intake: ko1 1000ml 19:36 Drug: Ibuprofen PO 600 mg PO once Route: PO; ko1 20:24 Follow up: Response: No adverse reaction ko1 Medication: 19:07 VIS not applicable for this client. ko1 Intake: 18:23 IV: 50ml; Total: 50ml. ko1 19:10 IV: 250ml; Total: 300ml. ko1 19:11 IV: 1000ml; Total: 1300ml. ko1 20:24 IV: 1000ml; Total: 2300ml. ko1 Outcome: 18:54 Decision to Hospitalize by Provider. ec2 20:33 Admitted to Med/surg accompanied by nurse, via stretcher, room 209, ko1 20:33 Condition: stable 20:33 Instructed on the need for admit, Demonstrated understanding of instructions, follow-up care, 21:00 Patient left the ED. ko1 Signatures: Dispatcher [employer] Hermelinda Smallwood RN RN ko1 Anna Muñiz PAS PAS ts1 Chris Grajeda MD MD ec2 Cj Suh RN RN tl4 Corrections: (The following items were deleted from the chart) 17:39 17:37 PSHx: Watchman procedure (tremors); tl4 tl4
[2023-12-12 18:58] LABS: PT Prothrombin Time 14.3 SECONDS (9.4-12.5); PTT, Activated Partial Thromb 28.5 SECONDS (24.3-36.9); Protime INR 1.29
[2023-12-12 19:11] LABS: SARS-CoV-2 Antigen CONTROL BLUE LINE VIS/BG OK; SARS-CoV-2 Antigen Rapid Res Negative (Negative)
--- NOTE | 2023-12-12 19:11 | RAD REPORT ---
EXAM DESCRIPTION: RADChest Single View12/12/2023 6:12 pm CLINICAL HISTORY: COUGH COMPARISON: Chest Single View dated 07/16/2023; Chest Single View dated 12/31/2022; Chest Single View d ated 09/14/2020; Chest Pa And Lat (2 Views) dated 09/11/2020; Abdomen Pelvis W Contrast dated 07/16/2023 TECHNIQUE: Portable AP view of the chest. FINDINGS: Stable patchy right basilar airspace opacification. No pneumothorax or effusion. The card iomediastinal contours are unremarkable. IMPRESSION: Stable right basilar airspace opacification. Of note, region of bronchiectasis fluid was noted in that region on a prior CT. The findings may reflect atelectasis or unresolved pneumonia.
[2023-12-12] MEDS ORDERED: IBUPROFEN 200 MG TAB PO ONE (19:27)
[2023-12-12] MEDS ORDERED: ONDANSETRON 4 MG/2 ML VIAL IV PRN (19:41)
--- NOTE | 2023-12-12 19:41 | P.HP ---
Certification for Inpatient Patient admitted to: Inpatient With expected LOS: >2 Midnights Practitioner: I am a practitioner with admitting privileges, knowledge of patient current condition, hospital course, and medical plan of care. Services: Services provided to patient in accordance with Admission requirements found in Title 42 Section 412.3 of the Code of Federal Regulations Patient History Date of Service: 12/12/23 Reason for admission: Pneumonia History of Present Illness: 83 yrs old Male with a past medical history of asthma, diabetes, hypertension, hyperlipidemia , atrial fibrillation, CHF, status post watchman's procedure, CKD stage II and tremors started having upper respiratory symptoms and cough and cold symptoms . Reports that he been having productive sputum along with nausea as well as diarrhea and bodyaches. Some fevers at home, has been taking Advil. A bout of vomiting earlier today as well. Cough is productive with mucoid expectoration. No hemoptysis . Denies any chest pain or shortness of breath The patient was assessed in the ER and was admitted for further management of pneumonia Allergies No Known Allergies Allergy (Verified 07/05/18 13:30) Home medications list reviewed: Yes Home Medications: Amiodarone HCl [Cordarone*] 200 mg PO DAILY 05/11/20 Linagliptin [Tradjenta] 5 mg PO DAILY 07/05/20 Gabapentin [Neurontin*] 100 mg PO BEDTIME 09/08/20 Ferrous Gluconate 324 mg PO DAILY 09/30/21 Ropinirole HCl 0.25 mg PO DAILY 09/30/21 Clopidogrel Bisulfate [Plavix*] 75 mg PO DAILY 07/16/23 Losartan Potassium 25 mg PO DAILY 07/16/23 Montelukast [Singulair*] 10 mg PO DAILY 07/16/23 Albuterol Inhaler [Ventolin Inhaler*] 2 puff IH Q6H PRN 30 Days #30 inh 07/18/23 Albuterol Neb [Proventil 0.083% Neb Soln] 2.5 mg IH QIDP PRN 30 Days #100 ml 07/18/23 Azithromycin [Zithromax] 500 mg PO DAILY 5 Days #5 tab 07/18/23 Nebulizer and Compressor [[place] Choice Nebulizer] 1 each MC QID PRN 90 Days #1 ea 07/18/23 - Past Medical/Surgical History Diabetic: Yes Past Medical History: Reviewed- Non-Contributory -: Diabetes mellitus type 2 [id number] -: Hyperlipidemia -: Hypertension -: COPD -: GERD -: Atrial fibrillation -: Essential tremors -: Chronic diastolic congestive heart failure Past Surgical History: Reviewed- Non-Contributory -: Hip Replacement -: Cardioversion 2015 Psychosocial/ Personal History: Patient is - Family History Family History: Reviewed- Non-Contributory - Social History Smoking Status: Former smoker Alcohol use: Yes CD- Drugs: No Caffeine use: Yes Review of Systems 10-point ROS is otherwise unremarkable Physical Examination - Vital Signs Temperature: 100.9 F Blood Pressure: 118/64 Pulse: 94 Respirations: 18 Pulse Ox (%): 94 - Physical Exam General: Alert, In no apparent distress, Oriented x3 HEENT: Atraumatic, Normocephalic Neck: Supple Respiratory: Diminished, Crackles/rales Cardiovascular: Normal pulses, Regular rate/rhythm, Normal S1 S2 Capillary refill: <2 Seconds Gastrointestinal: Soft and benign, W/out hepatosplenomegaly Musculoskeletal: No clubbing, No swelling Integumentary: No rashes, No breakdown Neurological: Normal strength at 5/5 x4 extr, Sensation intact, Cranial nerves 3-12 intact Lymphatics: No axilla or inguinal lymphadenopathy - Studies Laboratory Data (last 24 hrs) 12/12/23 12/12/23 12/12/23 18:05 18:05 18:05 WBC 16.10 H Hgb 11.3 L Hct 34.2 L Plt Count 208 PT 14.3 H INR 1.29 APTT 28.5 Sodium 134 L Potassium 5.0 BUN 43 H Creatinine 2.06 H Glucose 188 H Assessment and Plan - Problems (Diagnosis) (1) Pneumonia Current Visit: No Status: Resolved Plan: Right lower lobe pneumonia Started on IV antibiotic Will obtain cultures Change antibiotic as per sensitivity X-ray findings noted consistent with right lower lobe pneumonia Asthma No exacerbation noted Started on bronchodilators as needed Continue home medications and titrate as needed Hypertension Antihypertensives titrated Continue home medications and titrate as needed Hyperlipidemia Continue statin CKD stage II Monitor renal parameters Electrolytes monitor and replace accordingly Diabetes Insulin sliding scale Accu-Chek before every meal and at bedtime History of atrial fibrillation Continue amiodarone Status post watchman's procedure Monitor closely under telemetry Leukocytosis Acute kidney injury Hyponatremia Lactic acidosis Started on IV hydration Renal parameters monitor Electrolytes monitor and replace accordingly Monitor CBC in a.m. Lactic acid levels trended GI/DVT prophylaxis Advanced directive full code Qualifiers: Pneumonia type: due to unspecified organism Laterality: right Lung location: lower lobe of lung Qualified Code(s): J18.9 - Pneumonia, unspecified organism Discharge Plan: Home Plan to discharge in: 48 Hours - Advance Directives Does patient have a Living Will: No Does patient have a Durable POA for Healthcare: No - Code Status/Comfort Care Code Status: Full Code Time Spent Managing Pts Care (In Minutes): 48
[2023-12-12 19:58] LABS: Band Neutrophils 18 % (0-1); Differential Total Cells Count 100; Lymphocytes 3 % (15-42); Monocytes 6 % (0-10); Segmented Neutrophils 73 % (40-80)
[2023-12-12 19:59] LABS: Blood Morphology Comment NOT SEEN (NOT SEEN); Platelet Estimate ADEQ; Platelets Clumped FEW
[2023-12-12] MEDS: NA CHLORIDE 0.9% 1,000 ML IV SCH (21:31)
[2023-12-12 22:10] VITALS: BMI 30.8
[2023-12-12] MEDS ORDERED: ALBUTEROL INHALER 200 PUFF/6.7 GM IH PRN (23:04)
[2023-12-13] MEDS: NA CHLORIDE 0.9% 1,000 ML IV SCH (00:22)
[2023-12-13] MEDS: IPRATROPIUM BROM 0.5MG/2.5ML NEB SCH (01:05)
[2023-12-13 04:35] LABS: Specific Gravity 1.018 (1.005-1.030); Sqamous Epithelial <5 /HPF (None Seen); Urine Bacteria <20 /HPF (<20); Urine Bilirubin NEGATIVE (Negative); Urine Blood Negative (Negative); Urine Clarity Turbid (Clear); Urine Color Yellow (Yellow); Urine Culture Reflex Order NOT NEEDED; Urine Glucose NEGATIVE (Negative); Urine Ketones NEGATIVE (Negative); Urine Microscopic Reflex YN ORDER UMIC; Urine Mucus Slight /HPF (None Seen); Urine Nitrite NEGATIVE (Negative); Urine Protein TRACE (Negative); Urine RBC <5 /HPF (None Seen); Urine Urobilinogen Normal (Normal); Urine WBC <5 /HPF (<5); Urine pH 5.5 (5.0-7.0)
[2023-12-13 06:02] LABS: Absolute Lymphocytes (CBC) 1.2 K/uL (0.7-4.9); Absolute Monocytes 0.8 K/uL (0.1-1.3); Absolute Neutrophil 11.6 K/uL (1.8-8.0); Basophils % 0.2 % (0-1.3); Eosinophils % 0.3 % (0-4.4); Hematocrit 28.2 % (39.6-49.0); Lymphocytes % 8.8 % (15.3-44.8); MCH 30.6 pg (27.0-35.0); MCV 95.5 fL (80-100); MPV 7.4 fL (7.6-11.3); Monocytes % 6.1 % (3.3-12.3); Neutrophils % 84.6 % (41.7-73.7); Platelets 150 thou/uL (152-406); RBC Red Blood Cell Count 2.95 M/uL (4.33-5.43); Red Cell Distribution Width 16.4 % (12.1-15.2)
[2023-12-13 06:25] LABS: Albumin 2.3 g/dL (3.4-5.0); Albumin/Globulin Ratio 0.7 (1.1-1.8); Anion Gap 10.3 mEq/L (5.0-15.0); Bilirubin Total 0.6 mg/dL (0.2-1.0); Globulin 3.5 g/dL (2.3-3.5); Potassium 4.3 mEq/L (3.5-5.1); Protein, Total 5.8 g/dL (6.4-8.2)
[2023-12-13] MEDS: ROPINIROLE HCL 0.25 MG TAB PO SCH (08:35)
[2023-12-13] MEDS: ENOXAPARIN 30 MG/0.3 ML SQ SCH (08:35)
[2023-12-13] MEDS: CEFTRIAXONE 1,000 MG in NA CHLORIDE 0.9% 50 ML IVPB SCH (08:35)
[2023-12-13] MEDS: CLOPIDOGREL 75 MG TABLET PO SCH (08:35)
[2023-12-13] MEDS: AMIODARONE HCL 200 MG TAB PO SCH (08:35)
[2023-12-13] MEDS: AZITHROMYCIN IV 500 MG in NA CHLORIDE 0.9% 250 ML IVPB SCH (08:37)
[2023-12-13 09:26] LABS: Magnesium 1.9 mg/dL (1.6-2.4); Phosphorus 3.7 mg/dL (2.5-4.9)
--- NOTE | 2023-12-13 12:29 | EKG ---
Test Date: 2023-12-12 Test Time: 17:53:27 Certification And Selection Specialist: BETTE MEASUREMENT RESULTS: Intervals: Rate: 106 TX: 218 QRSD: 86 QT: 324 QTc: 430 [place]: P: 70 TX: 218 QRS: -25 T: 47 INTERPRETIVE STATEMENTS: Sinus tachycardia with 1st degree AV block Otherwise normal ECG Compared to ECG 12/31/2022 13:33:19 First degree AV block now present Sinus rhythm no longer present Left-axis deviation no longer present Electronically Signed On 12-13-23 12:28:37 CDT by Jhon Araujo
--- NOTE | 2023-12-13 13:28 | P.PN ---
Subjective Date of Service: 12/13/23 Chief Complaint: Pneumonia Patient states he feels better today. He reports improvement in his shortness of breath. No recorded fever since admission Physical Examination - Vital Signs Temperature: 97.8 F Blood Pressure: 114/59 Pulse: 103 Respirations: 22 Pulse Ox (%): 97 - Studies Laboratory Data (last 24 hrs) 12/12/23 12/12/23 12/12/23 18:05 18:05 18:05 WBC 16.10 H Hgb 11.3 L Hct 34.2 L Plt Count 208 PT 14.3 H INR 1.29 APTT 28.5 Sodium 134 L Potassium 5.0 BUN 43 H Creatinine 2.06 H Glucose 188 H Assessment And Plan - Plan Physical examination General: Alert and oriented x3, NAD, HEENT: Conjunctiva not pale, anicteric sclera Neck: Supple, no elevated JVD Heart: Heart sounds 1 and 2 normal, regular rhythm, normal rate, no pedal edema Lungs: Mild bibasilar Rales, adequate breath sounds bilaterally, no rhonchi. Abdomen: Soft, nondistended, nontender, normal bowel sounds. Extremities: No tenderness, no deformity Skin: Normal skin turgor, no rash, no nodules or ulcers. Neuro: No focal motor deficit. Normal speech. Psychiatry: Normal mood, no agitation. Assessment and plan Right lower lobe pneumonia POA Sepsis POA Continue IV Rocephin and azithromycin Follow cultures Asthma No exacerbation noted Continue bronchodilators Hypertension Hold home dose losartan due to borderline low blood pressure. Monitor BP closely Hyperlipidemia Continue statin Acute on chronic kidney disease stage III Encourage oral hydration Monitor renal function Diabetes Insulin sliding scale Chronic atrial fibrillation Continue amiodarone Status post watchman's procedure Euvolemic hyponatremia Hyponatremia resolved. Monitor renal function. DVT prophylaxis: Lovenox Advanced directive full code
[2023-12-13] MEDS: GABAPENTIN 100 MG CAP PO SCH (20:28)
[2023-12-14] MEDS: guaiFENesin 100 MG/5 ML UCUP PO PRN (00:44)
[2023-12-14 06:03] LABS: Absolute Eosinophils 0.2 K/uL (0-0.5); Absolute Lymphocytes (CBC) 0.9 K/uL (0.7-4.9); Absolute Monocytes 0.7 K/uL (0.1-1.3); Absolute Neutrophil 9.8 K/uL (1.8-8.0); Basophils % 0.2 % (0-1.3); Eosinophils % 1.5 % (0-4.4); Hematocrit 28.7 % (39.6-49.0); Hemoglobin 9.3 g/dL (13.6-17.9); Lymphocytes % 7.8 % (15.3-44.8); MCH 31.1 pg (27.0-35.0); MCHC 32.5 g/dL (32.0-36.0); MCV 95.7 fL (80-100); MPV 7.7 fL (7.6-11.3); Monocytes % 6.3 % (3.3-12.3); Neutrophils % 84.2 % (41.7-73.7); Platelets 151 thou/uL (152-406); Red Cell Distribution Width 16.7 % (12.1-15.2)
[2023-12-14 06:21] LABS: Anion Gap 10.5 mEq/L (5.0-15.0); Potassium 4.5 mEq/L (3.5-5.1)
--- NOTE | 2023-12-14 08:48 | P.DS ---
Admission Date: 12/12/23 Discharge Date: 12/14/23 Disposition: ROUTINE DISCHARGE Discharge Condition: GOOD Reason for Admission: Pneumonia - Problems (1) Pneumonia Current Visit: No Status: Acute Qualifiers: Pneumonia type: due to unspecified organism Laterality: right Lung location: lower lobe of lung Qualified Code(s): J18.9 - Pneumonia, unspecified organism (2) HTN (hypertension) Onset Date: 08/09/17 Current Visit: No Status: Acute Qualifiers: Hypertension type: primary hypertension Qualified Code(s): I10 - Essential (primary) hypertension (3) Atrial fibrillation with RVR Current Visit: No Status: Chronic (4) Diabetes mellitus Onset Date: 08/09/17 Current Visit: No Status: Chronic Qualifiers: Diabetes mellitus type: type 2 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 He was admitted to the hospitalis Hospital Course: Patient was admitted for pneumonia. Placed on zithromax and ceftriaxone. Blood cultures are negative after 2 days. He is at his baseline creatine. No fevers for the past 24 hrs. He does not seem to have ambulated well. Will have him seen by PT. If he can ambulate well. He may need home health or to stay another day. Will see if after he is assessed. Vital Signs/Physical Exam: Temp Pulse Resp BP Pulse Ox 98.7 F 82 18 127/60 98 12/14/23 08:00 12/14/23 08:00 12/14/23 08:00 12/14/23 08:00 12/14/23 08:00 General: Alert, In no apparent distress HEENT: Atraumatic, PERRLA, EOMI Neck: Supple, JVD not distended Respiratory: Clear to auscultation bilaterally, Normal air movement Cardiovascular: Regular rate/rhythm, Normal S1 S2 Gastrointestinal: Normal bowel sounds, No tenderness Musculoskeletal: No tenderness Integumentary: No rashes Neurological: Normal speech, Normal tone, Normal affect Lymphatics: No axilla or inguinal lymphadenopathy Laboratory Data at Discharge: WBC 11.70 thou/uL (4.3-10.9) H 12/14/23 05:05 Hgb 9.3 g/dL (13.6-17.9) L 12/14/23 05:05 Hct 28.7 % (39.6-49.0) L 12/14/23 05:05 Plt Count 151 thou/uL (152-406) L 12/14/23 05:05 PT 14.3 SECONDS (9.4-12.5) H 12/12/23 18:05 INR 1.29 12/12/23 18:05 APTT 28.5 SECONDS (24.3-36.9) 12/12/23 18:05 Sodium 141 mEq/L (136-145) 12/14/23 05:05 Potassium 4.5 mEq/L (3.5-5.1) 12/14/23 05:05 BUN 31 mg/dL (7-18) H 12/14/23 05:05 Creatinine 1.46 mg/dL (0.70-1.30) H 12/14/23 05:05 Glucose 128 mg/dL (74-106) H 12/14/23 05:05 Phosphorus 3.7 mg/dL (2.5-4.9) 12/13/23 08:50 Magnesium 1.9 mg/dL (1.6-2.4) 12/13/23 08:50 Total Bilirubin 0.6 mg/dL (0.2-1.0) 12/13/23 05:47 AST 19 U/L (15-37) 12/13/23 05:47 ALT 21 U/L (16-61) 12/13/23 05:47 Alkaline Phosphatase 87 U/L (45-117) 12/13/23 05:47 Home Medications: Amiodarone HCl [Cordarone*] 200 mg PO DAILY 05/11/20 Linagliptin [Tradjenta] 5 mg PO DAILY 07/05/20 Gabapentin [Neurontin*] 100 mg PO BEDTIME 09/08/20 Ferrous Gluconate 324 mg PO DAILY 09/30/21 Ropinirole HCl 0.25 mg PO DAILY 09/30/21 Clopidogrel Bisulfate [Plavix*] 75 mg PO DAILY 07/16/23 Losartan Potassium 25 mg PO DAILY 07/16/23 Montelukast [Singulair*] 10 mg PO DAILY 07/16/23 Albuterol Inhaler [Ventolin Inhaler*] 2 puff IH Q6H PRN 30 Days #30 inh 07/18/23 Albuterol Neb [Proventil 0.083% Neb Soln] 2.5 mg IH QIDP PRN 30 Days #100 ml 07/18/23 Azithromycin [Zithromax] 500 mg PO DAILY 5 Days #5 tab 07/18/23 Nebulizer and Compressor [[place] Nebulizer] 1 each MC QID PRN 90 Days #1 ea 07/18/23 Albuterol [Proventil] 17 gm IH Q6HP PRN 30 Days #1 inhaler 12/14/23 Benzonatate 100 mg PO TID PRN #21 12/14/23 Levofloxacin [Levaquin] 500 mg PO DAILY #7 tab 12/14/23 New Medications: Benzonatate 100 mg PO TID PRN #21 PRN Reason: Cough Levofloxacin [Levaquin] 500 mg PO DAILY #7 tab Albuterol [Proventil] 17 gm IH Q6HP PRN 30 Days #1 inhaler PRN Reason: Shortness Of Breath Diet: ADA Followup: Richard Lee MD [Primary Care Provider] - 1 Week Time spent managing pt's care (in minutes): 45
[2023-12-14] MEDS: Meropenem 1,000 MG in NA CHLORIDE 0.9% 100 ML IV SCH (10:26)
[2023-12-14] MEDS ORDERED: D50W 25 GM/50 ML SYRINGE IV PRN (11:09)
[2023-12-14] MEDS ORDERED: GLUCAGON 1 MG/VIAL IM PRN (11:09)
[2023-12-14] MEDS ORDERED: D10W 125 ML IV PRN (11:14)
[2023-12-14] MEDS: ALBUTEROL 2.5 MG/3 ML NEB SOL NEB PRN (12:05)
[2023-12-14] MEDS: INSULIN LISPRO 100 UNIT/ML SQ SCH (12:13)
[2023-12-14] MEDS: ACETAMINOPHEN 325 MG TABLET PO PRN (19:59)
--- NOTE | 2023-12-15 08:12 | P.PN ---
Subjective Date of Service: 12/15/23 Primary Care Provider: Jesus Chief Complaint: Pneumonia discharge held due to gram positive rods on his gram stain Review of Systems 10-point ROS is otherwise unremarkable Physical Examination - Vital Signs Temperature: 97.3 F Blood Pressure: 122/64 Pulse: 85 Respirations: 18 Pulse Ox (%): 95 - Physical Exam General: Alert, In no apparent distress HEENT: Atraumatic, PERRLA, EOMI Neck: Supple, JVD not distended Respiratory: Clear to auscultation bilaterally, Normal air movement Cardiovascular: Regular rate/rhythm, Normal S1 S2 Gastrointestinal: Normal bowel sounds, No tenderness Musculoskeletal: No tenderness Integumentary: No rashes Neurological: Normal speech, Normal tone, Normal affect Lymphatics: No axilla or inguinal lymphadenopathy Assessment And Plan - Current Problems (Diagnosis) (1) Pneumonia Current Visit: No Status: Acute Plan: Patient is on zithromax and meropenem. Awaiting cultures. Would like to send him home on oral medications. 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
--- NOTE | 2023-12-15 17:33 | RAD REPORT ---
EXAM DESCRIPTION: RAD - Chest Single View - 12/15/2023 5:25 pm CLINICAL HISTORY: picc line placement COMPARISON: Chest Single View dated 12/12/2023; Chest Single View dated 07/16/2023; Chest Single View d ated 12/31/2022; Chest Single View dated 09/14/2020 FINDINGS: Portable chest was obtained following placement of a right upper extremity PICC line. The catheter tip projects over the SVC.
[2023-12-15] MEDS: Mupirocin NASAL 2 APPL/1 GM TUBE NAS SCH (21:31)
--- NOTE | 2023-12-16 08:33 | P.PN ---
Subjective Date of Service: 12/16/23 Primary Care Provider: Jesus Chief Complaint: Pneumonia Subjective: No new changes discharge held due to gram positive rods on his gram stain Review of Systems 10-point ROS is otherwise unremarkable Respiratory: Cough Physical Examination - Vital Signs Temperature: 97.4 F Blood Pressure: 173/81 Pulse: 84 Respirations: 20 Pulse Ox (%): 95 - Physical Exam General: Alert, In no apparent distress HEENT: Atraumatic, PERRLA, EOMI Neck: Supple, JVD not distended Respiratory: Clear to auscultation bilaterally, Expiratory wheezes Cardiovascular: Regular rate/rhythm, Normal S1 S2 Gastrointestinal: Normal bowel sounds, No tenderness Musculoskeletal: No tenderness Integumentary: No rashes Neurological: Normal speech, Normal tone, Normal affect Lymphatics: No axilla or inguinal lymphadenopathy - Studies Microbiology Data (last 24 hrs): 12/12/23 18:05 Blood - Blood Blood Culture Gram Stain - Final Assessment And Plan - Current Problems (Diagnosis) (1) Pneumonia Current Visit: No Status: Acute Plan: Patient is on zithromax and meropenem. Awaiting cultures. Would like to send him home on oral medications. 8.1 picc line placed. awaiting placement. Had a meeting with his family last night. The patient does not have enough family support as his daughters have to work. The patient will be better off placed in an infusion center. Qualifiers: Pneumonia type: due to unspecified organism Laterality: right Lung location: lower lobe of lung Qualified Code(s): J18.9 - Pneumonia, unspecified organism (2) HTN (hypertension) Onset Date: 08/09/17 Current Visit: No Status: Acute Qualifiers: Hypertension type: primary hypertension Qualified Code(s): I10 - Essential (primary) hypertension (3) Atrial fibrillation with RVR Current Visit: No Status: Chronic (4) Diabetes mellitus Onset Date: 08/09/17 Current Visit: No Status: Chronic Qualifiers: Diabetes mellitus type: type 2 Diabetes mellitus intermediate designer insulin use: without half-way use Diabetes mellitus complication status: without complication Qualified Code(s): E11.9 - Type 2 diabetes mellitus without complications Discharge Plan: Home Plan to discharge in: 24 Hours - Code Status/Comfort Care Code Status Assessed: No Physician Review: Patient Assessed, Agree with Above Assessment and Plan Critical Care: No Time Spent Managing PTS Care (In Minutes): 20
[2023-12-16 10:20] LABS: Anion Gap 13.6 mEq/L (5.0-15.0); Potassium 4.6 mEq/L (3.5-5.1)
[2023-12-16] MEDS: FUROSEMIDE 20 MG/ 2ML VIAL IV SCH (12:57)
[2023-12-17 05:26] LABS: Absolute Eosinophils 0.1 K/uL (0-0.5); Absolute Lymphocytes (CBC) 1.5 K/uL (0.7-4.9); Absolute Monocytes 1.4 K/uL (0.1-1.3); Absolute Neutrophil 8.1 K/uL (1.8-8.0); Basophils % 0.3 % (0-1.3); Eosinophils % 0.5 % (0-4.4); Hematocrit 28.9 % (39.6-49.0); Hemoglobin 9.4 g/dL (13.6-17.9); Lymphocytes % 13.4 % (15.3-44.8); MCH 31.2 pg (27.0-35.0); MCHC 32.4 g/dL (32.0-36.0); MCV 96.3 fL (80-100); MPV 7.4 fL (7.6-11.3); Monocytes % 12.9 % (3.3-12.3); Neutrophils % 72.9 % (41.7-73.7); Platelets 165 thou/uL (152-406); Red Cell Distribution Width 15.8 % (12.1-15.2)
[2023-12-17 05:39] LABS: Anion Gap 13.4 mEq/L (5.0-15.0); Potassium 4.4 mEq/L (3.5-5.1)
[2023-12-17] MEDS ORDERED: FUROSEMIDE 20 MG/ 2ML VIAL IV SCH (09:00)
[2023-12-17 09:03] LABS: Band Neutrophils 3 % (0-1); Differential Total Cells Count 100; Eosinophils 2 % (0-3); Lymphocytes 19 % (15-42); Monocytes 7 % (0-10); Segmented Neutrophils 69 % (40-80)
[2023-12-17 09:04] LABS: Blood Morphology Comment NOTED (NOT SEEN); Hypochromasia 1+; Nucleated Red Blood Cells 1 /100WBC; Platelet Estimate ADEQ; Polychromasia 1+; Toxic Granulation 1+
--- NOTE | 2023-12-17 10:11 | P.PN ---
Subjective Date of Service: 12/17/23 Primary Care Provider: Jesus Chief Complaint: Pneumonia Subjective: New changes (swelling of the legs with a blister on each leg) discharge held due to gram positive rods on his gram stain Review of Systems 10-point ROS is otherwise unremarkable Cardiovascular: Edema (He has a blister on his leg as well. ) Physical Examination - Vital Signs Temperature: 97.7 F Blood Pressure: 127/66 Pulse: 101 Respirations: 17 Pulse Ox (%): 95 - Physical Exam General: Alert, In no apparent distress HEENT: Atraumatic, PERRLA, EOMI Neck: Supple, JVD not distended Respiratory: Clear to auscultation bilaterally, Normal air movement Cardiovascular: Regular rate/rhythm, Normal S1 S2 Gastrointestinal: Normal bowel sounds, No tenderness Musculoskeletal: No tenderness Integumentary: No rashes Neurological: Normal speech, Normal tone, Normal affect Lymphatics: No axilla or inguinal lymphadenopathy - Studies Microbiology Data (last 24 hrs): 12/12/23 17:50 Blood - Blood Miscellaneous Micro Reference Test - Final 12/12/23 18:05 Blood - Blood Blood Culture Gram Stain - Final Assessment And Plan - Current Problems (Diagnosis) (1) Pneumonia Current Visit: No Status: Acute Plan: Patient is on zithromax and meropenem. Awaiting cultures. Would like to send him home on oral medications. 8.1 picc line placed. awaiting placement. Had a meeting with his family last night. The patient does not have enough family support as his daughters have to work. The patient will be better off placed in an infusion center. Qualifiers: Pneumonia type: due to unspecified organism Laterality: right Lung location: lower lobe of lung Qualified Code(s): J18.9 - Pneumonia, unspecified organism (2) HTN (hypertension) Onset Date: 08/09/17 Current Visit: No Status: Acute Qualifiers: Hypertension type: primary hypertension Qualified Code(s): I10 - Essential (primary) hypertension (3) Atrial fibrillation with RVR Current Visit: No Status: Chronic (4) Diabetes mellitus Onset Date: 08/09/17 Current Visit: No Status: Chronic Qualifiers: Diabetes mellitus type: type 2 Diabetes mellitus longterm insulin use: without longterm use Diabetes mellitus complication status: without complication Qualified Code(s): E11.9 - Type 2 diabetes mellitus without complications (5) Edema Current Visit: Yes Status: Acute Plan: most likely cardiac. kidney function is at his baseline. Will increase his furosemide to 40mg for few days and decrease the swelling Qualifiers: Edema type: unspecified Qualified Code(s): R60.9 - Edema, unspecified Discharge Plan: LTAC Plan to discharge in: 24 Hours - Code Status/Comfort Care Code Status Assessed: No Physician Review: Patient Assessed, Agree with Above Assessment and Plan Critical Care: No Time Spent Managing PTS Care (In Minutes): 20
[2023-12-17] MEDS: FUROSEMIDE 20 MG/ 2ML VIAL IV ONE (12:46)
[2023-12-18 05:43] LABS: Absolute Eosinophils 0.3 K/uL (0-0.5); Absolute Lymphocytes (CBC) 1.2 K/uL (0.7-4.9); Absolute Monocytes 0.7 K/uL (0.1-1.3); Absolute Neutrophil 4.5 K/uL (1.8-8.0); Basophils % 0.3 % (0-1.3); Hematocrit 28.7 % (39.6-49.0); Hemoglobin 9.5 g/dL (13.6-17.9); Lymphocytes % 17.8 % (15.3-44.8); MCH 31.2 pg (27.0-35.0); MCV 94.4 fL (80-100); MPV 7.7 fL (7.6-11.3); Monocytes % 10.6 % (3.3-12.3); Neutrophils % 66.3 % (41.7-73.7); Nucleated Red Blood Cells % 0.1 % (0-0); Platelets 214 thou/uL (152-406); RBC Red Blood Cell Count 3.04 M/uL (4.33-5.43)
[2023-12-18 06:08] LABS: Anion Gap 9.6 mEq/L (5.0-15.0); Potassium 3.6 mEq/L (3.5-5.1)
[2023-12-18] MEDS: FUROSEMIDE 40 MG/4 ML VIAL IV SCH (09:09)
--- NOTE | 2023-12-18 12:40 | P.PN ---
Subjective Date of Service: 12/18/23 Primary Care Provider: Jesus Chief Complaint: Pneumonia continue diuresis Review of Systems 10-point ROS is otherwise unremarkable Cardiovascular: Edema Physical Examination - Vital Signs Temperature: 97.4 F Blood Pressure: 138/70 Pulse: 92 Respirations: 20 Pulse Ox (%): 92 - Physical Exam General: Alert, In no apparent distress HEENT: Atraumatic, PERRLA, EOMI Neck: Supple, JVD not distended Respiratory: Clear to auscultation bilaterally, Normal air movement Cardiovascular: Regular rate/rhythm, Normal S1 S2 Gastrointestinal: Normal bowel sounds, No tenderness Musculoskeletal: No tenderness Integumentary: No rashes Neurological: Normal speech, Normal tone, Normal affect Lymphatics: No axilla or inguinal lymphadenopathy - Studies Microbiology Data (last 24 hrs): 12/12/23 18:05 Blood - Blood Blood Culture Gram Stain - Final 12/12/23 18:05 Blood - Blood Anaerobic Blood Culture - Final No growth in 5 days. 12/12/23 17:50 Blood - Blood Anaerobic Blood Culture - Final No growth in 5 days. Assessment And Plan - Current Problems (Diagnosis) (1) Pneumonia Current Visit: No Status: Acute Plan: Patient is on zithromax and meropenem. Awaiting cultures. Would like to send him home on oral medications. 8.1 picc line placed. awaiting placement. Had a meeting with his family last night. The patient does not have enough family support as his daughters have to work. The patient will be better off placed in an infusion center. Qualifiers: Pneumonia type: due to unspecified organism Laterality: right Lung location: lower lobe of lung Qualified Code(s): J18.9 - Pneumonia, unspecified organism (2) HTN (hypertension) Onset Date: 08/09/17 Current Visit: No Status: Acute Qualifiers: Hypertension type: primary hypertension Qualified Code(s): I10 - Essential (primary) hypertension (3) Atrial fibrillation with RVR Current Visit: No Status: Chronic (4) Diabetes mellitus Onset Date: 08/09/17 Current Visit: No Status: Chronic Qualifiers: Diabetes mellitus type: type 2 Diabetes mellitus custodial insulin use: without custodial use Diabetes mellitus complication status: without complication Qualified Code(s): E11.9 - Type 2 diabetes mellitus without complications (5) Edema Current Visit: Yes Status: Acute Plan: most likely cardiac. kidney function is at his baseline. Will increase his furosemide to 40mg for few days and decrease the swelling 8.3 will continue furosemide. Mild elevation of the renal function. Will continue monitoring Qualifiers: Edema type: unspecified Qualified Code(s): R60.9 - Edema, unspecified Physician Review: Patient Assessed, Agree with Above Assessment and Plan
[2023-12-18] MEDS ORDERED: IPRATROPIUM BROM 0.5MG/2.5ML NEB PRN (16:25)
[2023-12-18] MEDS: MORPHINE 2 MG/ML SYR IV ONE (19:03)
[2023-12-19 06:07] LABS: Absolute Eosinophils 0.4 K/uL (0-0.5); Absolute Monocytes 0.6 K/uL (0.1-1.3); Absolute Neutrophil 5.9 K/uL (1.8-8.0); Basophils % 0.2 % (0-1.3); Eosinophils % 4.7 % (0-4.4); Hematocrit 28.2 % (39.6-49.0); Hemoglobin 9.3 g/dL (13.6-17.9); Lymphocytes % 13.2 % (15.3-44.8); MCH 31.4 pg (27.0-35.0); MCHC 33.2 g/dL (32.0-36.0); MCV 94.8 fL (80-100); MPV 7.6 fL (7.6-11.3); Monocytes % 7.8 % (3.3-12.3); Neutrophils % 74.1 % (41.7-73.7); Platelets 194 thou/uL (152-406); RBC Red Blood Cell Count 2.97 M/uL (4.33-5.43); Red Cell Distribution Width 15.9 % (12.1-15.2)
[2023-12-19] MEDS ORDERED: AZITHROMYCIN IV 500 MG in NA CHLORIDE 0.9% 250 ML IVPB SCH (10:00)
--- NOTE | 2023-12-19 11:08 | P.DS ---
Admission Date: 12/12/23 Discharge Date: 12/19/23 Primary Care Provider: Jesus Disposition: ROUTINE DISCHARGE Discharge Condition: GOOD Reason for Admission: Pneumonia - Problems (1) Pneumonia Current Visit: No Status: Acute Qualifiers: Pneumonia type: due to unspecified organism Laterality: right Lung location: lower lobe of lung Qualified Code(s): J18.9 - Pneumonia, unspecified organism (2) HTN (hypertension) Onset Date: 08/09/17 Current Visit: No Status: Acute Qualifiers: Hypertension type: primary hypertension Qualified Code(s): I10 - Essential (primary) hypertension (3) Atrial fibrillation with RVR Current Visit: No Status: Chronic (4) Diabetes mellitus Onset Date: 08/09/17 Current Visit: No Status: Chronic Qualifiers: Diabetes mellitus type: type 2 Diabetes mellitus penitentiary insulin use: 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 He was admitted to the hospitalis Hospital Course: Patient was admitted for pneumonia. Placed on zithromax and ceftriaxone. Blood cultures are negative after 2 days. He is at his baseline creatine. No fevers f or the past 24 hrs. He does not seem to have ambulated well. Will have him seen by PT. If he can ambulate well. He may need home health or to stay another day. Will see if after he is assessed. 12/18 was ready for discharge when his gram stain came back positive for gm +ve. He will need to be on 2 weeks of meropenem. The family was not able to do bid infusions. Will send him to an infusion center Vital Signs/Physical Exam: Temp Pulse Resp BP Pulse Ox 99.5 F 111 H 18 132/67 94 12/19/23 08:00 12/19/23 08:00 12/19/23 08:00 12/19/23 08:00 12/19/23 08:00 General: Alert, In no apparent distress HEENT: Atraumatic, PERRLA, EOMI Neck: Supple, JVD not distended Respiratory: Clear to auscultation bilaterally, Normal air movement Cardiovascular: Regular rate/rhythm, Normal S1 S2 Gastrointestinal: Normal bowel sounds, No tenderness Musculoskeletal: No tenderness Integumentary: No rashes Neurological: Normal speech, Normal tone, Normal affect Lymphatics: No axilla or inguinal lymphadenopathy Laboratory Data at Discharge: WBC 7.90 thou/uL (4.3-10.9) 12/19/23 04:52 Hgb 9.3 g/dL (13.6-17.9) L 12/19/23 04:52 Hct 28.2 % (39.6-49.0) L 12/19/23 04:52 Plt Count 194 thou/uL (152-406) 12/19/23 04:52 PT 14.3 SECONDS (9.4-12.5) H 12/12/23 18:05 INR 1.29 12/12/23 18:05 APTT 28.5 SECONDS (24.3-36.9) 12/12/23 18:05 Sodium 141 mEq/L (136-145) 12/18/23 04:58 Potassium 3.6 mEq/L (3.5-5.1) D 12/18/23 04:58 BUN 27 mg/dL (7-18) H 12/18/23 04:58 Creatinine 1.35 mg/dL (0.70-1.30) H 12/18/23 04:58 Glucose 134 mg/dL (74-106) H 12/18/23 04:58 Phosphorus 3.7 mg/dL (2.5-4.9) 12/13/23 08:50 Magnesium 1.9 mg/dL (1.6-2.4) 12/13/23 08:50 Total Bilirubin 0.6 mg/dL (0.2-1.0) 12/13/23 05:47 AST 19 U/L (15-37) 12/13/23 05:47 ALT 21 U/L (16-61) 12/13/23 05:47 Alkaline Phosphatase 87 U/L (45-117) 12/13/23 05:47 Home Medications: Amiodarone HCl [Cordarone*] 200 mg PO DAILY 05/11/20 Linagliptin [Tradjenta] 5 mg PO DAILY 07/05/20 Gabapentin [Neurontin*] 100 mg PO BEDTIME 09/08/20 Ferrous Gluconate 324 mg PO DAILY 09/30/21 Ropinirole HCl 0.25 mg PO DAILY 09/30/21 Clopidogrel Bisulfate [Plavix*] 75 mg PO DAILY 07/16/23 Losartan Potassium 25 mg PO DAILY 07/16/23 Montelukast [Singulair*] 10 mg PO DAILY 07/16/23 Albuterol Inhaler [Ventolin Inhaler*] 2 puff IH Q6H PRN 30 Days #30 inh 07/18/23 Albuterol Neb [Proventil 0.083% Neb Soln] 2.5 mg IH QIDP PRN 30 Days #100 ml 07/18/23 Azithromycin [Zithromax] 500 mg PO DAILY 5 Days #5 tab 07/18/23 Nebulizer and Compressor [[place] Nebulizer] 1 each MC QID PRN 90 Days #1 ea 07/18/23 Albuterol [Proventil] 17 gm IH Q6HP PRN 30 Days #1 inhaler 12/14/23 Benzonatate 100 mg PO TID PRN #21 12/14/23 Levofloxacin [Levaquin] 500 mg PO DAILY #7 tab 12/14/23 Furosemide 40 mg PO 5XD #5 tab 12/19/23 Meropenem-0.9% Sodium Chloride [Meropenem-0.9% NaCl 1 Gram/50] 1 gm IV Q12HR 9 Days ml 12/19/23 New Medications: Benzonatate 100 mg PO TID PRN #21 PRN Reason: Cough Furosemide 40 mg PO 5XD #5 tab Levofloxacin [Levaquin] 500 mg PO DAILY #7 tab Meropenem-0.9% Sodium Chloride [Meropenem-0.9% NaCl 1 Gram/50] 1 gm IV Q12HR 9 Days ml Albuterol [Proventil] 17 gm IH Q6HP PRN 30 Days #1 inhaler PRN Reason: Shortness Of Breath Diet: ADA Followup: Richard Lee MD [Primary Care Provider] - 1-2 Weeks Time spent managing pt's care (in minutes): 25
[2023-12-19] MEDS ORDERED: MORPHINE 2 MG/ML SYR IV ONE (16:32)
[2023-12-20 07:42] VITALS: O2SAT 95
[2023-12-20] MEDS: AZITHROMYCIN IV 500 MG in NA CHLORIDE 0.9% 250 ML IVPB SCH (07:50)
[2023-12-20] MEDS: FUROSEMIDE 20 MG/ 2ML VIAL IV SCH (07:50)
[2023-12-20 07:52] VITALS: BP 131/56
[2023-12-20 08:25] VITALS: TEMP 96.8
== END 2023-12-20 09:51 | DRG 871 ==
LOC: ER 16:36 → ERHOLD 19:41 → 2ND 20:29
PROVIDERS: ADMIT Family Medicine; ATTEND Internal Medicine
PROC: 02HV33Z Insertion of Infusion Device into Superior Vena Cava, Percutaneous Approach (ICD-10-PCS; principal; 2023-12-15)
DX: A41.9 Sepsis, unspecified organism (principal); J18.9 Pneumonia, unspecified organism; E87.20 Acidosis, unspecified; J44.0 Chronic obstructive pulmonary disease with (acute) lower respiratory infection; I50.32 Chronic diastolic (congestive) heart failure; I13.0 Hypertensive heart and chronic kidney disease with heart failure and stage 1 through stage 4 chronic kidney disease, or unspecified chronic kidney disease; N17.9 Acute kidney failure, unspecified; E87.1 Hypo-osmolality and hyponatremia; I48.20 Chronic atrial fibrillation, unspecified; N18.30 Chronic kidney disease, stage 3 unspecified; E11.22 Type 2 diabetes mellitus with diabetic chronic kidney disease; D63.1 Anemia in chronic kidney disease; E78.5 Hyperlipidemia, unspecified; J45.909 Unspecified asthma, uncomplicated; K21.9 Gastro-esophageal reflux disease without esophagitis; R60.9 Edema, unspecified; Z11.52 Encounter for screening for COVID-19; Z79.02 Long term (current) use of antithrombotics/antiplatelets; Z87.891 Personal history of nicotine dependence; Z79.899 Other long term (current) drug therapy
CPT/HCPCS: 36415; 71045; 80048; 80053; 81001; 82947; 83605; 83735; 84100; 85025; 85610; 85730; 87040; 87205; 87811; 93005; 94640; 94760; 97116; 97161; 97530; 99285; J0696; J1650; J1815; J1940; J2185; J2270; J2405; J7030; J7050; J7613; J7644